=== PATIENT | male | born 1940 | race Caucasian/White ===

== ENCOUNTER 2017-10-01 06:43 | Emergency (ER) | payer MEDICARE, SELFPAY ==
[2017-10-01 06:49] VITALS: BP 142/92; PULSE 59; RESP 24; TEMP 36.4; O2SAT 94; BMI 20.5
--- NOTE | 2017-10-01 07:06 | HMH.EDGENADL ---
ED Disposition Clinical Impression: Acute exacerbation of chronic obstructive airways disease Disposition: Home, Self-Care Condition on Discharge: Good Instructions: DI for Chronic Obstructive Pulmonary Disease Additional Instructions: Continue using albuterol inhaler 2 puffs 4 times a day. Additional instructions for SHORTNESS OF BREATH: See your physician as soon as possible for further evaluation. Return immediately if worsening shortness of breath or if vomiting, chest pain, fever, coughing of blood, or passing out. Prescriptions: Albuterol Sulfate [Proair Hfa 90mcg/puff Inh] 2 puffs IH Q4HP PRN #1 inh PRN Reason: Shortness Of Breath Or Wheezing predniSONE [Prednisone 10mg Tab Dose-Pack] 10 mg PO DAILY #42 tab Referrals: Cayden Munoz MD [Primary Care Provider] - - Critical Care Critical Care Time: No Attestation: On , the high probability of a clinically significant, sudden or life threatening deterioration of the following system(s) required my full and direct attention, intervention and personal management. The time I documented below is in addition to time spent performing reported procedures but includes the following listed in this critical care notation. Medical Decision Making Vital Signs: 10/01/17 06:49 Temperature 97.5 F L Temperature Source Oral Pulse Rate [Left Radial] 59 L Respiratory Rate 24 Blood Pressure [Right Arm] 142/92 Blood Pressure Mean [Right Arm] 108 Blood Pressure Source [Right Arm] Automatic Cuff Blood Pressure Position [Right Arm] Sitting 02 Sat by Pulse Oximetry 94 L Oxygen Delivery Method Room Air Orders (Tests/Meds): ED MEDICATIONS Discontinued Medications Generic Name Dose Route Start Last Admin Trade Name Freq PRN Reason Stop Dose Admin Albuterol Sulfate 2.5 mg 10/01/17 07:04 Albuterol 0.083% 2.5mg/3ml [facility] 10/01/17 07:05 ONCE ONE Albuterol/Ipratropium 3 ml 10/01/17 07:20 Duoneb 3ml [facility] 10/01/17 07:21 ONCE ONE Methylprednisolone Sodium Succinate 125 mg 10/01/17 07:27 10/01/17 07:39 Solu-Medrol 125mg/2ml Vial IM 10/01/17 07:28 125 mg ONCE ONE Administration ORDERS Category Date Time Status XR chest 2V Stat Exams 10/01/17 07:12 Ordered - Radiology Data #1 Image(s): Chest X-ray interpreted by Padilla Mane M.D.: Collapse of left lower lobe with shift of mediastinum to the left. Compared to CT scan from April 05, no significant change to my interpretation. - Hoang Inquiry Pt receiving controlled substance: No Medical Decision Making Narrative: I discussed the patient's x-ray findings with him. He is aware of the left lower lobe collapse. He says that he was referred to a specialist in [place] and had bronchoscopy done after the CT showed this finding in March. He says they found no significant abnormalities. Proved after nebulizer treatment subjectively and objectively. General Adult HPI - General Chief complaint: Shortness of Breath/Dyspnea Stated complaint: DIFFICULTY BREATHING Mode of Arrival: Ambulatory Limitations: No Limitations Description of Symptoms (Recalled from ER Triage Doc. by RN): pt reports trouble breathing for last 4 days - History of Present Illness HPI narrative: The patient states that he has a history of COPD and is still a current smoker, states he has increased shortness of breath since about 2 or 3 AM. He denies any change in his chronic cough or sputum. His sputum is clear, as usual. He denies fever. No chest pain. No rhinorrhea or sore throat. No nausea or vomiting. No diaphoresis. He has been wheezing. He has an albuterol inhaler, but does not have a nebulizer. He has not been using his inhaler much, just a couple of times recently, and thinks it is just about out. He says he was seen at the [facility] about a week to 10 days ago. He says that at that time they thought he might be going into pneumonia and he was given a steroid
--- NOTE | 2017-10-01 07:12 | XR_ITS ---
XR chest 2V HISTORY: Shortness of air, current smoker ITS.REASON: soa ORDERING PHYSICIAN: Padilla Mane MD PATIENT AGE: 76 years COMPARISON: CT scan 04/05/2017 FINDINGS: Normal heart size. COPD. Left lower lobe collapse with effusion once again noted which was present on the previous CT scan. There is increased density in the left hilum however, this may be related to the overlying left pulmonary artery seen on face. The right lung is clear. No acute bony anomalies. Minimal atelectatic or fibrotic changes left upper lobe. IMPRESSION: COPD with left lower lobe collapse and left-sided effusion
[2017-10-01 07:20] VITALS: PULSE 54; PULSE 56
--- NOTE | 2017-10-01 07:27 | PC.NURSE ---
RT at bs for neb treatment
--- NOTE | 2017-10-01 07:30 | PC.NURSE ---
Pt to radiology
[2017-10-01 08:04] VITALS: BP 142/74; PULSE 55; RESP 20; TEMP 36.3; O2SAT 95
== END 2017-10-01 08:05 | disposition home or self-care (01) ==
PROVIDERS: Emergency Provider Emergency Medicine; Family Provider Internal Medicine Adolescent Medicine; PCP Internal Medicine Adolescent Medicine
DX: J44.1 Chronic obstructive pulmonary disease with (acute) exacerbation (principal); F17.210 Nicotine dependence, cigarettes, uncomplicated; Z79.899 Other long term (current) drug therapy
CPT/HCPCS: 71046; 96372; 99282

== ENCOUNTER 2017-10-04 13:20 | Emergency (ER) | payer MEDICARE, SELFPAY ==
[2017-10-04 13:25] VITALS: BP 159/115; PULSE 74; RESP 18; TEMP 36.8; O2SAT 93; BMI 20.4
--- NOTE | 2017-10-04 13:47 | XR_ITS ---
XR chest 2V HISTORY: Cough ITS.REASON: cough; second ER visit for same ORDERING PHYSICIAN: Stacey Aburto MD PATIENT AGE: 76 years COMPARISON: 10/01/2017 FINDINGS: There remains left lower lobe collapse with small effusion and mediastinal shift toward the left. Parenchymal opacity is present in the left midlung laterally similar to the previous exam. The right lung is clear. IMPRESSION: No change left lower lobe collapse with effusion and peripheral parenchymal opacity in the left midlung with mediastinal shift to the left.
--- NOTE | 2017-10-04 13:54 | HMH.EDSOB ---
ED Disposition Clinical Impression: Acute exacerbation of chronic obstructive airways disease, COPD exacerbation Disposition: Home, Self-Care Condition on Discharge: Good Instructions: DI for Chronic Obstructive Pulmonary Disease Additional Instructions: Stay on the same dose of prednisone until otherwise instructed by Dr. Munoz; continue inhalers; see Dr. Munoz in one to two days for recheck; continue to stay off the cigarettes, you're doing great! Prescriptions: predniSONE [Deltasone 5mg tablet] 5 mg PO BID 30 Days #60 tab Referrals: Cayden Munoz MD [Primary Care Provider] - - Critical Care Critical Care Time: No Attestation: On , the high probability of a clinically significant, sudden or life threatening deterioration of the following system(s) required my full and direct attention, intervention and personal management. The time I documented below is in addition to time spent performing reported procedures but includes the following listed in this critical care notation. Medical Decision Making Vital Signs: 10/04/17 13:25 10/04/17 14:06 10/04/17 14:32 Temperature 98.2 F Temperature Source Oral Pulse Rate 75 Pulse Rate [Radial] 74 77 Respiratory Rate 18 20 Blood Pressure [Left Arm] 159/115 144/72 Blood Pressure Mean [Left Arm] 129 96 Blood Pressure Source [Left Arm] Automatic Cuff Automatic Cuff Blood Pressure Position [Left Arm] Sitting Sitting 02 Sat by Pulse Oximetry 93 L 94 L Oxygen Delivery Method Room Air Room Air - Lab Data Lab results reviewed: Yes: I reviewed the patient's lab results. Lab Results 10/04/17 14:07: WBC 8.6, RBC 5.46, Hgb 16.6, Hct 50.6, MCV 92.7, MCH 30.4, MCHC 32.8, RDW 13.1, Plt Count 256, MPV 8.8, Neut % (Auto) 83.2 H, Lymph % (Auto) 11.8, [place] % (Auto) 3.8, Eos % (Auto) 1.0, Baso % (Auto) 0.1, Neut # (Auto) 7.1, Lymph # (Auto) 1.0, [place] # (Auto) 0.3, Eos # (Auto) 0.1, Baso # (Auto) 0.0 10/04/17 14:07: Sodium 143, Potassium 3.7, Chloride 103, Carbon Dioxide 30, Anion Gap 13.7, BUN 13, Creatinine 0.94, Estimated Creat Clear 59, Estimated GFR 78, Est GFR ( Amer) 95, Glucose 119 H, Calcium 8.9, Total Bilirubin 1.1 H, AST 30, ALT 34, Alkaline Phosphatase 120 H, Total Protein 7.3, Albumin 3.3 L, Globulin 4.0 H, Albumin/Globulin Ratio 0.8 L 10/04/17 14:07: Lactic Acid 2.4 H 10/04/17 14:50: Influenza Type A Ag Negative, Influenza Type B Ag Negative Result diagrams: 10/04/17 14:07 10/04/17 14:07 Orders (Tests/Meds): ED MEDICATIONS Discontinued Medications Generic Name Dose Route Start Last Admin Trade Name Freq PRN Reason Stop Dose Admin Albuterol/Ipratropium 3 ml 10/04/17 13:48 10/04/17 14:03 Duoneb 3ml Neb IH 10/04/17 13:49 3 ml ONCE ONE Administration - Radiology Data #1 Image(s): Chest Image Reviewed: Yes I reviewed the patient's radiology results, Yes I have reviewed radiologist's interpretation Preliminary Findings: Abnormal Change from prior. History of left lower lobe collapse. stable compared to chest x-ray from several days ago per radiologist. - Hoang Inquiry Pt receiving controlled substance: No Resp/SOB HPI - General Chief Complaint: Shortness of Breath/Dyspnea Stated Complaint: soa Mode of Arrival: Ambulatory Limitations: No Limitations Description of Symptoms (Recalled from ER Triage Doc. by RN): Short of breath - History of Present Illness Patient was seen in the ER 3 days ago secondary to shortness of breath. Was discharged home on albuterol inhaler and steroid taper. Has had increased wheezing over the past day or so. He has had a little bit of clear sputum. No leg or calf pain. No fever. No vomiting. He states that he is trying to quit smoking and uses a nicotine patch. 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 This was noted to be stable on chest x-ray on October 01, 2017 states that 6 months ago he underwent bronchoscopy and biopsy in [place]
--- NOTE | 2017-10-04 13:58 | ED_ITS ---
ED Disposition Clinical Impression: Acute exacerbation of chronic obstructive airways disease, COPD exacerbation Disposition: Home, Self-Care Condition on Discharge: Good Instructions: DI for Chronic Obstructive Pulmonary Disease Additional Instructions: Stay on the same dose of prednisone until otherwise instructed by Dr. Munoz; continue inhalers; see Dr. Munoz in one to two days for recheck; continue to stay off the cigarettes, you're doing great! Prescriptions: predniSONE [Deltasone 5mg tablet] 5 mg PO BID 30 Days #60 tab Referrals: Cayden Munoz MD [Primary Care Provider] - - Critical Care Critical Care Time: No Attestation: On , the high probability of a clinically significant, sudden or life threatening deterioration of the following system(s) required my full and direct attention, intervention and personal management. The time I documented below is in addition to time spent performing reported procedures but includes the following listed in this critical care notation. Medical Decision Making Vital Signs: 10/04/17 13:25 10/04/17 14:06 10/04/17 14:32 Temperature 98.2 F Temperature Source Oral Pulse Rate 75 Pulse Rate [Radial] 74 77 Respiratory Rate 18 20 Blood Pressure [Left Arm] 159/115 144/72 Blood Pressure Mean [Left Arm] 129 96 Blood Pressure Source [Left Arm] Automatic Cuff Automatic Cuff Blood Pressure Position [Left Arm] Sitting Sitting 02 Sat by Pulse Oximetry 93 L 94 L Oxygen Delivery Method Room Air Room Air - Lab Data Lab results reviewed: Yes: I reviewed the patient's lab results. Lab Results 10/04/17 14:07: WBC 8.6, RBC 5.46, Hgb 16.6, Hct 50.6, MCV 92.7, MCH 30.4, MCHC 32.8, RDW 13.1, Plt Count 256, MPV 8.8, Neut % (Auto) 83.2 H, Lymph % (Auto) 11.8, [place] % (Auto) 3.8, Eos % (Auto) 1.0, Baso % (Auto) 0.1, Neut # (Auto) 7.1 , Lymph # (Auto) 1.0, [place] # (Auto) 0.3, Eos # (Auto) 0.1, Baso # (Auto) 0.0 10/04/17 14:07: Sodium 143, Potassium 3.7, Chloride 103, Carbon Dioxide 30, Anion Gap 13.7, BUN 13, Creatinine 0.94, Estimated Creat Clear 59, Estimated GFR 78, Est GFR ( Amer) 95, Glucose 119 H, Calcium 8.9, Total Bilirubin 1.1 H, AST 30, ALT 34, Alkaline Phosphatase 120 H, Total Protein 7.3, Albumin 3.3 L, Globulin 4.0 H, Albumin/Globulin Ratio 0.8 L 10/04/17 14:07: Lactic Acid 2.4 H 10/04/17 14:50: Influenza Type A Ag Negative, Influenza Type B Ag Negative Result diagrams: 10/04/17 14:07 10/04/17 14:07 Orders (Tests/Meds): ED MEDICATIONS Discontinued Medications Generic Name Dose Route Start Last Admin Trade Name Freq PRN Reason Stop Dose Admin Albuterol/Ipratropium 3 ml 10/04/17 13:48 10/04/17 14:03 Duoneb 3ml Neb IH 10/04/17 13:49 3 ml ONCE ONE Administration - Radiology Data #1 Image(s): Chest Image Reviewed: Yes I reviewed the patient's radiology results, Yes I have reviewed radiologist's interpretation Preliminary Findings: Abnormal Change from prior. History of left lower lobe collapse. stable compared to chest x-ray from several days ago per radiologist. - Hoang Inquiry Pt receiving controlled substance: No Resp/SOB HPI - General Chief Complaint: Shortness of Breath/Dyspnea Stated Complaint: soa Mode of Arrival: Ambulatory Limitations: No Limitations Description of Symptoms (Recalled from ER Triage Doc. by RN): Short of breath - Histo
[2017-10-04 14:06] VITALS: PULSE 75; PULSE 79
[2017-10-04 14:32] VITALS: BP 144/72; PULSE 77; RESP 20; O2SAT 94
[2017-10-04 14:35] LABS: Alanine Aminotransferase 34 U/L (12-78); Albumin Level 3.3 gm/dL (3.4-5.0); Albumin/Globulin Ratio 0.8 (1.1-1.8); Alkaline Phosphatase 120 U/L (46-116); Anion Gap 13.7 mEq/L (5-15); Aspartate Amino Transferase 30 U/L (15-37); Basophils % 0.1 % (0.1-2.0); Bilirubin,Total 1.1 mg/dL (0.2-1.0); Blood Urea Nitrogen 13 mg/dL (7-18); Calcium 8.9 mg/dL (8.5-10.1); Carbon Dioxide 30 mmol/L (21.0-32.0); Chloride 103 mmol/L (98-107); Creatinine Clearance Estimated 59 mL/min (0-300); Creatinine,Serum 0.94 mg/dL (0.70-1.30); Eosinophils # 0.1 K/mm3 (0.0-0.4); Estimated Glomerular Filt Rate 78 ml/min (>60); GFR (African American) 95 ML/MIN (>60); Glucose 119 mg/dL (74-106); Hematocrit 50.6 % (42.0-52.0); Hemoglobin 16.6 g/dL (14.1-18.0); Lymphocytes % 11.8 K/mm3 (10-50); Mean Corpuscular HGB Conc 32.8 g/dL (31.8-35.4); Mean Corpuscular Hemoglobin 30.4 pg (27.0-31.2); Mean Corpuscular Volume 92.7 fl (80-94); Mean Platelet Volume 8.8 fl (7.4-10.4); Monocytes # 0.3 K/mm3 (0.1-1.0); Monocytes % 3.8 % (1.7-9.3); Neutrophils # 7.1 K/mm3 (1.8-7.8); Neutrophils % 83.2 % (37.0-80.0); Platelet Count 256 K/mm3 (142-424); Potassium 3.7 mmoL/L (3.5-5.1); Red Blood Count 5.46 M/mm3 (4.60-6.20); Red Cell Distribution Width 13.1 % (11.5-17.5); Sodium 143 mmol/L (136-145); Total Protein,Serum 7.3 gm/dL (6.4-8.2); White Blood Count 8.6 K/mm3 (4.8-10.8)
[2017-10-04 14:39] LABS: Lactic Acid 2.4 mmol/L (0.4-2.0)
--- NOTE | 2017-10-04 14:49 | PC.NURSE ---
FLU SWAB OBTAINED AND SENT TO LAB
[2017-10-04 15:45] VITALS: BP 145/70; PULSE 87; RESP 14; TEMP 36.7; O2SAT 97
[2017-10-04 18:21] LABS: Reflex Lactic Add Lactic Reflex
== END 2017-10-04 15:48 | disposition home or self-care (01) ==
PROVIDERS: Emergency Provider Emergency Medicine; Family Provider Internal Medicine Adolescent Medicine; PCP Internal Medicine Adolescent Medicine
DX: J44.1 Chronic obstructive pulmonary disease with (acute) exacerbation (principal); F17.210 Nicotine dependence, cigarettes, uncomplicated; Z79.52 Long term (current) use of systemic steroids; Z79.899 Other long term (current) drug therapy; Z88.0 Allergy status to penicillin
CPT/HCPCS: 71046; 80053; 83605; 85025; 87275; 87276; 99283

== ENCOUNTER → 2017-10-17 09:19 | Outpatient (CLI) | payer MEDICARE, SELFPAY ==
[2017-10-17 09:48] LABS: Basophils # 0.1 K/mm3 (0-0.2); Basophils % 0.7 % (0.1-2.0); Eosinophils # 0.2 K/mm3 (0.0-0.4); Eosinophils % 2.7 % (0.1-12.0); Hematocrit 46.3 % (42.0-52.0); Hemoglobin 15.1 g/dL (14.1-18.0); Lymphocytes # 1.5 K/mm3 (0.7-4.5); Lymphocytes % 16.7 K/mm3 (10-50); Mean Corpuscular HGB Conc 32.5 g/dL (31.8-35.4); Mean Corpuscular Hemoglobin 30.4 pg (27.0-31.2); Mean Corpuscular Volume 93.4 fl (80-94); Mean Platelet Volume 7.7 fl (7.4-10.4); Monocytes # 0.5 K/mm3 (0.1-1.0); Monocytes % 5.4 % (1.7-9.3); Neutrophils # 6.6 K/mm3 (1.8-7.8); Neutrophils % 74.6 % (37.0-80.0); Platelet Count 239 K/mm3 (142-424); Red Blood Count 4.96 M/mm3 (4.60-6.20); Red Cell Distribution Width 13.2 % (11.5-17.5); White Blood Count 8.9 K/mm3 (4.8-10.8)
[2017-10-17 10:04] LABS: Hemoglobin A1C 6.1 % (0.0-7.0)
[2017-10-17 11:04] LABS: Thyroid Stimulating Hormone 1.33 uIU/ml (0.358-3.740)
[2017-10-18 13:38] LABS: Rapid Plasma Reagin Ab Titer Non Reactive (NonRea<1:1); Vitamin B12 541 pg/mL (232-1245)
== END ==
PROVIDERS: PCP Internal Medicine Adolescent Medicine; Visit Provider Internal Medicine Adolescent Medicine
DX: G60.9 Hereditary and idiopathic neuropathy, unspecified (principal); R76.11 Nonspecific reaction to tuberculin skin test without active tuberculosis
CPT/HCPCS: 36415; 82607; 83036; 84443; 85025; 86592

== ENCOUNTER 2017-10-24 12:30 | Inpatient (IN) | payer MEDICARE, SELFPAY ==
--- NOTE | 2017-10-24 | CT_ITS ---
CT chest w con Ordering Physician: Cayden Munoz MD Patient Age: 76 years: Male HISTORY: ITS.REASON: MASS?,INFILTRATE TECHNIQUE: Helical CT scanning performed through the chest following 75 cc [id number] COMPARISON :Previous CT chest from 04/05/2017. FINDINGS Left chest with similar appearance versus Leila exam. Anatomy again observe marked collapse & consolidation the LLL. This Yields marked volume loss.- Shift of mediastinum the left with elevation left hemidiaphragm. We again see significant thickening of the bronchus leading towards LLL but it does Not appear to be as markedly thickened as previous CT from-... Bronchoscopy would be recommended if it has not been performed to evaluate this area . Stable appearing small Pleural effusion overlies this last LLL Second smaller area of dense wedge-shaped consolidation/pronounced atelectasis is seen at lateral/posterior Left Upper Lobe-best seen sagittal image 72.. Overall very slight regression findings here since March2017. It has rather wedge/moundlike appearance with thickened airway leading to this area of subsegmental collapse here peripherally. Slight improved aeration between this area and the collapsed LLL . Would also note we do see good perfusion of small branching pulmonary vessels throughout this area of dense consolidation on this as well as on prior study this doubt old pulmonary infarct changes & also doubt underlying pleural-based mass otherwise... There is thickening airways elsewhere throughout the left lung more so than right.. Likely reflecting chronic bronchitis type features. right lung is hyperexpanded with emphysematous changes & with stable 2.4 cm bleb formation at right midlung just superior margin of the minor fissure. . No discrete new findings. Chest wall and T-spine stable. No destructive lesions. Mediastinum. No significant hilar no mediastinal adenopathy or mass. Uppermost abdomen.: No prominent findings Imaged portion Liver with no focal lesions. Plump left adrenal is similar to 2015, & can be followed IMPRESSION: --------- 1. Findings left chest are similar to March 2017. No discrete acute nor prominent new findings 2. Again marked volume loss left chest with shift the mediastinum to the left. This Due to complete collapse/consolidation of the LLL ;. Also persistent wedgelike area segmental consolidation & atelectasis posterior SRI just major fissure.. . 3. Stable small left pleural effusion.. Areas of pleural thickening/& pleural parenchymal scarring again noted . 3. Most notable airway thickening is seen leading towards collapsed LLL-but this is less pronounced in this particular area & with improvement since March 2017. However Recommend bronchoscopy if it has not been performed here Diffuse airway thickening elsewhere again seen, overall most evident at left lung . Emphysematous features most evident at stable hyperexpanded right lung.
[2017-10-24 13:00] VITALS: RESP 20; O2SAT 93
[2017-10-24 13:10] VITALS: BMI 19.5
[2017-10-24 13:19] VITALS: BMI 19.7
[2017-10-24 13:20] VITALS: BP 136/86; PULSE 74; RESP 16; TEMP 36.7; O2SAT 82
[2017-10-24 13:46] LABS: Basophils % 0.6 % (0.1-2.0); Eosinophils # 0.1 K/mm3 (0.0-0.4); Eosinophils % 1.7 % (0.1-12.0); Hematocrit 50.7 % (42.0-52.0); Hemoglobin 16.7 g/dL (14.1-18.0); Lymphocytes % 15.7 K/mm3 (10-50); Mean Corpuscular Hemoglobin 30.9 pg (27.0-31.2); Mean Corpuscular Volume 93.5 fl (80-94); Mean Platelet Volume 7.6 fl (7.4-10.4); Monocytes # 0.4 K/mm3 (0.1-1.0); Monocytes % 5.8 % (1.7-9.3); Neutrophils # 4.9 K/mm3 (1.8-7.8); Neutrophils % 76.3 % (37.0-80.0); Platelet Count 230 K/mm3 (142-424); Red Blood Count 5.43 M/mm3 (4.60-6.20); Red Cell Distribution Width 13.4 % (11.5-17.5); White Blood Count 6.4 K/mm3 (4.8-10.8)
--- NOTE | 2017-10-24 13:52 | HMH.HP ---
*Admission Date: 10/24/17 *Chief complaint: Cough and weakness *History of present illness: 76-year-old white male, recently in the emergency department for COPD exacerbation and who was placed on nebulizer treatments with improvement, who came to my office last week with chief complaints of fatigue, neuropathy issues, weight loss and some night sweats. Chest x-ray was done which revealed atelectasis but no concerning findings otherwise, remote history of a possibly positive TB skin test was elicited and a quantiferon Gold test was done which was negative last week. Other labs were done for some neuropathy symptoms including B12 levels, blood count, hemoglobin A1c and a rapid plasma reagin. These were also negative, and patient returns today to discuss these labs but noted that he's been increasingly weak, had a fall last night, very unsteady on his feet and has been wheezing and coughing and producing clear sputum. In the office he was found to have oximetry reading of 84% on room air, mild tachycardia, wheezing and rhonchi bilaterally and was admitted to hospital for COPD exacerbation. [facility] History I have reviewed the patient's past medical history: Yes Medical History: Reports:: Chronic Obstructive Pulmonary Disease (COPD), Hypertension, Myocardial Infarction Denies:: Cancer, Diabetes Mellitus Type 1, Diabetes Mellitus Type 2, MRSA Comment: In the remote past. Treated medically Other Surgeries: Yes: Hernia Repair, Other Amputation: No Fractures: No Comment: Vocal cord polyps removed - *Social History Smoking Status: Current every day smoker Tobacco Type: cigarettes # Packs/Day (cigarettes): 1 Alcohol Intake: current Alcohol Intake Frequency:: 0-2 drinks per day - Psychiatric History Expresses thoughts of harming self/others: None Suicide Plan Description: No Plan Review of Systems - Review of Systems Review of systems:: unable to obtain, other, pertinent systems reviewed and negative unless documented below - Constitutional Reports weakness, Reports weight loss - *Cardiovascular Reports shortness of breath with activity - *Respiratory Reports chest congestion, Reports cough, Reports shortness of breath, Reports shortness of breath with activity, Reports excessive phlegm production, Denies coughing up blood, Denies pain on inspiration - *Gastrointestinal Denies abdominal pain, Denies belching - *Genitourinary Denies difficulty urinating - *Musculoskeletal Denies abnormal walking Meds Home Medications Medication Instructions Recorded Confirmed Type Albuterol Sulfate [Proventil-HFA 2 puffs INHALATION Q6HP PRN 01/06/18 01/06/18 History 90mcg/puff Inh] Amlodipine Besylate [Norvasc 5mg 1 tab PO DAILY 10/01/17 10/01/17 History tablet] Atenolol [Atenolol 100mg Tab] 100 mg PO DAILY 10/01/17 10/01/17 History predniSONE [Prednisone 10mg Tab 10 mg PO DAILY 10/04/17 10/04/17 History Dose-Pack] Allergies Allergy/AdvReac Type Severity Reaction Status Date / Time Penicillins Allergy Intermediate I-HIVES Verified 10/01/17 07:00 Exam Vital signs and Labs for Last 24 Hours: Temp Pulse Resp BP Pulse Ox 98.0 F 74 16 136/86 82 L 10/24/17 13:20 10/24/17 13:20 10/24/17 13:20 10/24/17 13:20 10/24/17 13:20 Laboratory Results - last 24 hr 10/24/17 13:30: WBC 6.4, RBC 5.43, Hgb 16.7, Hct 50.7, MCV 93.5, MCH 30.9, MCHC 33.0, RDW 13.4, Plt Count 230, MPV 7.6, Neut % (Auto) 76.3, Lymph % (Auto) 15.7, [place] % (Auto) 5.8, Eos % (Auto) 1.7, Baso % (Auto) 0.6, Neut # (Auto) 4.9, Lymph # (Auto) 1.0, [place] # (Auto) 0.4, Eos # (Auto) 0.1, Baso # (Auto) 0.0 I & O for Last 24 hours: Intake & Output 10/22/17 10/23/17 10/24/17 10/25/17 11:59 11:59 11:59 11:59 Weight 137 lb 9.095 oz Narrative: The patient is alert, appears ill. Coughing. Has rosacea appearance of his nasal bridge and under his eyes. Has clear postnasal drainage. Clear drainage in the posterior throat. Lungs aiken
--- NOTE | 2017-10-24 13:56 | P.HP_ITS ---
*Admission Date: 10/24/17 *Chief complaint: Cough and weakness *History of present illness: 76-year-old white male, recently in the emergency department for COPD exacerbation and who was placed on nebulizer treatments with improvement, who came to my office last week with chief complaints of fatigue, neuropathy issues , weight loss and some night sweats. Chest x-ray was done which revealed atelectasis but no concerning findings otherwise, remote history of a possibly positive TB skin test was elicited and a quantiferon Gold test was done which was negative last week. Other labs were done for some neuropathy symptoms including B12 levels, blood count, hemoglobin A1c and a rapid plasma reagin. These were also negative, and patient returns today to discuss these labs but noted that he's been increasingly weak, had a fall last night, very unsteady on his feet and has been wheezing and coughing and producing clear sputum. In the office he was found to have oximetry reading of 84% on room air, mild tachycardia, wheezing and rhonchi bilaterally and was admitted to hospital for COPD exacerbation. [facility] History I have reviewed the patient's past medical history: Yes Medical History: Reports:: Chronic Obstructive Pulmonary Disease (COPD), Hypertension, Myocardial Infarction Denies:: Cancer, Diabetes Mellitus Type 1, Diabetes Mellitus Type 2, MRSA Comment: In the remote past. Treated medically Other Surgeries: Yes: Hernia Repair, Other Amputation: No Fractures: No Comment: Vocal cord polyps removed - *Social History Smoking Status: Current every day smoker Tobacco Type: cigarettes # Packs/Day (cigarettes): 1 Alcohol Intake: current Alcohol Intake Frequency:: 0-2 drinks per day - Psychiatric History Expresses thoughts of harming self/others: None Suicide Plan Description: No Plan Review of Systems - Review of Systems Review of systems:: unable to obtain, other, pertinent systems reviewed and negative unless documented below - Constitutional Reports weakness, Reports weight loss - *Cardiovascular Reports shortness of breath with activity - *Respiratory Reports chest congestion, Reports cough, Reports shortness of breath, Reports shortness of breath with activity, Reports excessive phlegm production, Denies coughing up blood, Denies pain on inspiration - *Gastrointestinal Denies abdominal pain, Denies belching - *Genitourinary Denies difficulty urinating - *Musculoskeletal Denies abnormal walking Meds Home Medications Medication Instructions Recorded Confirmed Type Albuterol Sulfate [Proventil-HFA 2 puffs INHALATION Q6HP PRN 01/06/18 01/06/18 History 90mcg/puff Inh] Amlodipine Besylate [Norvasc 5mg 1 tab PO DAILY 10/01/17 10/01/17 History tablet] Atenolol [Atenolol 100mg Tab] 100 mg PO DAILY 10/01/17 10/01/17 History predniSONE [Prednisone 10mg Tab 10 mg PO DAILY 10/04/17 10/04/17 History Dose-Pack] Allergies Allergy/AdvReac Type Severity Reaction Status Date / Time Penicillins Allergy Intermediate I-HIVES Verified 10/01/17 07:00 Exam Vital signs and Labs for Last 24 Hours: Temp Pulse Resp BP Pulse Ox 98.0 F 74 16 136/86 82 L 10/24/17 13:20 10/24/17 13:20 10/24/17 13:20 10/24/17 13:20 10/24/17 13:20 Laboratory Results - last 24 hr 10/24/17 13:30: WBC 6.4, RBC 5.43, Hgb 16.7, Hct 50.7, MCV 93.5, MCH 30.9, MCHC 33.0, RDW 13.4, Plt Count 230, MPV 7.6, Neut % (A
[2017-10-24 14:01] LABS: Alanine Aminotransferase 27 U/L (12-78); Anion Gap 12.6 mEq/L (5-15); Aspartate Amino Transferase 24 U/L (15-37); Bilirubin,Total 0.8 mg/dL (0.2-1.0); Blood Urea Nitrogen 16 mg/dL (7-18); Calcium 8.9 mg/dL (8.5-10.1); Carbon Dioxide 28 mmol/L (21.0-32.0); Chloride 105 mmol/L (98-107); Creatinine Clearance Estimated 57 mL/min (0-300); Creatinine,Serum 0.97 mg/dL (0.70-1.30); Estimated Glomerular Filt Rate 76 ml/min (>60); GFR (African American) 92 ML/MIN (>60); Globulin 4.1 gm/dl (1.3-3.2); Glucose 114 mg/dL (74-106); Potassium 4.6 mmoL/L (3.5-5.1); Sodium 141 mmol/L (136-145); Total Protein,Serum 7.1 gm/dL (6.4-8.2)
[2017-10-24 14:02] LABS: Albumin/Globulin Ratio 0.7 (1.1-1.8); Alkaline Phosphatase 128 U/L (46-116)
--- NOTE | 2017-10-24 14:20 | PC.NURSE ---
DR. SPRAGUE AT THE BEDSIDE TO CONSULT WITH THE PATIENT PER DR. TEJEDA'S REQUEST.
--- NOTE | 2017-10-24 15:18 | HMH.CONS ---
*Admission Date: 10/24/17 *Chief complaint: I am so short of breath. *History of present illness: Mr. Mack is a 76 year old man with a long smoking history (63 years) and evidence of emphysema on CT scans of the chest who has had unexplained weight loss of 20 lbs over the last year. A CT of the chest last summer showed LLL collapse not seen on prior CT's from 2014. He had evidence of emphysema. Although he has emphysema, he has not been told he has COPD until recently. Earlier this month, he developed dyspnea on exertion over a couple of days and was evaluated twice and treated for this. A nebulizer really helped initially but he became more symptomatic and was evaluated by Dr. Munoz and found to be hypoxemic. He normally has a daily cough which is productive of small amounts of clear sputum. The cough has increased and is productive of thick white sputum;he's had no hemoptysis or chest pain. He is breathless walking a few feet and has felt quite weak for months. He had no fever, chills, headache of abdominal complaints with this illness. He's had no diarrhea. Before this past month, he was not treated for COPD regularly. He began smoking when he was 13 and smoked 1.5 ppd until recently when he cut down to 5 cigarettes a day. [facility] History Medical History: Reports:: Chronic Obstructive Pulmonary Disease (COPD), Hypertension, Myocardial Infarction Denies:: Cancer, Diabetes Mellitus Type 1, Diabetes Mellitus Type 2, MRSA Comment: He has had a coronary stent. 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 He is a and lives alone although his daughter has stayed with him lately. He has 3 children and 4 grandchildren, all well. - Psychiatric History Expresses thoughts of harming self/others: None Suicide Plan Description: No Plan Comment: No history of chronic lung disease or cancer. Review of Systems - Constitutional Reports weight loss Comments: see hpi - Eyes Comments: Negative - ENT Comments: poor dentition; hard of hearing - *Respiratory Comments: see hpi - *Genitourinary Comments: nocturia X1 - *Musculoskeletal Reports back pain - Integumentary/Breasts Comments: seborrhea - *Neurologic Reports weakness, Denies abnormal walking - Psychiatric Comments: negative Meds Home Medications Medication Instructions Recorded Confirmed Type Albuterol Sulfate [Proventil-HFA 2 puffs INHALATION Q6HP PRN 10/01/17 10/01/17 History 90mcg/puff Inh] Amlodipine Besylate [Norvasc 5mg 1 tab PO DAILY 10/01/17 10/01/17 History tablet] Atenolol [Atenolol 100mg Tab] 100 mg PO DAILY 10/01/17 10/01/17 History predniSONE [Prednisone 10mg Tab 10 mg PO DAILY 10/04/17 10/04/17 History Dose-Pack] Aspirin [Aspir 81] 81 mg PO DAILY 10/24/17 10/24/17 History predniSONE [Deltasone 5mg 5 mg PO BID 10/24/17 10/24/17 History tablet] Allergies Allergy/AdvReac Type Severity Reaction Status Date / Time Penicillins Allergy Intermediate I-HIVES Verified 10/01/17 07:00 Exam Vital signs and Labs for Last 24 Hours: Temp Pulse Resp BP Pulse Ox 98.0 F 74 16 136/86 82 L 10/24/17 13:20 10/24/17 13:20 10/24/17 13:20 10/24/17 13:20 10/24/17 13:20 Laboratory Results - last 24 hr 10/24/17 13:30: WBC 6.4, RBC 5.43, Hgb 16.7, Hct 50.7, MCV 93.5, MCH 30.9, MCHC 33.0, RDW 13.4, Plt Count 230, MPV 7.6, Neut % (Auto) 76.3, Lymph % (Auto) 15.7, [place] % (Auto) 5.8, Eos % (Auto) 1.7, Baso % (Auto) 0.6, Neut # (Auto) 4.9, Lymph # (Auto) 1.0, [place] # (Auto) 0.4, Eos # (Auto) 0.1, Baso # (Auto) 0.0 10/24/17 13:30: Sodium 141, Potassium 4.6, Chloride 105, Carbon
[2017-10-24 15:19] LABS: Mycoplasma Pneumo IGM (Rapid) Non-Reactive (Non-Reactiv)
--- NOTE | 2017-10-24 15:31 | P.CONS_ITS ---
*Admission Date: 10/24/17 *Chief complaint: I am so short of breath. *History of present illness: Mr. Mack is a 76 year old man with a long smoking history (63 years) and evidence of emphysema on CT scans of the chest who has had unexplained weight loss of 20 lbs over the last year. A CT of the chest last summer showed LLL collapse not seen on prior CT's from 2014. He had evidence of emphysema. Although he has emphysema, he has not been told he has COPD until recently. Earlier this month, he developed dyspnea on exertion over a couple of days and was evaluated twice and treated for this. A nebulizer really helped initially but he became more symptomatic and was evaluated by Dr. Munoz and found to be hypoxemic. He normally has a daily cough which is productive of small amounts of clear sputum. The cough has increased and is productive of thick white sputum ;he's had no hemoptysis or chest pain. He is breathless walking a few feet and has felt quite weak for months. He had no fever, chills, headache of abdominal complaints with this illness. He's had no diarrhea. Before this past month, he was not treated for COPD regularly. He began smoking when he was 13 and smoked 1.5 ppd until recently when he cut down to 5 cigarettes a day. [facility] History Medical History: Reports:: Chronic Obstructive Pulmonary Disease (COPD), Hypertension, Myocardial Infarction Denies:: Cancer, Diabetes Mellitus Type 1, Diabetes Mellitus Type 2, MRSA Comment: He has had a coronary stent. 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 He is a and lives alone although his daughter has stayed with him lately. He has 3 children and 4 grandchildren, all well. - Psychiatric History Expresses thoughts of harming self/others: None Suicide Plan Description: No Plan Comment: No history of chronic lung disease or cancer. Review of Systems - Constitutional Reports weight loss Comments: see hpi - Eyes Comments: Negative - ENT Comments: poor dentition; hard of hearing - *Respiratory Comments: see hpi - *Genitourinary Comments: nocturia X1 - *Musculoskeletal Reports back pain - Integumentary/Breasts Comments: seborrhea - *Neurologic Reports weakness, Denies abnormal walking - Psychiatric Comments: negative Meds Home Medications Medication Instructions Recorded Confirmed Type Albuterol Sulfate [Proventil-HFA 2 puffs INHALATION Q6HP PRN 10/01/17 10/01/17 History 90mcg/puff Inh] Amlodipine Besylate [Norvasc 5mg 1 tab PO DAILY 10/01/17 10/01/17 History tablet] Atenolol [Atenolol 100mg Tab] 100 mg PO DAILY 10/01/17 10/01/17 History predniSONE [Prednisone 10mg Tab 10 mg PO DAILY 10/04/17 10/04/17 History Dose-Pack] Aspirin [Aspir 81] 81 mg PO DAILY 10/24/17 10/24/17 History predniSONE [Deltasone 5mg 5 mg PO BID 10/24/17 10/24/17 History tablet] Allergies Allergy/AdvReac Type Severity Reaction Status Date / Time Penicillins Allergy Intermediate I-HIVES Verified 10/01/17 07:00 Exam Vital signs and Labs for Last 24 Hours:
[2017-10-24 16:00] VITALS: BP 139/87; PULSE 74; RESP 18; TEMP 36.4; O2SAT 95
--- NOTE | 2017-10-24 18:00 | PC.NURSE ---
DR. TEJEDA HAD ROUNDED ON THE PATIENT THAT WAS A DIRECT ADMIT FROM HIS OFFICE, O2 MUCH BETTER ON 2 LMP NASAL CANNULA. LUNGS HAVE WHEEZES THROUGHOUT, BLOOD CULTURES HAVE BEEN OBTAINED, WAITING FOR A SPUTUM CULTURE TO BE OBTAINED, VSS, PATIENT WILL BE NEEDING TO USE THE SERAX PROTOCOL, HE ADMITS TO DRINKING 1/2 A PINT OF [place] A NIGHT, STILL SMOKES DAILY 1 PPD. CHEST XRAY WAS ALSO COMPLETED TODAY WELL.
[2017-10-24 20:00] VITALS: BP 124/82; PULSE 82; RESP 18; TEMP 36.4; O2SAT 93
--- NOTE | 2017-10-24 21:02 | PC.NURSE ---
PT HAS TEDS OFF AT THIS TIME
[2017-10-24 21:24] VITALS: O2SAT 88
[2017-10-25 04:00] VITALS: BP 145/83; PULSE 76; RESP 22; TEMP 36.4; O2SAT 94
[2017-10-25 07:03] LABS: Basophils % 0.1 % (0.1-2.0); Eosinophils % 0.1 % (0.1-12.0); Hemoglobin 15.4 g/dL (14.1-18.0); Lymphocytes # 0.8 K/mm3 (0.7-4.5); Lymphocytes % 10.1 K/mm3 (10-50); Mean Corpuscular HGB Conc 32.1 g/dL (31.8-35.4); Mean Corpuscular Hemoglobin 30.5 pg (27.0-31.2); Mean Corpuscular Volume 94.9 fl (80-94); Monocytes # 0.1 K/mm3 (0.1-1.0); Monocytes % 1.1 % (1.7-9.3); Neutrophils # 6.9 K/mm3 (1.8-7.8); Neutrophils % 88.6 % (37.0-80.0); Platelet Count 226 K/mm3 (142-424); Red Blood Count 5.06 M/mm3 (4.60-6.20); Red Cell Distribution Width 13.1 % (11.5-17.5); White Blood Count 7.8 K/mm3 (4.8-10.8)
[2017-10-25 07:11] LABS: Alanine Aminotransferase 24 U/L (12-78); Albumin Level 2.7 gm/dL (3.4-5.0); Albumin/Globulin Ratio 0.7 (1.1-1.8); Alkaline Phosphatase 115 U/L (46-116); Anion Gap 10.8 mEq/L (5-15); Aspartate Amino Transferase 17 U/L (15-37); Bilirubin,Total 0.6 mg/dL (0.2-1.0); Blood Urea Nitrogen 14 mg/dL (7-18); Calcium 8.3 mg/dL (8.5-10.1); Carbon Dioxide 28 mmol/L (21.0-32.0); Chloride 107 mmol/L (98-107); Creatinine Clearance Estimated 57 mL/min (0-300); Creatinine,Serum 0.95 mg/dL (0.70-1.30); Estimated Glomerular Filt Rate 77 ml/min (>60); GFR (African American) 94 ML/MIN (>60); Globulin 3.9 gm/dl (1.3-3.2); Glucose 137 mg/dL (74-106); Potassium 4.8 mmoL/L (3.5-5.1); Sodium 141 mmol/L (136-145); Total Protein,Serum 6.6 gm/dL (6.4-8.2)
[2017-10-25 07:25] LABS: MANUAL DIFFERENTIAL MANUAL DIFFERENTIAL (MANUAL DIFF)
[2017-10-25 08:00] VITALS: BP 132/61; PULSE 85; RESP 20; TEMP 36.7
--- NOTE | 2017-10-25 08:25 | P.PN_ITS ---
Internal Medicine - PN: Subj *Date: 10/25/17 *Time: 07:30 Exam Vital signs and Labs for Last 24 Hours: Temp Pulse Resp BP Pulse Ox 97.6 F 76 22 145/83 94 L 10/25/17 04:00 10/25/17 04:00 10/25/17 04:00 10/25/17 04:00 10/25/17 04:00 Laboratory Results - last 24 hr 10/24/17 13:30: WBC 6.4, RBC 5.43, Hgb 16.7, Hct 50.7, MCV 93.5, MCH 30.9, MCHC 33.0, RDW 13.4, Plt Count 230, MPV 7.6, Neut % (Auto) 76.3, Lymph % (Auto) 15.7 , [place] % (Auto) 5.8, Eos % (Auto) 1.7, Baso % (Auto) 0.6, Neut # (Auto) 4.9, Lymph # (Auto) 1.0, [place] # (Auto) 0.4, Eos # (Auto) 0.1, Baso # (Auto) 0.0 10/24/17 13:30: Sodium 141, Potassium 4.6, Chloride 105, Carbon Dioxide 28, Anion Gap 12.6, BUN 16, Creatinine 0.97, Estimated Creat Clear 57, Estimated GFR 76, Est GFR ( Amer) 92, Glucose 114 H, Calcium 8.9, Total Bilirubin 0.8, AST 24, ALT 27, Alkaline Phosphatase 128 H, Total Protein 7.1, Albumin 3.0 L, Globulin 4.1 H, Albumin/Globulin Ratio 0.7 L 10/24/17 13:30: Mycoplasma pneumon IgM Non-reactive 10/25/17 06:05: WBC 7.8, RBC 5.06, Hgb 15.4, Hct 48.0, MCV 94.9 H, MCH 30.5, MCHC 32.1, RDW 13.1, Plt Count 226, MPV 8.0, Neut % (Auto) 88.6 H, Lymph % (Auto ) 10.1, [place] % (Auto) 1.1 L, Eos % (Auto) 0.1, Baso % (Auto) 0.1, Neut # (Auto) 6.9, Lymph # (Auto) 0.8, [place] # (Auto) 0.1, Eos # (Auto) 0.0, Baso # (Auto) 0.0 10/25/17 06:05: Sodium 141, Potassium 4.8, Chloride 107, Carbon Dioxide 28, Anion Gap 10.8, BUN 14, Creatinine 0.95, Estimated Creat Clear 57, Estimated GFR 77, Est GFR ( Amer) 94, Glucose 137 H D, Calcium 8.3 L, Total Bilirubin 0.6, AST 17 D, ALT 24, Alkaline Phosphatase 115, Total Protein 6.6, Albumin 2.7 L, Globulin 3.9 H, Albumin/Globulin Ratio 0.7 L I & O for Last 24 hours: Intake & Output 10/22/17 10/23/17 10/24/17 10/25/17 11:59 11:59 11:59 11:59 Intake Total 8 / 2198 Balance 2198 / 2198 Weight 137 lb 9.095 oz Microbiology Reports for the Last 24 Hours: Microbiology 10/24/17 23:00 Sputum - Expectorated Sputum Gram Stain - Final Narrative: Patient reports he feels much better this morning. Shortness of breath has improved. He has been able to ambulate to the bathroom without assistance. He did not have any tremors through the night that required serax. Alert and oriented x3. Rate and rhythm regular. No LE edema. Pulses 2+ bilaterally. Lung sounds with rhonchi and wheezes throughout, diminished LLL. Abdomen soft and nontender Assessment and Plan (1) Weight loss Current visit: Yes Status: Acute Category: Medical Code(s): R63.4 - Abnormal weight loss (2) Acute exacerbation of chronic obstructive airways disease Current visit: No Status: Acute Category: Medical Code(s): J44.1 - Chronic obstructive pulmonary disease with (acute) exacerbation (3) Atelectasis of left lung Start date: 10/24/17 Current visit: Yes Status: Acute Category: Medical Code(s): J98.11 - Atelectasis - Assessment and plan all Dx Assessment and Plan for all problems:: Continue IV antbiotics, steroids and duonebs. Will consider d/c home with oxygen tomorrow.
--- NOTE | 2017-10-25 09:32 | P.CONPHA_ITS ---
[facility] Pharmacy VTE Monitoring - Patient Demographics Admission date: 10/24/17 Report Date: 10/25/17 Time: 09:32 Allergies/Adverse Reactions: Patient Allergies Penicillins Allergy (Intermediate, Verified 10/01/17 07:00) I-HIVES Height: 1.78 m Weight: 62.4 kg Patient Problems: Current Active Problems Weight loss (Acute) Atelectasis of left lung (Acute) - VTE Risk Labs: VTE Related Lab Results Hgb 15.4 g/dL (14.1-18.0) 10/25/17 06:05 Hct 48.0 % (42.0-52.0) 10/25/17 06:05 Plt Count 226 K/mm3 (142-424) 10/25/17 06:05 BUN 14 mg/dL (7-18) 10/25/17 06:05 Creatinine 0.95 mg/dL (0.70-1.30) 10/25/17 06:05 Estimated Creat Clear 57 mL/min (0-300) 10/25/17 06:05 Was VTE Risk Assessment Performed: Yes VTE Score: 3 VTE Risk Level: Low Risk - Prophylaxis VTE Prophylaxis Ordered?: Yes Types of VTE Prophylaxis: TEDS Knee High Location of Applied Device: Bilateral Lower Extremeties - VTE Diagnosis Confirmed Treatment or plan recommended: Continue Current Treatment
[2017-10-25 10:40] LABS: Lymphocytes % 10 % (10-50); Monocytes % 3 % (2-9); Neutrophils % 87 % (42-76); Platelet Estimate Normal; Total Cells Counted 100
[2017-10-25 15:36] VITALS: PULSE 77; O2SAT 95
[2017-10-25 15:56] VITALS: BP 158/78; PULSE 70; RESP 20; TEMP 36.9; O2SAT 93
[2017-10-25 20:00] VITALS: BP 140/85; PULSE 80; RESP 20; TEMP 36.6; O2SAT 94
[2017-10-26] VITALS (10 sets, daily range): BP systolic 123–139; BP diastolic 64–72; PULSE 56–92; RESP 18–22; TEMP 36.2–36.8; O2SAT 87–95; BMI 19.6
--- NOTE | 2017-10-26 04:16 | PC.NURSE ---
PT RESTED WELL DURING SHIFT. PT TOLERATED 2L NC WELL. TEDS ON BILLATERAL LOWER EXTREMITIES. EXPIRATORY WHEEZES NOTED UPON AUSCULTATION. PT IS HARD OF HEARING. BOWEL SOUNDS ACTIVE IN ALL 4 QUADS. VSS. A&O X3. NO SIGNS OF ACUTE DISTRESS NOTED, WILL CONTINUE TO MONITOR.
--- NOTE | 2017-10-26 07:43 | PC.NURSE ---
HANDOFF REPORT GIVEN TO LEE CORTES.
--- NOTE | 2017-10-26 08:17 | P.PN_ITS ---
Internal Medicine - PN: Subj *Date: 10/26/17 *Time: 08:14 Interval history: Patient had a good night, rested well, on oxygen. This morning he is alert, pleasant, ate breakfast vigorously. Exam Vital signs and Labs for Last 24 Hours: Temp Pulse Resp BP Pulse Ox 98.3 F 56 L 20 131/72 93 L 10/26/17 07:47 10/26/17 07:47 10/26/17 07:47 10/26/17 07:47 10/26/17 07:47 Laboratory Results - last 24 hr 10/25/17 06:05: Total Counted 100, Neutrophils % (Manual) 87 H, Lymphocytes % ( Manual) 10, Monocytes % (Manual) 3, Platelet Estimate Normal I & O for Last 24 hours: Intake & Output 10/23/17 10/24/17 10/25/17 10/26/17 11:59 11:59 11:59 11:59 Intake Total 2198 / 2198 3706 / 3706 Output Total 0 / 0 Balance 2198 / 2198 3706 / 3706 Weight 137 lb 9.095 oz 161 lb 8 oz Microbiology Reports for the Last 24 Hours: Microbiology 10/24/17 13:35 Blood Blood Culture - Preliminary NO GROWTH AFTER 24 HOURS 10/24/17 13:30 Blood Blood Culture - Preliminary NO GROWTH AFTER 24 HOURS 10/24/17 23:00 Sputum - Expectorated Sputum Gram Stain - Final Narrative: Patient's alert and pleasant. Lungs have rhonchi and crackles in the right lung base, left side is clear. Heart rate regular, patient is well hydrated. Abdomen is soft and nontender. Assessment and Plan (1) Weight loss Current visit: Yes Status: Acute Category: Medical Code(s): R63.4 - Abnormal weight loss (2) Acute exacerbation of chronic obstructive airways disease Current visit: No Status: Acute Category: Medical Code(s): J44.1 - Chronic obstructive pulmonary disease with (acute) exacerbation (3) Atelectasis of left lung Start date: 10/24/17 Current visit: Yes Status: Acute Category: Medical Code(s): J98.11 - Atelectasis - Assessment and plan all Dx Assessment and Plan for all problems:: Patient is improving. Wean oxygen. Discharge tomorrow. One more day of IV antibiotics and steroids given failure of outpatient therapy.
--- NOTE | 2017-10-26 18:30 | PC.NURSE ---
PATIENT DONE WELL TODAY, DR. TEJEDA TRIED PATIENT OFF OF THE OXYGEN THIS AM AND SATS DROPPED TO MID 80'S AND THEN O2 WAS REAPPLIED AND SATS WERE MUCH BETTER 93% 2LPM. PATIENT WILL MORE THAN LIKELY GET TO GO HOME TOMORROW WITH OXYGEN SET UP BY OUR CARE MANAGEMENT.
[2017-10-27 04:00] VITALS: BP 139/70; PULSE 59; RESP 20; TEMP 36.4; O2SAT 95
--- NOTE | 2017-10-27 04:23 | PC.NURSE ---
PT RESTED WELL THROUGHOUT SHIFT. HAS NOT C/O OF ANY SOA OR DISCOMFORT. PT REMAINS ON 2L NC. LUNGS NOTED TO HAVE WHEEZES & RHONCHI. O2 SAT 95% THIS AM. OTHER VS REMAIN STABLE. PT C/O OF BLACK STOOL ON PRIOR SHIFT, NOT OBSERVED BY STAFF. PT ADDITIONAL STOOL THAT WAS NOTED TO BE BROWN. MEDICATIONS ADMINISTERED PER NOV. NO OTHER CONCERNS AT THIS TIME.
[2017-10-27 06:40] VITALS: PULSE 53; O2SAT 90
[2017-10-27 06:58] LABS: Eosinophils % 0.2 % (0.1-12.0); Hematocrit 40.1 % (42.0-52.0); Hemoglobin 12.8 g/dL (14.1-18.0); Lymphocytes # 0.6 K/mm3 (0.7-4.5); Lymphocytes % 5.8 K/mm3 (10-50); Mean Corpuscular Hemoglobin 30.5 pg (27.0-31.2); Mean Corpuscular Volume 95.1 fl (80-94); Mean Platelet Volume 8.2 fl (7.4-10.4); Monocytes # 0.3 K/mm3 (0.1-1.0); Monocytes % 2.7 % (1.7-9.3); Neutrophils # 9.5 K/mm3 (1.8-7.8); Neutrophils % 91.3 % (37.0-80.0); Platelet Count 201 K/mm3 (142-424); Red Blood Count 4.21 M/mm3 (4.60-6.20); Red Cell Distribution Width 13.2 % (11.5-17.5); White Blood Count 10.4 K/mm3 (4.8-10.8)
[2017-10-27 07:04] LABS: MANUAL DIFFERENTIAL MANUAL DIFFERENTIAL (MANUAL DIFF)
[2017-10-27 07:14] LABS: Alanine Aminotransferase 23 U/L (12-78); Albumin Level 2.4 gm/dL (3.4-5.0); Albumin/Globulin Ratio 0.8 (1.1-1.8); Alkaline Phosphatase 75 U/L (46-116); Anion Gap 8.8 mEq/L (5-15); Aspartate Amino Transferase 18 U/L (15-37); Bilirubin,Total 0.4 mg/dL (0.2-1.0); Blood Urea Nitrogen 14 mg/dL (7-18); Calcium 7.7 mg/dL (8.5-10.1); Carbon Dioxide 29 mmol/L (21.0-32.0); Chloride 108 mmol/L (98-107); Creatinine Clearance Estimated 57 mL/min (0-300); Creatinine,Serum 0.84 mg/dL (0.70-1.30); Estimated Glomerular Filt Rate 89 ml/min (>60); GFR (African American) 108 ML/MIN (>60); Globulin 3.1 gm/dl (1.3-3.2); Glucose 123 mg/dL (74-106); Potassium 3.8 mmoL/L (3.5-5.1); Sodium 142 mmol/L (136-145); Total Protein,Serum 5.5 gm/dL (6.4-8.2)
[2017-10-27 07:21] VITALS: O2SAT 88
[2017-10-27 07:52] VITALS: BP 112/70; PULSE 79; RESP 20; TEMP 36.6; O2SAT 93
--- NOTE | 2017-10-27 08:26 | HMH.DCSUM ---
General - General Admission date: 10/24/17 Discharge date: 10/27/17 HPI HPI: Mr. Mack is a 76 year old man with a long smoking history (63 years) and evidence of emphysema on CT scans of the chest who has had unexplained weight loss of 20 lbs over the last year. A CT of the chest last summer showed LLL collapse not seen on prior CT's from 2014. He had evidence of emphysema. Although he has emphysema, he has not been told he has COPD until recently. Earlier this month, he developed dyspnea on exertion over a couple of days and was evaluated twice and treated for this. A nebulizer really helped initially but he became more symptomatic and was evaluated by Dr. Munoz and found to be hypoxemic. He normally has a daily cough which is productive of small amounts of clear sputum. The cough has increased and is productive of thick white sputum;he's had no hemoptysis or chest pain. He is breathless walking a few feet and has felt quite weak for months. He had no fever, chills, headache of abdominal complaints with this illness. He's had no diarrhea. Before this past month, he was not treated for COPD regularly. He began smoking when he was 13 and smoked 1.5 ppd until recently when he cut down to 5 cigarettes a day. Objective Vital signs: Temp Pulse Resp BP Pulse Ox 97.9 F 79 20 112/70 93 L 10/27/17 07:52 10/27/17 07:52 10/27/17 07:52 10/27/17 07:52 10/27/17 07:52 Narrative: ALert and oriented x3. Rate and rhythm regular. No LE edema. Pulses 2+ bilaterally. Lung sounds with scattered loose rhonchi and wheezes, air movement improved. Abdomen soft and nontender. Hospital Course Hospital Course: Patient was admitted for IV antibiotics and further evaluation. A CT of the chest was obtained which showed emphysema and generalized airway thickening. Dr. Contreras was consulted who believes his acute symptoms are related to an exacerbation of his COPD. He was started on ETOH withdraw protocol due to his reported ETOH use; however he did not develop any tremors or require any Serax. He was given zithromax and rocephin infusions, as well as IV steroids. His shortness of breath has significantly improved. He is tolerating oral intake well. Oxygen saturation have improved; however he will require home oxygen as his saturations this morning were 88% on RA. He reports a dark stool yesterday which is new for him. It was discarded prior to collection for occult blood testing. If this persists, we will work-up as an outpatient. Discharge home on cefdinir and prednisone. See medication reconciliation for comsplete list. Strongly recommend smoking cessation. Instructed not to smoke in the home around oxygen. Short term FU with myself in 2 days. Results Labs on day of discharge: Labs from last 24 hours 10/27/17 10/27/17 06:20 06:20 WBC 10.4 D RBC 4.21 L Hgb 12.8 L Hct 40.1 L MCV 95.1 H MCH 30.5 MCHC 32.0 RDW 13.2 Plt Count 201 MPV 8.2 Neut % (Auto) 91.3 H Lymph % (Auto) 5.8 L [place] % (Auto) 2.7 Eos % (Auto) 0.2 Baso % (Auto) 0.0 L Neut # (Auto) 9.5 H Lymph # (Auto) 0.6 L [place] # (Auto) 0.3 Eos # (Auto) 0.0 Baso # (Auto) 0.0 Sodium 142 Potassium 3.8 D Chloride 108 H Carbon Dioxide 29 Anion Gap 8.8 BUN 14 Creatinine 0.84 Estimated Creat Clear 57 Estimated GFR 89 Est GFR ( Amer) 108 Glucose 123 H Calcium 7.7 L Total Bilirubin 0.4 AST 18 ALT 23 Alkaline Phosphatase 75 Total Protein 5.5 L Albumin 2.4 L Globulin 3.1 Albumin/Globulin Ratio 0.8 L Preliminary micro results at discharge 10/24/17 13:35 Blood Culture - Preliminary Blood NO GROWTH AFTER 48 HOURS 10/24/17 13:30 Blood Culture - Preliminary Blood NO GROWTH AFTER 48 HOURS DS: Diagnosis - Discharge Diagnosis (1) Weight loss Status: Acute (2) Acute exacerbation of chronic obstructive airways disease Status: Acute (3
--- NOTE | 2017-10-27 09:41 | SW/DCPLANNER ---
RECEIVED REFERRAL FOR THIS PATIENT TO SET UP HOME 02... I SENT REFERRAL AND ORDERS TO [facility], A PORTABLE TANK WILL BE DELIVERED AND HE IS TO DISCHARGE TO HOME TODAY...
[2017-10-27 09:58] LABS: Lymphocytes % 2 % (10-50); Monocytes % 1 % (2-9); Neutrophils % 96 % (42-76); RBC Morphology Normal; Total Cells Counted 100
[2017-10-27 09:59] LABS: Platelet Estimate Normal
--- NOTE | 2017-10-27 10:10 | P.PN_ITS ---
Internal Medicine - PN: Subj *Date: 10/27/17 *Time: 10:10 Exam Vital signs and Labs for Last 24 Hours: Temp Pulse Resp BP Pulse Ox 97.9 F 79 20 112/70 93 L 10/27/17 07:52 10/27/17 07:52 10/27/17 07:52 10/27/17 07:52 10/27/17 07:52 Laboratory Results - last 24 hr 10/27/17 06:20: WBC 10.4 D, RBC 4.21 L, Hgb 12.8 L, Hct 40.1 L, MCV 95.1 H, MCH 30.5, MCHC 32.0, RDW 13.2, Plt Count 201, MPV 8.2, Neut % (Auto) 91.3 H, Lymph % (Auto) 5.8 L, [place] % (Auto) 2.7, Eos % (Auto) 0.2, Baso % (Auto) 0.0 L, Neut # (Auto) 9.5 H, Lymph # (Auto) 0.6 L, [place] # (Auto) 0.3, Eos # (Auto) 0.0, Baso # (Auto) 0.0, Total Counted 100, Neutrophils % (Manual) 96 H, Lymphocytes % (Manual) 2 L, Atypical Lymphs % 1.0, Monocytes % (Manual) 1 L, Platelet Estimate Normal, RBC Morphology Normal 10/27/17 06:20: Sodium 142, Potassium 3.8 D, Chloride 108 H, Carbon Dioxide 29 , Anion Gap 8.8, BUN 14, Creatinine 0.84, Estimated Creat Clear 57, Estimated GFR 89, Est GFR ( Amer) 108, Glucose 123 H, Calcium 7.7 L, Total Bilirubin 0.4, AST 18, ALT 23, Alkaline Phosphatase 75, Total Protein 5.5 L, Albumin 2.4 L, Globulin 3.1, Albumin/Globulin Ratio 0.8 L I & O for Last 24 hours: Intake & Output 10/24/17 10/25/17 10/26/17 10/27/17 23:59 23:59 23:59 23:59 Intake Total 240 / 240 2678 / 2678 3736 / 3736 3702 / 3702 Output Total 0 / 0 Balance 240 / 240 2678 / 2678 3736 / 3736 3702 / 3702 Weight 62.4 kg 62.4 kg 62.2 kg Microbiology Reports for the Last 24 Hours: Microbiology 10/24/17 13:35 Blood Blood Culture - Preliminary NO GROWTH AFTER 48 HOURS 10/24/17 13:30 Blood Blood Culture - Preliminary NO GROWTH AFTER 48 HOURS 10/24/17 23:00 Sputum - Expectorated Sputum Gram Stain - Final Assessment and Plan (1) Weight loss Current visit: Yes Status: Acute Category: Medical Code(s): R63.4 - Abnormal weight loss (2) Acute exacerbation of chronic obstructive airways disease Current visit: No Status: Acute Category: Medical Code(s): J44.1 - Chronic obstructive pulmonary disease with (acute) exacerbation (3) Atelectasis of left lung Start date: 10/24/17 Current visit: Yes Status: Acute Category: Medical Code(s): J98.11 - Atelectasis The patient's infection will respond to the chosen ABx?: Yes Is the patient receiving the right drug, dose, and route?: Yes Could a more targeted ABx be ordered?: No (HOME ON OMNICEF)
== END 2017-10-27 13:30 | disposition home or self-care (01) | DRG 191 ==
PROVIDERS: Admitting Provider Internal Medicine Adolescent Medicine; PCP Internal Medicine Adolescent Medicine; Visit Provider Internal Medicine Adolescent Medicine
DX: J44.1 Chronic obstructive pulmonary disease with (acute) exacerbation (principal); J98.11 Atelectasis; F10.10 Alcohol abuse, uncomplicated; Z68.1 Body mass index [BMI] 19.9 or less, adult; F17.210 Nicotine dependence, cigarettes, uncomplicated; I10 Essential (primary) hypertension; R63.4 Abnormal weight loss; H91.90 Unspecified hearing loss, unspecified ear; R19.5 Other fecal abnormalities; I25.2 Old myocardial infarction; Z95.5 Presence of coronary angioplasty implant and graft; Z79.52 Long term (current) use of systemic steroids; Z79.899 Other long term (current) drug therapy; Z88.0 Allergy status to penicillin
CPT/HCPCS: 36415; 71260; 80053; 85007; 85025; 86738; 87040; 87070; 87205; 90732; 93005; 94640; 94760; 94761

== ENCOUNTER → 2017-11-04 12:59 | Outpatient (CLI) | payer MEDICARE, SELFPAY ==
[2017-11-04 13:37] LABS: Basophils # 0.1 K/mm3 (0-0.2); Basophils % 0.4 % (0.1-2.0); Eosinophils # 0.3 K/mm3 (0.0-0.4); Eosinophils % 2.2 % (0.1-12.0); Hematocrit 48.3 % (42.0-52.0); Hemoglobin 15.6 g/dL (14.1-18.0); Lymphocytes # 1.6 K/mm3 (0.7-4.5); Lymphocytes % 12.4 K/mm3 (10-50); Mean Corpuscular HGB Conc 32.4 g/dL (31.8-35.4); Mean Corpuscular Hemoglobin 30.3 pg (27.0-31.2); Mean Corpuscular Volume 93.4 fl (80-94); Mean Platelet Volume 7.5 fl (7.4-10.4); Monocytes # 0.5 K/mm3 (0.1-1.0); Monocytes % 4.2 % (1.7-9.3); Neutrophils # 10.2 K/mm3 (1.8-7.8); Neutrophils % 80.8 % (37.0-80.0); Platelet Count 314 K/mm3 (142-424); Red Blood Count 5.16 M/mm3 (4.60-6.20); Red Cell Distribution Width 13.6 % (11.5-17.5); White Blood Count 12.6 K/mm3 (4.8-10.8)
[2017-11-04 15:53] LABS: Alanine Aminotransferase 40 U/L (12-78); Alkaline Phosphatase 90 U/L (46-116); Anion Gap 12.2 mEq/L (5-15); Aspartate Amino Transferase 17 U/L (15-37); Bilirubin,Total 1.3 mg/dL (0.2-1.0); Blood Urea Nitrogen 20 mg/dL (7-18); Calcium 8.5 mg/dL (8.5-10.1); Carbon Dioxide 30 mmol/L (21.0-32.0); Chloride 102 mmol/L (98-107); Creatinine,Serum 0.83 mg/dL (0.70-1.30); Estimated Glomerular Filt Rate 91 ml/min (>60); GFR (African American) 110 ML/MIN (>60); Globulin 3.1 gm/dl (1.3-3.2); Glucose 99 mg/dL (74-106); Potassium 4.2 mmoL/L (3.5-5.1); Sodium 140 mmol/L (136-145); Total Protein,Serum 6.1 gm/dL (6.4-8.2)
== END ==
PROVIDERS: PCP Internal Medicine Adolescent Medicine; Visit Provider Nurse Practitioner Family
DX: J43.9 Emphysema, unspecified (principal)
CPT/HCPCS: 36415; 80053; 85025

== ENCOUNTER → 2017-11-07 10:52 | Outpatient (CLI) | payer MEDICARE, SELFPAY ==
--- NOTE | 2017-11-07 11:02 | XR_ITS ---
XR chest 2V HISTORY: Follow-up abnormal chest x-ray with cough ORDERING PHYSICIAN: Cayden Munoz MD PATIENT AGE: 76 years COMPARISON: 10/04/2017 FINDINGS: No interval change left lower lobe collapse with mediastinal shift toward the left persistent parenchymal opacity left midlung laterally. Right lung remains clear and hyperexpanded. No acute bony anomalies. IMPRESSION: No change left lower lobe collapse with midline shift and parenchymal opacity left midlung laterally..
== END ==
PROVIDERS: PCP Internal Medicine Adolescent Medicine; Visit Provider Internal Medicine Adolescent Medicine
DX: R93.8 Abnormal findings on diagnostic imaging of other specified body structures (principal)
CPT/HCPCS: 71046

== ENCOUNTER 2018-05-05 09:25 | Observation (INO) ==
[2018-05-05 10:03] LABS: Basophils % 0.3 % (0.1-2.0); Eosinophils # 0.1 K/mm3 (0.0-0.4); Eosinophils % 1.2 % (0.1-12.0); Hematocrit 45.7 % (42.0-52.0); Hemoglobin 14.5 g/dL (14.1-18.0); Lymphocytes # 2.8 K/mm3 (0.7-4.5); Lymphocytes % 30.8 K/mm3 (10-50); Mean Corpuscular HGB Conc 31.7 g/dL (31.8-35.4); Mean Corpuscular Hemoglobin 30.3 pg (27.0-31.2); Mean Corpuscular Volume 95.7 fl (80-94); Mean Platelet Volume 8.6 fl (7.4-10.4); Monocytes # 0.5 K/mm3 (0.1-1.0); Monocytes % 5.6 % (1.7-9.3); Neutrophils # 5.7 K/mm3 (1.8-7.8); Platelet Count 255 K/mm3 (142-424); Red Blood Count 4.77 M/mm3 (4.60-6.20); Red Cell Distribution Width 14.4 % (11.5-17.5); White Blood Count 9.2 K/mm3 (4.8-10.8)
--- NOTE | 2018-05-05 10:12 | Emergency Department Note ---
ED Disposition Clinical Impression: Gastroenteritis Disposition: Admitted as Observation Condition on Discharge: Good Instructions: DI for Diarrhea and Traveler's Diarrhea -- Adult, DI for Diarrhea and Traveler's Diarrhea -- Child, DI for Nausea -- Adult, DI for Nausea -- Child Referrals: Cayden Munoz MD [Primary Care Provider] - Time of Disposition: 12:09 - Critical Care Critical Care Time: No Attestation: On 05/05/18, the high probability of a clinically significant, sudden or life threatening deterioration of the following system(s) required my full and direct attention, intervention and personal management. The time I documented below is in addition to time spent performing reported procedures but includes the following listed in this critical care notation. Medical Decision Making - Hoang Inquiry Pt receiving controlled substance: No Vital Signs: 05/05/18 09:43 05/05/18 10:08 05/05/18 10:47 Temperature 97.5 F L Temperature Source Oral Pulse Rate [Right Brachial] 101 H 98 H 87 Respiratory Rate 18 18 20 Blood Pressure [Right Arm] 135/95 137/89 128/64 Blood Pressure Mean [Right Arm] 108 105 85 Blood Pressure Source [Right Arm] Automatic Cuff Automatic Cuff Automatic Cuff Blood Pressure Position [Right Arm] Sitting Sitting Sitting 02 Sat by Pulse Oximetry 96 97 98 Oxygen Delivery Method Nasal Cannula Nasal Cannula Nasal Cannula Oxygen Flow Rate (LPM) 2 2 2 - Lab Data Lab results reviewed: Yes: I reviewed the patient's lab results. Lab Results 05/05/18 09:50: WBC 9.2, RBC 4.77, Hgb 14.5, Hct 45.7, MCV 95.7 H, MCH 30.3, MCHC 31.7 L, RDW 14.4, Plt Count 255, MPV 8.6, Neut % (Auto) 62.0, Lymph % (Auto ) 30.8, [place] % (Auto) 5.6, Eos % (Auto) 1.2, Baso % (Auto) 0.3, Neut # (Auto) 5.7, Lymph # (Auto) 2.8, [place] # (Auto) 0.5, Eos # (Auto) 0.1, Baso # (Auto) 0.0 05/05/18 10:28: Sodium 142, Potassium 4.7, Chloride 107, Carbon Dioxide 28, Anion Gap 11.7, BUN 40 H, Creatinine 1.13, Estimated Creat Clear 60, Estimated GFR 63, Est GFR ( Amer) 77, Glucose 156 H, Calcium 8.1 L, Total Bilirubin 1.1 H, AST 38 H, ALT 42, Alkaline Phosphatase 93, Troponin I < 0.02, Total Protein 6.2 L, Albumin 2.8 L, Globulin 3.4 H, Albumin/Globulin Ratio 0.8 L , Amylase 64 05/05/18 10:28: Lipase 57 L 05/05/18 10:49: Urine Color Yellow, Urine Appearance Clear, Urine pH 6.0, Ur Specific [place] 1.020, Urine Protein 1+, Urine Glucose (UA) Negative, Urine Ketones Negative, Urine Blood Negative, Urine Nitrate Negative, Urine Bilirubin Negative, Urine Urobilinogen 0.2, Ur Leukocyte Esterase Negative, Urine RBC None , Urine WBC Occasional, Ur Squamous Epith Cells 3-5, Urine Bacteria Trace, Hyaline Casts 3-5 05/05/18 11:17: Stool Occult Blood Positive A Result diagrams: 05/05/18 09:50 05/05/18 10:28 Orders (Tests/Meds): ED MEDICATIONS Discontinued Medications Generic Name Dose Route Start Last Admin Trade Name Freq PRN Reason Stop Dose Admin Aspirin 325 mg 05/05/18 09:53 05/05/18 10:01 Aspirin Ec 325mg Tablet PO 05/05/18 09:54 325 mg ONCE ONE Administration Sodium Chloride 1,000 mls @ 999 mls/hr 05/05/18 10:00 05/05/18 10:01 Sod Chlor 0.9% 1000ml Bag IV 05/05/18 11:00 999 mls/hr .Q1H1M SEBASTIÁN Administration Ondansetron HCl 4 mg 05/05/18 09:53 05/05/18 10:01 Zofran 4mg/2ml Vial IV 05/05/18 09:54 4 mg ONCE ONE Administration ORDERS Category Date Time Status Diarrhea Panel, PCR Stat Lab 05/05/18 11:17 Received - Radiology Data #1 Image(s): Chest Image Reviewed: Yes I have reviewed radiologist's interpretation Preliminary Findings: No Infiltrates Seen, Normal Lung Inflation Sean, Normal Heart Size - ECG Data Tracing #1 I reviewed this ECG and interpreted as documented below: ECG initial impression date: 05/05/18 ECG initial impression time: 09:40 Normal Sinus Rhythm: No Arrhythmias present: sinus tach Ischemic changes: non-specific ST-T wave changes ECG compared to prior tracings: this ECG reveals significant changes (see above : subtle changes, not concerning per 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 Munoz Time: 11:59 (admit on LR) Reason -: Admission - Reevaluation(s) Time: 11:20 (stool sample obtained from patient and sent to lab) Chest Pain HPI - General Chief Complaint: Nausea/Vomiting/Diarrhea Stated Complaint: vomiting SOA Time Seen by Provider: 05/05/18 09:45 Mode of Arrival: Ambulatory Limitations: No Limitations Description of Symptoms (Recalled from ER Triage Doc. by RN): n/v/d for 2-3 days ; cold sweats, possibly dehydrated. denies cp - History of Present Illness HPI narrative: Vomiting and diarrhea since last night with diaphoresis and urinary frequency, denies fever or chills. No chest pain or palpitations; no syncope; no neurological sx. No blood from above or below; no hematuria. Feels dehydrated. Smoking in the last few days; has COPD and is on oxygen PRN; no new cough or SOB. Family says his stools have "looked dark". MD complaint: other Onset (ago): day(s) Duration: constant Relieving factors: nothing Exacerbating factors: eating Context: recent illness Associated symptoms: nausea, vomiting, diaphoresis, other (diarrhea; urinary freq) Risk Factors for CAD: Hypertension, Smoking Treatments prior to or on arrival for Cardiac Chest Pain: aspirin - Related Data Home Medications Medication Instructions Recorded Confirmed Albuterol Sulfate [Proventil-HFA 2 puffs INHALATION Q6HP PRN 10/01/17 10/24/17 90mcg/puff Inh] Amlodipine Besylate [Norvasc 5mg 5 mg PO DAILY 10/01/17 10/25/17 tablet] Atenolol [Atenolol 100mg Tab] 100 mg PO DAILY 10/01/17 10/24/17 Aspirin [Aspir 81] 81 mg PO DAILY 10/24/17 10/24/17 PARoxetine HCl [Paxil] 20 mg PO DAILY 10/25/17 10/25/17 hydrOXYzine pamoate [Vistaril] 25 mg PO TIDP PRN 10/25/17 10/25/17 Previous Rx's Medication Instructions Recorded Albuterol Sulfate [Proair Hfa 2 puffs IH Q4HP PRN #1 inh 10/01/17 90mcg/puff Inh] Cefdinir [Omnicef 300mg Capsule] 300 mg PO BID #20 cap 10/27/17 predniSONE [Prednisone 20mg 20 mg PO BID #10 tab 10/27/17 Tab] Allergies Allergy/AdvReac Type Severity Reaction Status Date / Time Penicillins Allergy Intermediate I-HIVES Verified 10/01/17 07:00 [facility] History I have reviewed the patient's past medical history: Yes Medical History: Reports:: Chronic Obstructive Pulmonary Disease (COPD), Hypertension, Myocardial Infarction Denies:: Cancer, Diabetes Mellitus Type 1, Diabetes Mellitus Type 2, Internal Pacemaker, MRSA Comment: He has had a coronary stent. Other Surgeries: Yes: Hernia Repair, Other. 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 He is a and lives alone although his daughter has stayed with him lately. He has 3 children and 4 grandchildren, all well. - Psychiatric History Expresses thoughts of harming self/others: None Suicide Plan Description: No Plan Comment: No history of chronic lung disease or cancer. ROS Obtained: Yes All systems reviewed & no additional complaints Physical Exam - General General appearance: alert, in no apparent distress - Head Head exam: atraumatic, normocephalic, normal inspection - Eye Eye exam: Present: normal appearance, PERRL, EOMI - ENT ENT exam: Present: normal exam, normal oropharynx, mucous membranes dry, normal external ear exam - Neck Neck exam: Present: normal inspection, full ROM, trachea midline. Absent: meningismus, lymphadenopathy - Chest Chest inspection: Present: normal inspection, symmetric chest wall rise. Absent : tenderness - Respiratory Respiratory exam: Present: normal lung sounds bilaterally. Absent: respiratory distress - Cardiovascular Cardiovascular exam: Present: regular rate, normal rhythm, normal heart sounds. Absent: JVD - Abdominal Exam Abdominal exam: Present: soft, normal bowel sounds. Absent: distention, tenderness, guarding, rebound, diminished bowel sounds, hypoactive bowel sounds , organomegaly, tenderness at [place]'s Point, ascites, mass, bruit, pulsatile mass - Extremities Exam Extremities exam: Present: normal inspection, full ROM, normal capillary refill. Absent: calf tenderness - Back Exam Back exam: Present: normal inspection. Absent: tenderness - Neurological Exam Neurological exam: Present: alert, oriented X3, normal gait, other (somewhat [place] ). Absent: motor sensory deficit - Psychiatric Psychiatric exam: Present: normal affect, normal mood - Skin Skin exam: Present: warm, dry, intact, normal color - Lymphatic Lymphatic Findings: no adenopathy
[2018-05-05 10:54] LABS: Appearance,Urine CLEAR (Clear); Bilirubin,Urine Negative (Negative); Blood, Urine Negative (Negative); Color,Urine YELLOW (Yellow); Glucose,Urine (UA) Negative (Negative); Ketones,Urine Negative (Negative); Leukocyte Esterase,Urine Negative (Negative); Microscopic, Urine URINE MICROSCOPIC (MICROSCOPIC); Protein,Urine 1+ (Negative); Urobilinogen,Urine 0.2 EU/dl (0.2)
[2018-05-05 10:57] LABS: Alanine Aminotransferase 42 U/L (12-78); Albumin Level 2.8 gm/dL (3.4-5.0); Albumin/Globulin Ratio 0.8 (1.1-1.8); Alkaline Phosphatase 93 U/L (46-116); Amylase 64 U/L (25-125); Anion Gap 11.7 mEq/L (5-15); Aspartate Amino Transferase 38 U/L (15-37); Bilirubin,Total 1.1 mg/dL (0.2-1.0); Blood Urea Nitrogen 40 mg/dL (7-18); Calcium 8.1 mg/dL (8.5-10.1); Carbon Dioxide 28 mmol/L (21.0-32.0); Chloride 107 mmol/L (98-107); Globulin 3.4 gm/dl (1.3-3.2); Glucose 156 mg/dL (74-106); Potassium 4.7 mmoL/L (3.5-5.1); Sodium 142 mmol/L (136-145); Total Protein,Serum 6.2 gm/dL (6.4-8.2)
[2018-05-05 11:07] LABS: Bacteria,Urine Trace /lpf; WBC,Urine Occasional #/hpf (0-3)
--- NOTE | 2018-05-05 13:21 | History & Physical Report ---
*Admission Date: 05/05/18 *Chief complaint: Vomiting/diarrhea/weakness *History of present illness: 77-year-old white male with history of alcoholism, in remission for the past 2 years, as well as COPD with heavy cigarette smoking who has relapsed with cigarette smoking over the past couple of months, who came into the emergency department today after 12 hours of vomiting with diarrhea, with scant amounts of hematemesis and some dark stool mixed in with his profound diarrhea. His history is interesting in that he has been eating a lot of toast with jelly but he has a habit of not refrigerating his jelly and has had an open jar of jelly at the house for several weeks. He had 3 pieces of toast with this jelly around 6:00 last night and 4 hours later began to have the significant symptoms. In the ER labs were fairly unremarkable initially, was found to have guaiac positive stool, very weak and was admitted to hospital for observation and fluids given his significant comorbidities. [facility] History I have reviewed the patient's past medical history: Yes Medical History: Reports:: Chronic Obstructive Pulmonary Disease (COPD), Hypertension, Myocardial Infarction Denies:: Cancer, Diabetes Mellitus Type 1, Diabetes Mellitus Type 2, Internal Pacemaker, MRSA Comment: History of anxiety, history of alcoholism in remission Other Surgeries: Yes: Hernia Repair, Other. No: Pacemaker Amputation: No Fractures: No - *Social History Educational Level: Completed High School Smoking Status: Current every day smoker Tobacco Type: cigarettes # Packs/Day (cigarettes): 1 Alcohol Intake: never Alcohol Intake Frequency:: 0-2 drinks per day Occupational Status: employed - Psychiatric History Expresses thoughts of harming self/others: None Suicide Plan Description: No Plan *Family Hx:: Non-contributory Review of Systems - Review of Systems Review of systems:: pertinent systems reviewed and negative unless documented below - Constitutional Reports anorexia, Reports chills, Reports fever(s), Reports lack of energy - Eyes Denies blind spots, Denies blurry vision - ENT Denies abnormal hearing, Denies bleeding gums, Denies dizziness - *Cardiovascular Reports shortness of breath with activity, Denies chest pain, Denies leg pain with activity, Denies generalized swelling, Denies irregular heart rhythm, Denies leg swelling - *Respiratory Reports cough, Reports shortness of breath with activity Comments: COPD symptoms have baseline - *Gastrointestinal Reports abdominal pain, Reports change in bowel habits, Reports change in stools , Reports coffee ground vomit, Reports loose stools, Denies constipation, Denies excessive passing of gas, Denies incontinent of stools - *Genitourinary Denies difficulty urinating - *Musculoskeletal Denies abnormal walking Meds Home Medications Medication Instructions Recorded Confirmed Type Albuterol Sulfate [Proventil-HFA 2 puffs INHALATION Q6HP PRN 10/01/17 10/24/17 History 90mcg/puff Inh] Amlodipine Besylate [Norvasc 5mg 5 mg PO DAILY 10/01/17 10/25/17 History tablet] Atenolol [Atenolol 100mg Tab] 100 mg PO DAILY 10/01/17 10/24/17 History Aspirin [Aspir 81] 81 mg PO DAILY 10/24/17 10/24/17 History PARoxetine HCl [Paxil] 20 mg PO DAILY 10/25/17 10/25/17 History hydrOXYzine pamoate [Vistaril] 25 mg PO TIDP PRN 10/25/17 10/25/17 History Allergies Allergy/AdvReac Type Severity Reaction Status Date / Time Penicillins Allergy Intermediate I-HIVES Verified 10/01/17 07:00 Exam Vital signs and Labs for Last 24 Hours: Temp Pulse Resp BP Pulse Ox 98.3 F 82 18 141/88 98 05/05/18 13:00 05/05/18 13:00 05/05/18 13:00 05/05/18 13:00 05/05/18 13:00 Laboratory Results - last 24 hr 05/05/18 09:50: WBC 9.2, RBC 4.77, Hgb 14.5, Hct 45.7, MCV 95.7 H, MCH 30.3, MCHC 31.7 L, RDW 14.4, Plt Count 255, MPV 8.6, Neut % (Auto) 62.0, Lymph % (Auto ) 30.8, [place] % (Auto) 5.6, Eos % (Auto) 1.2, Baso % (Auto) 0.3, Neut # (Auto) 5.7, Lymph # (Auto) 2.8, [place] # (Auto) 0.5, Eos # (Auto) 0.1, Baso # (Auto) 0.0 05/05/18 10:28: Sodium 142, Potassium 4.7, Chloride 107, Carbon Dioxide 28, Anion Gap 11.7, BUN 40 H, Creatinine 1.13, Estimated Creat Clear 60, Estimated GFR 63, Est GFR ( Amer) 77, Glucose 156 H, Calcium 8.1 L, Total Bilirubin 1.1 H, AST 38 H, ALT 42, Alkaline Phosphatase 93, Troponin I < 0.02, Total Protein 6.2 L, Albumin 2.8 L, Globulin 3.4 H, Albumin/Globulin Ratio 0.8 L , Amylase 64 05/05/18 10:28: Lipase 57 L 05/05/18 10:49: Urine Color Yellow, Urine Appearance Clear, Urine pH 6.0, Ur Specific [place] 1.020, Urine Protein 1+, Urine Glucose (UA) Negative, Urine Ketones Negative, Urine Blood Negative, Urine Nitrate Negative, Urine Bilirubin Negative, Urine Urobilinogen 0.2, Ur Leukocyte Esterase Negative, Urine RBC None , Urine WBC Occasional, Ur Squamous Epith Cells 3-5, Urine Bacteria Trace, Hyaline Casts 3-5 05/05/18 11:17: Stl Aeromonas (PCR) Not detected, Stl C. cayetanensis PCR Not detected, Stool Rotavirus (PCR) Not detected, Stl Adenov F 40/41 PCR Not detected, Stool Astrovirus (PCR) Not detected, Stool Campylobacter PCR Not detected, Stl C.difficile Tox PCR Detected A, Stool Cryptosporidium PCR Not detected, Stl E.coli Shiga Tox PCR Not detected, Stool E coli O157 PCR Not detected, Stl Enterotoxigenic E PCR Not detected, Stool EPEC (PCR) Not detected , Stool EAEC (PCR) Not detected, Stl E. histolytica PCR Not detected, Stool Giardia Lamblia PCR Not detected, Stool Salmonella PCR Not detected, Stool Sapovirus (PCR) Not detected, Stl P. shigelloides PCR Not detected, Stl Shigella /EIEC PCR Not detected, St Y.enterocolitica PCR Not detected, Stool Vibrio (PCR ) Not detected, Stl Vibrio cholerae PCR Not detected, Stl Norovirus GI/GII PCR Not detected 05/05/18 11:17: Stool Occult Blood Positive A I & O for Last 24 hours: Intake & Output 08/08/18 08/09/18 08/10/18 08/11/18 11:59 11:59 11:59 11:59 Intake Total 1000 / 1000 Output Total 925 / 925 Balance 75 / 75 Weight 165 lb - Constitutional no acute distress, thin, cooperative - *Routine HEENT Exam Head: Present: normocephalic Eye: Present: EOMI, PERRL ENT: Present: mucous membranes dry, oropharynx clear, TM's clear bilaterally. Absent: sinus tenderness - *Routine Neck Exam Present: supple - Routine Chest/Breast/Axilla Exam Chest wall: Absent: tenderness, mass - *Routine Respiratory Exam Present: decreased breath sounds, rhonchi. Absent: respiratory distress - *Routine Cardiovascular Exam Present: RRR, Normal S1, Normal S2. Absent: murmur - *Routine Abdominal Exam Present: soft, tenderness (Diffuse tenderness, no rebound). Absent: guarding, surgical scars - *Routine Extremities Exam Present: full ROM. Absent: cyanosis, clubbing, edema H&P: Result - Labs Labs: Short CBC 05/05/18 Range/Units 09:50 WBC 9.2 (4.8-10.8) K/mm3 Hgb 14.5 (14.1-18.0) g/dL Hct 45.7 (42.0-52.0) % Plt Count 255 (142-424) K/mm3 BMP 05/05/18 10:28 Sodium 142 Potassium 4.7 Chloride 107 Carbon Dioxide 28 BUN 40 H Creatinine 1.13 Glucose 156 H Calcium 8.1 L Cardiac Enzymes 05/05/18 Range/Units 10:28 Troponin I < 0.02 (0.00-0.06) ng/ml Liver Function 05/05/18 Range/Units 10:28 Total Bilirubin 1.1 H (0.2-1.0) mg/dL AST 38 H (15-37) U/L ALT 42 (12-78) U/L Alkaline Phosphatase 93 (46-116) U/L Albumin 2.8 L (3.4-5.0) gm/dL Urine 05/05/18 Range/Units 10:49 Urine Color Yellow (Yellow) Urine Appearance Clear (Clear) Urine pH 6.0 (5.0-8.5) Ur Specific [place] 1.020 (1.005-1.030) Urine Protein 1+ (Negative) Urine Glucose (UA) Negative (Negative) Assessment and Plan (1) C. difficile colitis Current visit: Yes Status: Acute Category: Medical Code(s): A04.72 - Enterocolitis due to Clostridium difficile, not specified as recurrent C. difficile titers positive, start Flagyl p.o., probiotic. Rehydration. (2) Guaiac positive stools Current visit: Yes Status: Acute Category: Medical Code(s): R19.5 - Other fecal abnormalities No significant blood loss. Irritant. Closely follow up (3) Gastroenteritis Current visit: Yes Status: Acute Category: Medical Code(s): K52.9 - Noninfective gastroenteritis and colitis, unspecified See plan above (4) Acute exacerbation of chronic obstructive airways disease Current visit: No Status: Acute Category: Medical Code(s): J44.1 - Chronic obstructive pulmonary disease with (acute) exacerbation (5) Atelectasis of left lung Current visit: No Status: Acute Category: Medical Code(s): J98.11 - Atelectasis (6) Weight loss Current visit: No Status: Acute Category: Medical Code(s): R63.4 - Abnormal weight loss Close observation.... related to smoking restart? (7) Tobacco use disorder Current visit: Yes Status: Acute Category: Medical Code(s): F17.200 - Nicotine dependence, unspecified, uncomplicated Complications all aspects of care.
--- NOTE | 2018-05-05 14:39 | Pharmacy Consult Notes ---
[facility] Pharmacy VTE Monitoring - Patient Demographics Admission date: 05/05/18 Report Date: 05/05/18 Time: 14:39 Allergies/Adverse Reactions: Patient Allergies Penicillins Allergy (Intermediate, Verified 10/01/17 07:00) I-HIVMEETA Height: 1.78 m Weight: 64.495 kg Patient Problems: Current Active Problems Gastroenteritis (Acute) C. difficile colitis (Acute) Guaiac positive stools (Acute) Tobacco use disorder (Acute) - VTE Risk Labs: VTE Related Lab Results Hgb 14.5 g/dL (14.1-18.0) 05/05/18 09:50 Hct 45.7 % (42.0-52.0) 05/05/18 09:50 Plt Count 255 K/mm3 (142-424) 05/05/18 09:50 BUN 40 mg/dL (7-18) H 05/05/18 10:28 Creatinine 1.13 mg/dL (0.70-1.30) 05/05/18 10:28 Estimated Creat Clear 60 mL/min (0-300) 05/05/18 10:28 Was VTE Risk Assessment Performed: Yes VTE Risk Level: Very Low Risk Clinical Trial Participant: No - Prophylaxis VTE Prophylaxis Ordered?: Yes Types of VTE Prophylaxis: TEDS Knee High Location of Applied Device: Bilateral Lower Extremeties
[2018-05-06 06:46] LABS: Basophils % 0.1 % (0.1-2.0); Eosinophils % 0.3 % (0.1-12.0); Hematocrit 33.8 % (42.0-52.0); Lymphocytes # 0.7 K/mm3 (0.7-4.5); Lymphocytes % 11.8 K/mm3 (10-50); Mean Corpuscular HGB Conc 32.4 g/dL (31.8-35.4); Mean Corpuscular Hemoglobin 30.6 pg (27.0-31.2); Mean Corpuscular Volume 94.6 fl (80-94); Mean Platelet Volume 8.1 fl (7.4-10.4); Monocytes # 0.2 K/mm3 (0.1-1.0); Monocytes % 2.8 % (1.7-9.3); Neutrophils # 5.1 K/mm3 (1.8-7.8); Platelet Count 181 K/mm3 (142-424); Red Blood Count 3.58 M/mm3 (4.60-6.20); Red Cell Distribution Width 14.6 % (11.5-17.5)
[2018-05-06 06:52] LABS: Albumin Level 2.4 gm/dL (3.4-5.0); Albumin/Globulin Ratio 0.9 (1.1-1.8); Anion Gap 8.3 mEq/L (5-15); Bilirubin,Total 0.9 mg/dL (0.2-1.0); Calcium 8.1 mg/dL (8.5-10.1); Globulin 2.7 gm/dl (1.3-3.2); Potassium 4.3 mmoL/L (3.5-5.1); Total Protein,Serum 5.1 gm/dL (6.4-8.2)
[2018-05-06 06:58] LABS: Hemoglobin 10.9 g/dL (14.1-18.0)
--- NOTE | 2018-05-06 08:13 | Progress Note ---
Internal Medicine - PN: Subj *Date: 05/06/18 *Time: 08:12 Interval history: Patient overall feels better, continues to have liquid stool but did not have stools through the night, continues to have some blood in the stool. Exam Vital signs and Labs for Last 24 Hours: Temp Pulse Resp BP Pulse Ox 97.8 F 95 H 18 126/75 97 05/06/18 07:58 05/06/18 07:58 05/06/18 07:58 05/06/18 07:58 05/06/18 07:58 Laboratory Results - last 24 hr 05/05/18 09:50: WBC 9.2, RBC 4.77, Hgb 14.5, Hct 45.7, MCV 95.7 H, MCH 30.3, MCHC 31.7 L, RDW 14.4, Plt Count 255, MPV 8.6, Neut % (Auto) 62.0, Lymph % (Auto ) 30.8, [place] % (Auto) 5.6, Eos % (Auto) 1.2, Baso % (Auto) 0.3, Neut # (Auto) 5.7, Lymph # (Auto) 2.8, [place] # (Auto) 0.5, Eos # (Auto) 0.1, Baso # (Auto) 0.0 05/05/18 10:28: Sodium 142, Potassium 4.7, Chloride 107, Carbon Dioxide 28, Anion Gap 11.7, BUN 40 H, Creatinine 1.13, Estimated Creat Clear 60, Estimated GFR 63, Est GFR ( Amer) 77, Glucose 156 H, Calcium 8.1 L, Total Bilirubin 1.1 H, AST 38 H, ALT 42, Alkaline Phosphatase 93, Troponin I < 0.02, Total Protein 6.2 L, Albumin 2.8 L, Globulin 3.4 H, Albumin/Globulin Ratio 0.8 L , Amylase 64 05/05/18 10:28: Lipase 57 L 05/05/18 10:49: Urine Color Yellow, Urine Appearance Clear, Urine pH 6.0, Ur Specific [place] 1.020, Urine Protein 1+, Urine Glucose (UA) Negative, Urine Ketones Negative, Urine Blood Negative, Urine Nitrate Negative, Urine Bilirubin Negative, Urine Urobilinogen 0.2, Ur Leukocyte Esterase Negative, Urine RBC None , Urine WBC Occasional, Ur Squamous Epith Cells 3-5, Urine Bacteria Trace, Hyaline Casts 3-5 05/05/18 11:17: Stl Aeromonas (PCR) Not detected, Stl C. cayetanensis PCR Not detected, Stool Rotavirus (PCR) Not detected, Stl Adenov F 40/41 PCR Not detected, Stool Astrovirus (PCR) Not detected, Stool Campylobacter PCR Not detected, Stl C.difficile Tox PCR Detected A, Stool Cryptosporidium PCR Not detected, Stl E.coli Shiga Tox PCR Not detected, Stool E coli O157 PCR Not detected, Stl Enterotoxigenic E PCR Not detected, Stool EPEC (PCR) Not detected , Stool EAEC (PCR) Not detected, Stl E. histolytica PCR Not detected, Stool Giardia Lamblia PCR Not detected, Stool Salmonella PCR Not detected, Stool Sapovirus (PCR) Not detected, Stl P. shigelloides PCR Not detected, Stl Shigella /EIEC PCR Not detected, St Y.enterocolitica PCR Not detected, Stool Vibrio (PCR ) Not detected, Stl Vibrio cholerae PCR Not detected, Stl Norovirus GI/GII PCR Not detected 05/05/18 11:17: Stool Occult Blood Positive A 05/06/18 06:15: WBC 6.0 D, RBC 3.58 L, Hgb 10.9 L D, Hct 33.8 L, MCV 94.6 H, MCH 30.6, MCHC 32.4, RDW 14.6, Plt Count 181 D, MPV 8.1, Neut % (Auto) 85.0 H, Lymph % (Auto) 11.8, [place] % (Auto) 2.8, Eos % (Auto) 0.3, Baso % (Auto) 0.1, Neut # (Auto) 5.1, Lymph # (Auto) 0.7, [place] # (Auto) 0.2, Eos # (Auto) 0.0, Baso # (Auto) 0.0 05/06/18 06:15: Magnesium 1.3 L 05/06/18 06:15: Sodium 142, Potassium 4.3, Chloride 108 H, Carbon Dioxide 30, Anion Gap 8.3, BUN 26 H D, Creatinine 0.99, Estimated Creat Clear 60, Estimated GFR 74, Est GFR ( Amer) 89, Glucose 142 H, Calcium 8.1 L, Total Bilirubin 0.9, AST 26 D, ALT 31 D, Alkaline Phosphatase 68, Total Protein 5.1 L, Albumin 2.4 L D, Globulin 2.7, Albumin/Globulin Ratio 0.9 L I & O for Last 24 hours: Intake & Output 05/03/18 05/04/18 05/05/18 05/06/18 11:59 11:59 11:59 11:59 Intake Total 3157 / 3157 Output Total 925 / 925 Balance 2232 / 2232 Weight 165 lb 145 lb 8.081 oz Narrative: Oropharynx clear. Mucous membranes moist. Anterior lung hawkins are clear, heart rate regular. Abdomen is soft, nontender , much improved. No extremity edema or clubbing. Assessment and Plan (1) C. difficile colitis Current visit: Yes Status: Acute Category: Medical Code(s): A04.72 - Enterocolitis due to Clostridium difficile, not specified as recurrent (2) Guaiac positive stools Current visit: Yes Status: Acute Category: Medical Code(s): R19.5 - Other fecal abnormalities (3) Gastroenteritis Current visit: Yes Status: Acute Category: Medical Code(s): K52.9 - Noninfective gastroenteritis and colitis, unspecified (4) Acute exacerbation of chronic obstructive airways disease Current visit: No Status: Acute Category: Medical Code(s): J44.1 - Chronic obstructive pulmonary disease with (acute) exacerbation (5) Atelectasis of left lung Current visit: No Status: Acute Category: Medical Code(s): J98.11 - Atelectasis (6) Weight loss Current visit: No Status: Acute Category: Medical Code(s): R63.4 - Abnormal weight loss (7) Tobacco use disorder Current visit: Yes Status: Acute Category: Medical Code(s): F17.200 - Nicotine dependence, unspecified, uncomplicated - Assessment and plan all Dx Assessment and Plan for all problems:: C. difficile colitis seems to be improving. Blood counts have dropped. Possible delusional versus effect of bleeding from C. difficile. Start Protonix. Watch blood counts tomorrow. If stabilized would consider discharging home and doing GI bleed workup as an outpatient. If continues to drop would pursue upper endoscopy in the hospital.
[2018-05-06 08:18] LABS: Lymphocytes % 15 % (10-50); Neutrophils % 85 % (42-76); RBC Morphology Normal; Total Cells Counted 100
[2018-05-07 06:54] LABS: Basophils % 0.1 % (0.1-2.0); Eosinophils % 0.3 % (0.1-12.0); Hemoglobin 9.6 g/dL (14.1-18.0); Lymphocytes % 14.1 K/mm3 (10-50); Mean Corpuscular Hemoglobin 31.2 pg (27.0-31.2); Mean Corpuscular Volume 94.6 fl (80-94); Mean Platelet Volume 8.5 fl (7.4-10.4); Monocytes # 0.3 K/mm3 (0.1-1.0); Monocytes % 4.4 % (1.7-9.3); Neutrophils # 5.7 K/mm3 (1.8-7.8); Neutrophils % 81.1 % (37.0-80.0); Platelet Count 162 K/mm3 (142-424); Red Blood Count 3.07 M/mm3 (4.60-6.20); Red Cell Distribution Width 14.5 % (11.5-17.5); White Blood Count 7.1 K/mm3 (4.8-10.8)
[2018-05-07 07:21] LABS: Albumin Level 2.3 gm/dL (3.4-5.0); Albumin/Globulin Ratio 0.9 (1.1-1.8); Anion Gap 4.1 mEq/L (5-15); Bilirubin,Total 0.5 mg/dL (0.2-1.0); Globulin 2.5 gm/dl (1.3-3.2); Potassium 4.1 mmoL/L (3.5-5.1); Total Protein,Serum 4.8 gm/dL (6.4-8.2)
--- NOTE | 2018-05-07 08:41 | Progress Note ---
Internal Medicine - PN: Subj *Date: 05/07/18 *Time: 08:40 Interval history: Overnight patient feels much better, eating well. His diarrhea has resolved. Notes no further melena or bright red blood per rectum. Exam Vital signs and Labs for Last 24 Hours: Temp Pulse Resp BP Pulse Ox 97.9 F 57 L 16 149/77 98 05/07/18 08:00 05/07/18 08:00 05/07/18 08:00 05/07/18 08:00 05/07/18 08:00 Laboratory Results - last 24 hr 05/07/18 06:32: WBC 7.1, RBC 3.07 L, Hgb 9.6 L, Hct 29.0 L, MCV 94.6 H, MCH 31.2 , MCHC 33.0, RDW 14.5, Plt Count 162, MPV 8.5, Neut % (Auto) 81.1 H, Lymph % ( Auto) 14.1, [place] % (Auto) 4.4, Eos % (Auto) 0.3, Baso % (Auto) 0.1, Neut # (Auto ) 5.7, Lymph # (Auto) 1.0, [place] # (Auto) 0.3, Eos # (Auto) 0.0, Baso # (Auto) 0.0 05/07/18 06:32: Sodium 139, Potassium 4.1, Chloride 107, Carbon Dioxide 32, Anion Gap 4.1 L, BUN 17 D, Creatinine 0.99, Estimated Creat Clear 60, Estimated GFR 74, Est GFR ( Amer) 89, Glucose 121 H, Calcium 8.0 L, Total Bilirubin 0.5, AST 27, ALT 30, Alkaline Phosphatase 59, Total Protein 4.8 L, Albumin 2.3 L, Globulin 2.5, Albumin/Globulin Ratio 0.9 L I & O for Last 24 hours: Intake & Output 05/04/18 05/05/18 05/06/18 05/07/18 11:59 11:59 11:59 11:59 Intake Total 3157 / 3157 2209 / 2209 Output Total 925 / 925 2 / 2 Balance 2232 / 2232 2207 / 2207 Weight 165 lb 145 lb 8.081 oz Narrative: Abdomen soft, nontender. Anterior lung haw[place] clear. Heart rate regular. No edema noted. Oropharynx clear. ENT exam otherwise normal. Assessment and Plan (1) C. difficile colitis Current visit: Yes Status: Acute Category: Medical Code(s): A04.72 - Enterocolitis due to Clostridium difficile, not specified as recurrent (2) Guaiac positive stools Current visit: Yes Status: Acute Category: Medical Code(s): R19.5 - Other fecal abnormalities (3) Gastroenteritis Current visit: Yes Status: Acute Category: Medical Code(s): K52.9 - Noninfective gastroenteritis and colitis, unspecified (4) Acute exacerbation of chronic obstructive airways disease Current visit: No Status: Acute Category: Medical Code(s): J44.1 - Chronic obstructive pulmonary disease with (acute) exacerbation (5) Atelectasis of left lung Current visit: No Status: Acute Category: Medical Code(s): J98.11 - Atelectasis (6) Weight loss Current visit: No Status: Acute Category: Medical Code(s): R63.4 - Abnormal weight loss (7) Tobacco use disorder Current visit: Yes Status: Acute Category: Medical Code(s): F17.200 - Nicotine dependence, unspecified, uncomplicated - Assessment and plan all Dx Assessment and Plan for all problems:: Overall patient looks much better. C. difficile treatment continues. Given high risk of upper GI bleed and low blood counts today I have contacted surgery. Probable EGD in the morning. If this outcome is positive we would consider discharge after procedure.
--- NOTE | 2018-05-07 08:42 | Consult Report ---
*Admission Date: 05/05/18 *Chief complaint: anemia *History of present illness: This is a 77yo male seen in consultation from Dr. Munoz for possible EGD. He has guaiac + stool and now has been found to be somewhat anemic. Below is a forwarded copy of his HPI from his addmission H&P: 77-year-old white male with history of alcoholism, in remission for the past 2 years, as well as COPD with heavy cigarette smoking who has relapsed with cigarette smoking over the past couple of months, who came into the emergency department today after 12 hours of vomiting with diarrhea, with scant amounts of hematemesis and some dark stool mixed in with his profound diarrhea. His history is interesting in that he has been eating a lot of toast with jelly but he has a habit of not refrigerating his jelly and has had an open jar of jelly at the house for several weeks. He had 3 pieces of toast with this jelly around 6:00 last night and 4 hours later began to have the significant symptoms. In the ER labs were fairly unremarkable initially, was found to have guaiac positive stool, very weak and was admitted to hospital for observation and fluids given his significant comorbidities. Review of Systems - Constitutional Denies chills - Eyes Denies change in vision - ENT Denies change in voice - *Cardiovascular Denies chest pain - *Respiratory Denies cough - *Gastrointestinal Reports other Comments: some "dark diarrhea" and an episode of "dark vomit" - *Neurologic Denies abnormal walking, Denies abnormal hearing, Denies dizziness - Hematologic/Lymphatic Denies easy bleeding [facility] History Medical History: Reports:: Chronic Obstructive Pulmonary Disease (COPD), Hypertension, Myocardial Infarction Denies:: Cancer, Diabetes Mellitus Type 1, Diabetes Mellitus Type 2, Internal Pacemaker, MRSA Other Medical History: Reports: Arthritis (back) Other Surgeries: Yes: Hernia Repair, Other. No: Pacemaker Amputation: No Fractures: No - *Social History Educational Level: Completed Grade School Smoking Status: Former smoker Tobacco Type: cigarettes # Packs/Day (cigarettes): 1 Smoking End Date: 05/03/18 Alcohol Intake: current Alcohol Intake Frequency:: 3 or more drinks per day Occupational Status: employed Housing: apartment - Psychiatric History Expresses thoughts of harming self/others: None Suicide Plan Description: No Plan *Family Hx:: Non-contributory Meds Home Medications Medication Instructions Recorded Confirmed Type Albuterol Sulfate [Proventil-HFA 2 puffs IH Q4HP PRN 10/01/17 05/06/18 History 90mcg/puff Inh] Aspirin [Aspir 81] 81 mg PO DAILY 10/24/17 05/05/18 History hydrOXYzine pamoate [Vistaril] 25 mg PO TIDP PRN 10/25/17 05/05/18 History Allergies Allergy/AdvReac Type Severity Reaction Status Date / Time Penicillins Allergy Intermediate I-HIVES Verified 10/01/17 07:00 Exam Vital signs and Labs for Last 24 Hours: Temp Pulse Resp BP Pulse Ox 97.9 F 57 L 16 149/77 98 05/07/18 08:00 05/07/18 08:00 05/07/18 08:00 05/07/18 08:00 05/07/18 08:00 Laboratory Results - last 24 hr 05/07/18 06:32: WBC 7.1, RBC 3.07 L, Hgb 9.6 L, Hct 29.0 L, MCV 94.6 H, MCH 31.2 , MCHC 33.0, RDW 14.5, Plt Count 162, MPV 8.5, Neut % (Auto) 81.1 H, Lymph % ( Auto) 14.1, [place] % (Auto) 4.4, Eos % (Auto) 0.3, Baso % (Auto) 0.1, Neut # (Auto ) 5.7, Lymph # (Auto) 1.0, [place] # (Auto) 0.3, Eos # (Auto) 0.0, Baso # (Auto) 0.0 05/07/18 06:32: Sodium 139, Potassium 4.1, Chloride 107, Carbon Dioxide 32, Anion Gap 4.1 L, BUN 17 D, Creatinine 0.99, Estimated Creat Clear 60, Estimated GFR 74, Est GFR ( Amer) 89, Glucose 121 H, Calcium 8.0 L, Total Bilirubin 0.5, AST 27, ALT 30, Alkaline Phosphatase 59, Total Protein 4.8 L, Albumin 2.3 L, Globulin 2.5, Albumin/Globulin Ratio 0.9 L I & O for Last 24 hours: Intake & Output 05/04/18 05/05/18 05/06/18 05/07/18 11:59 11:59 11:59 11:59 Intake Total 3157 / 3157 2208 / 2208 Output Total 925 / 925 Balance 223 / 2232206 / 2206 Weight 165 lb 145 lb 8.081 oz - Constitutional no acute distress - *Routine Respiratory Exam Absent: respiratory distress - *Routine Cardiovascular Exam Present: RRR - *Routine Abdominal Exam Present: soft Results - Labs 05/07/18 06:32 05/07/18 06:32 Laboratory Results - last 24 hr 05/07/18 06:32: WBC 7.1, RBC 3.07 L, Hgb 9.6 L, Hct 29.0 L, MCV 94.6 H, MCH 31.2 , MCHC 33.0, RDW 14.5, Plt Count 162, MPV 8.5, Neut % (Auto) 81.1 H, Lymph % ( Auto) 14.1, [place] % (Auto) 4.4, Eos % (Auto) 0.3, Baso % (Auto) 0.1, Neut # (Auto ) 5.7, Lymph # (Auto) 1.0, [place] # (Auto) 0.3, Eos # (Auto) 0.0, Baso # (Auto) 0.0 05/07/18 06:32: Sodium 139, Potassium 4.1, Chloride 107, Carbon Dioxide 32, Anion Gap 4.1 L, BUN 17 D, Creatinine 0.99, Estimated Creat Clear 60, Estimated GFR 74, Est GFR ( Amer) 89, Glucose 121 H, Calcium 8.0 L, Total Bilirubin 0.5, AST 27, ALT 30, Alkaline Phosphatase 59, Total Protein 4.8 L, Albumin 2.3 L, Globulin 2.5, Albumin/Globulin Ratio 0.9 L Assessment and Plan (1) C. difficile colitis Current visit: Yes Status: Acute Category: Medical Code(s): A04.72 - Enterocolitis due to Clostridium difficile, not specified as recurrent (2) Guaiac positive stools Current visit: Yes Status: Acute Category: Medical Code(s): R19.5 - Other fecal abnormalities continue PPI EGD in AM (3) Gastroenteritis Current visit: Yes Status: Acute Category: Medical Code(s): K52.9 - Noninfective gastroenteritis and colitis, unspecified (4) Acute exacerbation of chronic obstructive airways disease Current visit: No Status: Acute Category: Medical Code(s): J44.1 - Chronic obstructive pulmonary disease with (acute) exacerbation (5) Atelectasis of left lung Current visit: No Status: Acute Category: Medical Code(s): J98.11 - Atelectasis (6) Weight loss Current visit: No Status: Acute Category: Medical Code(s): R63.4 - Abnormal weight loss (7) Tobacco use disorder Current visit: Yes Status: Acute Category: Medical Code(s): F17.200 - Nicotine dependence, unspecified, uncomplicated (8) Anemia Current visit: Yes Status: Acute Category: Medical Code(s): D64.9 - Anemia , unspecified EGD in AM Further evaluation pending EGD
[2018-05-08 06:02] LABS: Basophils % 0.1 % (0.1-2.0); Eosinophils % 0.1 % (0.1-12.0); Hemoglobin 8.7 g/dL (14.1-18.0); Lymphocytes # 0.8 K/mm3 (0.7-4.5); Lymphocytes % 14.7 K/mm3 (10-50); Mean Corpuscular HGB Conc 32.6 g/dL (31.8-35.4); Mean Platelet Volume 8.5 fl (7.4-10.4); Monocytes # 0.2 K/mm3 (0.1-1.0); Neutrophils # 4.6 K/mm3 (1.8-7.8); Platelet Count 167 K/mm3 (142-424); Red Blood Count 2.82 M/mm3 (4.60-6.20); Red Cell Distribution Width 14.9 % (11.5-17.5); White Blood Count 5.7 K/mm3 (4.8-10.8)
[2018-05-08 06:03] LABS: Hematocrit 26.8 % (42.0-52.0)
[2018-05-08 06:13] LABS: Anion Gap 2.8 mEq/L (5-15); Calcium 7.9 mg/dL (8.5-10.1); Potassium 3.8 mmoL/L (3.5-5.1)
--- NOTE | 2018-05-08 06:55 | Progress Note ---
Subjective Patient reports: no new complaints Exam Vital signs and Labs for Last 24 Hours: Temp Pulse Resp BP Pulse Ox 97.8 F 45 L 18 143/59 99 05/08/18 04:00 05/08/18 04:00 05/08/18 04:00 05/08/18 04:00 05/08/18 04:00 Laboratory Results - last 24 hr 05/05/18 11:17: C. difficile Toxin A&B Negative 05/07/18 06:32: WBC 7.1, RBC 3.07 L, Hgb 9.6 L, Hct 29.0 L, MCV 94.6 H, MCH 31.2 , MCHC 33.0, RDW 14.5, Plt Count 162, MPV 8.5, Neut % (Auto) 81.1 H, Lymph % ( Auto) 14.1, [place] % (Auto) 4.4, Eos % (Auto) 0.3, Baso % (Auto) 0.1, Neut # (Auto ) 5.7, Lymph # (Auto) 1.0, [place] # (Auto) 0.3, Eos # (Auto) 0.0, Baso # (Auto) 0.0 05/07/18 06:32: Sodium 139, Potassium 4.1, Chloride 107, Carbon Dioxide 32, Anion Gap 4.1 L, BUN 17 D, Creatinine 0.99, Estimated Creat Clear 60, Estimated GFR 74, Est GFR ( Amer) 89, Glucose 121 H, Calcium 8.0 L, Total Bilirubin 0.5, AST 27, ALT 30, Alkaline Phosphatase 59, Total Protein 4.8 L, Albumin 2.3 L, Globulin 2.5, Albumin/Globulin Ratio 0.9 L 05/08/18 05:34: WBC 5.7, RBC 2.82 L, Hgb 8.7 L, Hct 26.8 L, MCV 95.0 H, MCH 31.0 , MCHC 32.6, RDW 14.9, Plt Count 167, MPV 8.5, Neut % (Auto) 81.0 H, Lymph % ( Auto) 14.7, [place] % (Auto) 4.0, Eos % (Auto) 0.1, Baso % (Auto) 0.1, Neut # (Auto ) 4.6, Lymph # (Auto) 0.8, [place] # (Auto) 0.2, Eos # (Auto) 0.0, Baso # (Auto) 0.0 05/08/18 05:34: Sodium 140, Potassium 3.8, Chloride 108 H, Carbon Dioxide 33 H, Anion Gap 2.8 L, BUN 17, Creatinine 0.93, Estimated Creat Clear 60, Estimated GFR 79, Est GFR ( Amer) 96, Glucose 132 H, Calcium 7.9 L I & O for Last 24 hours: Intake & Output 05/05/18 05/06/18 05/07/18 05/08/18 11:59 11:59 11:59 11:59 Intake Total 3157 / 3157 2209 / 2209 1186 / 1186 Output Total 925 / 925 2 / 2 Balance 2232 / 2232 220 / 2207 1186 / 1186 Weight 165 lb 145 lb 8.081 oz - Constitutional no acute distress - *Routine Respiratory Exam Absent: respiratory distress Comments: on O2 - *Routine Abdominal Exam Present: soft Progress Note: A&P (1) C. difficile colitis Status: Acute Current Visit: Yes (2) Guaiac positive stools Status: Acute Assessment and plan: EGD this AM colonoscopy in near future as outpatient ? UGI/SBFT ? capsule endoscopy Current Visit: Yes (3) Gastroenteritis Status: Acute Current Visit: Yes (4) Acute exacerbation of chronic obstructive airways disease Status: Acute Current Visit: No (5) Atelectasis of left lung Status: Acute Current Visit: No (6) Weight loss Status: Acute Current Visit: No (7) Tobacco use disorder Status: Acute Current Visit: Yes (8) Anemia Status: Acute Current Visit: Yes
--- NOTE | 2018-05-08 07:21 | Progress Note ---
[facility] Anesthesia Checklist - Patient Identification Patient Identification: Arm Band, Verbal (Name & ) - Structural Data Admitted From: Inpatient Planned Operative Procedure/s: egd Consent for Planned Operative Procedure(s) Verified: Yes Verified Documents: Surgical Consent, History and Physical - NPO Status Verified Time NPO: 00:00 - Additional verifications Patient : No Anesthesia Reactions: No Hx Blood Transfusions: No Blood Transfusion Reaction: No Cephalosporin Allergy: No Previous Colonoscopy: Yes - Cardiovascular Assessment Heart Sounds: S1 & S2 Pulse Strength: Baseline Pulse Rhythm: Regular Peripheral Edema: No - Airway Assessment C-Spine Mobility Assessed: Yes TMJ Mobility Assessed: Yes Dentition: Good Dentition - Neurological Assessment Level of Consciousness: Awake, Alert, Appropriate Hx Seizures: No Numbness or tingling in extremities: No - Anesthesia Plan Anesthesia Risk discussed: Yes Anesthesia Plan: Verified ASA Class: III Anesthesia Type: MAC [facility] Anesthesia HX I have reviewed the patient's past medical history: Yes Medical History: Reports:: Chronic Obstructive Pulmonary Disease (COPD), Hypertension, Myocardial Infarction Denies:: Cancer, Diabetes Mellitus Type 1, Diabetes Mellitus Type 2, Internal Pacemaker, MRSA Other Medical History: Reports: Arthritis (back) Other Surgeries: Yes: Hernia Repair, Other. No: Pacemaker Amputation: No Fractures: No *Family Hx:: Non-contributory
--- NOTE | 2018-05-08 07:44 | Procedure Note ---
- Procedure: Date: 05/08/18 Procedure Performed:: Esophagogastroduodenoscopy with biopsy Indications:: Anemia Melena Performing Provider:: Khris Thomas MD Referring Provider:: Dr. Munoz Sedation:: Monitored anesthesia care Procedure:: After informed consent was obtained, the patient was taken to the endoscopy suite. Monitored anesthesia care ensued after he was transferred to the left lateral decubitus position. The gastroscope was advanced. The gastroesophageal junction was at 40 cm. The stomach was entered. Retroflexion revealed a sliding hiatal hernia. Fairly significant "streaking" gastritis was noted distally and a biopsy of the antrum was obtained. No sign of active bleeding or ulceration was seen. The pylorus is intubated. Lobulated and somewhat polypoid patchy duodenitis was noted and multiple biopsies were obtained of the duodenal bulb. No ulceration or active bleeding noted. The gastroscope was carefully removed and the patient was transferred to recovery. Findings:: Gastroesophageal junction at 40 cm Sliding hiatal hernia Fairly significant "streaking" gastritis distally Lobulated and somewhat polypoid patchy duodenitis Specimens:: Antral biopsy Duodenal bulb biopsies Recommendations:: Follow-up pending pathology Continue proton pump inhibitor for now Discussion with regard to anemia will be ongoing (colonoscopy, possible UGI/SBFT , and possible capsule endoscopy) Complications:: No immediate Estimated blood obtained (mL): 1
[2018-05-08 13:11] VITALS: BP 115/52
--- NOTE | 2018-05-08 13:51 | Discharge Summary ---
General - General Admission date:: 05/05/18 Discharge date: 05/08/18 HPI HPI: 77-year-old white male with history of alcoholism, in remission for the past 2 years, as well as COPD with heavy cigarette smoking who has relapsed with cigarette smoking over the past couple of months, who came into the emergency department today after 12 hours of vomiting with diarrhea, with scant amounts of hematemesis and some dark stool mixed in with his profound diarrhea. His history is interesting in that he has been eating a lot of toast with jelly but he has a habit of not refrigerating his jelly and has had an open jar of jelly at the house for several weeks. He had 3 pieces of toast with this jelly around 6:00 last night and 4 hours later began to have the significant symptoms. In the ER labs were fairly unremarkable initially, was found to have guaiac positive stool, very weak and was admitted to hospital for observation and fluids given his significant comorbidities. Hospital Course Hospital Course: Patient was admitted, found to have C. difficile on stool examination, found to have significant GI bleeding with blood loss anemia. General surgery was consulted, EGD was performed which revealed significant gastritis, some duodenitis which was biopsied but no active bleeding. The patient felt much better, diarrhea resolved. Did continue to have lower hemoglobins consistent with dilutional effect, but this morning is doing much better, normalized exam and no dizziness or orthostasis or symptoms of anemia. Patient wishes to be discharged and this was accomplished with proton pump inhibitor prescription and Flagyl for the C. difficile. Close follow-up tomorrow for repeat blood count and follow-up with surgery and me as scheduled [email or web address] Patient was instructed to stop drinking alcohol, he has a habit of drinking 1 or 2 servings of burden at night Objective Vital signs: Temp Pulse Resp BP Pulse Ox 98.1 F 69 16 115/52 95 05/08/18 12:15 05/08/18 12:15 05/08/18 12:15 05/08/18 12:15 05/08/18 12:15 Narrative: Oropharynx clear, mucous membranes moist, exam otherwise clear. Lungs are clear, heart rate regular, abdomen soft and nontender. No edema or clubbing. Patient does not appear anemic. No dizziness when he stands up. Results Labs on day of discharge: Labs from last 24 hours 05/08/18 05/08/18 05/05/18 05:34 05:34 11:17 WBC 5.7 RBC 2.82 L Hgb 8.7 L Hct 26.8 L MCV 95.0 H MCH 31.0 MCHC 32.6 RDW 14.9 Plt Count 167 MPV 8.5 Neut % (Auto) 81.0 H Lymph % (Auto) 14.7 [place] % (Auto) 4.0 Eos % (Auto) 0.1 Baso % (Auto) 0.1 Neut # (Auto) 4.6 Lymph # (Auto) 0.8 [place] # (Auto) 0.2 Eos # (Auto) 0.0 Baso # (Auto) 0.0 Sodium 140 Potassium 3.8 Chloride 108 H Carbon Dioxide 33 H Anion Gap 2.8 L BUN 17 Creatinine 0.93 Estimated Creat Clear 60 Estimated GFR 79 Est GFR ( Amer) 96 Glucose 132 H Calcium 7.9 L C. difficile Toxin A&B Negative DS: Diagnosis - Discharge Diagnosis (1) C. difficile colitis Status: Acute (2) Guaiac positive stools Status: Acute (3) Gastroenteritis Status: Acute (4) Acute exacerbation of chronic obstructive airways disease Status: Acute (5) Atelectasis of left lung Status: Acute (6) Weight loss Status: Acute (7) Tobacco use disorder Status: Acute (8) Anemia Status: Acute Discharge Plan - Patient Discharge Instructions ACTIVITY: Continue current activity DIET: continue same diet - Follow up Plan Follow up with: Khris Thomas MD [Staff Physician] - 1 week Cayden Munoz MD [Primary Care Provider] - 2 weeks Disposition: Home, Self-Half-Way Medications: Home Medications Medication Instructions Recorded Confirmed Type Albuterol Sulfate [Proventil-HFA 2 puffs IH Q4HP PRN 10/01/17 05/06/18 History 90mcg/puff Inh] Aspirin [Aspir 81] 81 mg PO DAILY 10/24/17 05/05/18 History hydrOXYzine pamoate [Vistaril] 25 mg PO TIDP PRN 10/25/17 05/05/18 History Prescriptions/Medication Reconciliation: New metroNIDAZOLE [metroNIDAZOLE 500mg Tablet] 500 mg PO TID #14 tab Pantoprazole Sodium [Protonix 40mg Vial] 40 mg IV BID #60 vial Continue Aspirin [Aspir 81] 81 mg PO DAILY hydrOXYzine pamoate [Vistaril] 25 mg PO TIDP PRN PRN Reason: Anxiety No Action Albuterol Sulfate [Proventil-HFA 90mcg/puff Inh] 2 puffs IH Q4HP PRN PRN Reason: shortness of air Other Amb Orders: Basic Metabolic Panel Time Frame: 1 Day, Location: None Selected Complete Blood Count Auto Diff Time Frame: 1 Day, Location: None Selected
== END 2018-05-08 14:46 | disposition home or self-care (01) ==
LOC: 2ND 09:25 → ER 09:25 → 2ND 12:49
PROVIDERS: ADMIT Internal Medicine Adolescent Medicine; ATTEND Internal Medicine Adolescent Medicine
DX: D64.9 Anemia, unspecified; J44.1 Chronic obstructive pulmonary disease with (acute) exacerbation; Z88.0 Allergy status to penicillin; J44.9 Chronic obstructive pulmonary disease, unspecified; Z72.0 Tobacco use; K29.00 Acute gastritis without bleeding; I10 Essential (primary) hypertension; F10.21 Alcohol dependence, in remission; K29.80 Duodenitis without bleeding; J98.11 Atelectasis; K44.9 Diaphragmatic hernia without obstruction or gangrene; I25.2 Old myocardial infarction; A04.72 Enterocolitis due to Clostridium difficile, not specified as recurrent

== ENCOUNTER → 2018-05-09 07:48 | Outpatient (CLI) | payer MEDICARE, SELFPAY ==
[2018-05-09 08:15] LABS: Basophils % 0.4 % (0.1-2.0); Eosinophils # 0.1 K/mm3 (0.0-0.4); Eosinophils % 1.9 % (0.1-12.0); Hematocrit 32.7 % (42.0-52.0); Hemoglobin 10.7 g/dL (14.1-18.0); Lymphocytes # 1.9 K/mm3 (0.7-4.5); Lymphocytes % 27.9 K/mm3 (10-50); Mean Corpuscular HGB Conc 32.7 g/dL (31.8-35.4); Mean Corpuscular Hemoglobin 31.2 pg (27.0-31.2); Mean Corpuscular Volume 95.2 fl (80-94); Mean Platelet Volume 8.3 fl (7.4-10.4); Monocytes # 0.6 K/mm3 (0.1-1.0); Monocytes % 9.3 % (1.7-9.3); Neutrophils # 4.2 K/mm3 (1.8-7.8); Neutrophils % 60.6 % (37.0-80.0); Platelet Count 212 K/mm3 (142-424); Red Blood Count 3.44 M/mm3 (4.60-6.20); Red Cell Distribution Width 14.9 % (11.5-17.5); White Blood Count 6.9 K/mm3 (4.8-10.8)
== END ==
PROVIDERS: Visit Provider Internal Medicine Adolescent Medicine
DX: D64.9 Anemia, unspecified (principal)
CPT/HCPCS: 36415; 85025

== ENCOUNTER → 2018-05-16 13:50 | Outpatient (CLI) | payer MEDICARE, SELFPAY ==
[2018-05-16 14:08] LABS: Hematocrit 37.5 % (42.0-52.0)
== END ==
PROVIDERS: Family Provider Internal Medicine Adolescent Medicine; PCP Internal Medicine Adolescent Medicine; Visit Provider Surgery
DX: A04.72 Enterocolitis due to Clostridium difficile, not specified as recurrent (principal)
CPT/HCPCS: 36415; 85014; 85018

== ENCOUNTER 2018-06-13 14:56 | Inpatient (IN) ==
--- NOTE | 2018-06-13 15:39 | History & Physical Report ---
*Admission Date: 06/13/18 *Chief complaint: Alcohol dependence, shaking, worsenign cough and short of breath *History of present illness: Mr. Mack is a 77-year-old male who presented to clinic today with feeling worn out, depressed, fatigued, with significantly worsening cough over the past month. He reports that for the past 6 or more weeks he has been self-medicating with alcohol for his depression. He is having a hard time sleeping and waking up at night and so he drinks to go back to sleep. He has been consuming between a pint and 1/5 of bourbon daily and his daughter presented to clinic with him and reports he has not been eating very much nor drinking anything other than alcohol or coffee. He reports that during the day when he does not drink he gets the shakes. Denies any history of DTs, seizures, however the shakes have gotten worse when he does not drink throughout the course of the day. Denies episodes of syncope, loss of consciousness. Denies any chest pain, or headaches. The patient has a significant history of COPD and reports worsening respiratory symptoms including productive cough, wheeze, and runny nose. Symptoms have progressed over the past 2 weeks. Additionally he has been out of his inhalers and only uses albuterol as needed. Has not used Brio in greater than 1 month. Fevers, chills, nausea vomiting, diarrhea. The visit in clinic, significant concern was met for the patient's ability to stop drinking at home, states he wishes to stop drinking however it is helping him sleep. Concern for withdrawal symptoms if attempts to decrease drinking on his own at home. Due to concern for withdrawal/refeeding syndrome, patient admitted for further management and medical support during cessation of alcohol. [facility] History I have reviewed the patient's past medical history: Yes Medical History: Reports:: Chronic Obstructive Pulmonary Disease (COPD), Hypertension, Myocardial Infarction Denies:: Cancer, Diabetes Mellitus Type 1, Diabetes Mellitus Type 2, Internal Pacemaker, MRSA, Seizures Other Medical History: Reports: Arthritis. Denies: Blood Transfusion Reaction Other Surgeries: Yes: EGD, Hernia Repair, Other. No: Pacemaker Amputation: No Fractures: No - *Social History Smoking Status: Current every day smoker Tobacco Type: cigarettes # Packs/Day (cigarettes): 1 Alcohol Intake: current Alcohol Intake Frequency:: 3 or more drinks per day Occupational Status: employed Housing: apartment *Family Hx:: Non-contributory Review of Systems - Review of Systems Review of systems:: pertinent systems reviewed and negative unless documented below Meds Home Medications Medication Instructions Recorded Confirmed Type Aspirin [Aspir 81] 81 mg PO DAILY 10/24/17 06/13/18 History Atenolol [Atenolol 100mg Tab] 100 mg PO DAILY 06/13/18 06/13/18 History Allergies Allergy/AdvReac Type Severity Reaction Status Date / Time Penicillins Allergy Intermediate I-HIVES Verified 06/13/18 09:31 Exam Vital signs and Labs for Last 24 Hours: Temp Pulse Resp BP Pulse Ox 98.2 F 64 18 145/98 97 06/13/18 15:34 06/13/18 15:34 06/13/18 15:34 06/13/18 15:34 06/13/18 15:34 - Constitutional thin, disheveled, cooperative - *Routine HEENT Exam Head: Present: normocephalic, atraumatic Eye: Present: EOMI, PERRL, scleral injection ENT: Present: mucous membranes moist - *Routine Neck Exam Present: supple, full ROM. Absent: JVD, lymphadenopathy, thyromegaly - *Routine Respiratory Exam Present: prolonged expiratory phase, wheezes. Absent: rales Comments: On left, consistent with previous findings of left lower lobe collapse/atelectasis - *Routine Cardiovascular Exam Present: RRR, Normal S1, Normal S2. Absent: murmur - *Routine Abdominal Exam Present: soft, normoactive bowel sounds. Absent: organomegaly - *Routine Rectal Exam Patient deferred: visual exam - *Routine Exam Patient deferred: penile exam - *Routine Extremities Exam Absent: cyanosis, clubbing, edema - *Routine Skin Exam Present: intact. Absent: cyanosis, erythema - *Routine Neurological Exam Present: alert, oriented X3, CN II-XII intact Anxious, fine tremor in bilateral hands, no asterixis Assessment and Plan (1) Alcohol dependence Current visit: Yes Status: Acute Qualifiers: Substance use status: with intoxication Category: Medical Code(s): F10.20 - Alcohol dependence, uncomplicated Presented to clinic with significant use, desire to withdraw, not safe to withdraw at home. -Admitted for observed controlled alcohol withdrawal and cessation -CIWA Protocol ordered -Benzodiazepines per protocol for withdrawal symptoms -Thiamine and rally pack ordered. -A level checked, LAUREN of 190s (2) Acute exacerbation of chronic obstructive airways disease Current visit: No Status: Acute Category: Medical Code(s): J44.1 - Chronic obstructive pulmonary disease with (acute) exacerbation History of COPD, symptoms worse over the past few weeks - initiate duo nebs -Initiate Symbicort -Initiate Levaquin and p.o. steroids (3) Tobacco use disorder Current visit: No Status: Acute Category: Medical Code(s): F17.200 - Nicotine dependence, unspecified, uncomplicated Nicotine replacement as needed, informed he could not smoke while admitted.
--- NOTE | 2018-06-13 16:16 | Pharmacy Consult Notes ---
[facility] Pharmacy VTE Monitoring - Patient Demographics Admission date: 06/13/18 Report Date: 06/13/18 Time: 16:16 Allergies/Adverse Reactions: Patient Allergies Penicillins Allergy (Intermediate, Verified 06/13/18 09:31) I-HIVES - VTE Risk Was VTE Risk Assessment Performed: Yes VTE Score: 4 VTE Risk Level: Low Risk - Prophylaxis VTE Prophylaxis Ordered?: Yes Types of VTE Prophylaxis: TEDS Knee High Location of Applied Device: Bilateral Lower Extremeties - VTE Diagnosis Confirmed Treatment or plan recommended: Continue Current Treatment
[2018-06-13 17:24] LABS: Basophils % 0.7 % (0.1-2.0); Eosinophils # 0.1 K/mm3 (0.0-0.4); Eosinophils % 2.5 % (0.1-12.0); Hemoglobin 14.1 g/dL (14.1-18.0); Lymphocytes # 1.4 K/mm3 (0.7-4.5); Lymphocytes % 31.7 K/mm3 (10-50); Mean Corpuscular HGB Conc 32.1 g/dL (31.8-35.4); Mean Corpuscular Volume 99.6 fl (80-94); Mean Platelet Volume 7.5 fl (7.4-10.4); Monocytes # 0.3 K/mm3 (0.1-1.0); Monocytes % 7.5 % (1.7-9.3); Neutrophils # 2.6 K/mm3 (1.8-7.8); Neutrophils % 57.7 % (37.0-80.0); Platelet Count 227 K/mm3 (142-424); Red Blood Count 4.42 M/mm3 (4.60-6.20); White Blood Count 4.5 K/mm3 (4.8-10.8)
[2018-06-13 17:36] LABS: Alanine Aminotransferase 56 U/L (12-78); Albumin Level 3.1 gm/dL (3.4-5.0); Albumin/Globulin Ratio 0.9 (1.1-1.8); Alkaline Phosphatase 93 U/L (46-116); Anion Gap 14.7 mEq/L (5-15); Aspartate Amino Transferase 99 U/L (15-37); Bilirubin,Total 0.9 mg/dL (0.2-1.0); Blood Urea Nitrogen 10 mg/dL (7-18); Calcium 8.7 mg/dL (8.5-10.1); Carbon Dioxide 30 mmol/L (21.0-32.0); Chloride 105 mmol/L (98-107); Ethyl Alcohol 193 mg/dL (0-99); Globulin 3.4 gm/dl (1.3-3.2); Glucose 75 mg/dL (74-106); Phosphorous 3.2 mg/dL (2.4-4.9); Potassium 3.7 mmoL/L (3.5-5.1); Sodium 146 mmol/L (136-145); Total Protein,Serum 6.5 gm/dL (6.4-8.2)
[2018-06-13 17:59] LABS: Activated Partial Thrombo Time 27.3 seconds (23.6-34.0); INR 0.99 (0.9-1.1); Prothrombin Time 10.2 seconds (9.4-11.8)
[2018-06-14 06:02] LABS: Basophils % 0.3 % (0.1-2.0); Eosinophils % 0.2 % (0.1-12.0); Hematocrit 42.2 % (42.0-52.0); Hemoglobin 13.5 g/dL (14.1-18.0); Lymphocytes # 0.6 K/mm3 (0.7-4.5); Lymphocytes % 17.7 K/mm3 (10-50); Mean Corpuscular Hemoglobin 31.8 pg (27.0-31.2); Mean Corpuscular Volume 99.4 fl (80-94); Mean Platelet Volume 7.4 fl (7.4-10.4); Monocytes # 0.1 K/mm3 (0.1-1.0); Monocytes % 4.1 % (1.7-9.3); Neutrophils # 2.7 K/mm3 (1.8-7.8); Neutrophils % 77.7 % (37.0-80.0); Platelet Count 205 K/mm3 (142-424); Red Blood Count 4.25 M/mm3 (4.60-6.20); Red Cell Distribution Width 15.8 % (11.5-17.5); White Blood Count 3.5 K/mm3 (4.8-10.8)
[2018-06-14 06:10] LABS: Anion Gap 13.3 mEq/L (5-15); Calcium 8.3 mg/dL (8.5-10.1); Phosphorous 3.7 mg/dL (2.4-4.9); Potassium 4.3 mmoL/L (3.5-5.1)
--- NOTE | 2018-06-14 08:17 | Progress Note ---
Internal Medicine - PN: Subj *Date: 06/14/18 *Time: 08:14 Interval history: Patient rested comfortably overnight. Has had some shaking but has had no episodes of delirium tremens. Exam Vital signs and Labs for Last 24 Hours: Temp Pulse Resp BP Pulse Ox 97.6 F 82 18 136/89 91 L 06/14/18 03:52 06/14/18 07:26 06/14/18 07:26 06/14/18 07:26 06/14/18 07:26 Laboratory Results - last 24 hr 06/13/18 17:00: Sodium 146 H, Potassium 3.7, Chloride 105, Carbon Dioxide 30, Anion Gap 14.7, BUN 10, Creatinine 0.85, Estimated GFR 88, Est GFR ( Amer) 106, Glucose 75, Calcium 8.7, Phosphorus 3.2, Magnesium 1.5, Total Bilirubin 0.9, AST 99 H, ALT 56, Alkaline Phosphatase 93, Total Protein 6.5 D, Albumin 3.1 L, Globulin 3.4 H, Albumin/Globulin Ratio 0.9 L, Plasma/Serum Alcohol 193 H 06/13/18 17:00: WBC 4.5 L, RBC 4.42 L, Hgb 14.1, Hct 44.0, MCV 99.6 H, MCH 32.0 H, MCHC 32.1, RDW 16.0, Plt Count 227, MPV 7.5, Neut % (Auto) 57.7, Lymph % (Auto) 31.7, [place] % (Auto) 7.5, Eos % (Auto) 2.5, Baso % (Auto) 0.7, Neut # (Auto) 2.6, Lymph # (Auto) 1.4, [place] # (Auto) 0.3, Eos # (Auto) 0.1, Baso # (Auto) 0.0 06/13/18 17:00: PT 10.2, INR 0.99, APTT 27.3 06/14/18 05:41: WBC 3.5 L, RBC 4.25 L, Hgb 13.5 L, Hct 42.2, MCV 99.4 H, MCH 31.8 H, MCHC 32.0, RDW 15.8, Plt Count 205, MPV 7.4, Neut % (Auto) 77.7, Lymph % (Auto) 17.7, [place] % (Auto) 4.1, Eos % (Auto) 0.2, Baso % (Auto) 0.3, Neut # (Auto) 2.7, Lymph # (Auto) 0.6 L, [place] # (Auto) 0.1, Eos # (Auto) 0.0, Baso # (Auto) 0.0 06/14/18 05:41: Sodium 141, Potassium 4.3, Chloride 102, Carbon Dioxide 30, Anion Gap 13.3, BUN 12, Creatinine 0.80, Estimated Creat Clear 66, Estimated GFR 94, Est GFR ( Amer) 114, Glucose 106 D, Calcium 8.3 L, Phosphorus 3.7 I & O for Last 24 hours: Intake & Output 06/11/18 06/12/18 06/13/18 06/14/18 11:59 11:59 11:59 11:59 Intake Total 600 / 600 Balance 600 / 600 Weight 316 lb 5.813 oz Narrative: Patient is awake and alert. Slightly tremulous. He denies hallucinations overnight. His daughter reports he slept well. Lungs have rhonchi and crackles in both lung hawkins, especially in the left anterior lower aspect of his lungs. Producing yellow sputum. Heart rate regular. Abdomen soft. Oropharynx is clear, tongue has some tremor. No JVD. Otherwise ENT exam intact. Cranial nerves are symmetric. No deficits of peripheral nerve strength or movement or sensation. He is somewhat wobbly when he sits up on the side of the bed. Assessment and Plan (1) Alcohol dependence Current visit: Yes Status: Acute Qualifiers: Substance use status: with intoxication Category: Medical Code(s): F10.20 - Alcohol dependence, uncomplicated (2) Acute exacerbation of chronic obstructive airways disease Current visit: No Status: Acute Category: Medical Code(s): J44.1 - Chronic obstructive pulmonary disease with (acute) exacerbation (3) Tobacco use disorder Current visit: No Status: Acute Category: Medical Code(s): F17.200 - Nicotine dependence, unspecified, uncomplicated - Assessment and plan all Dx Assessment and Plan for all problems:: Continue current plan for withdrawal. COPD seems somewhat worse this morning. I will begin antibiotic therapy, chest x-ray, steroids. PT evaluation for his ataxia.
[2018-06-14 15:13] LABS: Amphetamine/Metha Screen,Urine Negative ng/mL (<1000); Barbiturates Screen,Urine Negative ng/mL (<200); Benzodiazepines Screen,Urine Positive ng/mL (<200); Cannabinoid Screen,Urine Negative ng/mL (<50); Cocaine Screen,Urine Negative ng/mL (<300); Methadone Screen,Urine Negative ng/mL (<300); Opiate Screen,Urine Positive ng/mL (<300); Phencyclidine Screen,Urine Negative ng/mL (<25)
[2018-06-15 07:00] LABS: Basophils % 0.1 % (0.1-2.0); Eosinophils % 0.1 % (0.1-12.0); Hematocrit 37.3 % (42.0-52.0); Hemoglobin 11.9 g/dL (14.1-18.0); Lymphocytes # 0.5 K/mm3 (0.7-4.5); Lymphocytes % 8.5 K/mm3 (10-50); Mean Corpuscular Hemoglobin 31.7 pg (27.0-31.2); Mean Corpuscular Volume 99.2 fl (80-94); Mean Platelet Volume 7.9 fl (7.4-10.4); Monocytes # 0.2 K/mm3 (0.1-1.0); Monocytes % 4.2 % (1.7-9.3); Neutrophils # 4.7 K/mm3 (1.8-7.8); Neutrophils % 87.2 % (37.0-80.0); Platelet Count 180 K/mm3 (142-424); Red Blood Count 3.75 M/mm3 (4.60-6.20); Red Cell Distribution Width 15.6 % (11.5-17.5); White Blood Count 5.3 K/mm3 (4.8-10.8)
[2018-06-15 07:14] LABS: Albumin Level 2.7 gm/dL (3.4-5.0); Albumin/Globulin Ratio 0.9 (1.1-1.8); Anion Gap 7.3 mEq/L (5-15); Bilirubin,Total 0.7 mg/dL (0.2-1.0); Calcium 7.9 mg/dL (8.5-10.1); Potassium 3.3 mmoL/L (3.5-5.1); Total Protein,Serum 5.7 gm/dL (6.4-8.2)
--- NOTE | 2018-06-15 08:40 | Progress Note ---
Internal Medicine - PN: Subj *Date: 06/15/18 *Time: 07:40 Interval history: Patient is sitting in bed struggling to eat due to tremors. Appetite is good, no nausea. No further diarrhea. Alert and oriented x3. Rate and rhythm regular. No LE edema. Scattered wheezes, decent air movement. Abdomen soft, nontender, hyperactive bowel sounds. Exam Vital signs and Labs for Last 24 Hours: Temp Pulse Resp BP Pulse Ox 97.8 F 113 H 20 140/83 100 06/15/18 08:00 06/15/18 08:00 06/15/18 08:00 06/15/18 08:00 06/15/18 08:00 Laboratory Results - last 24 hr 06/14/18 10:20: Stl Aeromonas (PCR) Not detected, Stl C. cayetanensis PCR Not detected, Stool Rotavirus (PCR) Not detected, Stl Adenov F 40/41 PCR Not detected, Stool Astrovirus (PCR) Not detected, Stool Campylobacter PCR Not detected, Stl C.difficile Tox PCR Detected A, Stool Cryptosporidium PCR Not detected, Stl E.coli Shiga Tox PCR Not detected, Stool E coli O157 PCR Not detected, Stl Enterotoxigenic E PCR Not detected, Stool EPEC (PCR) Not detected, Stool EAEC (PCR) Not detected, Stl E. histolytica PCR Not detected, Stool Giardia Lamblia PCR Not detected, Stool Salmonella PCR Not detected, Stool Sapovirus (PCR) Not detected, Stl P. shigelloides PCR Not detected, Stl Shigella/EIEC PCR Not detected, St Y.enterocolitica PCR Not detected, Stool Vibrio (PCR) Not detected, Stl Vibrio cholerae PCR Not detected, Stl Norovirus GI/GII PCR Not detected 06/14/18 14:35: Urine Opiates Screen Positive H, Urine Methadone Screen Negative, Ur Barbituates Screen Negative, Ur Phencyclidine Scrn Negative, Ur Amphetamines Screen Negative, U Benzodiazepines Scrn Positive H, Urine Cocaine Screen Negative, U Marijuana (THC) Screen Negative 06/15/18 06:49: WBC 5.3 D, RBC 3.75 L, Hgb 11.9 L, Hct 37.3 L, MCV 99.2 H, MCH 31.7 H, MCHC 32.0, RDW 15.6, Plt Count 180, MPV 7.9, Neut % (Auto) 87.2 H, Lymph % (Auto) 8.5 L, [place] % (Auto) 4.2, Eos % (Auto) 0.1, Baso % (Auto) 0.1, Neut # (Auto) 4.7, Lymph # (Auto) 0.5 L, [place] # (Auto) 0.2, Eos # (Auto) 0.0, Baso # (Auto) 0.0 06/15/18 06:49: Sodium 141, Potassium 3.3 L D, Chloride 106, Carbon Dioxide 31, Anion Gap 7.3, BUN 15, Creatinine 0.91, Estimated Creat Clear 59, Estimated GFR 81, Est GFR ( Amer) 98, Glucose 192 H, Calcium 7.9 L, Total Bilirubin 0.7, AST 40 H D, ALT 39 D, Alkaline Phosphatase 76, Total Protein 5.7 L, Albumin 2.7 L, Globulin 3.0, Albumin/Globulin Ratio 0.9 L I & O for Last 24 hours: Intake & Output 06/12/18 06/13/18 06/14/18 06/15/18 11:59 11:59 11:59 11:59 Intake Total 600 / 600 1922 / 1922 Output Total 50 / 50 475 / 475 Balance 550 / 550 1447 / 1447 Weight 144 lb 8 oz 144 lb 7.996 oz Microbiology Reports for the Last 24 Hours: Microbiology 06/14/18 11:20 Sputum - Expectorated Sputum Gram Stain - Final 06/14/18 11:20 Sputum - Expectorated Sputum Sputum Culture - Preliminary Assessment and Plan (1) Alcohol dependence Current visit: Yes Status: Acute Qualifiers: Substance use status: with intoxication Category: Medical Code(s): F10.20 - Alcohol dependence, uncomplicated (2) Acute exacerbation of chronic obstructive airways disease Current visit: No Status: Acute Category: Medical Code(s): J44.1 - Chronic obstructive pulmonary disease with (acute) exacerbation (3) Tobacco use disorder Current visit: No Status: Acute Category: Medical Code(s): F17.200 - Nicotine dependence, unspecified, uncomplicated - Assessment and plan all Dx Assessment and Plan for all problems:: Continues to have significant tremors despite serax, will add PRN ativan for breakthrough. Change solu-medrol to oral dexamethasone as steroids may be contributing to his tremors. Continue ETOH withdraw protocol. Continue oral vancomycin for C. Diff. OT consult today. Plan to d/c home with home health to daughter's house in [place] tomorrow.
[2018-06-15 09:51] LABS: Lymphocytes % 8 % (10-50); Neutrophils % 92 % (42-76); Total Cells Counted 100
[2018-06-15 09:53] LABS: RBC Morphology Normal
--- NOTE | 2018-06-16 13:32 | Progress Note ---
Internal Medicine - PN: Subj *Date: 06/16/18 *Time: 08:30 Interval history: Continue to have significant tremor overnight. CIWA scores overnight improved with consistent 4's overnight. Discontinued scheduled oxazepam this morning. Continue scoring today with as needed Ativan. Tolerating diet. Complains of feeling more weak. In bedside chair this morning on exam. Is alert and oriented. Hemodynamically stable. Exam Vital signs and Labs for Last 24 Hours: Temp Pulse Resp BP Pulse Ox 97.1 F L 69 16 138/76 93 L 06/16/18 08:48 06/16/18 08:48 06/16/18 08:48 06/16/18 08:48 06/16/18 08:48 I & O for Last 24 hours: Intake & Output 06/13/18 06/14/18 06/15/18 06/16/18 23:59 23:59 23:59 23:59 Intake Total 240 / 240 2021 / 2021 3016 / 3016 480 / 480 Output Total 125 / 125 400 / 400 Balance 240 / 240 1897 / 1897 2616 / 2616 480 / 480 Weight 143.5 kg 65.544 kg Narrative: Thin male who is tremulous on exam. Alert and oriented 3. Heart regular and tachycardic. Lungs clear to auscultation. Abdomen soft nontender, bowel sounds present. No asterixis on exam. Assessment and Plan (1) Alcohol dependence Current visit: Yes Status: Acute Qualifiers: Substance use status: with intoxication Category: Medical Code(s): F10.20 - Alcohol dependence, uncomplicated Continue withdrawal scoring. Discontinue oxazepam scheduled. Continue Ativan as needed. Due to discontinuing scheduled benzodiazepines, will observe overnight for further withdrawal. -Restarted home atenolol for blood pressure as well as tremors (2) Acute exacerbation of chronic obstructive airways disease Current visit: No Status: Acute Category: Medical Code(s): J44.1 - Chronic obstructive pulmonary disease with (acute) exacerbation Continue steroids and antibiotics. Continue breathing treatments as needed (3) Tobacco use disorder Current visit: No Status: Acute Category: Medical Code(s): F17.200 - Nicotine dependence, unspecified, uncomplicated Continue nicotine replacement as needed
--- NOTE | 2018-06-17 08:26 | Discharge Summary ---
General - General Admission date:: 06/13/18 Discharge date: 06/17/18 HPI HPI: Mr. Mack is a 77-year-old male who presented to clinic today with feeling worn out, depressed, fatigued, with significantly worsening cough over the past month. He reports that for the past 6 or more weeks he has been self-medicating with alcohol for his depression. He is having a hard time sleeping and waking up at night and so he drinks to go back to sleep. He has been consuming between a pint and 1/5 of bourbon daily and his daughter presented to clinic with him and reports he has not been eating very much nor drinking anything other than alcohol or coffee. He reports that during the day when he does not drink he gets the shakes. Denies any history of DTs, seizures, however the shakes have gotten worse when he does not drink throughout the course of the day. Denies episodes of syncope, loss of consciousness. Denies any chest pain, or headaches. The patient has a significant history of COPD and reports worsening respiratory symptoms including productive cough, wheeze, and runny nose. Symptoms have progressed over the past 2 weeks. Additionally he has been out of his inhalers and only uses albuterol as needed. Has not used Brio in [place] 1 month. Fevers, chills, nausea vomiting, diarrhea. The visit in clinic, significant concern was met for the patient's ability to stop drinking at home, states he wishes to stop drinking however it is helping him sleep. Concern for withdrawal symptoms if attempts to decrease drinking on his own at home. Due to concern for withdrawal/refeeding syndrome, patient admitted for further management and medical support during cessation of alcohol. Hospital Course Hospital Course: Patient was admitted, started with IV fluids and Benza pain scale and as needed. Did fairly well and did not much better with the addition of beta-blockers yesterday which he takes at home for blood pressure. This morning he is met his goals of no as needed benzodiazepines. He has done well with eating Another issue during hospitalization was a positive test for C. difficile, which she had in March and was treated with Flagyl. He has a minimal diarrhea and has no fever, no concerns of vomiting or blood in the stool. Given 3 days of oral vancomycin. Plan with this morning to discharge him home with diazepam for tremors, beta- marie for blood pressure and tremor control and short-term follow-up in the office. He will be living with his daughter who will help control his access to alcohol. We will hold on vancomycin given the cost of this agent and use pr obiotics and reassess in the office on Tuesday. Objective Vital signs: Temp Pulse Resp BP Pulse Ox 98.3 F 79 18 130/59 95 06/17/18 07:47 06/17/18 07:47 06/17/18 07:47 06/17/18 07:47 06/17/18 07:47 Narrative: Pharynx clear, lungs are clear, heart rate regular. Abdomen soft, no mass. Tremulous is noted but improving. Results Labs on day of discharge: Preliminary micro results at discharge 06/14/18 11:20 Sputum Culture - Preliminary Sputum - Expectorated Sputum DS: Diagnosis - Discharge Diagnosis (1) Alcohol dependence Status: Chronic (2) Acute exacerbation of chronic obstructive airways disease Status: Acute (3) Tobacco use disorder Status: Chronic Discharge Plan - Patient Discharge Instructions ACTIVITY: Continue current activity DIET: continue same diet Patient Instructions: Antibiotic-associated Colitis -- C difficile - Follow up Plan Follow up with: Cayden Munoz MD [Family Provider] - 06/21/18 Disposition: Home, Self-Jail Medications: Home Medications Medication Instructions Recorded Confirmed Type Aspirin [Aspir 81] 81 mg PO DAILY 10/24/17 06/13/18 History Atenolol [Atenolol 100mg Tab] 50 mg PO DAILY 06/13/18 06/14/18 History Fluticasone/Vilanterol [Breo 1 puff IH DAILY 06/14/18 06/14/18 History Ellipta 200-25 Mcg INH] Ipratropium/Albuterol Sulfate 3 ml IH QIDP PRN 06/14/18 06/14/18 History [Duoneb 3mL neb] Prescriptions/Medication Reconciliation: New diazePAM [diazePAM 5mg Tablet] 5 mg PO BID PRN #24 tab PRN Reason: tremors/anxiety Bifidobacterium Infantis [Align] 4 mg PO DAILY #30 capsule levoFLOXacin [Levaquin 500mg tab] 500 mg PO DAILY #7 tab predniSONE [Deltasone 20mg tablet] 20 mg PO BID 7 Days #14 tab Atenolol [Atenolol 25mg Tab] 25 mg PO BID #60 tablet Continue Ipratropium/Albuterol Sulfate [Duoneb 3mL neb] 3 ml IH QIDP PRN PRN Reason: Shortness Of Breath Aspirin [Aspir 81] 81 mg PO DAILY Fluticasone/Vilanterol [Breo Ellipta 200-25 Mcg INH] 1 puff IH DAILY Nicotine [Nicotine Patch 21mg/24hrs] 21 mg TD DAILY #30 patch.[email or web address] Discontinued Atenolol [Atenolol 100mg Tab] 50 mg PO DAILY
== END 2018-06-17 09:31 | disposition home or self-care (01) ==
LOC: 2ND → OBSVTOIN 15:03
PROVIDERS: ADMIT Internal Medicine Adolescent Medicine; ATTEND Internal Medicine Adolescent Medicine
CPT/HCPCS: 36415; 71020; 71046; 80048; 80053; 80305; 80306; 83735; 84100; 85007; 85025; 85610; 85730; 87070; 87205; 87507; 94640; 94760; 94761; 97161; 97162; 97165; J1956; J3370

== ENCOUNTER 2018-08-09 20:08 | Inpatient (IN) ==
--- NOTE | 2018-08-09 20:34 | Emergency Department Note ---
ED Disposition Clinical Impression: Acute exacerbation of chronic obstructive airways disease Community acquired pneumonia Qualifiers: Laterality: left Lung location: lower lobe of lung Qualified Code(s): J18.1 - Lobar pneumonia, unspecified organism Disposition: Admitted As Inpatient Condition on Discharge: Good - Critical Care Critical Care Time: No Attestation: On 08/09/18, the high probability of a clinically significant, sudden or life threatening deterioration of the following system(s) required my full and direct attention, intervention and personal management. The time I documented below is in addition to time spent performing reported procedures but includes the following listed in this critical care notation. Medical Decision Making - Medical Records Medical records reviewed: Yes: I reviewed the patient's medical records. - Hoang Inquiry Pt receiving controlled substance: No Vital Signs: 08/09/18 20:10 08/09/18 20:40 08/09/18 21:16 Temperature 98.7 F Temperature Source Oral Pulse Rate [Right Brachial] 138 H 113 H 124 H Respiratory Rate 22 21 18 Blood Pressure [Right Arm] 137/92 H 134/94 H 159/93 H Blood Pressure Mean [Right Arm] 107 107 115 Blood Pressure Source [Right Arm] Automatic Cuff Blood Pressure Position [Right Arm] Supine 02 Sat by Pulse Oximetry 87 L 93 L 96 Oxygen Delivery Method Nasal Cannula Nasal Cannula Nasal Cannula Oxygen Flow Rate (LPM) 2 3 3 08/09/18 21:30 08/09/18 22:00 Temperature Temperature Source Pulse Rate [Right Brachial] 121 H 120 H Respiratory Rate 21 18 Blood Pressure [Right Arm] 138/73 183/102 H Blood Pressure Mean [Right Arm] 94 129 Blood Pressure Source [Right Arm] Automatic Cuff Blood Pressure Position [Right Arm] Supine 02 Sat by Pulse Oximetry 95 96 Oxygen Delivery Method Nasal Cannula Nasal Cannula Oxygen Flow Rate (LPM) 3 3 - Lab Data Lab results reviewed: Yes: I reviewed the patient's lab results. Lab Results 08/09/18 20:25: WBC 7.1, RBC 5.54, Hgb 17.2, Hct 60.1 H*, MCV 108.4 H, MCH 31.1, MCHC 28.7 L, RDW 18.8 H, Plt Count 227, MPV 19.5 H, Neut % (Auto) 60.1, Lymph % (Auto) 31.1, [place] % (Auto) 5.5, Eos % (Auto) 3.4, Baso % (Auto) 4.1 H, Neut # (Auto) 4.3, Lymph # (Auto) 2.2, [place] # (Auto) 0.4, Eos # (Auto) 0.2, Baso # (Auto) 0.3 H 08/09/18 20:25: Lactate 6.8 H 08/09/18 20:44: Specimen Source L radial, O2 % 2.5, Jairo Test Yes Result diagrams: 08/09/18 20:25 Orders (Tests/Meds): ED MEDICATIONS Generic Name Dose Route Start Last Admin Trade Name Freq PRN Reason Stop Dose Admin Sodium Chloride 2,010 mls @ 1,005 mls/hr 08/09/18 21:29 08/09/18 21:32 Sod Chlor 0.9% 1000ml Bag 30 ml/kg infuse over 2 hr (2010 ml) 08/09/18 23:28 1,005 mls/hr IV Administration .Q2H ONE Levofloxacin/Dextrose 500 mg in 100 mls @ 100 mls/hr 08/09/18 22:30 Levaquin 500mg/100ml Premix IV 08/23/18 22:29 Q24H SEBASTIÁN Protocol Discontinued Medications Generic Name Dose Route Start Last Admin Trade Name Freq PRN Reason Stop Dose Admin Albuterol/Ipratropium 3 ml 08/09/18 20:33 08/09/18 20:38 Duoneb 3ml Neb IH 08/09/18 20:34 3 ml ONCE ONE Administration Sodium Chloride 1,000 mls @ 999 mls/hr 08/09/18 20:45 08/09/18 20:38 Sod Chlor 0.9% 1000ml Bag IV 08/09/18 21:45 999 mls/hr .Q1H1M SEBASTIÁN Administration Methylprednisolone Sodium Succinate 125 mg 08/09/18 20:33 08/09/18 20:38 Solu-Medrol 125mg/2ml Vial IV 08/09/18 20:34 125 mg ONCE ONE Administration ORDERS Category Date Time Status XR chest 2V Stat Exams 08/09/18 20:33 Taken Basic Metabolic Panel Stat Lab 08/09/18 20:25 Received Ethyl Alcohol Stat Lab 08/09/18 20:25 Received Liver Panel Stat Lab 08/09/18 20:25 Received Troponin I Stat Lab 08/09/18 20:25 Received Blood Culture Stat Micro 08/09/18 20:25 Received Arterial Blood Gas Routine RT 08/09/18 20:44 Results Arterial Blood Gas Stat RT 08/09/18 20:39 Ordered ECG Request by /Haley Stat Y 08/09/18 20:33 Ordered - Radiology Data #1 Image(s): Chest Image Reviewed: Yes I reviewed the patient's radiology image Preliminary Findings: Abnormal (lt lung changes - have been on prev ) - ECG Data Tracing #1 Arrhythmias present: sinus tach Ischemic changes: non-specific ST-T wave changes - Tissue Perfus/Sepsis Re-Eval Reperfusion Exam Performed: Yes Date Performed: 08/09/18 Time Performed: 22:29 Sepsis Follow-Up: Yes: Respiratory exam, Cardiovascular exam, Capillary refill, Peripheral pulse strength, Skin exam, Vital Signs Resp/SOB HPI - General Chief Complaint: Shortness of Breath/Dyspnea Stated Complaint: SOB, COPD Time Seen by Provider: 08/09/18 20:15 Mode of Arrival: Wheelchair Source of Information: Patient, Relative, Medical Record Limitations: No Limitations Description of Symptoms (Recalled from ER Triage Doc. by RN): Reports shortness of air x3 days, cough started today. Hx of COPD and home o2 use. Was seen in [facility] office today, prescribed abx and steriods, earlier tonight at home oxygen level was 75% on 2L NC. Sat on arrival was 87% on 2L NC. - History of Present Illness progressive sob with cnp cough over the last few days with dec o2 sat - was seen at pcp and started on abx and steroids Complaint: shortness of breath, cough Onset (ago): day(s) Severity: moderate Consistency/Duration: constant Known history of: COPD Associated symptoms: cough Treatment prior to arrival: oxygen - Related Data Home oxygen amount: 2 liters Home Medications Medication Instructions Recorded Confirmed Aspirin [Aspir 81] 81 mg PO DAILY 10/24/17 08/09/18 Fluticasone/Vilanterol [Breo 1 puff IH DAILY 06/14/18 08/09/18 Ellipta 200-25 Mcg INH] Ipratropium/Albuterol Sulfate 3 ml IH QIDP PRN 06/14/18 08/09/18 [Duoneb 3mL neb] Atenolol [Atenolol 25mg Tab] 25 mg PO BID 08/09/18 08/09/18 Bifidobacterium Infantis [Align] 4 mg PO DAILY 08/09/18 08/09/18 levoFLOXacin [Levaquin 500mg 500 mg PO DAILY 08/09/18 08/09/18 tab] predniSONE [Deltasone 20mg 20 mg PO BID 08/09/18 08/09/18 tablet] Previous Rx's Medication Instructions Recorded Nicotine [Nicotine Patch 21 mg TD DAILY #30 patch.td24 06/17/18 21mg/24hrs] diazePAM [diazePAM 5mg Tablet] 5 mg PO BID PRN #24 tab 06/17/18 Allergies Allergy/AdvReac Type Severity Reaction Status Date / Time Penicillins Allergy Intermediate I-HIVES Verified 06/13/18 09:31 [facility] History I have reviewed the patient's past medical history: Yes Medical History: Reports:: Chronic Obstructive Pulmonary Disease (COPD), Hypertension, Myocardial Infarction Denies:: Cancer, Diabetes Mellitus Type 1, Diabetes Mellitus Type 2, Internal Pacemaker, MRSA, Seizures Other Medical History: Reports: Arthritis. Denies: Blood Transfusion Reaction Comment: History of anxiety, history of alcoholism in remission Other Surgeries: Yes: EGD, Hernia Repair, Other. 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 He is a and lives alone although his daughter has stayed with him lately. He has 3 children and 4 grandchildren, all well. Family Hx:: Non-contributory Comment: No history of chronic lung disease or cancer. ROS Obtained: Yes All systems reviewed & no additional complaints - Constitutional Constitutional: Denies fever(s) - Eyes Eyes: Denies eye discharge - ENT Ears, Nose, Mouth, and Throat: Denies sore throat - Cardiovascular Cardiovascular: Denies chest pain - Respiratory Respiratory: Yes cough, No coughing up blood - Gastrointestinal Gastrointestingal: Reports: nausea. Denies: abdominal pain - Genitourinary Male Genitourinary: Denies hematuria - Musculoskeletal Musculoskeletal: Denies joint pain - Integumentary/Breasts Skin/Breast: Denies rash - Neurologic Neurologic: Denies seizure-like activity Physical Exam - General General appearance: alert - Head Head exam: normocephalic - Eye Eye exam: Present: PERRL, EOMI - ENT ENT exam: Present: mucous membranes dry - Neck Neck exam: Present: trachea midline - Respiratory Respiratory exam: Present: other (dec bs bilat ). Absent: respiratory distress - Cardiovascular Cardiovascular exam: Present: regular rate, systolic murmur, +S4 - Abdominal Exam Abdominal exam: Present: soft - Extremities Exam Extremities exam: Absent: calf tenderness - Neurological Exam Neurological exam: Present: alert, oriented X3, CN II-XII intact - Psychiatric Psychiatric exam: Present: normal affect - Skin Skin exam: Absent: rash
[2018-08-09 20:52] LABS: Oxygen 2.5 %
[2018-08-09 20:53] LABS: ABG Base Excess -0.8 mmol/L (-2.4-2.3); ABG Oxygen Saturation 95 % (90-100)
[2018-08-09 20:55] LABS: ABG HCO3 24.4 mmhg (22.0-26.0); ABG PCO2 42.6 mmhg (35.0-45.0); ABG PH 7.38 mmol/L (7.35-7.45); ABG PO2 84.8 mmhg (80-100)
[2018-08-09 20:56] LABS: ABG TCO2 25.7 mmhg (23-27)
[2018-08-09 21:26] LABS: Basophils # 0.3 K/mm3 (0-0.2); Basophils % 4.1 % (0.1-2.0); Eosinophils # 0.2 K/mm3 (0.0-0.4); Eosinophils % 3.4 % (0.1-12.0); Hemoglobin 17.2 g/dL (14.1-18.0); Lymphocytes # 2.2 K/mm3 (0.7-4.5); Lymphocytes % 31.1 % (10-50); Mean Corpuscular HGB Conc 28.7 g/dL (31.8-35.4); Mean Corpuscular Hemoglobin 31.1 pg (27.0-31.2); Mean Corpuscular Volume 108.4 fl (80-94); Mean Platelet Volume 19.5 fl (7.4-10.4); Monocytes # 0.4 K/mm3 (0.1-1.0); Monocytes % 5.5 % (1.7-9.3); Neutrophils # 4.3 K/mm3 (1.8-7.8); Neutrophils % 60.1 % (37.0-80.0); Platelet Count 227 K/mm3 (142-424); Red Blood Count 5.54 M/mm3 (4.60-6.20); Red Cell Distribution Width 18.8 % (11.5-17.5); White Blood Count 7.1 K/mm3 (4.8-10.8)
[2018-08-09 21:28] LABS: Hematocrit 60.1 % (42.0-52.0)
[2018-08-09 23:39] LABS: Albumin Level 3.3 gm/dL (3.4-5.0); Anion Gap 20.1 mEq/L (5-15); Bilirubin,Direct 0.2 mg/dL (0.0-0.2); Bilirubin,Indirect 0.6 mg/dL (0.0-0.9); Bilirubin,Total 0.8 mg/dL (0.2-1.0); Potassium 3.1 mmoL/L (3.5-5.1); Total Protein,Serum 7.3 gm/dL (6.4-8.2)
[2018-08-10 05:15] LABS: Basophils % 0.1 % (0.1-2.0); Eosinophils % 0.1 % (0.1-12.0); Hematocrit 46.3 % (42.0-52.0); Lymphocytes # 0.3 K/mm3 (0.7-4.5); Lymphocytes % 5.7 % (10-50); Mean Corpuscular HGB Conc 31.2 g/dL (31.8-35.4); Mean Corpuscular Hemoglobin 30.6 pg (27.0-31.2); Mean Platelet Volume 7.2 fl (7.4-10.4); Monocytes # 0.1 K/mm3 (0.1-1.0); Monocytes % 1.3 % (1.7-9.3); Neutrophils # 4.4 K/mm3 (1.8-7.8); Neutrophils % 92.8 % (37.0-80.0); Platelet Count 191 K/mm3 (142-424); Red Blood Count 4.72 M/mm3 (4.60-6.20); Red Cell Distribution Width 15.5 % (11.5-17.5); White Blood Count 4.7 K/mm3 (4.8-10.8)
[2018-08-10 05:18] LABS: Anion Gap 21.4 mEq/L (5-15); Potassium 3.4 mmoL/L (3.5-5.1)
[2018-08-10 05:36] LABS: Hemoglobin 14.7 g/dL (14.1-18.0)
[2018-08-10 05:43] LABS: Calcium 7.9 mg/dL (8.5-10.1)
[2018-08-10 05:59] LABS: Anisocytosis 1+; Lymphocytes % 4 % (10-50); Neutrophils % 96 % (42-76); Ovalocytes 1+; Total Cells Counted 100
[2018-08-10 06:35] LABS: Allen's Test Acceptable
--- NOTE | 2018-08-10 07:26 | Pharmacy Consult Notes ---
[facility] Pharmacy VTE Monitoring - Patient Demographics Admission date: 08/09/18 Report Date: 08/10/18 Time: 07:25 Allergies/Adverse Reactions: Patient Allergies Penicillins Allergy (Intermediate, Verified 06/13/18 09:31) I-HIVES Height: 1.78 m Weight: 65.856 kg Patient Problems: Current Active Problems Acute exacerbation of chronic obstructive airways disease (Acute) Community acquired pneumonia (Acute) - VTE Risk Labs: VTE Related Lab Results Hgb 14.7 g/dL (14.1-18.0) D 08/10/18 05:00 Hct 46.3 % (42.0-52.0) 08/10/18 05:00 Plt Count 191 K/mm3 (142-424) 08/10/18 05:00 BUN 11 mg/dL (7-18) 08/10/18 05:00 Creatinine 0.87 mg/dL (0.70-1.30) 08/10/18 05:00 Estimated Creat Clear 59 mL/min (50-200) 08/10/18 05:00 Was VTE Risk Assessment Performed: Yes VTE Risk Level: Very Low Risk - Prophylaxis VTE Prophylaxis Ordered?: Yes Types of VTE Prophylaxis: TEDS Knee High Location of Applied Device: Bilateral Lower Extremeties - VTE Diagnosis Confirmed Treatment or plan recommended: Continue Current Treatment
--- NOTE | 2018-08-10 08:43 | History & Physical Report ---
*Admission Date: 08/09/18 *Chief complaint: shortness of breath *History of present illness: 77 year old male with a long history of ETOH abuse and COPD presented to the ED with increased shortness of breath. Patient was seen in PCP office yesterday for ETOH withdraw and COPD exacerbation. He was prescribed azithromycin and Ativan. Patient had worsening shortness of breath with room air saturations in the 70's on home pulse ox and came to the ED for evaluation. In the ED, he was found to right middle lobe pneumonia. WBC normal. Lactate was elevated. Patient was admitted for IV antibiotics and further evaluation. Today, patient reports shortness of breath is unchanged from yesterday. Continues to have non-productive cough. Tremors have increased. [facility] History I have reviewed the patient's past medical history: Yes Medical History: Reports:: Chronic Obstructive Pulmonary Disease (COPD), Hypertension, Myocardial Infarction Denies:: Cancer, Diabetes Mellitus Type 1, Diabetes Mellitus Type 2, Internal Pacemaker, MRSA, Seizures Other Medical History: Reports: Arthritis. Denies: Blood Transfusion Reaction Other Surgeries: Yes: EGD, Hernia Repair, Other. No: Pacemaker Amputation: No Fractures: No - *Social History Educational Level: Completed Grade School Smoking Status: Current every day smoker Tobacco Type: cigarettes # Packs/Day (cigarettes): 1 Alcohol Intake: current Alcohol Intake Frequency:: 3 or more drinks per day Occupational Status: employed, retired Housing: house - Psychiatric History Expresses thoughts of harming self/others: None Suicide Plan Description: No Plan *Family Hx:: Non-contributory Review of Systems - Constitutional Reports weakness - *Respiratory Reports cough, Reports shortness of breath - *Neurologic Reports tremor(s), Denies seizure-like activity Meds Home Medications Medication Instructions Recorded Confirmed Type Aspirin [Aspir 81] 81 mg PO DAILY 10/24/17 08/09/18 History Fluticasone/Vilanterol [Breo 1 puff IH DAILY 06/14/18 08/09/18 History Ellipta 200-25 Mcg INH] Ipratropium/Albuterol Sulfate 3 ml IH QIDP PRN 06/14/18 08/09/18 History [Duoneb 3mL neb] Atenolol [Atenolol 25mg Tab] 25 mg PO BID 08/09/18 08/09/18 History Bifidobacterium Infantis [Align] 4 mg PO DAILY 08/09/18 08/09/18 History hydrOXYzine pamoate [Vistaril 25mg 25 mg PO BID 08/09/18 08/09/18 History capsule] predniSONE [Deltasone 20mg 20 mg PO BID 08/09/18 08/09/18 History tablet] Azithromycin [Zithromax 250mg 250 mg PO DIRECTED 08/10/18 08/10/18 History tab] Allergies Allergy/AdvReac Type Severity Reaction Status Date / Time Penicillins Allergy Intermediate I-HIVES Verified 06/13/18 09:31 Exam Vital signs and Labs for Last 24 Hours: Temp Pulse Resp BP Pulse Ox 97.9 F 130 H 22 165/95 H 95 08/10/18 03:00 08/10/18 08:00 08/10/18 03:00 08/10/18 03:00 08/10/18 08:00 Laboratory Results - last 24 hr 08/09/18 20:25: WBC 7.1, RBC 5.54, Hgb 17.2, Hct 60.1 H*, MCV 108.4 H, MCH 31.1, MCHC 28.7 L, RDW 18.8 H, Plt Count 227, MPV 19.5 H, Neut % (Auto) 60.1, Lymph % (Auto) 31.1, [place] % (Auto) 5.5, Eos % (Auto) 3.4, Baso % (Auto) 4.1 H, Neut # (Auto) 4.3, Lymph # (Auto) 2.2, [place] # (Auto) 0.4, Eos # (Auto) 0.2, Baso # (Auto) 0.3 H 08/09/18 20:25: Sodium 142, Potassium 3.1 L, Chloride 98, Carbon Dioxide 27, Anion Gap 20.1 H, BUN 10, Creatinine 1.05, Estimated Creat Clear 57, Estimated GFR 69, Est GFR ( Amer) 83, Glucose 96, Calcium 9.0, Total Bilirubin 0.8, Direct Bilirubin 0.2, Indirect Bilirubin 0.6, AST 46 H, ALT 27, Alkaline Phosphatase 148 H, Troponin I 0.06, Total Protein 7.3 D, Albumin 3.3 L, Plasma/ Serum Alcohol 212 H 08/09/18 20:25: Lactate 6.8 H 08/09/18 20:44: Specimen Source L radial, O2 % 2.5, ABG pH 7.38, ABG pCO2 42.6, ABG pO2 84.8, ABG HCO3 24.4, ABG Total CO2 25.7, ABG O2 Saturation 95, ABG Base Excess -0.8, Jairo Test Acceptable 08/10/18 00:40: Lactate 8.0 H 08/10/18 01:50: Troponin I 0.06 08/10/18 02:55: Lactate 7.2 H 08/10/18 05:00: Troponin I 0.09 H 08/10/18 05:00: WBC 4.7 L D, RBC 4.72, Hgb 14.7 D, Hct 46.3, MCV 98.0 H, MCH 30.6, MCHC 31.2 L, RDW 15.5, Plt Count 191, MPV 7.2 L, Neut % (Auto) 92.8 H, Lymph % (Auto) 5.7 L, [place] % (Auto) 1.3 L, Eos % (Auto) 0.1, Baso % (Auto) 0.1, Neut # (Auto) 4.4, Lymph # (Auto) 0.3 L, [place] # (Auto) 0.1, Eos # (Auto) 0.0, Baso # (Auto) 0.0, Total Counted 100, Neutrophils % (Manual) 96 H, Lymphocytes % (Manual) 4 L, Platelet Estimate Normal, RBC Morphology Not Reportable, Anisocytosis 1+, Ovalocytes 1+ 08/10/18 05:00: Sodium 142, Potassium 3.4 L, Chloride 103, Carbon Dioxide 21 D, Anion Gap 21.4 H, BUN 11, Creatinine 0.87, Estimated Creat Clear 59, Estimated GFR 86, Est GFR ( Amer) 104 D, Glucose 123 H D, Calcium 7.9 L D I & O for Last 24 hours: Intake & Output 08/07/18 08/08/18 08/09/18 08/10/18 11:59 11:59 11:59 11:59 Intake Total 1400 / 1400 Balance 1400 / 1400 Weight 145 lb 3 oz Narrative: Alert and oriented x3. Rate and rhythm regular. No LE edema. No JVD. No cervical LAD. ENT exam unremarkable. Lung sounds with scattered wheezes, diminished air movement, no movement LLL, crackles RML/RLL. Abdomen soft and nontender. Skin pink, warm and dry. Tremors of BUE, head/neck noted. No acute neuro deficits. Assessment and Plan (1) Acute exacerbation of chronic obstructive airways disease Current visit: Yes Status: Acute Category: Medical Code(s): J44.1 - Chronic obstructive pulmonary disease with (acute) exacerbation (2) Community acquired pneumonia Current visit: Yes Status: Acute Qualifiers: Laterality: left Lung location: lower lobe of lung Qualified Code(s): J18.1 - Lobar pneumonia, unspecified organism Category: Medical Code(s): J18.9 - Pneumonia, unspecified organism (3) Alcohol dependence Current visit: No Status: Chronic Qualifiers: Substance use status: with intoxication Category: Medical Code(s): F10.20 - Alcohol dependence, uncomplicated - Assessment and plan all Dx Assessment and Plan for all problems:: Initiate alcohol withdraw protocol. CXR showed RML pneumonia and LLL collapse. CAP pneumonia protocol in place. CT chest from 09/2017 reviewed. LLL collapse was evident on this scan, as well of airway thickening and chronic changes. Patient was seen by Dr. Contreras at that time who reported bronch from 03/2017 was unremarkable. He was unsure of the etiology of abnormal CT, but recommended repeat bronch. Patient was scheduled for bronch which had to be cancelled d/t acute exacerbation of his COPD. Will repeat CT chest to evaluate stability. PT consult tomorrow.
--- NOTE | 2018-08-11 08:38 | Progress Note ---
Internal Medicine - PN: Subj *Date: 08/11/18 *Time: 08:45 Interval history: Stable overnight. CIWQA scores 1-3. REfused AM dose of oxazepam. No N/V/D, worsening SOA, CP, seizures or worsening tremors. Tolerating PO intake. Hemodynamically stable. Exam Vital signs and Labs for Last 24 Hours: Temp Pulse Resp BP Pulse Ox 97.8 F 75 22 147/60 H 98 08/11/18 08:00 08/11/18 08:00 08/11/18 08:00 08/11/18 08:00 08/11/18 08:00 I & O for Last 24 hours: Intake & Output 08/08/18 08/09/18 08/10/18 08/11/18 23:59 23:59 23:59 23:59 Intake Total 1400 / 1400 1357 / 1357 1286 / 1286 Balance 1400 / 1400 1357 / 1357 1286 / 1286 Weight 65.856 kg 65.856 kg Narrative: Alert and oriented x3. Rate and rhythm regular. No LE edema. No JVD. No cervical LAD. ENT exam unremarkable. Lung sounds with scattered wheezes, diminished air movement, throughout, crackles RML/RLL. Abdomen soft and nontender. Skin pink, warm and dry. Tremors of BUE, head/neck noted. No acute neuro deficits Assessment and Plan (1) Acute exacerbation of chronic obstructive airways disease Current visit: Yes Status: Acute Category: Medical Code(s): J44.1 - Chronic obstructive pulmonary disease with (acute) exacerbation (2) Community acquired pneumonia Current visit: Yes Status: Acute Qualifiers: Laterality: left Lung location: lower lobe of lung Qualified Code(s): J18.1 - Lobar pneumonia, unspecified organism Category: Medical Code(s): J18.9 - Pneumonia, unspecified organism (3) Alcohol dependence Current visit: No Status: Chronic Qualifiers: Substance use status: with intoxication Category: Medical Code(s): F10.20 - Alcohol dependence, uncomplicated - Assessment and plan all Dx Assessment and Plan for all problems:: Continue CIWA protocol, decreased dose of Oxazepam to 15mg q6. - Supplemenmtal O2 as needed - Continue Abx. - schedule Nebs - Not medically stable for DC at this time
[2018-08-12 06:42] LABS: Eosinophils % 0.3 % (0.1-12.0); Hematocrit 43.2 % (42.0-52.0); Hemoglobin 13.6 g/dL (14.1-18.0); Lymphocytes # 0.4 K/mm3 (0.7-4.5); Lymphocytes % 6.1 % (10-50); Mean Corpuscular HGB Conc 31.4 g/dL (31.8-35.4); Mean Corpuscular Hemoglobin 30.7 pg (27.0-31.2); Mean Corpuscular Volume 97.9 fl (80-94); Mean Platelet Volume 8.2 fl (7.4-10.4); Monocytes # 0.3 K/mm3 (0.1-1.0); Monocytes % 3.8 % (1.7-9.3); Neutrophils # 6.4 K/mm3 (1.8-7.8); Neutrophils % 89.7 % (37.0-80.0); Platelet Count 136 K/mm3 (142-424); Red Blood Count 4.41 M/mm3 (4.60-6.20); Red Cell Distribution Width 15.1 % (11.5-17.5); White Blood Count 7.2 K/mm3 (4.8-10.8)
[2018-08-12 06:57] LABS: Albumin Level 2.5 gm/dL (3.4-5.0); Albumin/Globulin Ratio 0.8 (1.1-1.8); Anion Gap 6.9 mEq/L (5-15); Bilirubin,Total 0.5 mg/dL (0.2-1.0); Calcium 7.7 mg/dL (8.5-10.1); Globulin 3.2 gm/dl (1.3-3.2); Phosphorous 2.5 mg/dL (2.4-4.9); Potassium 3.9 mmoL/L (3.5-5.1); Total Protein,Serum 5.7 gm/dL (6.4-8.2)
[2018-08-12 07:52] LABS: Lymphocytes % 2 % (10-50); Monocytes % 4 % (2-9); Neutrophils % 94 % (42-76); Total Cells Counted 100
[2018-08-12 07:54] LABS: RBC Morphology Normal
--- NOTE | 2018-08-12 08:04 | Progress Note ---
Internal Medicine - PN: Subj *Date: 08/12/18 *Time: 08:02 Interval history: Patient reports that he slept well, sitting up eating breakfast, feels like he is a little better. His daughter has concerns about mobility, and about slight increased wheezing noises. Exam Vital signs and Labs for Last 24 Hours: Temp Pulse Resp BP Pulse Ox 97.6 F 77 20 163/85 H 90 L 08/12/18 04:00 08/12/18 06:27 08/12/18 04:00 08/12/18 04:00 08/12/18 06:27 Laboratory Results - last 24 hr 08/12/18 06:29: WBC 7.2 D, RBC 4.41 L, Hgb 13.6 L, Hct 43.2, MCV 97.9 H, MCH 30.7, MCHC 31.4 L, RDW 15.1, Plt Count 136 L D, MPV 8.2, Neut % (Auto) 89.7 H, Lymph % (Auto) 6.1 L, [place] % (Auto) 3.8, Eos % (Auto) 0.3, Baso % (Auto) 0.0 L, Neut # (Auto) 6.4, Lymph # (Auto) 0.4 L, [place] # (Auto) 0.3, Eos # (Auto) 0.0, Baso # (Auto) 0.0, Total Counted 100, Neutrophils % (Manual) 94 H, Lymphocytes % (Manual) 2 L, Monocytes % (Manual) 4, Platelet Estimate Normal, RBC Morphology Normal 08/12/18 06:29: Sodium 141, Potassium 3.9, Chloride 106, Carbon Dioxide 32 D, Anion Gap 6.9, BUN 14 D, Creatinine 0.79, Estimated Creat Clear 61, Estimated GFR 96, Est GFR ( Amer) 116, Glucose 120 H, Calcium 7.7 L, Phosphorus 2.5, Magnesium 1.7, Total Bilirubin 0.5, AST 76 H D, ALT 44 D, Alkaline Phosphatase 98, Total Protein 5.7 L, Albumin 2.5 L, Globulin 3.2, Albumin/Globulin Ratio 0.8 L I & O for Last 24 hours: Intake & Output 08/09/18 08/10/18 08/11/18 08/12/18 11:59 11:59 11:59 11:59 Intake Total 1760 / 1760 2383 / 2383 2049 Balance 1760 / 1760 2383 / 2383 2049 Weight 145 lb 3 oz 148 lb Microbiology Reports for the Last 24 Hours: Microbiology 08/09/18 20:25 Blood Blood Culture - Preliminary NO GROWTH AFTER 48 HOURS 08/09/18 20:25 Blood Blood Culture - Preliminary NO GROWTH AFTER 48 HOURS 08/11/18 14:30 Sputum - Expectorated Sputum Gram Stain - Final Narrative: Patient's up in the chair eating breakfast vigorously. Lungs have better air entry, some increased wheezing but I think this is from better air entry. Some crackles in the right middle lobe area. Abdomen soft, heart rate regular. No edema. Patient remains somewhat tremulous but no increase over his baseline when I see him in the office. He is alert and oriented x3. Wearing oxygen. Assessment and Plan (1) Acute exacerbation of chronic obstructive airways disease Current visit: Yes Status: Acute Category: Medical Code(s): J44.1 - Chronic obstructive pulmonary disease with (acute) exacerbation (2) Community acquired pneumonia Current visit: Yes Status: Acute Qualifiers: Laterality: left Lung location: lower lobe of lung Qualified Code(s): J18.1 - Lobar pneumonia, unspecified organism Category: Medical Code(s): J18.9 - Pneumonia, unspecified organism (3) Alcohol dependence Current visit: No Status: Chronic Qualifiers: Substance use status: with intoxication Category: Medical Code(s): F10.20 - Alcohol dependence, uncomplicated - Assessment and plan all Dx Assessment and Plan for all problems:: Overall patient is improving from a respiratory standpoint. Continue pulmonary toilet, nebulizer treatments and oxygen. Continue antibiotics for community acquired pneumonia. Reviewed chest x-ray and report and CT scan and report. Patient will need repeat bronchoscopy as an outpatient when his emphysema status has improved. Alcohol withdrawal issues are improved. I will switch him from as needed Serax to lower dose as needed Ativan.
--- NOTE | 2018-08-13 07:24 | Progress Note ---
Internal Medicine - PN: Subj *Date: 08/13/18 *Time: 07:22 Interval history: Patient tells me he is feeling well. He continues to have cough with some sputum production. He is not using his incentive spirometer as much as directed. His daughter is at bedside. He remains on supplemental oxygen. He has been ambulating in his room with his walker. He requested IV fluids be held overnight due to frequent urination Exam Vital signs and Labs for Last 24 Hours: Temp Pulse Resp BP Pulse Ox 97.6 F 57 L 18 159/76 H 97 08/13/18 04:00 08/13/18 06:51 08/13/18 04:00 08/13/18 04:00 08/13/18 06:51 Laboratory Results - last 24 hr 08/12/18 06:29: Total Counted 100, Neutrophils % (Manual) 94 H, Lymphocytes % (Manual) 2 L, Monocytes % (Manual) 4, Platelet Estimate Normal, RBC Morphology Normal I & O for Last 24 hours: Intake & Output 08/10/18 08/11/18 08/12/18 08/13/18 11:59 11:59 11:59 11:59 Intake Total 1760 / 1760 2383 / 2383 2630 / 2630 1354 / 1354 Balance 1760 / 1760 2383 / 2383 2630 / 2630 1354 / 1354 Weight 145 lb 3 oz 148 lb 148 lb Narrative: He is in no distress sitting up in chair eating breakfast this morning. Lung exam reveals good air movement but bilateral rhonchi as well as a faint expiratory wheeze. Heart has a regular rate and rhythm Assessment and Plan (1) Acute exacerbation of chronic obstructive airways disease Current visit: Yes Status: Acute Category: Medical Code(s): J44.1 - Chronic obstructive pulmonary disease with (acute) exacerbation (2) Community acquired pneumonia Current visit: Yes Status: Acute Qualifiers: Laterality: left Lung location: lower lobe of lung Qualified Code(s): J18.1 - Lobar pneumonia, unspecified organism Category: Medical Code(s): J18.9 - Pneumonia, unspecified organism (3) Alcohol dependence Current visit: No Status: Chronic Qualifiers: Substance use status: with intoxication Category: Medical Code(s): F10.20 - Alcohol dependence, uncomplicated - Assessment and plan all Dx Assessment and Plan for all problems:: No change in plan of care today. Encourage the patient to ambulate and use his incentive spirometer hourly while awake. Discontinue IV fluids
--- NOTE | 2018-08-13 12:09 | Progress Note ---
Internal Medicine - PN: Subj *Date: 08/13/18 *Time: 12:09 Exam Vital signs and Labs for Last 24 Hours: Temp Pulse Resp BP Pulse Ox 98.0 F 78 18 150/75 H 93 L 08/13/18 11:27 08/13/18 11:27 08/13/18 11:27 08/13/18 11:27 08/13/18 11:27 I & O for Last 24 hours: Intake & Output 08/10/18 08/11/18 08/12/18 08/13/18 23:59 23:59 23:59 23:59 Intake Total 1457 / 1457 1626 / 1626 2770 / 2770 1354 / 1354 Balance 1457 / 1457 1626 / 1626 2770 / 2770 1354 / 1354 Weight 65.856 kg 67.132 kg 67.132 kg Microbiology Reports for the Last 24 Hours: Microbiology 08/11/18 14:30 Sputum - Expectorated Sputum Gram Stain - Final 08/11/18 14:30 Sputum - Expectorated Sputum Sputum Culture - Preliminary Assessment and Plan (1) Acute exacerbation of chronic obstructive airways disease Current visit: Yes Status: Acute Category: Medical Code(s): J44.1 - Chronic obstructive pulmonary disease with (acute) exacerbation (2) Community acquired pneumonia Current visit: Yes Status: Acute Qualifiers: Laterality: left Lung location: lower lobe of lung Qualified Code(s): J18.1 - Lobar pneumonia, unspecified organism Category: Medical Code(s): J18.9 - Pneumonia, unspecified organism (3) Alcohol dependence Current visit: No Status: Chronic Qualifiers: Substance use status: with intoxication Category: Medical Code(s): F10.20 - Alcohol dependence, uncomplicated The patient's infection will respond to the chosen ABx?: Yes Is the patient receiving the right drug, dose, and route?: Yes Could a more targeted ABx be ordered?: No
--- NOTE | 2018-08-14 08:14 | Discharge Summary ---
General - General Admission date:: 08/09/18 Discharge date: 08/14/18 HPI HPI: 77 year old male with a long history of ETOH abuse and COPD presented to the ED with increased shortness of breath. Patient was seen in PCP office yesterday for ETOH withdraw and COPD exacerbation. He was prescribed azithromycin and Ativan. Patient had worsening shortness of breath with room air saturations in the 70's on home pulse ox and came to the ED for evaluation. In the ED, he was found to right middle lobe pneumonia. WBC normal. Lactate was elevated. Patient was admitted for IV antibiotics and further evaluation. Today, patient reports shortness of breath is unchanged from yesterday. Continues to have non-productive cough. Tremors have increased. Hospital Course Hospital Course: Patient was admitted, placed on Serax withdrawal alcohol protocol and did well with no seizures. Vital signs normalized. COPD and pneumonia were treated with standard therapies and he improved. Physical therapy worked with patient and nursing staff also ambulated in hallways and he improved very nicely. He was transitioned to low-dose lorazepam 3 times daily for his alcohol withdrawal issues and this worked very nicely on a scheduled basis. This morning he was improved. Please see physical exam notes. He will be transferred to home with the care of his daughter, he will continue oxygen, nebulizer treatments, antibiotics and low-dose lorazepam, I will follow him up in 1 week. Objective Vital signs: Temp Pulse Resp BP Pulse Ox 98.1 F 75 20 152/86 H 93 L 08/14/18 07:39 08/14/18 07:39 08/14/18 07:39 08/14/18 07:39 08/14/18 07:51 Narrative: Overall patient is alert, oriented x3. Sitting in a chair, oropharynx clear, no JVD. Lungs have good air movement, minimal rhonchi. Abdomen soft and nontender. No edema or clubbing. Tremulousness is minimal. Heart rate regular without murmurs. Results Labs on day of discharge: Preliminary micro results at discharge 08/11/18 14:30 Sputum Culture - Preliminary Sputum - Expectorated Sputum 08/09/18 20:25 Blood Culture - Preliminary Blood NO GROWTH AFTER 48 HOURS 08/09/18 20:25 Blood Culture - Preliminary Blood NO GROWTH AFTER 48 HOURS DS: Diagnosis - Discharge Diagnosis (1) Acute exacerbation of chronic obstructive airways disease Status: Resolved (2) Community acquired pneumonia Status: Acute (3) Alcohol dependence Status: Chronic Discharge Plan - Patient Discharge Instructions ACTIVITY: Continue current activity DIET: continue same diet Patient Instructions: DI for Chronic Obstructive Pulmonary Disease, DI for Pneumonia -- Adult, DI for Sepsis -- Adult - Follow up Plan Follow up with: Cayden Munoz MD [Primary Care Provider] - 1 week Disposition: Home, Self-Custodial Medications: Home Medications Medication Instructions Recorded Confirmed Type Aspirin [Aspir 81] 81 mg PO DAILY 10/24/17 08/09/18 History Fluticasone/Vilanterol [Breo 1 puff IH DAILY 06/14/18 08/09/18 History Ellipta 200-25 Mcg INH] Ipratropium/Albuterol Sulfate 3 ml IH QIDP PRN 06/14/18 08/09/18 History [Duoneb 3mL neb] Atenolol [Atenolol 25mg Tab] 25 mg PO BID 08/09/18 08/09/18 History Bifidobacterium Infantis [Align] 4 mg PO DAILY 08/09/18 08/09/18 History hydrOXYzine pamoate [Vistaril 25mg 25 mg PO TIDP PRN 08/09/18 08/10/18 History capsule] predniSONE [Deltasone 20mg 40 mg PO DAILY 08/09/18 08/10/18 History tablet] Azithromycin [Zithromax 250mg 250 mg PO DIRECTED 08/10/18 08/10/18 History tab] Prescriptions/Medication Reconciliation: New LORazepam [Ativan 0.5mg tablet] 0.5 mg PO TID #30 tab levoFLOXacin [Levaquin 500mg tab] 500 mg PO DAILY #7 tab predniSONE [Deltasone 20mg tablet] 20 mg PO BID 7 Days #14 tab Continue Ipratropium/Albuterol Sulfate [Duoneb 3mL neb] 3 ml IH QIDP PRN PRN Reason: Shortness Of Breath Atenolol [Atenolol 25mg Tab] 25 mg PO BID predniSONE [Deltasone 20mg tablet] 40 mg PO DAILY Aspirin [Aspir 81] 81 mg PO DAILY Fluticasone/Vilanterol [Breo Ellipta 200-25 Mcg INH] 1 puff IH DAILY Nicotine [Nicotine Patch 21mg/24hrs] 21 mg TD DAILY #30 patch.td24 Bifidobacterium Infantis [Align] 4 mg PO DAILY hydrOXYzine pamoate [Vistaril 25mg capsule] 25 mg PO TIDP PRN PRN Reason: ANXIETY/DT Discontinued Azithromycin [Zithromax 250mg tab] 250 mg PO DIRECTED
== END 2018-08-14 09:10 | disposition home or self-care (01) ==
LOC: 2ND 20:08 → ER 20:08 → OBSVTOIN 22:24 → 2ND 22:53
PROVIDERS: ADMIT Emergency Medicine; ATTEND Internal Medicine Adolescent Medicine

== ENCOUNTER → 2018-08-22 14:59 | Outpatient (POV) | payer SELFPAY | PROVIDERS: Visit Provider Internal Medicine | DX: Z00.00 Encounter for general adult medical examination without abnormal findings (principal) ==

== ENCOUNTER → 2018-08-25 12:50 | Outpatient (CLI) | payer MEDICARE, SELFPAY ==
[2018-08-25 14:30] VITALS: PULSE 66
== END ==
PROVIDERS: PCP Internal Medicine Adolescent Medicine; Visit Provider Internal Medicine
DX: J43.9 Emphysema, unspecified (principal)
CPT/HCPCS: 94060; 94618; 94640; 94726; 94729

== ENCOUNTER → 2018-09-29 09:52 | Outpatient (CLI) | payer MEDICARE, SELFPAY ==
[2018-09-29 12:30] LABS: Blood Urea Nitrogen 21 mg/dL (7-18); Calcium 9.2 mg/dL (8.5-10.1); Carbon Dioxide 29 mmol/L (21.0-32.0); Chloride 103 mmol/L (98-107); Creatinine,Serum 1.37 mg/dL (0.70-1.30); Estimated Glomerular Filt Rate 51 ml/min (>60); GFR (African American) 61 ML/MIN (>60); Glucose 121 mg/dL (74-106); Sodium 140 mmol/L (136-145)
== END ==
PROVIDERS: Visit Provider Internal Medicine Adolescent Medicine
DX: I10 Essential (primary) hypertension (principal)
CPT/HCPCS: 36415; 80048

== ENCOUNTER 2018-12-25 15:40 | Inpatient (IN) ==
--- NOTE | 2018-12-25 16:29 | Pharmacy Consult Notes ---
[facility] Pharmacy VTE Monitoring - Patient Demographics Admission date: 12/25/18 Report Date: 12/25/18 Time: 16:29 Allergies/Adverse Reactions: Patient Allergies Penicillins Allergy (Intermediate, Verified 06/13/18 09:31) I-HIVES Height: 1.78 m Weight: 66.366 kg - VTE Risk Clinical Trial Participant: No - Prophylaxis VTE Prophylaxis Ordered?: Yes Types of VTE Prophylaxis: TEDS Knee High
[2018-12-25 17:14] LABS: Basophils % 0.3 % (0.1-2.0); Eosinophils % 0.3 % (0.1-12.0); Hematocrit 48.3 % (42.0-52.0); Hemoglobin 15.8 g/dL (14.1-18.0); Lymphocytes % 8.5 % (10-50); Mean Corpuscular HGB Conc 32.8 g/dL (31.8-35.4); Mean Corpuscular Hemoglobin 29.6 pg (27.0-31.2); Mean Corpuscular Volume 90.4 fl (80-94); Mean Platelet Volume 8.9 fl (7.4-10.4); Monocytes # 0.6 K/mm3 (0.1-1.0); Monocytes % 5.3 % (1.7-9.3); Neutrophils # 10.2 K/mm3 (1.8-7.8); Neutrophils % 85.6 % (37.0-80.0); Platelet Count 311 K/mm3 (142-424); Red Blood Count 5.35 M/mm3 (4.60-6.20); Red Cell Distribution Width 13.5 % (11.5-17.5); White Blood Count 11.9 K/mm3 (4.8-10.8)
[2018-12-25 17:19] LABS: Albumin Level 3.7 gm/dL (3.4-5.0); Albumin/Globulin Ratio 0.9 (1.1-1.8); Anion Gap 23.1 mEq/L (5-15); Bilirubin,Total 1.3 mg/dL (0.2-1.0); Calcium 9.7 mg/dL (8.5-10.1); Globulin 4.1 gm/dl (1.3-3.2); Potassium 4.1 mmoL/L (3.5-5.1); Total Protein,Serum 7.8 gm/dL (6.4-8.2)
[2018-12-25 18:42] LABS: Lymphocytes % 9 % (10-50); Monocytes % 6 % (2-9); Neutrophils % 83 % (42-76); RBC Morphology Normal; Total Cells Counted 100
--- NOTE | 2018-12-25 18:56 | History & Physical Report ---
*Admission Date: 12/25/18 *Chief complaint: Nausea/vomiting/dehydration *History of present illness: 78-year-old white male with COPD, hypertension and history of alcohol abuse in remission, who came to the office with 36 hours of vomiting and a couple episodes of diarrhea. He has been dry heaving over the past 6 hours and has not had anything substantial to eat or drink today. In the office he was found to be tachycardic, very dry, somewhat unsteady on his feet and was admitted to hospital for IV fluids and further diagnostic testing. [facility] History I have reviewed the patient's past medical history: Yes Medical History: Reports:: Chronic Obstructive Pulmonary Disease (COPD), Hypertension, Myocardial Infarction Denies:: Cancer, Diabetes Mellitus Type 1, Diabetes Mellitus Type 2, Internal Pacemaker, MRSA, Seizures *Have you ever received a pneumonia vaccine?: Yes *Have you received a flu vaccine this season?: Yes Other Medical History: Reports: Arthritis. Denies: Blood Transfusion Reaction Other Surgeries: Yes: EGD, Hernia Repair, Other. No: Pacemaker Amputation: No Fractures: No - *Social History Smoking Status: Current every day smoker Tobacco Type: cigarettes # Packs/Day (cigarettes): 1 Alcohol Intake: former Alcohol Intake Frequency:: 3 or more drinks per day *Occupational Status:: retired Housing: house Household Members: none *Travel in the last 8 weeks: None - Psychiatric History Expresses thoughts of harming self/others: None Suicide Plan Description: No Plan Family Hx:: Non-contributory Review of Systems - Review of Systems Review of systems:: pertinent systems reviewed and negative unless documented below - Constitutional Reports anorexia, Reports body ache(s), Denies chills, Denies daytime sleepiness, Denies fever(s), Denies headache(s) - Eyes Denies blind spots, Denies blurry vision - ENT Denies abnormal hearing, Denies bleeding gums - *Cardiovascular Denies chest pain, Denies chest pain at rest, Denies shortness of breath, Denies irregular heart rhythm, Denies shortness of breath when lying down - *Respiratory Denies change in phlegm color, Denies chest congestion, Denies cough, Denies shortness of breath - *Gastrointestinal Denies abdominal pain, Denies belching, Denies bloating, Denies coffee ground vomit, Denies constipation, Denies heartburn, Denies vomiting blood, Denies bright, red blood in stools, Denies pain with swallowing - *Genitourinary Denies difficulty urinating, Denies difficulty with ejaculations - *Musculoskeletal Denies abnormal walking - *Neurologic Denies abnormal hearing, Denies abnormal movements, Denies burning sensations - Psychiatric Denies abnormal sleep pattern Meds Home Medications Medication Instructions Recorded Confirmed Type Aspirin [Aspir 81] 81 mg PO DAILY 10/24/17 08/09/18 History Fluticasone/Vilanterol [Breo 1 puff IH DAILY 06/14/18 08/09/18 History Ellipta 200-25 Mcg INH] Ipratropium/Albuterol Sulfate 3 ml IH QIDP PRN 06/14/18 08/09/18 History [Duoneb 3mL neb] Nicotine [Nicotine Patch 21 mg TD DAILY #30 patch.td24 06/17/18 08/09/18 Rx 21mg/24hrs] Atenolol [Atenolol 25mg Tab] 25 mg PO BID 08/09/18 08/09/18 History Bifidobacterium Infantis [Align] 4 mg PO DAILY 08/09/18 08/09/18 History hydrOXYzine pamoate [Vistaril 25mg 25 mg PO TIDP PRN 08/09/18 08/10/18 History capsule] predniSONE [Deltasone 20mg 40 mg PO DAILY 08/09/18 08/10/18 History tablet] LORazepam [Ativan 0.5mg 0.5 mg PO TID #30 tab 08/14/18 Rx tablet] levoFLOXacin [Levaquin 500mg 500 mg PO DAILY #7 tab 08/14/18 Rx tab] Ondansetron [Zofran 4mg ODT] 4 mg PO TIDP PRN #10 tab.rapdis 12/02/18 Rx Oxycodone HCl/Acetaminophen 1 tab PO Q6HP PRN #10 tab 12/02/18 Rx [Percocet 5/325mg tablet] Tamsulosin HCl [Flomax 0.4mg 0.4 mg PO HS #10 cap.er.24h 12/02/18 Rx capsule] Allergies Allergy/AdvReac Type Severity Reaction Status Date / Time Penicillins Allergy Intermediate I-HIVES Verified 06/13/18 09:31 Exam Vital signs and Labs for Last 24 Hours: Temp Pulse Resp BP Pulse Ox 97.6 F 87 18 139/80 96 12/25/18 16:04 12/25/18 16:04 12/25/18 16:04 12/25/18 16:04 12/25/18 16:04 Laboratory Results - last 24 hr 12/25/18 16:50: WBC 11.9 H, RBC 5.35, Hgb 15.8, Hct 48.3, MCV 90.4, MCH 29.6, MCHC 32.8, RDW 13.5, Plt Count 311, MPV 8.9, Neut % (Auto) 85.6 H, Lymph % (Auto) 8.5 L, [place] % (Auto) 5.3, Eos % (Auto) 0.3, Baso % (Auto) 0.3, Neut # (Auto) 10.2 H, Lymph # (Auto) 1.0, [place] # (Auto) 0.6, Eos # (Auto) 0.0, Baso # (Auto) 0.0, Total Counted 100, Neutrophils % (Manual) 83 H, Band Neutrophils % 2.0, Lymphocytes % (Manual) 9 L, Monocytes % (Manual) 6, Platelet Estimate Normal, RBC Morphology Normal 12/25/18 16:50: Sodium 134 L, Potassium 4.1, Chloride 91 L, Carbon Dioxide 24, Anion Gap 23.1 H, BUN 45 H, Creatinine 2.27 H, Estimated Creat Clear 26, Estimated GFR 28 L, Est GFR ( Amer) 34 L, Glucose 120 H, Calcium 9.7, Magnesium 1.8, Total Bilirubin 1.3 H, AST 25, ALT 22, Alkaline Phosphatase 123 H , Total Protein 7.8, Albumin 3.7, Globulin 4.1 H, Albumin/Globulin Ratio 0.9 L I & O for Last 24 hours: Intake & Output 12/23/18 12/24/18 12/25/18 12/26/18 11:59 11:59 11:59 11:59 Intake Total 1240 / 1240 Balance 1240 / 1240 Weight 146 lb 5 oz Narrative: Patient appears moderately ill. Alert, oriented x3. No visible rash. Oropharynx dry, flat neck veins. Otherwise ENT exam clear. Heart rate tachycardic but regular. Lungs with rhonchi bilaterally but at baseline. Abdomen soft, nontender, minimal diffuse tenderness. No CVA tenderness. No clubbing, no cyanosis, no edema. Assessment and Plan (1) Acute kidney injury Current visit: Yes Status: Acute Category: Medical Code(s): N17.9 - Acute kidney failure, unspecified Given patient's significant uremia and creatinine elevation we will admit him to acute care for this acute kidney injury (2) Gastroenteritis Current visit: Yes Status: Acute Category: Medical Code(s): K52.9 - Noninfective gastroenteritis and colitis, unspecified Supportive care for gastroenteritis with fluids and antiemetics. Check stool for C. difficile although very low risk. (3) Dehydration Current visit: Yes Status: Acute Category: Medical Code(s): E86.0 - Dehydration IV fluids as noted.
[2018-12-26 06:51] LABS: Basophils % 0.1 % (0.1-2.0); Eosinophils % 0.2 % (0.1-12.0); Hematocrit 39.8 % (42.0-52.0); Lymphocytes # 1.2 K/mm3 (0.7-4.5); Lymphocytes % 10.7 % (10-50); Mean Corpuscular HGB Conc 32.4 g/dL (31.8-35.4); Mean Corpuscular Hemoglobin 29.1 pg (27.0-31.2); Mean Corpuscular Volume 89.8 fl (80-94); Monocytes # 0.7 K/mm3 (0.1-1.0); Neutrophils # 9.2 K/mm3 (1.8-7.8); Platelet Count 242 K/mm3 (142-424); Red Blood Count 4.44 M/mm3 (4.60-6.20); Red Cell Distribution Width 13.5 % (11.5-17.5)
[2018-12-26 06:57] LABS: Calcium 8.4 mg/dL (8.5-10.1)
--- NOTE | 2018-12-26 08:07 | Progress Note ---
Internal Medicine - PN: Subj *Date: 12/26/18 *Time: 08:03 Interval history: Patient felt a little better overnight, did have some vomiting through the night but this has ceased for the most part this morning. Has had no diarrhea. Exam Vital signs and Labs for Last 24 Hours: Temp Pulse Resp BP Pulse Ox 98.2 F 62 16 117/57 L 98 12/26/18 07:47 12/26/18 07:47 12/26/18 07:47 12/26/18 07:47 12/26/18 07:47 Laboratory Results - last 24 hr 12/25/18 16:50: WBC 11.9 H, RBC 5.35, Hgb 15.8, Hct 48.3, MCV 90.4, MCH 29.6, MCHC 32.8, RDW 13.5, Plt Count 311, MPV 8.9, Neut % (Auto) 85.6 H, Lymph % (Auto) 8.5 L, [place] % (Auto) 5.3, Eos % (Auto) 0.3, Baso % (Auto) 0.3, Neut # (Auto) 10.2 H, Lymph # (Auto) 1.0, [place] # (Auto) 0.6, Eos # (Auto) 0.0, Baso # (Auto) 0.0, Total Counted 100, Neutrophils % (Manual) 83 H, Band Neutrophils % 2.0, Lymphocytes % (Manual) 9 L, Monocytes % (Manual) 6, Platelet Estimate Normal, RBC Morphology Normal 12/25/18 16:50: Sodium 134 L, Potassium 4.1, Chloride 91 L, Carbon Dioxide 24, Anion Gap 23.1 H, BUN 45 H, Creatinine 2.27 H, Estimated Creat Clear 26, Estimated GFR 28 L, Est GFR ( Amer) 34 L, Glucose 120 H, Calcium 9.7, Magnesium 1.8, Total Bilirubin 1.3 H, AST 25, ALT 22, Alkaline Phosphatase 123 H , Total Protein 7.8, Albumin 3.7, Globulin 4.1 H, Albumin/Globulin Ratio 0.9 L 12/26/18 06:26: WBC 11.0 H, RBC 4.44 L, Hgb 13.0 L D, Hct 39.8 L, MCV 89.8, MCH 29.1, MCHC 32.4, RDW 13.5, Plt Count 242, MPV 8.0, Neut % (Auto) 83.0 H, Lymph % (Auto) 10.7, [place] % (Auto) 6.0, Eos % (Auto) 0.2, Baso % (Auto) 0.1, Neut # (Auto) 9.2 H, Lymph # (Auto) 1.2, [place] # (Auto) 0.7, Eos # (Auto) 0.0, Baso # (Auto) 0.0 12/26/18 06:26: Sodium 137, Potassium 4.0, Chloride 100, Carbon Dioxide 27, Anion Gap 14.0, BUN 42 H, Creatinine 1.70 H D, Estimated Creat Clear 36, Estimated GFR 39 L, Est GFR ( Amer) 48 L D, Glucose 126 H, Calcium 8.4 L D I & O for Last 24 hours: Intake & Output 12/23/18 12/24/18 12/25/18 12/26/18 11:59 11:59 11:59 11:59 Intake Total 3928 / 3928 Balance 3928 / 3928 Weight 151 lb 2.009 oz Narrative: Patient is awake, alert. Appears better hydrated. Oropharynx clear. Lungs are clear, heart rate regular, abdomen soft and nontender. No peripheral edema. Assessment and Plan (1) Acute kidney injury Current visit: Yes Status: Acute Category: Medical Code(s): N17.9 - Acute kidney failure, unspecified Kidney function improving. Check renal ultrasound today. Continue IV fluids (2) Gastroenteritis Current visit: Yes Status: Acute Category: Medical Code(s): K52.9 - Noninfective gastroenteritis and colitis, unspecified Seems to be improving slowly, add Protonix intravenously. (3) Dehydration Current visit: Yes Status: Acute Category: Medical Code(s): E86.0 - Dehydration (4) Hypocalcemia Current visit: Yes Status: Acute Category: Medical Code(s): E83.51 - Hypocalcemia Replace calcium today. Follow tomorrow. Restart home medications except for diuretics today
[2018-12-27 06:06] LABS: Basophils % 0.2 % (0.1-2.0); Eosinophils # 0.1 K/mm3 (0.0-0.4); Eosinophils % 0.8 % (0.1-12.0); Hematocrit 36.3 % (42.0-52.0); Hemoglobin 11.8 g/dL (14.1-18.0); Lymphocytes # 0.9 K/mm3 (0.7-4.5); Lymphocytes % 9.9 % (10-50); Mean Corpuscular HGB Conc 32.4 g/dL (31.8-35.4); Mean Corpuscular Hemoglobin 29.6 pg (27.0-31.2); Mean Corpuscular Volume 91.3 fl (80-94); Mean Platelet Volume 7.8 fl (7.4-10.4); Monocytes # 0.5 K/mm3 (0.1-1.0); Monocytes % 5.4 % (1.7-9.3); Neutrophils # 7.9 K/mm3 (1.8-7.8); Neutrophils % 83.7 % (37.0-80.0); Platelet Count 202 K/mm3 (142-424); Red Blood Count 3.98 M/mm3 (4.60-6.20); Red Cell Distribution Width 13.4 % (11.5-17.5); White Blood Count 9.4 K/mm3 (4.8-10.8)
[2018-12-27 06:25] LABS: Anion Gap 11.7 mEq/L (5-15); Calcium 8.2 mg/dL (8.5-10.1); Potassium 3.7 mmoL/L (3.5-5.1)
--- NOTE | 2018-12-27 08:22 | Discharge Summary ---
General - General Admission date:: 12/25/18 Discharge date: 12/27/18 HPI HPI: 78-year-old white male with COPD, hypertension and history of alcohol abuse in remission, who came to the office with 36 hours of vomiting and a couple episodes of diarrhea. He has been dry heaving over the past 6 hours and has not had anything substantial to eat or drink today. In the office he was found to be tachycardic, very dry, somewhat unsteady on his feet and was admitted to hospital for IV fluids and further diagnostic testing. Hospital Course Hospital Course: Patient was admitted to hospital, found to have significant acute kidney injury. Treated with IV fluids and electrolyte replacement. Patient tolerated this well. He had complained of diarrhea before admission to the hospital but had no diarrhea stools during the hospitalization. Emesis was controlled with intravenous Zofran and Phenergan. Patient was able to resume his diet yesterday evening and this morning feels great. Creatinine has normalized. Patient will be discharged home with his regular medications and as needed Phenergan prescription. I will follow him up in the office as scheduled. Objective Vital signs: Temp Pulse Resp BP Pulse Ox 98.8 F 67 20 101/71 L 97 12/27/18 08:00 12/27/18 08:00 12/27/18 08:00 12/27/18 08:00 12/27/18 08:00 no acute distress, average body habitus, thin - *Routine HEENT Exam Head: Present: normocephalic, atraumatic Eye: Present: EOMI, PERRL, conjunctivae pink - *Routine Neck Exam Present: supple, full ROM. Absent: JVD - *Routine Respiratory Exam Present: accessory muscle use, CTA bilaterally - *Routine Cardiovascular Exam Present: RRR, Normal S1, Normal S2, murmur - *Routine Abdominal Exam Present: soft, normoactive bowel sounds. Absent: tenderness - *Routine Extremities Exam Absent: cyanosis, clubbing, edema - *Routine Neurological Exam Present: alert, oriented X3, CN II-XII intact Results Labs on day of discharge: Labs from last 24 hours 12/27/18 12/27/18 05:39 05:39 WBC 9.4 RBC 3.98 L Hgb 11.8 L Hct 36.3 L MCV 91.3 MCH 29.6 MCHC 32.4 RDW 13.4 Plt Count 202 MPV 7.8 Neut % (Auto) 83.7 H Lymph % (Auto) 9.9 L [place] % (Auto) 5.4 Eos % (Auto) 0.8 Baso % (Auto) 0.2 Neut # (Auto) 7.9 H Lymph # (Auto) 0.9 [place] # (Auto) 0.5 Eos # (Auto) 0.1 Baso # (Auto) 0.0 Sodium 141 Potassium 3.7 Chloride 105 Carbon Dioxide 28 Anion Gap 11.7 BUN 18 D Creatinine 1.08 D Estimated Creat Clear 56 Estimated GFR 66 Est GFR ( Amer) 80 D Glucose 96 D Calcium 8.2 L Preliminary micro results at discharge 12/26/18 15:20 Sputum Culture - Preliminary Sputum - Expectorated Sputum DS: Diagnosis - Discharge Diagnosis (1) Acute kidney injury Status: Resolved (2) Gastroenteritis Status: Resolved (3) Dehydration Status: Resolved (4) Hypocalcemia Status: Resolved Discharge Plan - Patient Discharge Instructions ACTIVITY: Continue current activity DIET: continue same diet Patient Instructions: DI for Dehydration -- Adult, DI for Hypocalcemia - Follow up Plan Follow up with: Cayden Munoz MD [Primary Care Provider] - 01/01/19 Disposition: Home, Self-Senior Living Medications: Home Medications Medication Instructions Recorded Confirmed Type Aspirin [Aspir 81] 81 mg PO DAILY 10/24/17 12/25/18 History Atenolol [Atenolol 25mg Tab] 25 mg PO BID 08/09/18 12/25/18 History Ondansetron [Zofran 4mg ODT] 4 mg PO TIDP PRN #10 tab.rapdis 12/02/18 12/25/18 Rx Fluticasone/Umeclidin/Vilanter 1 each IH DAILY 12/26/18 12/26/18 History [Trelelucretia Ellipta 100-62.5-25] hydroCHLOROthiazide [HCTZ 25mg 25 mg PO DAILY 12/26/18 12/26/18 History tab] Promethazine HCl [Phenergan 25mg 25 mg PO Q6H PRN #14 tablet 12/27/18 Rx tab] Prescriptions/Medication Reconciliation: New Promethazine HCl [Phenergan 25mg tab] 25 mg PO Q6H PRN #14 tablet PRN Reason: Nausea And Vomiting Continue Atenolol [Atenolol 25mg Tab] 25 mg PO BID Ondansetron [Zofran 4mg ODT] 4 mg PO TIDP PRN #10 tab.rapdis PRN Reason: Nausea And Vomiting Fluticasone/Umeclidin/Vilanter [Trelegy Ellipta 100-62.5-25] 1 each IH DAILY Aspirin [Aspir 81] 81 mg PO DAILY Discontinued hydroCHLOROthiazide [HCTZ 25mg tab] 25 mg PO DAILY
== END 2018-12-27 09:05 | disposition home or self-care (01) | DRG 641 ==
LOC: 2ND
PROVIDERS: ADMIT Internal Medicine Adolescent Medicine; ATTEND Internal Medicine Adolescent Medicine
CPT/HCPCS: 36415; 74019; 74020; 76770; 80048; 80053; 83735; 85007; 85025; 87070; 87077; 87205; 93005; 94640; 94761; J2405

== ENCOUNTER → 2019-01-01 12:07 | Outpatient (CLI) | payer MEDICARE, SELFPAY ==
[2019-01-01 12:29] LABS: Basophils % 0.4 % (0.1-2.0); Eosinophils # 0.3 K/mm3 (0.0-0.4); Eosinophils % 5.9 % (0.1-12.0); Hematocrit 41.3 % (42.0-52.0); Hemoglobin 13.5 g/dL (14.1-18.0); Lymphocytes # 1.4 K/mm3 (0.7-4.5); Mean Corpuscular HGB Conc 32.6 g/dL (31.8-35.4); Mean Corpuscular Hemoglobin 29.4 pg (27.0-31.2); Mean Corpuscular Volume 90.1 fl (80-94); Mean Platelet Volume 7.8 fl (7.4-10.4); Monocytes # 0.4 K/mm3 (0.1-1.0); Monocytes % 8.2 % (1.7-9.3); Neutrophils # 3.1 K/mm3 (1.8-7.8); Neutrophils % 58.4 % (37.0-80.0); Platelet Count 255 K/mm3 (142-424); Red Blood Count 4.58 M/mm3 (4.60-6.20); Red Cell Distribution Width 13.3 % (11.5-17.5); White Blood Count 5.3 K/mm3 (4.8-10.8)
[2019-01-01 12:49] LABS: Alanine Aminotransferase 19 U/L (12-78); Albumin Level 2.8 gm/dL (3.4-5.0); Albumin/Globulin Ratio 0.8 (1.1-1.8); Alkaline Phosphatase 82 U/L (46-116); Anion Gap 10.5 mEq/L (5-15); Aspartate Amino Transferase 16 U/L (15-37); Bilirubin,Total 0.4 mg/dL (0.2-1.0); Blood Urea Nitrogen 10 mg/dL (7-18); Calcium 8.6 mg/dL (8.5-10.1); Carbon Dioxide 32 mmol/L (21.0-32.0); Chloride 104 mmol/L (98-107); Creatinine,Serum 0.99 mg/dL (0.70-1.30); Estimated Glomerular Filt Rate 73 ml/min (>60); GFR (African American) 89 ML/MIN (>60); Globulin 3.3 gm/dl (1.3-3.2); Glucose 98 mg/dL (74-106); Potassium 4.5 mmoL/L (3.5-5.1); Sodium 142 mmol/L (136-145); Total Protein,Serum 6.1 gm/dL (6.4-8.2)
== END ==
PROVIDERS: Visit Provider Internal Medicine Adolescent Medicine
DX: N17.9 Acute kidney failure, unspecified (principal)
CPT/HCPCS: 36415; 80053; 85025

== ENCOUNTER → 2019-02-08 12:33 | Outpatient (CLI) | payer MEDICARE, SELFPAY ==
--- NOTE | 2019-02-08 13:00 | FL_ITS ---
FL barium swallow modified: 02/08/2019 1:00 PM CLINICAL HISTORY: Dysphagia ORDERING PHYSICIAN: Cayden Munoz MD PATIENT AGE: 78 years Comparison: None TECHNIQUE: Patient administered varying consistencies of barium contrast, while viewed in lateral position under real-time fluoroscopy with cine recording. FLUOROSCOPY TIME: 1 minute and 40 seconds The study was performed in conjunction with speech pathologist. Please see that report & recommendations. FINDINGS: Patient was given varying consistencies of barium. No swallowing impairment evident. IMPRESSION: Unremarkable modified barium swallow Please see speech pathologist report and recommendations.
--- NOTE | 2019-02-08 13:49 | HMH.SLMBS2 ---
Speech & Language Evaluation Speech/Language Mod Barium Swallow Start: 02/08/19 13:46 Freq: once Status: Complete Protocol: Document 02/08/19 13:46 ANDREW (Rec: 02/08/19 13:49 ANDREW [id number]) [facility] [facility] [place] Diet Dietary Recommendations Regular,Thin Liquids Treatment/Strategies Strategy/Precaution Recommend Sitting Upright (90 deg),Small Bites and Sips,Alternate Liquids/Solids Mod Barium Swallow Impressions Summary and Impressions Oral Phase Impression No Impairment (WFL) Oral Phase Summary Mr. Mack was given the following consistencies: thins via straw and open cup, pudding, pureed, mechanical soft, and regular. No signs of dysphagia noted. Pharyngeal Phase Impression No Impairment (WFL) Pharyngeal Phase Summary At this time, Mr. Mack is on the most appropriate diet. Speech therapy is not recommended. Speech/Language MBS Assessment/Goals/Plan Assessment Date of Evaluation: 02/08/19 Evaluation Type Initial Certification Assessment/Problems Dysphagia Does Patient Qualify for Service No Qualify/Failure Comment Patient is currently on most appropriate diet. Plan Pt/Guardian verbally ack understanding Yes of dx/prognosis/goals G -code Required Yes G-CODES ST Current Status [id number] ST Current Status Modifier CI-At least 1% but less than 20% impaired, limited or restricted ST Goal Status [id number] ST Goal Status Modifier CI-At least 1% but less than 20% impaired, limited or restricted Mod Barium Swallow Setup Exam Setup Radiologist Jairo Rajput Level of Consciousness Awake,Alert,Appropriate, Follows Commands Position (degrees) 90 Mod Barium Swallow-Lat View Textures Lateral View Food Presentation Thin Liquid via Cup,Thin Liquid via Straw,Pureed Food- Thick,Ground Food- Regular, Regular Food,Pudding Oral Phase Labial Closure No Impairment (WFL) Bolus Formation Pooling L/R No Impairment (WFL) Bolus Formation under Tongue No Impairment (WFL) Bolus Formation Scattered Loss No Impairment (WFL) Mastication Rotary Chew No Impairment (WFL) Mastication Munching No Impairment (WFL) Mastication Lateralization
== END ==
PROVIDERS: PCP Internal Medicine Adolescent Medicine; Visit Provider Internal Medicine Adolescent Medicine
DX: R13.10 Dysphagia, unspecified (principal)
CPT/HCPCS: 70371; 92611

== ENCOUNTER → 2019-11-05 14:53 | Outpatient (CLI) | payer MEDICARE, SELFPAY ==
[2019-11-05 15:26] LABS: Basophils # 0.1 K/mm3 (0-0.2); Basophils % 0.8 % (0.1-2.0); Eosinophils # 0.3 K/mm3 (0.0-0.4); Eosinophils % 5.1 % (0.1-12.0); Hematocrit 47.2 % (42.0-52.0); Lymphocytes # 2.2 K/mm3 (0.7-4.5); Lymphocytes % 32.7 % (10-50); Mean Corpuscular HGB Conc 31.7 g/dL (31.8-35.4); Mean Corpuscular Volume 94.5 fl (80-94); Mean Platelet Volume 8.2 fl (7.4-10.4); Monocytes # 0.4 K/mm3 (0.1-1.0); Monocytes % 6.6 % (1.7-9.3); Neutrophils # 3.6 K/mm3 (1.8-7.8); Neutrophils % 54.8 % (37.0-80.0); Platelet Count 283 K/mm3 (142-424); Red Cell Distribution Width 13.7 % (11.5-17.5); White Blood Count 6.6 K/mm3 (4.8-10.8)
[2019-11-05 18:02] LABS: Alanine Aminotransferase 17 U/L (12-78); Albumin Level 2.9 g/dL (3.4-5.0); Albumin/Globulin Ratio 0.9 (1.1-1.8); Alkaline Phosphatase 96 U/L (46-116); Anion Gap 12.9 mEq/L (5-15); Aspartate Amino Transferase 17 U/L (15-37); Bilirubin,Total 0.3 mg/dL (0.2-1.0); Blood Urea Nitrogen 16 mg/dL (7-18); Calcium 8.7 mg/dL (8.5-10.1); Carbon Dioxide 29 mmol/L (21.0-32.0); Chloride 105 mmol/L (98-107); Chol/HDL Ratio 4.6 (1-3.5); Cholesterol 192 mg/dL (140-200); Creatinine,Serum 1.18 mg/dL (0.70-1.30); Estimated Glomerular Filt Rate 60 ml/min (>60); GFR (African American) 73 ML/MIN (>60); Globulin 3.1 gm/dl (1.3-3.2); Glucose 96 mg/dL (74-106); HDL Cholesterol 42 mg/dL (27-67); LDL Cholesterol 122 mg/dL (0-130); Potassium 4.9 mmoL/L (3.5-5.1); Sodium 142 mmol/L (137-145); Thyroid Stimulating Hormone 2.48 uIU/ml (0.358-3.740); Triglycerides 138 mg/dL (30-200); VLDL Cholesterol 28 mg/dL (0-40)
== END ==
PROVIDERS: Visit Provider Internal Medicine Adolescent Medicine
DX: I10 Essential (primary) hypertension (principal)
CPT/HCPCS: 36415; 80053; 80061; 84443; 85025

== ENCOUNTER → 2019-12-24 10:50 | Outpatient (CLI) | payer MEDICARE, SELFPAY ==
[2019-12-24 11:25] LABS: Basophils # 0.1 K/mm3 (0-0.2); Basophils % 0.8 % (0.1-2.0); Eosinophils # 0.3 K/mm3 (0.0-0.4); Eosinophils % 4.2 % (0.1-12.0); Hematocrit 46.1 % (42.0-52.0); Hemoglobin 14.6 g/dL (14.1-18.0); Lymphocytes # 1.4 K/mm3 (0.7-4.5); Lymphocytes % 18.9 % (10-50); Mean Corpuscular HGB Conc 31.6 g/dL (31.8-35.4); Mean Corpuscular Hemoglobin 29.9 pg (27.0-31.2); Mean Corpuscular Volume 94.5 fl (80-94); Monocytes # 0.5 K/mm3 (0.1-1.0); Monocytes % 6.8 % (1.7-9.3); Neutrophils # 5.1 K/mm3 (1.8-7.8); Neutrophils % 69.3 % (37.0-80.0); Platelet Count 246 K/mm3 (142-424); Red Blood Count 4.88 M/mm3 (4.60-6.20); White Blood Count 7.4 K/mm3 (4.8-10.8)
[2019-12-24 12:34] LABS: Chloride 95 mmol/L (98-107); Potassium 5.4 mmoL/L (3.5-5.1); Sodium 131 mmol/L (136-145)
[2019-12-24 12:37] LABS: Anion Gap 20.4 mEq/L (5-15); Blood Urea Nitrogen 31 mg/dl (9-20); Calcium 9.8 mg/dl (8.4-10.2); Carbon Dioxide 21 mmol/L (22.0-30.0); Estimated Glomerular Filt Rate 31 ml/min (>60); GFR (African American) 37 ML/MIN (>60); Glucose 74 mg/dl (74-100)
== END ==
PROVIDERS: Nurse Practitioner Family; Visit Provider Internal Medicine Adolescent Medicine
DX: N20.0 Calculus of kidney (principal); N17.9 Acute kidney failure, unspecified
CPT/HCPCS: 36415; 80048; 85025

== ENCOUNTER → 2019-12-26 08:40 | Outpatient (CLI) | payer MEDICARE, SELFPAY ==
[2019-12-26 10:31] LABS: Chloride 97 mmol/L (98-107); Potassium 4.8 mmoL/L (3.5-5.1); Sodium 136 mmol/L (136-145)
[2019-12-26 10:34] LABS: Anion Gap 15.8 mEq/L (5-15); Blood Urea Nitrogen 26 mg/dl (9-20); Calcium 9.9 mg/dl (8.4-10.2); Carbon Dioxide 28 mmol/L (22.0-30.0); Estimated Glomerular Filt Rate 54 ml/min (>60); GFR (African American) 65 ML/MIN (>60); Glucose 103 mg/dl (74-100)
== END ==
PROVIDERS: Visit Provider Internal Medicine Adolescent Medicine
DX: E87.5 Hyperkalemia (principal)
CPT/HCPCS: 36415; 80048

== ENCOUNTER → 2019-12-31 10:35 | Outpatient (CLI) | payer MEDICARE, SELFPAY ==
--- NOTE | 2019-12-31 10:50 | XR_ITS ---
PROCEDURE: XR KUB CLINICAL INDICATION: kidney stone COMPARISON: CT ABDOMEN PELVIS WO CON from 12/21/2019 FINDINGS: Gas pattern-The bowel gas pattern is unremarkable. No obvious obstruction. Calcifications-No abnormal calcifications are evident. No obvious renal or ureteral calculi. Bones-No acute bony anomalies evident. IMPRESSION: No acute findings. Dictated by: Jairo Rajput MD 12/31/2019 11:17 Electronically signed by Jairo Rajput MD in [place] 12/31/2019 11:17
== END ==
PROVIDERS: PCP Internal Medicine Adolescent Medicine; Visit Provider Pathology Anatomic Pathology & Clinical Pathology
DX: N20.0 Calculus of kidney (principal)
CPT/HCPCS: 74018

== ENCOUNTER → 2020-03-15 08:26 | Outpatient (CLI) | payer MEDICARE, SELFPAY ==
[2020-03-15 08:29] LABS: Microscopic, Urine URINE MICROSCOPIC (MICROSCOPIC)
[2020-03-15 08:48] LABS: Basophils % 0.6 % (0.1-2.0); Eosinophils # 0.3 K/mm3 (0.0-0.4); Hematocrit 47.1 % (42.0-52.0); Lymphocytes # 2.2 K/mm3 (0.7-4.5); Lymphocytes % 33.1 % (10-50); Mean Corpuscular HGB Conc 33.9 g/dL (31.8-35.4); Mean Corpuscular Hemoglobin 31.7 pg (27.0-31.2); Mean Corpuscular Volume 93.5 fl (80-94); Mean Platelet Volume 7.9 fl (7.4-10.4); Monocytes # 0.2 K/mm3 (0.1-1.0); Monocytes % 3.1 % (1.7-9.3); Neutrophils # 3.8 K/mm3 (1.8-7.8); Neutrophils % 58.2 % (37.0-80.0); Platelet Count 341 K/mm3 (142-424); Red Blood Count 5.04 M/mm3 (4.60-6.20); Red Cell Distribution Width 14.8 % (11.5-17.5); White Blood Count 6.5 K/mm3 (4.8-10.8)
[2020-03-15 09:33] LABS: Appearance,Urine CLEAR (Clear); Bilirubin,Urine Negative (Negative); Blood, Urine TRACE-L (Negative); Color,Urine YELLOW (Yellow); Glucose,Urine (UA) Negative (Negative); Ketones,Urine Negative (Negative); Leukocyte Esterase,Urine Negative (Negative); Nitrate,Urine Negative (Negative); PH,Urine 5.5 (5.0-8.5); Protein,Urine Negative (Negative); Urobilinogen,Urine 0.2 EU/dl (0.2)
[2020-03-15 09:40] LABS: RBC,Urine Occasional #/hpf (0-3); Squamous Epithelial Cell,Urine Occasional #/hpf (0-5); WBC,Urine Occasional #/hpf (0-3)
[2020-03-15 10:15] LABS: Chloride 104 mmol/L (98-107); Sodium 142 mmol/L (136-145)
[2020-03-15 10:16] LABS: Potassium 4.2 mmoL/L (3.5-5.1)
[2020-03-15 10:18] LABS: Alanine Aminotransferase 10 U/L (12-78); Alkaline Phosphatase 65 U/L (38-126); Anion Gap 9.2 mEq/L (5-15); Aspartate Amino Transferase 24 U/L (17-59); Bilirubin,Total 0.5 mg/dl (0.2-1.3); Blood Urea Nitrogen 16 mg/dl (9-20); Calcium 9.2 mg/dl (8.4-10.2); Carbon Dioxide 33 mmol/L (22.0-30.0); Cholesterol 207 mg/dl (140-200); Estimated Glomerular Filt Rate 72 ml/min (>60); GFR (African American) 88 ML/MIN (>60); Glucose 104 mg/dl (74-100); Triglycerides 85 mg/dl (30-150); VLDL Cholesterol 17 mg/dL (0-40)
[2020-03-15 10:19] LABS: Albumin Level 3.7 g/dl (3.5-5.0); Albumin/Globulin Ratio 1.3 (1.1-1.8); Chol/HDL Ratio 3.5 (1-3.5); Globulin 2.8 g/dL (1.3-3.2); HDL Cholesterol 59 mg/dl (40-60); Total Protein,Serum 6.5 g/dl (6.3-8.2)
[2020-03-15 10:49] LABS: Thyroid Stimulating Hormone 1.45 uIU/mL (0.465-4.68)
[2020-03-15 13:08] LABS: 25-OH Vitamin D, Total 45.9 ng/mL (30-100)
[2020-03-16 09:52] LABS: Vitamin B12 291 pg/mL (232-1245)
== END ==
PROVIDERS: Visit Provider Internal Medicine Adolescent Medicine
DX: I10 Essential (primary) hypertension (principal); N17.9 Acute kidney failure, unspecified; G60.9 Hereditary and idiopathic neuropathy, unspecified
CPT/HCPCS: 36415; 80053; 80061; 81001; 82306; 82607; 84443; 85025

== ENCOUNTER 2020-03-16 15:09 | Emergency (ER) | payer MEDICARE, SELFPAY ==
[2020-03-16 15:10] VITALS: BP 176/108; PULSE 118; RESP 28; TEMP 36.8; O2SAT 97; BMI 20.6
--- NOTE | 2020-03-16 15:50 | XR_ITS ---
PROCEDURE: XR CHEST PORTABLE CLINICAL HISTORY: SOB Current smoker COMPARISON: CXR1VP XR chest portable from 05/05/2018 CXR2V XR chest 2V from 06/14/2018 CXR2V XR chest 2V from 08/09/[address] chest w con from 08/10/2018 FINDINGS: There is persistent volume loss left hemithorax. The mediastinal structures are shifted from right to left. There is chronic pleural scarring and left base and left costophrenic angle the left upper lung field is clear. There is hyperexpansion of the right lung and this is clear of infiltrate as well. Cardiac size is difficult to evaluate but I suspect overall cardiac size is normal. . No acute bony abnormalities. IMPRESSION: Persistent volume loss left hemithorax probably due to chronic left lower lobe collapse and suggest consideration of follow-up bronchoscopy if this has not already been performed and or repeat CT scan of the chest with IV contrast to evaluate for interval change from the previous CT scan of the chest 08/10/2018 Dictated by: Dr. Rafael Carlin MD 03/16/2020 19:[address] Rafael Carlin MD in [facility] 03/16/2020 19:01
--- NOTE | 2020-03-16 15:50 | ECG_ITS ---
APPROVED REPORT Exam: Resting ECG HR:94 bpm ECG Measurements Heart Rate 94 AXES IA 168 P 88 QRSd 90 QRS -55 QT 344 T 50 QTc 430 <Conclusion> Normal sinus rhythm Left anterior fascicular block Late r wave progression Abnormal ECG Electronically signed by : Cayden Munoz, 03/17/2020 17:28:03
[2020-03-16 15:58] LABS: Chloride 104 mmol/L (98-107)
[2020-03-16 15:59] LABS: Potassium 3.9 mmoL/L (3.5-5.1); Sodium 142 mmol/L (136-145)
[2020-03-16 16:01] LABS: Basophils % 0.4 % (0.1-2.0); Eosinophils # 0.2 K/mm3 (0.0-0.4); Eosinophils % 2.9 % (0.1-12.0); Hematocrit 46.5 % (42.0-52.0); Hemoglobin 15.8 g/dL (14.1-18.0); Lymphocytes # 2.3 K/mm3 (0.7-4.5); Lymphocytes % 30.5 % (10-50); Mean Corpuscular HGB Conc 33.9 g/dL (31.8-35.4); Mean Corpuscular Hemoglobin 31.4 pg (27.0-31.2); Mean Corpuscular Volume 92.5 fl (80-94); Monocytes # 0.4 K/mm3 (0.1-1.0); Monocytes % 4.8 % (1.7-9.3); Neutrophils # 4.7 K/mm3 (1.8-7.8); Neutrophils % 61.4 % (37.0-80.0); Platelet Count 369 K/mm3 (142-424); Red Blood Count 5.02 M/mm3 (4.60-6.20); White Blood Count 7.7 K/mm3 (4.8-10.8)
[2020-03-16 16:02] LABS: Anion Gap 13.9 mEq/L (5-15); Blood Urea Nitrogen 12 mg/dl (9-20); Calcium 8.8 mg/dl (8.4-10.2); Carbon Dioxide 28 mmol/L (22.0-30.0); Estimated Glomerular Filt Rate 82 ml/min (>60); GFR (African American) 99 ML/MIN (>60); Glucose 86 mg/dl (74-100)
--- NOTE | 2020-03-16 16:02 | PC.NURSE ---
Rad at bedside
--- NOTE | 2020-03-16 16:12 | PC.NURSE ---
RT at bedside
[2020-03-16 16:14] LABS: Troponin I 0.02 ng/ml (0.00-0.034)
--- NOTE | 2020-03-16 16:15 | CT_ITS ---
PROCEDURE: CT CHEST WO CON CLINICAL INDICATION: SOB COMPARISON: CHESTW CT chest w con from 08/10/2018 TECHNIQUE: Axial images obtained with sagittal and coronal reformats. All CT scans at the facility use one or more dose reduction, viz: automated exposure control, ma/kV adjustment per patient size (including targeted exams where dose is matched to indication, i.e. head), or iterative reconstruction technique. FINDINGS: HEART AND MEDIASTINAL STRUCTURES: There is shift of the heart and mediastinal structures into the left hemithorax secondary to the severe volume loss. Cardiac size is normal. There is mild arthrosclerotic calcification of the aortic arch. LUNGS AND PLEURAL SPACES: There is marked volume loss left hemithorax with compensatory hyperexpansion of the right lung extending across the midline. There appears to be chronic obstruction of the left lower lobe bronchus and this was seen on the previous CT scan resulting in left lower lobe collapse. There is a stable small loculated pleural effusion the left base and posterior gutter similar in appearance to the previous study. There are stable noncalcified pulmonary nodules in both lung apices. The right lung field is clear of infiltrate and there is no right-sided pleural fluid. BONY STRUCTURES: There is mild kyphotic curvature of the thoracic spine with mild multilevel degenerate changes. UPPER ABDOMEN: Unremarkable. ADDITIONAL FINDINGS: There is calcification of the aortic valve.. IMPRESSION: Findings basically stable unchanged from the previous CT scan of the chest 08/10/2018 with persistent and essentially complete collapse of the left lower lobe likely due to chronic obstruction of the left lower lobe bronchus. Stable persistent loculated pleural fluid collection at the left posterior gutter. Dictated by: Dr. Rafael Carlin MD 03/16/2020 19:[address] Rafael Carlin MD in [facility] 03/16/2020 19:22
--- NOTE | 2020-03-16 16:18 | PC.NURSE ---
Pt to rad at this time.
[2020-03-16 16:37] VITALS: BP 157/99; PULSE 107; O2SAT 94
--- NOTE | 2020-03-16 16:42 | PC.NURSE ---
Dr Milian paged.
[2020-03-16 16:52] LABS: Lactic Acid 3.1 mmol/L (0.7-2.1)
--- NOTE | 2020-03-16 17:14 | HMH.EDSOB ---
ED Disposition Clinical Impression: Acute exacerbation of chronic obstructive airways disease Disposition: Home, Self-Care Condition on Discharge: Good Instructions: DI for Chronic Bronchitis Prescriptions: Azithromycin 250 mg PO DAILY 5 Days #6 tab Transmission Status: Pending to [facility] # methylPREDNISolone [Medrol 4mg tab] 4 mg PO DIRECTED #21 tab Transmission Status: Pending to [facility] # Referrals: Cayden Munoz MD [Primary Care Provider] - - Critical Care Critical Care Time: No Attestation: On 03/16/20, the high probability of a clinically significant, sudden or life threatening deterioration of the following system(s) required my full and direct attention, intervention and personal management. The time I documented below is in addition to time spent performing reported procedures but includes the following listed in this critical care notation. Medical Decision Making - Medical Records Medical records reviewed: Yes: I reviewed the patient's medical records. - Hoang Inquiry Pt receiving controlled substance: No Vital Signs: 03/16/20 15:10 03/16/20 16:32 03/16/20 16:37 Temperature 98.2 F Temperature Source Oral Pulse Rate [Left Radial] 118 H 107 H Respiratory Rate 28 H Blood Pressure [Right Arm] 176/108 H 157/99 H Blood Pressure Mean [Right Arm] 130 118 Blood Pressure Source [Right Arm] Automatic Cuff Blood Pressure Position [Right Arm] Sitting Sitting 02 Sat by Pulse Oximetry 97 94 L Oxygen Delivery Method Nasal Cannula Nasal Cannula Nasal Cannula Oxygen Flow Rate (LPM) 2 2 2 - Lab Data Lab results reviewed: Yes: I reviewed the patient's lab results. Lab Results 03/16/20 15:45: WBC 7.7, RBC 5.02, Hgb 15.8, Hct 46.5, MCV 92.5, MCH 31.4 H, MCHC 33.9, RDW 15.0, Plt Count 369, MPV 8.0, Neut % (Auto) 61.4, Lymph % (Auto) 30.5, [place] % (Auto) 4.8, Eos % (Auto) 2.9, Baso % (Auto) 0.4, Neut # (Auto) 4.7, Lymph # (Auto) 2.3, [place] # (Auto) 0.4, Eos # (Auto) 0.2, Baso # (Auto) 0.0 03/16/20 15:45: Sodium 142, Potassium 3.9, Chloride 104, Carbon Dioxide 28, Anion Gap 13.9, BUN 12, Creatinine 0.90, Estimated GFR 82, Est GFR ( Amer) 99, Glucose 86, Calcium 8.8, Troponin I 0.02 03/16/20 15:45: Lactate 3.1 H Result diagrams: 03/16/20 15:45 03/16/20 15:45 Orders (Tests/Meds): ED MEDICATIONS Generic Name Dose Route Start Last Admin Trade Name Freq PRN Reason Stop Dose Admin Nicotine 21 mg 03/16/20 17:00 03/16/20 17:00 Nicoderm 21mg/24hr Patch TD 04/15/20 16:59 21 mg DAILY SEBASTIÁN Administration Discontinued Medications Generic Name Dose Route Start Last Admin Trade Name Freq PRN Reason Stop Dose Admin Methylprednisolone Sodium Succinate 125 mg 03/16/20 16:16 03/16/20 16:17 Solu-Medrol 125mg/2ml Vial IV 03/16/20 16:17 125 mg ONCE ONE Administration ORDERS Category Date Time Status CT chest wo con Stat Cat Scan 03/16/20 16:15 Taken XR chest portable Stat Exams 03/16/20 15:50 Taken Troponin I Q3H Lab 03/16/20 19:00 Ordered Troponin I Q3H Lab 03/16/20 22:00 Ordered Blood Culture Stat Micro 03/16/20 15:45 Received - CT Data CT Scan: Chest Time Received: 17:[address] Reviewed: Yes: I have viewed the radiologist's interpretation Preliminary Findings: Abnormal (Chronic left lung loss on the left side secondary to intra-loculated effusion no change from previous CT done 2 years ago.) - ECG Data Tracing #1 I reviewed this ECG and interpreted as documented below: Normal Sinus Rhythm: Yes Medical Decision Narrative: I encouraged the patient to stay for admission for COPD exacerbation however patient refused and wants to go home. Resp/SOB HPI - General Chief Complaint: Shortness of Breath/Dyspnea Stated Complaint: SOA Time Seen by Provider: 03/16/20 17:00 Mode of Arrival: Ambulatory Source of Information: Patient Limitations: No Limitations Description of Symptoms (Recalled from
[2020-03-16 17:27] VITALS: BP 135/89; PULSE 88; RESP 24; TEMP 36.6; O2SAT 98
== END 2020-03-16 17:29 | disposition home or self-care (01) ==
PROVIDERS: Emergency Provider Family Medicine; PCP Internal Medicine Adolescent Medicine
DX: J44.1 Chronic obstructive pulmonary disease with (acute) exacerbation (principal); Z99.81 Dependence on supplemental oxygen; I10 Essential (primary) hypertension; I25.2 Old myocardial infarction; F41.9 Anxiety disorder, unspecified; F17.210 Nicotine dependence, cigarettes, uncomplicated; F10.21 Alcohol dependence, in remission; Z79.899 Other long term (current) drug therapy
CPT/HCPCS: 71045; 71250; 80048; 83605; 84484; 85025; 87040; 93005; 96374; 99284

== ENCOUNTER → 2020-07-17 12:47 | Outpatient (CLI) | payer MEDICARE, SELFPAY ==
[2020-07-17 13:33] LABS: Basophils # 0.1 K/mm3 (0-0.2); Basophils % 0.9 % (0.1-2.0); Eosinophils # 0.5 K/mm3 (0.0-0.4); Eosinophils % 6.1 % (0.1-12.0); Hematocrit 52.2 % (42.0-52.0); Hemoglobin 16.1 g/dL (14.1-18.0); Lymphocytes % 24.4 % (10-50); Mean Corpuscular HGB Conc 30.8 g/dL (31.8-35.4); Mean Corpuscular Hemoglobin 28.9 pg (27.0-31.2); Mean Corpuscular Volume 93.6 fl (80-94); Mean Platelet Volume 7.8 fl (7.4-10.4); Monocytes # 0.5 K/mm3 (0.1-1.0); Neutrophils % 62.6 % (37.0-80.0); Platelet Count 322 K/mm3 (142-424); Red Blood Count 5.58 M/mm3 (4.60-6.20); Red Cell Distribution Width 13.9 % (11.5-17.5)
[2020-07-17 14:23] LABS: Chloride 101 mmol/L (98-107); Potassium 5.3 mmoL/L (3.5-5.1); Sodium 139 mmol/L (136-145)
[2020-07-17 14:25] LABS: Blood Urea Nitrogen 21 mg/dl (9-20); Estimated Glomerular Filt Rate 54 ml/min (>60); GFR (African American) 65 ML/MIN (>60)
[2020-07-17 14:26] LABS: Alanine Aminotransferase 21 U/L (12-78); Albumin Level 4.1 g/dl (3.5-5.0); Albumin/Globulin Ratio 1.4 (1.1-1.8); Alkaline Phosphatase 92 U/L (38-126); Anion Gap 14.3 mEq/L (5-15); Aspartate Amino Transferase 26 U/L (17-59); Bilirubin,Total 0.7 mg/dl (0.2-1.3); Calcium 9.6 mg/dl (8.4-10.2); Carbon Dioxide 29 mmol/L (22.0-30.0); Globulin 2.9 g/dL (1.3-3.2); Glucose 91 mg/dl (74-100)
== END ==
PROVIDERS: Visit Provider Internal Medicine Adolescent Medicine
DX: Z01.810 Encounter for preprocedural cardiovascular examination (principal); J44.9 Chronic obstructive pulmonary disease, unspecified
CPT/HCPCS: 36415; 80053; 85025

== ENCOUNTER 2021-09-26 15:20 | Emergency (ER) | payer MEDICARE, SELFPAY ==
[2021-09-26 15:21] VITALS: BP 160/95; PULSE 60; RESP 16; TEMP 36.8; O2SAT 98; BMI 22.2
[2021-09-26 15:38] LABS: Basophils # 0.1 K/mm3 (0-0.2); Basophils % 0.8 % (0.1-2.0); Eosinophils # 0.6 K/mm3 (0.0-0.4); Eosinophils % 5.4 % (0.1-12.0); Hematocrit 45.2 % (42.0-52.0); Hemoglobin 14.4 g/dL (14.1-18.0); Lymphocytes # 1.8 K/mm3 (0.7-4.5); Lymphocytes % 16.6 % (10-50); Mean Corpuscular HGB Conc 31.8 g/dL (31.8-35.4); Mean Corpuscular Hemoglobin 29.3 pg (27.0-31.2); Mean Corpuscular Volume 92.3 fl (80-94); Mean Platelet Volume 8.6 fl (7.4-10.4); Monocytes # 0.8 K/mm3 (0.1-1.0); Monocytes % 7.6 % (1.7-9.3); Neutrophils # 7.6 K/mm3 (1.8-7.8); Neutrophils % 69.6 % (37.0-80.0); Platelet Count 286 K/mm3 (142-424); Red Cell Distribution Width 14.3 % (11.5-17.5); White Blood Count 10.9 K/mm3 (4.8-10.8)
[2021-09-26 15:40] LABS: Chloride 105 mmol/L (98-107); Sodium 140 mmol/L (136-145)
[2021-09-26 15:43] LABS: Alanine Aminotransferase 15 U/L (12-78); Alkaline Phosphatase 104 U/L (38-126); Aspartate Amino Transferase 28 U/L (17-59); Bilirubin,Total 0.4 mg/dl (0.2-1.3); Blood Urea Nitrogen 20 mg/dl (9-20); Creatinine Clearance Estimated 36 mL/min (50-200); Estimated Glomerular Filt Rate 39 ml/min (>60); GFR (African American) 47 ML/MIN (>60)
[2021-09-26 15:44] LABS: Albumin Level 3.9 g/dl (3.5-5.0); Albumin/Globulin Ratio 1.3 (1.1-1.8); Carbon Dioxide 27 mmol/L (22.0-30.0); Globulin 2.9 g/dL (1.3-3.2); Glucose 117 mg/dl (74-100); Total Protein,Serum 6.8 g/dl (6.3-8.2)
--- NOTE | 2021-09-26 15:52 | HMH.EDGENADL ---
ED Disposition Clinical Impression: Kidney stone on left side Disposition: Home, Self-Care Condition on Discharge: Good Instructions: DI for Kidney Stones Prescriptions: Hydrocod/Acet 5/325 mg [[place] 5/325mg tablet] 1 tab PO Q6HP PRN #6 tab PRN Reason: Severe Pain Transmission Status: Sent to [facility] # Ibuprofen [Ibuprofen 600mg Tablet] 600 mg PO Q8 #18 tab Transmission Status: Pending to [facility] # ondansetron HCL [Ondansetron 4mg tab*] 4 mg PO Q6 PRN #12 tab PRN Reason: Nausea Transmission Status: Pending to [facility] # Referrals: Cayden Munoz MD [Primary Care Provider] - Time of Disposition: 17:22 - Critical Care Critical Care Time: No Attestation: On 09/26/21, the high probability of a clinically significant, sudden or life threatening deterioration of the following system(s) required my full and direct attention, intervention and personal management. The time I documented below is in addition to time spent performing reported procedures but includes the following listed in this critical care notation. Medical Decision Making - Medical Records Medical records reviewed: Yes: I reviewed the patient's medical records. - Hoang Inquiry Pt receiving controlled substance: No Vital Signs: 09/26/21 15:21 Temperature 98.2 F Temperature Source Oral Pulse Rate [Radial] 60 Respiratory Rate 16 Blood Pressure [Right Radial Artery] 160/95 H Blood Pressure Mean [Right Radial Artery] 116 Blood Pressure Position [Right Radial Artery] Sitting 02 Sat by Pulse Oximetry 98 Oxygen Delivery Method Room Air - Lab Data Lab Results 09/26/21 15:30: WBC 10.9 H, RBC 4.90, Hgb 14.4, Hct 45.2, MCV 92.3, MCH 29.3, MCHC 31.8, RDW 14.3, Plt Count 286, MPV 8.6, Neut % (Auto) 69.6, Lymph % (Auto) 16.6, [place] % (Auto) 7.6, Eos % (Auto) 5.4, Baso % (Auto) 0.8, Neut # (Auto) 7.6, Lymph # (Auto) 1.8, [place] # (Auto) 0.8, Eos # (Auto) 0.6 H, Baso # (Auto) 0.1 09/26/21 15:30: Sodium 140, Potassium 4.0, Chloride 105, Carbon Dioxide 27, Anion Gap 12.0, BUN 20, Creatinine 1.70 H, Estimated Creat Clear 36, Estimated GFR 39 L, Est GFR ( Amer) 47 L, Glucose 117 H, Calcium 9.0, Total Bilirubin 0.4, AST 28, ALT 15, Alkaline Phosphatase 104, Total Protein 6.8, Albumin 3.9, Globulin 2.9, Albumin/Globulin Ratio 1.3 09/26/21 15:42: Urine Color Yellow, Urine Appearance Clear, Urine pH 6.0, Ur Specific [place] >= 1.030, Urine Protein 1+, Urine Glucose (UA) Negative, Urine Ketones Negative, Urine Blood 2+, Urine Nitrate Negative, Urine Bilirubin Negative, Urine Urobilinogen 0.2, Ur Leukocyte Esterase Negative, Urine RBC 10-20, Urine WBC 3-5, Ur Squamous Epith Cells 3-5, Urine Bacteria Trace Result diagrams: 09/26/21 15:30 09/26/21 15:30 Orders (Tests/Meds): ED MEDICATIONS Discontinued Medications Generic Name Dose Route Start Last Admin Trade Name Freq PRN Reason Stop Dose Admin Ketorolac Tromethamine 15 mg 09/26/21 15:27 09/26/21 15:32 Ketorolac 30mg/Ml Vial IV 09/26/21 15:28 15 mg ONCE ONE Administration - CT Data CT Scan: Abdomen Time Received: 17:[address] Reviewed: Yes: I have reviewed the patient's CT results, I have viewed the radiologist's interpretation Preliminary Findings: Abnormal Findings Narrative: IMPRESSION: Mild left hydronephrosis and hydroureter with surrounding stranding. At least one tiny ureteral stone is seen, but suspect previously passed additional stones. Please also consider infection Medical Decision Narrative: In summary this is a 80-year-old male with history nephrolithiasis presenting to the emergency department for flank pain. Patient clinically stable on arrival. Vital signs within normal limits. Concern for nonobstructing nephrolithiasis, obstructing kidney stone, urinary tract infection, pyelonephritis. Will obtain CBC, CMP, urinalysis. Patient given 15 mg IV Toradol. Initial laboratory results sh
[2021-09-26 15:54] LABS: Microscopic, Urine URINE MICROSCOPIC (MICROSCOPIC)
--- NOTE | 2021-09-26 15:56 | CT_ITS ---
PROCEDURE INFORMATION: Exam: CT Abdomen And Pelvis Without Contrast Exam date and time: 09/26/2021 3:56 PM Age: 80 years old Clinical indication: Abdominal pain; Flank; Left lower quadrant (llq); Additional info: Left flank pain, kidney stone suspected TECHNIQUE: Imaging protocol: Computed tomography of the abdomen and pelvis without contrast. Radiation optimization: All CT scans at this facility use at least one of these dose optimization techniques: automated exposure control; mA and/or kV adjustment per patient size (includes targeted exams where dose is matched to clinical indication); or iterative reconstruction. COMPARISON: CT ABDOMEN PELVIS WO CON 12/21/2019 2:41 AM FINDINGS: Imaging protocol: Computed tomography of the abdomen and pelvis without contrast. Lungs: Persistent is hyperinflation of the right lung Pleural spaces: Chronic is is left pleural effusion demonstrates some probable rind. Clinical correlation recommended. There is also is left basilar consolidation. Mediastinal space: Persistent leftward deviation of the mediastinum. Diaphragm: A small hiatal hernia. Liver: Normal. No mass. Gallbladder and bile ducts: Normal. No calcified stones. No ductal dilation. Pancreas: Normal. No ductal dilation. Spleen: Normal. No splenomegaly. Adrenal glands: Normal. No mass. Kidneys and ureters: Mild left hydronephrosis and hydroureter. Surrounding stranding noted. There is a tiny stone in the proximal left ureter. See image 59 of series 3. No additional stones. This tiny stones unlikely to be the cause and it is suspected that another stone is recently passed. Infection should also be considered. No stones or hydronephrosis on the right. Stomach and bowel: A few scattered colonic diverticula are seen. No CT evidence of diverticulitis. No large or small bowel dilatation. Appendix: No evidence of appendicitis. Intraperitoneal space: Unremarkable. No free air. No significant fluid collection. Vasculature: Unremarkable. No abdominal aortic aneurysm. Lymph nodes: Unremarkable. No enlarged lymph nodes. Urinary bladder: Unremarkable as visualized. Reproductive: Unremarkable as visualized. Bones/joints: Unremarkable. No acute fracture. Soft tissues: Unremarkable. IMPRESSION: Mild left hydronephrosis and hydroureter with surrounding stranding. At least one tiny ureteral stone is seen, but suspect previously passed additional stones. Please also consider infection.
[2021-09-26 16:15] LABS: Appearance,Urine CLEAR (Clear); Bilirubin,Urine Negative (Negative); Blood, Urine 2+ (Negative); Color,Urine YELLOW (Yellow); Glucose,Urine (UA) Negative (Negative); Ketones,Urine Negative (Negative); Leukocyte Esterase,Urine Negative (Negative); Nitrate,Urine Negative (Negative); Protein,Urine 1+ (Negative); Specific Gravity, Urine >= 1.030 (1.005-1.030); Urobilinogen,Urine 0.2 EU/dl (0.2)
--- NOTE | 2021-09-26 16:40 | PC.NURSE ---
pt to rad.
[2021-09-26 16:44] LABS: Bacteria,Urine Trace /lpf
--- NOTE | 2021-09-26 16:46 | PC.NURSE ---
pt returned from rad
--- NOTE | 2021-09-26 17:11 | PC.NURSE ---
Pt is up pacing the room
[2021-09-26 17:32] VITALS: BP 142/70; PULSE 70; RESP 16; TEMP 36.8; O2SAT 98
== END 2021-09-26 17:34 | disposition home or self-care (01) ==
PROVIDERS: Emergency Provider Emergency Medicine; PCP Internal Medicine Adolescent Medicine
DX: N20.0 Calculus of kidney (principal); J44.9 Chronic obstructive pulmonary disease, unspecified; I25.2 Old myocardial infarction; F17.210 Nicotine dependence, cigarettes, uncomplicated
CPT/HCPCS: 74176; 80053; 81001; 85025; 96374; 99283

== ENCOUNTER 2022-05-16 07:19 | Inpatient (IN) | payer MEDICARE, SELFPAY ==
[2022-05-16] VITALS (16 sets, daily range): BP systolic 133–174; BP diastolic 74–105; PULSE 65–110; RESP 14–23; TEMP 35.8–36.8; O2SAT 92–98; BMI 21.5; BMI 20.9
--- NOTE | 2022-05-16 07:21 | PC.NURSE ---
Notified Vickie in respiratory of ABG order
--- NOTE | 2022-05-16 07:26 | PC.NURSE ---
Vickie with respiratory at BS
--- NOTE | 2022-05-16 07:31 | PC.NURSE ---
Daughter at BS
--- NOTE | 2022-05-16 07:37 | XR_ITS ---
PROCEDURE INFORMATION: Exam: XR Chest Exam date and time: 05/16/2022 7:53 AM Age: 81 years old Clinical indication: Shortness of breath TECHNIQUE: Imaging protocol: Radiologic exam of the chest. Views: 1 view. COMPARISON: CT CHEST WO CON 03/16/2020 4:22 PM FINDINGS: Lungs: Hyperexpanded lung hawkins consistent with COPD. Opacities in the left mid lung and left base may represent atelectasis or pneumonia . This may be chronic as this appearance was present in February [address] from 2017. Pleural spaces: Moderate left pleural effusion.. Heart/Mediastinum: Unremarkable. No cardiomegaly. Bones/joints: Unremarkable. IMPRESSION: 1. Opacities in the left mid lung and left base may represent atelectasis or pneumonia . This may be chronic as this appearance was present in February [address] from 2017. 2. Moderate left pleural effusion..
[2022-05-16 07:42] LABS: ABG Base Excess -0.3 mmol/L (-2.4-2.3); ABG HCO3 24.3 mmhg (22.0-26.0); ABG Oxygen Saturation 93 % (90-100); ABG PH 7.41 mmol/L (7.35-7.45); ABG PO2 63.4 mmhg (80-100); ABG TCO2 25.5 mmhg (23-27)
[2022-05-16 07:43] LABS: Allen's Test Acceptable; Oxygen 3 L NC %
--- NOTE | 2022-05-16 07:43 | PC.NURSE ---
Radiology at BS for portable chest xray
[2022-05-16 07:44] LABS: Source Right Radial
[2022-05-16 07:45] LABS: Coronavirus 19, PCR Not Detected (NotDetected); Influenza A, PCR Not Detected (NotDetected); Influenza B, PCR Not Detected (NotDetected); Microscopic, Urine URINE MICROSCOPIC (MICROSCOPIC)
--- NOTE | 2022-05-16 07:46 | PC.NURSE ---
blood, ua and covid swab sent to the lab
[2022-05-16 07:47] LABS: Basophils # 0.1 K/mm3 (0-0.2); Basophils % 0.6 % (0.1-2.0); Eosinophils # 0.1 K/mm3 (0.0-0.4); Eosinophils % 1.2 % (0.1-12.0); Hematocrit 44.6 % (42.0-52.0); Lymphocytes # 1.3 K/mm3 (0.7-4.5); Lymphocytes % 12.2 % (10-50); Mean Corpuscular HGB Conc 31.3 g/dL (31.8-35.4); Mean Corpuscular Volume 92.4 fl (80-94); Mean Platelet Volume 8.7 fl (7.4-10.4); Monocytes # 0.5 K/mm3 (0.1-1.0); Monocytes % 4.5 % (1.7-9.3); Neutrophils # 8.5 K/mm3 (1.8-7.8); Neutrophils % 81.4 % (37.0-80.0); Platelet Count 271 K/mm3 (142-424); Red Blood Count 4.82 M/mm3 (4.60-6.20); Red Cell Distribution Width 14.8 % (11.5-17.5); White Blood Count 10.5 K/mm3 (4.8-10.8)
--- NOTE | 2022-05-16 07:48 | ECG_ITS ---
APPROVED REPORT Exam: Resting ECG HR:105 bpm ECG Measurements Heart Rate 105 AXES GA 187 P 89 QRSd 85 QRS 85 QT 324 T 65 QTc 385 Conclusion SINUS TACHYCARDIA WITH OCCASIONAL ECTOPIC PREMATURE COMPLEXES ANTEROLATERAL MYOCARDIAL INFARCTION , PROBABLY RECENT [40+ ms Q WAVE IN I/aVL/V3-V6] ACUTE MS UNCONFIRMED REPORT Electronically signed by : Cayden Munoz MD 05/16/2022 19:03:07
--- NOTE | 2022-05-16 07:52 | PC.NURSE ---
Pt sitting up in chair to be more comfortable. Daughter at BS. They are aware we are just waiting on results to come in and they both voiced no other needs at this time. Call light within reach
[2022-05-16 07:56] LABS: Appearance,Urine CLEAR (Clear); Bilirubin,Urine Negative (Negative); Blood, Urine 1+ (Negative); Color,Urine YELLOW (Yellow); Glucose,Urine (UA) Negative (Negative); Ketones,Urine 1+ (Negative); Leukocyte Esterase,Urine Negative (Negative); Nitrate,Urine Negative (Negative); PH,Urine 6.5 (5.0-8.5); Protein,Urine 1+ (Negative); Urobilinogen,Urine 0.2 EU/dl (0.2)
[2022-05-16 08:00] LABS: Lactic Acid 1.1 mmol/L (0.7-2.1)
[2022-05-16 08:01] LABS: Alanine Aminotransferase 21 U/L (12-78); Albumin Level 4.1 g/dl (3.5-5.0); Albumin/Globulin Ratio 1.3 (1.1-1.8); Alkaline Phosphatase 133 U/L (38-126); Aspartate Amino Transferase 33 U/L (17-59); Bilirubin,Total 0.9 mg/dl (0.2-1.3); Blood Urea Nitrogen 14 mg/dl (9-20); Calcium 9.5 mg/dl (8.4-10.2); Carbon Dioxide 27 mmol/L (22.0-30.0); Chloride 104 mmol/L (98-107); Creatinine Clearance Estimated 58 mL/min (50-200); Estimated Glomerular Filt Rate 72 ml/min (>60); GFR (African American) 87 ML/MIN (>60); Globulin 3.2 g/dL (1.3-3.2); Glucose 121 mg/dl (74-100); Sodium 137 mmol/L (136-145); Total Protein,Serum 7.3 g/dl (6.3-8.2)
--- NOTE | 2022-05-16 08:01 | PC.NURSE ---
ER at for patient juliana; daughter at
--- NOTE | 2022-05-16 08:03 | PC.NURSE ---
Dr Jj returned call.
[2022-05-16 08:08] LABS: Bacteria,Urine Trace /lpf; Squamous Epithelial Cell,Urine Occasional #/hpf (0-5); WBC,Urine Occasional #/hpf (0-3)
--- NOTE | 2022-05-16 08:10 | CT_ITS ---
PROCEDURE INFORMATION: Exam: CTA Chest With Contrast Exam date and time: 05/16/2022 8:42 AM Age: 81 years old Clinical indication: Shortness of breath and tachypnea; Additional info: SOA, tachycardia TECHNIQUE: Imaging protocol: Computed tomographic angiography of the chest with contrast. 3D rendering (Not supervised by radiologist): MIP and/or 3D reconstructed images were created by the technologist. Radiation optimization: All CT scans at this facility use at least one of these dose optimization techniques: automated exposure control; mA and/or kV adjustment per patient size (includes targeted exams where dose is matched to clinical indication); or iterative reconstruction. Contrast material: ISOVUE; Contrast volume: 70 ml; Contrast route: INTRAVENOUS (IV); COMPARISON: CT CHEST WO CON 03/16/2020 4:22 PM FINDINGS: Pulmonary arteries: No evidence of pulmonary embolus to the segmental level. Aorta: No aneurysm of the aorta. No dissection of the aorta. Lungs: [place] in the right middle lobe. Mild panlobular emphysematous changes Pleural spaces: Stable chronic loculated pleural effusion in the left lower lobe. Heart: Stable shift of the heart and mediastinum to the left.. Stable chronic loculated pleural effusion in the left lower lobe. Stable consolidation in the left lower lobe. Stable pleural thickening in the lateral left hemithorax. Lymph nodes: Unremarkable. No enlarged lymph nodes. Bones/joints: Unremarkable. No acute fracture. Soft tissues: Unremarkable. IMPRESSION: 1. Stable shift of the heart and mediastinum to the left.. Stable chronic loculated pleural effusion in the left lower lobe. Stable consolidation in the left lower lobe. Stable pleural thickening in the lateral left hemithorax. 2. No evidence of pulmonary embolus to the segmental level. 3. No aneurysm of the aorta. 4. No dissection of the aorta.
[2022-05-16 08:13] LABS: NT Pro Brain Natriuretic Pep. 328 pg/mL (0-450)
--- NOTE | 2022-05-16 08:14 | PC.NURSE ---
Critical labs being called to [facility] at this time.
--- NOTE | 2022-05-16 08:15 | PC.NURSE ---
notified of critical troponin
--- NOTE | 2022-05-16 08:19 | HMH.EDGENADL ---
ED Disposition Clinical Impression: NSTEMI (non-ST elevated myocardial infarction), COPD exacerbation Disposition: Admitted As Inpatient Condition on Discharge: Good - Critical Care Critical Care Time: No Attestation: On 05/16/22, the high probability of a clinically significant, sudden or life threatening deterioration of the following system(s) required my full and direct attention, intervention and personal management. The time I documented below is in addition to time spent performing reported procedures but includes the following listed in this critical care notation. Medical Decision Making - Hoang Inquiry Pt receiving controlled substance: No Vital Signs: 05/16/22 07:17 05/16/22 07:30 05/16/22 08:10 Temperature 97.8 F Temperature Source Oral Pulse Rate 103 H 101 H Pulse Rate [Left Radial] 108 H Respiratory Rate 23 14 Blood Pressure 137/105 H Blood Pressure [Right Arm] 174/103 H Blood Pressure Mean 116 Blood Pressure Mean [Right Arm] 126 02 Sat by Pulse Oximetry 96 94 L 94 L Oxygen Delivery Method Nasal Cannula Nasal Cannula Nasal Cannula Oxygen Flow Rate (LPM) 3 3 2 - Lab Data Lab Results 05/16/22 07:32: Urine Color Yellow, Urine Appearance Clear, Urine pH 6.5, Ur Specific [place] 1.020, Urine Protein 1+, Urine Glucose (UA) Negative, Urine Ketones 1+, Urine Blood 1+, Urine Nitrate Negative, Urine Bilirubin Negative, Urine Urobilinogen 0.2, Ur Leukocyte Esterase Negative, Urine RBC None, Urine WBC Occasional, Ur Squamous Epith Cells Occasional, Urine Bacteria Trace 05/16/22 07:32: WBC 10.5, RBC 4.82, Hgb 14.0 L, Hct 44.6, MCV 92.4, MCH 29.0, MCHC 31.3 L, RDW 14.8, Plt Count 271, MPV 8.7, Neut % (Auto) 81.4 H, Lymph % (Auto) 12.2, [place] % (Auto) 4.5, Eos % (Auto) 1.2, Baso % (Auto) 0.6, Neut # (Auto) 8.5 H, Lymph # (Auto) 1.3, [place] # (Auto) 0.5, Eos # (Auto) 0.1, Baso # (Auto) 0.1 05/16/22 07:32: Sodium 137, Potassium 4.0, Chloride 104, Carbon Dioxide 27, Anion Gap 10.0, BUN 14, Creatinine 1.00, Estimated Creat Clear 58, Estimated GFR 72, Est GFR ( Amer) 87, Glucose 121 H, Calcium 9.5, Total Bilirubin 0.9, AST 33, ALT 21, Alkaline Phosphatase 133 H, Troponin I 0.50 H, NT-Pro-B Natriuret Pep 328, Total Protein 7.3, Albumin 4.1, Globulin 3.2, Albumin/Globulin Ratio 1.3 05/16/22 07:32: Lactate 1.1 05/16/22 07:32: SARS-CoV-2 (PCR) Not detected, Influenza A Untype (PCR) Not detected, Influenza Type B (PCR) Not detected 05/16/22 07:37: Specimen Source Right radial, O2 % 3 l nc, ABG pH 7.41, ABG pCO2 39.0, ABG pO2 63.4 L, ABG HCO3 24.3, ABG Total CO2 25.5, ABG O2 Saturation 93, ABG Base Excess -0.3, Jairo Test Acceptable Result diagrams: 05/16/22 07:32 05/16/22 07:32 Orders (Tests/Meds): ED MEDICATIONS Generic Name Dose Route Start Last Admin Trade Name Freq PRN Reason Stop Dose Admin Enoxaparin Sodium 100 mg 05/16/22 09:00 05/16/22 09:03 Enoxaparin 100mg/Ml Syringe 1.5 mg/kg (100 mg) 06/15/22 08:59 100 mg SQ Administration DAILY SEBASTIÁN Levofloxacin/Dextrose 500 mg in 100 mls @ 100 mls/hr 05/16/22 08:45 05/16/22 09:03 Levaquin 500mg/100ml Premix IV 05/30/22 08:44 100 mls/hr Q24H SEBASTINÁ Administration Levalbuterol HCl 1.25 mg 05/16/22 10:00 Levalbuterol 1.25mg/3ml [facility] 06/15/22 09:59 QIDRT SEBASTIÁN Discontinued Medications Generic Name Dose Route Start Last Admin Trade Name Freq PRN Reason Stop Dose Admin Albuterol/Ipratropium 6 ml 05/16/22 08:11 05/16/22 08:20 Ipratropium/Albuterol 3 Ml [facility] 05/16/22 08:12 3 ml ONCE ONE Administration Aspirin 325 mg 05/16/22 08:14 05/16/22 08:21 Aspirin 325mg Tablet PO 05/16/22 08:15 324 mg ONCE ONE Administration Iopamidol 70 ml 05/16/22 08:54 05/16/22 08:56 Iopamidol-370 (76%);100ml Bottle IV 05/16/22 08:55 70 ml ONCE ONE Administration Prednisone 40 mg 05/16/22 08:11 05/16/22 08:22 Prednisone 20mg Tab PO 05/16/22 08:12 40 mg ONCE ONE Administration Sodium Chlo
--- NOTE | 2022-05-16 08:22 | PC.NURSE ---
Addendum entered by So Goncalves RN 05/16/22 08:28: new IV established for CT. mri technician notified to transport pt Original Note: pt to CT with radiology special procedure tech via wheelchair
--- NOTE | 2022-05-16 08:33 | PC.NURSE ---
MD at bedside at this time.
--- NOTE | 2022-05-16 08:35 | PC.NURSE ---
Called 2nd floor to have Dr. Munoz call ER back
--- NOTE | 2022-05-16 08:35 | PC.NURSE ---
[facility] speaking with Dr. Munoz at this time regarding patient admission
--- NOTE | 2022-05-16 08:52 | PC.NURSE ---
pt returned from rad.
--- NOTE | 2022-05-16 09:53 | PC.NURSE ---
called report to chidi rodriguez
--- NOTE | 2022-05-16 10:00 | PC.NURSE ---
patient arrived from ED by wheelchair
[2022-05-16 13:56] LABS: Troponin I 0.95 ng/ml (0.00-0.034)
--- NOTE | 2022-05-16 17:24 | PC.NURSE ---
Patient arrived to floor on 3L O2; has been up to the chair since arrival; leans over bedside table to help with breathing per patient. At [id number] family requested to have patients BP done r/t being red in the face and patient stating he feels a little more short of breath. BP 151/85. HR 103 O2 96% 3L O2. Patient had not taken BP meds since yesterday. Provider notified and recvd v.o. from Dr. Munoz for Metoprolol Titrate 50mg BID with first dose at this time. Patient reassessed and states was feeling better. Patient shows no s/s of acute distress, call light within reach bed at lowest level for safety; will continue to monitor.
--- NOTE | 2022-05-16 18:33 | HMH.HP ---
*Admission Date: 05/16/22 *Chief complaint: Shortness of air/fatigue *History of present illness: 81-year-old white male with history of COPD, tobacco use disorder and history of alcohol use disorder who has a reported history of light heart attack many years ago per his daughter but is unable to provide more records or details, who was feeling good yesterday and went to bed around 8 PM last night and went to sleep comfortably. However, 3 to 4 hours later he awoke spontaneously and was very short of air. He was uncomfortable the rest of the night, continued to be short of air especially with movement, and was brought to the emergency department this morning. In the ER he was found to have COPD exacerbation changes on exam with wheezing and rhonchi, although imaging really did not show worsening over his baseline. Had normal vital signs but mildly elevated troponin levels. [place] EKG showed ST-T wave changes that were somewhat suspicious for ischemia and he was admitted to hospital for further evaluation. On examination on the floor 3 or 4 hours later he feels great, reports that his dyspnea is vastly improved. [facility] History I have reviewed the patient's past medical history: Yes Medical History: Reports:: Chronic Obstructive Pulmonary Disease (COPD), Hiatal Hernia, Hypertension, Myocardial Infarction Denies:: Cancer, Diabetes Mellitus Type 1, Diabetes Mellitus Type 2, Internal Pacemaker, MRSA, Seizures *Have you ever received a pneumonia vaccine?: Yes *Have you received a flu vaccine this season?: Yes Other Medical History: Reports: Arthritis. Denies: Blood Transfusion Reaction Other Surgeries: Yes: EGD, Hernia Repair, Other. No: Pacemaker Amputation: No Fractures: No - *Social History Last grade of school completed: 7th or 8th Smoking Status: Current every day smoker Tobacco Type: pipe # Packs/Day (cigarettes): 1 #Yrs smoked (if former smoker): 65 Alcohol Intake: current Alcohol Intake Frequency:: 0-2 drinks per day Substance Use Type: denies use *Occupational Status:: retired Housing: house Household Members: other *Travel in the last 8 weeks: None Family Hx:: No significant family history Review of Systems - Review of Systems Review of systems:: pertinent systems reviewed and negative unless documented below Meds Home Medications Medication Instructions Recorded Confirmed Type Aspirin [Aspir 81] 81 mg PO DAILY 10/24/17 05/16/22 History Amlodipine Besylate 5 mg PO DAILY 05/16/22 05/16/22 History Ipratropium/Albuterol Sulfate 3 ml IH TID 05/16/22 05/16/22 History [Duoneb 3mL neb] Omeprazole [Omeprazole 40mg 40 mg PO DAILY 05/16/22 05/16/22 History Capsule] Rosuvastatin Calcium 10 mg PO DAILY 05/16/22 05/16/22 History buPROPion HCL [Bupropion Xl] 150 mg PO DAILY 05/16/22 05/16/22 History carvediloL [Carvedilol 6.25mg Tab] 6.25 mg PO DAILY 05/16/22 05/16/22 History Allergies Allergy/AdvReac Type Severity Reaction Status Date / Time Penicillins Allergy Intermediate I-HIVES Verified 05/16/22 07:48 Exam Vital signs and Labs for Last 24 Hours: Temp Pulse Resp BP Pulse Ox 97.9 F 75 16 148/83 H 98 05/16/22 16:00 05/16/22 16:00 05/16/22 16:00 05/16/22 16:00 05/16/22 16:00 Laboratory Results - last 24 hr 05/16/22 07:32: Urine Color Yellow, Urine Appearance Clear, Urine pH 6.5, Ur Specific [place] 1.020, Urine Protein 1+, Urine Glucose (UA) Negative, Urine Ketones 1+, Urine Blood 1+, Urine Nitrate Negative, Urine Bilirubin Negative, Urine Urobilinogen 0.2, Ur Leukocyte Esterase Negative, Urine RBC None, Urine WBC Occasional, Ur Squamous Epith Cells Occasional, Urine Bacteria Trace 05/16/22 07:32: WBC 10.5, RBC 4.82, Hgb 14.0 L, Hct 44.6, MCV 92.4, MCH 29.0, MCHC 31.3 L, RDW 14.8, Plt Count 271, MPV 8.7, Neut % (Auto) 81.4 H, Lymph % (Auto) 12.2, [place] % (Auto) 4.5, Eos % (Auto) 1.2, Baso % (Auto) 0.6, Neut # (Auto) 8.5 H, Lymph # (Auto) 1.3, [place] # (Auto) 0.5, Eos # (Auto) 0.1, Baso # (Auto)
--- NOTE | 2022-05-16 21:22 | PC.NURSE ---
Pt temperature 96.4, applied warm blankets and increased room temperature.
[2022-05-17] VITALS (24 sets, daily range): BP systolic 100–143; BP diastolic 42–77; PULSE 50–70; RESP 16–20; TEMP 36.5–36.7; O2SAT 90–100; BMI 20.9
--- NOTE | 2022-05-17 | IR_ITS ---
APPROVED REPORT Patient Location: Inpatient [facility]: FREDY Jackman RT (R) PROCEDURES Left heart catheterization Left ventriculogram Selective coronary angiogram Intravascular ultrasound the proximal LAD Drug-eluting stent deployed proximal 80 INDICATION Coronary artery disease, Ambiguous angiography, MLA 3.75 in the proximal LAD Informed consent was obtained prior to the procedure. COMPLICATIONS NONE Estimated Blood Loss: LESS THAN 10 ML TECHNIQUE One percent lidocaine used to anesthetize the right anterior aspect of the wrist. The right radial artery was accessed via the Seldinger technique. A 6 Maori sheath was placed in the right radial artery. 2.5 mg of verapamil, 800 mcg of nitroglycerin, 1mg Lidocaine and 5000 U Heparin were given through the arterial sheath. The papa catheter was also used to perform left heart catheterization, left ventriculogram and selective coronary angiogram. At the end of the diagnostic angiogram therapeutic heparin was administered and the guide cath was placed on left main artery followed by a BMW wire. Intravascular ultrasound probe was advanced. Patient was not a candidate for FFR given the severely elevated LVEDP of 60 mmHg as well as patient being admitted with positive troponins/acute coronary syndrome. In the family nothing to trial both of these patients would have been excluded therefore the data does not support nor does the clinical situation warrant FFR interrogation. Because of this and the angiographic ambiguity in the proximal LAD I decided to proceed with intravascular ultrasound probe. The intravascular ultrasound probe was advanced which revealed an occult lesion in the proximal LAD creating an MLA of 3.7 mm???. Because of this a 3.5 x 15 mm resolute [place] stent was deployed in the proximal LAD at 20 javy reducing the stenosis to 0%. STANLEY-3 flow was present before and after the procedure. At the end of procedure the apparatus was removed the sheath was removed and hemostasis achieved using TR banding patient was transferred to the postop putting in stable addition ANGIOGRAPHIC RESULTS The left main artery Normal The left anterior descending artery Has a proximal angiographic ambiguous stenosis between 40 and 70% which produced an MLA of 3.7 mm??? denoting stenosis of nearly 90% plaque burden. The remaining LAD is widely patent with minimal luminal regularities The circumflex artery Is a large nondominant vessel with a proximal smooth 10 to 20% stenosis The right coronary artery There is a large dominant vessel with a proximal 20% stenosis distal 20% eccentric stenosis. STANLEY II flow was present out of vessel The POWERS ventriculogram reveals Preserved at 55% The left ventricular end-diastolic pressure Severely elevated at 60 mmHg IMPRESSION Severe proximal LAD disease as described above Successful stenting of proximal LAD severe disease reduced to 0% with 1 drug-eluting stent STANLEY II flow down the dominant right coronary artery likely stemming from the severely elevated LVEDP/severe diastolic dysfunction which is possibly ischemic from the proximal LAD Preserved ejection fraction Severe to critically elevated LVEDP PLAN 1. Dual antiplatelet therapy 2. Risk factor modification 3. Cardiac rehabilitation 4. Avoidance of tobacco products 5. Treatment of diastolic dysfunction with low-dose loop diuretics 6. Sleep study 7. LDL less than 55 to be achieved with high intensity statin Electronically signed by : Pedro Hamm MD 05/17/2022 13:29:30
--- NOTE | 2022-05-17 05:12 | PC.NURSE ---
Pt is alert and oriented x4, pt has had no complaints through out shift. Pt did request to have medication for sleep, treated prn per nov. Pt has been resting in the chair, pt states he does not sleep well in a bed. Daughter has been at the bedside throughout night. Pt did have temperature of 96.4 at beginning of shift, warm blankets and increase room temp resolved the issue. Vital signs are stable at this time. Pt O2 sat >95% on 3L NC. HR 60s. Bilateral lung sounds expiratory rhonchi and wheezing. Abdomen soft and nontender, bowel sounds active.
[2022-05-17 06:37] LABS: Basophils % 0.4 % (0.1-2.0); Eosinophils # 0.1 K/mm3 (0.0-0.4); Eosinophils % 1.2 % (0.1-12.0); Hematocrit 42.9 % (42.0-52.0); Hemoglobin 13.4 g/dL (14.1-18.0); Lymphocytes # 1.5 K/mm3 (0.7-4.5); Lymphocytes % 14.4 % (10-50); Mean Corpuscular HGB Conc 31.4 g/dL (31.8-35.4); Mean Corpuscular Hemoglobin 28.8 pg (27.0-31.2); Mean Corpuscular Volume 91.9 fl (80-94); Mean Platelet Volume 8.8 fl (7.4-10.4); Monocytes # 0.7 K/mm3 (0.1-1.0); Neutrophils # 7.8 K/mm3 (1.8-7.8); Neutrophils % 76.9 % (37.0-80.0); Platelet Count 264 K/mm3 (142-424); Red Blood Count 4.66 M/mm3 (4.60-6.20); White Blood Count 10.1 K/mm3 (4.8-10.8)
[2022-05-17 06:45] LABS: Alanine Aminotransferase 19 U/L (12-78); Albumin Level 3.6 g/dl (3.5-5.0); Albumin/Globulin Ratio 1.2 (1.1-1.8); Alkaline Phosphatase 99 U/L (38-126); Aspartate Amino Transferase 32 U/L (17-59); Bilirubin,Total 0.3 mg/dl (0.2-1.3); Blood Urea Nitrogen 15 mg/dl (9-20); Calcium 9.2 mg/dl (8.4-10.2); Carbon Dioxide 30 mmol/L (22.0-30.0); Chloride 101 mmol/L (98-107); Creatinine Clearance Estimated 51 mL/min (50-200); Estimated Glomerular Filt Rate 65 ml/min (>60); GFR (African American) 78 ML/MIN (>60); Glucose 102 mg/dl (74-100); Sodium 135 mmol/L (136-145); Total Protein,Serum 6.6 g/dl (6.3-8.2)
[2022-05-17 07:01] LABS: Troponin I 0.77 ng/ml (0.00-0.034)
--- NOTE | 2022-05-17 07:43 | HMH.PHAVTE ---
[facility] Pharmacy VTE Monitoring - Patient Demographics Admission date: 05/17/22 Report Date: 05/17/22 Time: 07:43 Allergies/Adverse Reactions: Patient Allergies Penicillins Allergy (Intermediate, Verified 05/16/22 07:48) I-HIVMEETA Height: 1.78 m Weight: 66.395 kg Patient Problems: Current Active Problems COPD exacerbation (Acute) NSTEMI (non-ST elevated myocardial infarction) (Acute) Elevated troponin (Acute) - VTE Risk Labs: VTE Related Lab Results Hgb 13.4 g/dL (14.1-18.0) L 05/17/22 06:20 Hct 42.9 % (42.0-52.0) 05/17/22 06:20 Plt Count 264 K/mm3 (142-424) 05/17/22 06:20 BUN 15 mg/dl (9-20) 05/17/22 06:20 Creatinine 1.10 mg/dl (0.66-1.25) 05/17/22 06:20 Estimated Creat Clear 51 mL/min (50-200) 05/17/22 06:20 VTE Risk Level: Low Risk Clinical Trial Participant: No - Prophylaxis VTE Prophylaxis Ordered?: Yes Types of VTE Prophylaxis: TEDS Knee High, Pharmacological Pharmacologic Type: Enoxaparin
--- NOTE | 2022-05-17 07:47 | HMH.PHAINT ---
home medication verified using list from [facility]
--- NOTE | 2022-05-17 08:04 | HMH.ACPN2 ---
Internal Medicine - PN: Subj *Date: 05/17/22 *Time: 08:04 Interval history: Patient is felt well through the night, no shortness of air or pain, has gotten up and moved around the room several times. Sleeping comfortably in the chair. Exam Vital signs and Labs for Last 24 Hours: Temp Pulse Resp BP Pulse Ox 98.1 F 67 17 134/72 97 05/17/22 03:50 05/17/22 06:34 05/17/22 03:50 05/17/22 03:50 05/17/22 06:34 Laboratory Results - last 24 hr 05/16/22 07:32: Urine RBC None, Urine WBC Occasional, Ur Squamous Epith Cells Occasional, Urine Bacteria Trace 05/16/22 07:32: Troponin I 0.50 H, NT-Pro-B Natriuret Pep 328 05/16/22 07:32: SARS-CoV-2 (PCR) Not detected, Influenza A Untype (PCR) Not detected, Influenza Type B (PCR) Not detected 05/16/22 10:50: Troponin I 0.90 H 05/16/22 13:30: Troponin I 0.95 H 05/17/22 06:20: WBC 10.1, RBC 4.66, Hgb 13.4 L, Hct 42.9, MCV 91.9, MCH 28.8, MCHC 31.4 L, RDW 15.0, Plt Count 264, MPV 8.8, Neut % (Auto) 76.9, Lymph % (Auto) 14.4, [place] % (Auto) 7.0, Eos % (Auto) 1.2, Baso % (Auto) 0.4, Neut # (Auto) 7.8, Lymph # (Auto) 1.5, [place] # (Auto) 0.7, Eos # (Auto) 0.1, Baso # (Auto) 0.0 05/17/22 06:20: Sodium 135 L, Potassium 4.0, Chloride 101, Carbon Dioxide 30, Anion Gap 8.0, BUN 15, Creatinine 1.10, Estimated Creat Clear 51, Estimated GFR 65, Est GFR ( Amer) 78, Glucose 102 H, Calcium 9.2, Total Bilirubin 0.3, AST 32, ALT 19, Alkaline Phosphatase 99, Troponin I 0.77 H, Total Protein 6.6, Albumin 3.6 D, Globulin 3.0, Albumin/Globulin Ratio 1.2 I & O for Last 24 hours: Intake & Output 05/14/22 05/15/22 05/16/22 05/17/22 11:59 11:59 11:59 11:59 Intake Total 480 / 480 Balance 480 / 480 Weight 146 lb 6 oz 146 lb 6.015 oz Narrative: Heart rate regular, scattered rhonchi in chest, no edema, alert, pleasant. Oriented. No JVD. Abdomen soft nontender. Assessment and Plan (1) Elevated troponin Status: Acute Category: Medical Code(s): R77.8 - Other specified abnormalities of plasma proteins (2) COPD exacerbation Status: Acute Category: Medical Code(s): J44.1 - Chronic obstructive pulmonary disease with (acute) exacerbation - Assessment and plan all Dx Assessment and Plan for all problems:: Overall improving. Cardiology consult today given his elevated troponins and possible non-STEMI. Discharge if amenable to outpatient work-up given his improvement in pulmonary status. Echocardiogram pending.
--- NOTE | 2022-05-17 10:07 | ECG_ITS ---
APPROVED REPORT Exam: Resting ECG HR:67 bpm ECG Measurements Heart Rate [address] 162 P 28 QRSd 99 QRS 93 QT 442 T 120 QTc 457 Conclusion SINUS RHYTHM BORDERLINE RIGHT AXIS DEVIATION [QRS AXIS > 90] POSSIBLE ANTEROLATERAL MYOCARDIAL INFARCTION , OF INDETERMINATE AGE [30 ms Q WAVE IN I/aVL/V3-V6] ABNORMAL ECG UNCONFIRMED REPORT Electronically signed by : Cayden Munoz MD 05/17/2022 12:45:58
--- NOTE | 2022-05-17 11:05 | HMH.CNCARD ---
History of Present Illness Consult date: 05/17/22 Requesting physician: Cayden Munoz Consult reason: shortness of breath Chief complaint: SOA History of present illness: This is a 81-year-old white gentleman who presented to the emergency department with complaints of shortness of breath. The patient states that he had been feeling fine until around 9 PM the night before admission when he got profoundly short of breath. The patient states that he was uncomfortable even at rest but his symptoms were worsened with exertion. The patient states that he was severely short of breath he does have an associated cough with wheezing. The patient states that his cough is always productive with clear to yellow secretions. The patient does have a known history of COPD and stopped smoking approximately 2 to 3 months ago. He states he has been smoking a pipe since that time. On arrival to the emergency department the patient was found to have an elevated troponin consistent with a non-ST elevation myocardial infarction. He denies chest pain or pressure. The patient reports that his shortness of breath has significantly improved today. He denies any lower extremity edema. He denies any fever, chills, nausea, vomiting, diarrhea, PND or orthopnea. The patient reports that he used to be an alcoholic and stopped drinking but has recently started drinking 1-2 beers every night. [facility] History I have reviewed the patient's past medical history: Yes Medical History: Reports:: Chronic Obstructive Pulmonary Disease (COPD), Hiatal Hernia, Hyperlipidemia, Hypertension, Myocardial Infarction Denies:: Cancer, Diabetes Mellitus Type 1, Diabetes Mellitus Type 2, Internal Pacemaker, MRSA, Seizures *Have you ever received a pneumonia vaccine?: Yes *Have you received a flu vaccine this season?: Yes Other Medical History: Reports: Arthritis. Denies: Blood Transfusion Reaction Other Surgeries: Yes: EGD, Hernia Repair, Other. No: Pacemaker Amputation: No Fractures: No - *Social History Last grade of school completed: 7th or 8th Smoking Status: Current every day smoker Tobacco Type: pipe # Packs/Day (cigarettes): 1 #Yrs smoked (if former smoker): 65 Alcohol Intake: current Alcohol Intake Frequency:: 0-2 drinks per day Substance Use Type: denies use *Occupational Status:: retired Housing: house Household Members: other *Travel in the last 8 weeks: None Family Hx:: No significant family history Meds Home Medications Medication Instructions Recorded Confirmed Type Aspirin [Aspir 81] 81 mg PO DAILY 10/24/17 05/16/22 History Amlodipine Besylate 5 mg PO DAILY 05/16/22 05/16/22 History Ipratropium/Albuterol Sulfate 3 ml IH TID 05/16/22 05/16/22 History [Duoneb 3mL neb] Omeprazole [Omeprazole 40mg 40 mg PO DAILY 05/16/22 05/16/22 History Capsule] Rosuvastatin Calcium 10 mg PO DAILY 05/16/22 05/16/22 History buPROPion HCL [Bupropion Xl] 150 mg PO DAILY 05/16/22 05/16/22 History carvediloL [Carvedilol 6.25mg Tab] 6.25 mg PO DAILY 05/16/22 05/16/22 History Allergies Allergy/AdvReac Type Severity Reaction Status Date / Time Penicillins Allergy Intermediate I-HIVES Verified 05/16/22 07:48 Exam Vital signs and Labs for Last 24 Hours: Temp Pulse Resp BP Pulse Ox 98.1 F 69 16 106/55 L 98 05/17/22 08:00 05/17/22 08:00 05/17/22 08:00 05/17/22 08:00 05/17/22 08:00 Laboratory Results - last 24 hr 05/16/22 10:50: Troponin I 0.90 H 05/16/22 13:30: Troponin I 0.95 H 05/17/22 06:20: WBC 10.1, RBC 4.66, Hgb 13.4 L, Hct 42.9, MCV 91.9, MCH 28.8, MCHC 31.4 L, RDW 15.0, Plt Count 264, MPV 8.8, Neut % (Auto) 76.9, Lymph % (Auto) 14.4, [place] % (Auto) 7.0, Eos % (Auto) 1.2, Baso % (Auto) 0.4, Neut # (Auto) 7.8, Lymph # (Auto) 1.5, [place] # (Auto) 0.7, Eos # (Auto) 0.1, Baso # (Auto) 0.0 05/17/22 06:20: Sodium 135 L, Potassium 4.0, Chloride 101, Carbon Dioxide 30, Anion Gap 8.0, BUN 15, Creatinine 1.10, Estimated Creat Clear 51, Estimated GFR 65, Est
[2022-05-17 13:48] LABS: CATHL Activated Clotting Time 327 SEC (74-125)
--- NOTE | 2022-05-17 13:52 | PC.NURSE ---
Pt back to room from crime lab analyst
--- NOTE | 2022-05-17 16:03 | PC.NURSE ---
1450- 3ml air removed 1505- 3ml air removed 1520- 3ml air removed 1535- 2ml air removed.
--- NOTE | 2022-05-17 17:09 | PC.NURSE ---
1550- Attempted to remove 3ml air from pressure device. Unable to at this time r/t wanting to bleed (sm amt.bright red). 3ml air reinjected and bleeding no longer noted.
--- NOTE | 2022-05-17 17:11 | PC.NURSE ---
1605- 2ml air removed from pressure device. no bleeding noted. 1707-3ml air removed from pressure device. no bleeding noted.
--- NOTE | 2022-05-17 17:40 | PC.NURSE ---
1735- 2ml removed from pressure device.
--- NOTE | 2022-05-17 18:18 | PC.NURSE ---
4ml air removed from pressure device at this time.
[2022-05-18] VITALS: BP 125/83; PULSE 50; PULSE 59; RESP 17; TEMP 36.4; O2SAT 100
[2022-05-18 03:54] VITALS: BP 138/73; PULSE 63; RESP 17; TEMP 36.6; O2SAT 97
[2022-05-18 04:00] VITALS: PULSE 50
[2022-05-18 05:00] VITALS: BMI 20.5
--- NOTE | 2022-05-18 05:08 | PC.NURSE ---
Patient has been a&o x4. Patient has rested well throughout shift. TR band removed early in shift. Rt radial absent of bleeding or hematoma dressing in place. Patient has tolerated 3l nc with sats above 90%. No complaints noted. Patient has been sinus kristine on tele hr in 50's.
[2022-05-18 06:11] VITALS: PULSE 57; PULSE 62; O2SAT 98
[2022-05-18 07:25] LABS: Chloride 103 mmol/L (98-107); Potassium 3.8 mmoL/L (3.5-5.1); Sodium 138 mmol/L (136-145)
--- NOTE | 2022-05-18 07:27 | HMH.DCSUM ---
General - General Admission date:: 05/16/22 Discharge date: 05/18/22 HPI HPI: 81-year-old white male with history of COPD, tobacco use disorder and history of alcohol use disorder who has a reported history of light heart attack many years ago per his daughter but is unable to provide more records or details, who was feeling good yesterday and went to bed around 8 PM last night and went to sleep comfortably. However, 3 to 4 hours later he awoke spontaneously and was very short of air. He was uncomfortable the rest of the night, continued to be short of air especially with movement, and was brought to the emergency department this morning. In the ER he was found to have COPD exacerbation changes on exam with wheezing and rhonchi, although imaging really did not show worsening over his baseline. Had normal vital signs but mildly elevated troponin levels. [place] EKG showed ST-T wave changes that were somewhat suspicious for ischemia and he was admitted to hospital for further evaluation. On examination on the floor 3 or 4 hours later he feels great, reports that his dyspnea is vastly improved. Objective Vital signs: Temp Pulse Resp BP Pulse Ox 97.9 F 57 L 17 138/73 98 05/18/22 03:54 05/18/22 06:11 05/18/22 03:54 05/18/22 03:54 05/18/22 06:11 Results Labs on day of discharge: Labs from last 24 hours 05/17/22 13:14 Activated Clotting Time 327 H* DS: Diagnosis - Discharge Diagnosis (1) Non-STEMI (non-ST elevated myocardial infarction) Status: Acute (2) Elevated troponin Status: Acute (3) HTN (hypertension) Status: Chronic (4) HLD (hyperlipidemia) Status: Chronic (5) Abnormal EKG Status: Acute (6) COPD exacerbation Status: Chronic (7) Tobacco abuse Status: Acute Discharge Plan - Patient Discharge Instructions Patient Instructions: Heart Attack, Chronic Obstructive Pulmonary Disease - Follow up Plan Home Medications: Home Medications Medication Instructions Recorded Confirmed Type Aspirin [Aspir 81] 81 mg PO DAILY 10/24/17 05/16/22 History Amlodipine Besylate 5 mg PO DAILY 05/16/22 05/16/22 History Ipratropium/Albuterol Sulfate 3 ml IH TID 05/16/22 05/16/22 History [Duoneb 3mL neb] Omeprazole [Omeprazole 40mg 40 mg PO DAILY 05/16/22 05/16/22 History Capsule] Rosuvastatin Calcium 10 mg PO DAILY 05/16/22 05/16/22 History buPROPion HCL [Bupropion Xl] 150 mg PO DAILY 05/16/22 05/16/22 History carvediloL [Carvedilol 6.25mg Tab] 6.25 mg PO DAILY 05/16/22 05/16/22 History Prescriptions/Medication Reconciliation: No Action Rosuvastatin Calcium 10 mg PO DAILY Amlodipine Besylate 5 mg PO DAILY Aspirin [Aspir 81] 81 mg PO DAILY Omeprazole [Omeprazole 40mg Capsule] 40 mg PO DAILY carvediloL [Carvedilol 6.25mg Tab] 6.25 mg PO DAILY buPROPion HCL [Bupropion Xl] 150 mg PO DAILY Ipratropium/Albuterol Sulfate [Duoneb 3mL neb] 3 ml IH TID - Problem Reconciliation Problems Reviewed?: Yes
[2022-05-18 07:28] LABS: Anion Gap 5.8 mEq/L (5-15); Blood Urea Nitrogen 23 mg/dl (9-20); Carbon Dioxide 33 mmol/L (22.0-30.0); Cholesterol 127 mg/dl (140-200); Creatinine Clearance Estimated 42 mL/min (50-200); Estimated Glomerular Filt Rate 53 ml/min (>60); GFR (African American) 64 ML/MIN (>60); Triglycerides 92 mg/dl (30-150); VLDL Cholesterol 18 mg/dL (0-40)
[2022-05-18 07:29] LABS: Basophils # 0.1 K/mm3 (0-0.2); Basophils % 0.6 % (0.1-2.0); Chol/HDL Ratio 3.2 (1-3.5); Eosinophils # 0.2 K/mm3 (0.0-0.4); Eosinophils % 3.4 % (0.1-12.0); Glucose 98 mg/dl (74-100); HDL Cholesterol 40 mg/dl (40-60); Hemoglobin 13.5 g/dL (14.1-18.0); Lymphocytes # 1.3 K/mm3 (0.7-4.5); Lymphocytes % 18.4 % (10-50); Mean Corpuscular Hemoglobin 28.8 pg (27.0-31.2); Mean Corpuscular Volume 96.1 fl (80-94); Monocytes # 0.6 K/mm3 (0.1-1.0); Monocytes % 7.7 % (1.7-9.3); Platelet Count 235 K/mm3 (142-424); Red Blood Count 4.69 M/mm3 (4.60-6.20); White Blood Count 7.2 K/mm3 (4.8-10.8)
[2022-05-18 08:00] VITALS: BP 153/72; PULSE 70; PULSE 72; RESP 18; TEMP 36.6; O2SAT 99
--- NOTE | 2022-05-18 09:29 | HMH.PNCARD ---
Subjective Date: 05/18/22 Time: 08:30 Principal diagnosis: angina, CAD Interval history: This is a 81-year-old white gentleman who presented to the emergency department with complaints of shortness of breath. The patient was found to have a non-ST elevation myocardial infarction and taken to the [facility]. He did have 1 stent placed to the LAD and a severely elevated LVEDP at 60 mmHg. Today the patient states that he is feeling much better. His shortness of breath has improved. He was diuresed with IV Lasix overnight. He denies any chest pain or pressure. He denies any lower extremity edema. He denies any fever, chills, nausea, vomiting, diarrhea, PND or orthopnea. Exam Vital signs and Labs for Last 24 Hours: Temp Pulse Resp BP Pulse Ox 97.9 F 72 18 153/72 H 99 05/18/22 08:00 05/18/22 08:00 05/18/22 08:00 05/18/22 08:00 05/18/22 08:00 Laboratory Results - last 24 hr 05/17/22 13:14: Activated Clotting Time 327 H* 05/18/22 07:07: WBC 7.2 D, RBC 4.69, Hgb 13.5 L, Hct 45.0, MCV 96.1 H, MCH 28.8, MCHC 30.0 L, RDW 15.0, Plt Count 235, MPV 9.0, Neut % (Auto) 70.0, Lymph % (Auto) 18.4, [place] % (Auto) 7.7, Eos % (Auto) 3.4, Baso % (Auto) 0.6, Neut # (Auto) 5.0, Lymph # (Auto) 1.3, [place] # (Auto) 0.6, Eos # (Auto) 0.2, Baso # (Auto) 0.1 05/18/22 07:07: Sodium 138, Potassium 3.8, Chloride 103, Carbon Dioxide 33 H, Anion Gap 5.8, BUN 23 H D, Creatinine 1.30 H, Estimated Creat Clear 42, Estimated GFR 53 L, Est GFR ( Amer) 64, Glucose 98, Calcium 8.0 L, Triglycerides 92, Cholesterol 127 L, VLDL Cholesterol 18, HDL Cholesterol 40, Cholesterol/HDL Ratio 3.2 I & O for Last 24 hours: Intake & Output 05/15/22 05/16/22 05/17/22 05/18/22 23:59 23:59 23:59 23:59 Intake Total 480 / 480 480 / 480 480 / 480 Output Total 900 / 900 Balance 480 / 480 -420 / -420 480 / 480 Weight 146 lb 6 oz 146 lb 6.015 oz 143 lb 2 oz Microbiology Reports for the Last 24 Hours: Microbiology 05/16/22 07:40 Blood Blood Culture - Preliminary NO GROWTH AFTER 48 HOURS 05/16/22 07:40 Blood Blood Culture - Preliminary NO GROWTH AFTER 48 HOURS - Constitutional no acute distress, average body habitus - *Routine HEENT Exam Head: Present: normocephalic, atraumatic Eye: Present: EOMI, PERRL ENT: Present: mucous membranes moist - *Routine Neck Exam Present: supple, full ROM, normal carotid upstroke. Absent: JVD, carotid bruit, lymphadenopathy - *Routine Respiratory Exam Present: rhonchi, wheezes Comments: has productive cough - *Routine Cardiovascular Exam Present: RRR, Normal S1, Normal S2. Absent: murmur - *Routine Abdominal Exam Present: soft, normoactive bowel sounds. Absent: tenderness, distended - *Routine Extremities Exam Present: full ROM, pulses intact, normal capillary refill. Absent: cyanosis, clubbing, edema - *Routine Skin Exam Present: intact, warm. Absent: erythema, rash - *Routine Neurological Exam Present: alert, oriented X3, CN II-XII intact. Absent: sensory deficit, motor deficit Progress Note: A&P (1) Non-STEMI (non-ST elevated myocardial infarction) Status: Acute (2) Elevated troponin Status: Acute (3) HTN (hypertension) Status: Chronic (4) HLD (hyperlipidemia) Status: Chronic (5) Abnormal EKG Status: Acute (6) COPD exacerbation Status: Chronic (7) Tobacco abuse Status: Chronic (8) CAD (coronary artery disease) Status: Chronic (9) Elevated left ventricular end-diastolic pressure (LVEDP) Status: Chronic Assessment and Plan for All Diagnoses:: Plan: 1. The patient was admitted to the hospital with a COPD exacerbation. Will defer management of this to his primary care team. 2. The patient did have an elevated troponin consistent with a non-ST elevation myocardial infarction. The patient underwent left cardiac catheterization yesterday with stenting to his LAD. Will remain on [place]
--- NOTE | 2022-05-18 09:35 | PC.NURSE ---
I verified w/pt and his daughter that clinic pharmacy delivered his brilinta prescription. Pt's daughter has it in her possession.
[2022-05-18 09:36] VITALS: PULSE 78; PULSE 82; O2SAT 98
--- NOTE | 2022-05-18 10:31 | HMH.PHACLD ---
Ross Mack has received discharge medication counseling on the following medications: VALSARTAN, BRILINTA, METOPROLOL, LASIX, CRESTOR, ASPIRIN. SPOKE WITH PT AND DAUGHTER (MRS ALEGRE) ABOUT STOPPING CARVEDILOL WHEN THEY GET HOME. DAUGHTER VERY AWARE AND VERBALIZED UNDERSTANDING. ENCOURAGED HER TO CALL US OR CLINIC PHARMACY BACK WITH QUESTIONS.
[2022-05-19 10:58] LABS: Direct LDL Cholesterol 64 mg/dL (100-129)
--- NOTE | 2022-05-19 21:29 | EXP.DC.SUM ---
General Admission date:: 05/16/22 Discharge date: 05/18/22 HPI HPI HPI: 81-year-old white male with history of COPD, tobacco use disorder and history of alcohol use disorder who has a reported history of light heart attack many years ago per his daughter but is unable to provide more records or details, who was feeling good yesterday and went to bed around 8 PM last night and went to sleep comfortably.? However, 3 to 4 hours later he awoke spontaneously and was very short of air.? He was uncomfortable the rest of the night, continued to be short of air especially with movement, and was brought to the emergency department this morning.? In the ER he was found to have COPD exacerbation changes on exam with wheezing and rhonchi, although imaging really did not show worsening over his baseline. Had normal vital signs but mildly elevated troponin levels.? [place] EKG showed ST-T wave changes that were somewhat suspicious for ischemia and he was admitted to hospital for further evaluation.? On examination on the floor 3 or 4 hours later he feels great, reports that his dyspnea is vastly improved. Exam Data for Last 24 hours Vital signs and Labs for Last 24 Hours: Temp Pulse Resp BP Pulse Ox FiO2 97.9 F 82 18 153/72 H 98 3 05/18/22 08:00 05/18/22 09:36 05/18/22 08:00 05/18/22 08:00 05/18/22 09:36 05/17/22 16:15 Laboratory Results - last 24 hr 05/18/22 07:07: LDL Cholesterol Direct 64 L I & O for Last 24 hours: Intake & Output 05/16/22 05/17/22 05/18/22 05/19/22 23:59 23:59 23:59 23:59 Intake Total 480 / 480 480 / 480 480 / 480 Output Total 900 / 900 Balance 480 / 480 -420 / -420 480 / 480 Weight 66.395 kg 66.395 kg 64.92 kg Constitutional Constitutional: no acute distress, chronically ill appearing and cooperative *Routine HEENT Exam Head: Present normocephalic Eye: Present EOMI ENT: Present mucous membranes moist *Routine Neck Exam Neck: Present trachea midline; Absent JVD *Routine Respiratory Exam Respiratory: Present prolonged expiratory phase, rhonchi and diminished air movement *Routine Cardiovascular Exam Cardiovascular: Present RRR *Routine Abdominal Exam Abdominal: Present soft and normoactive bowel sounds; Absent tenderness *Routine Rectal Exam Rectal:: deferred *Routine Genitalia Exam Genitalia:: deferred *Routine Extremities Exam Extremities: Absent cyanosis, clubbing or edema *Routine Skin Exam Skin: Present normal turgor *Routine Neurological Exam Neurological: Present alert and oriented X3 Hospital Course Hospital Course Hospital Course: 81 yo M admitted for COPD exacerbation with acute on chronic hypoxemic respiratory failure. Started on antibiotics. Noted to have elevated troponins. Cardiology consulted during hospitalization. Patient taken to [facility] with findings as below. Improved with antibiotics and steroids. Gradually decreased back down to home oxygen level/requirements of 2 L. Patient feeling significantly better, discharged home in stable condition with goal-directed therapy for his CAD. Plan to have close follow-up in the next 1 to 2 weeks for further monitoring. [facility] results and recs: Severe proximal LAD disease as described above. Successful stenting of proximal LAD severe disease reduced to 0% with 1 drug-eluting stent. STANLEY II flow down the dominant right coronary artery likely stemming from the severely elevated LVEDP/severe diastolic dysfunction which is possibly ischemic from the proximal LAD. Preserved ejection fraction. Severe to critically elevated LVEDP PLAN - Risk factor modification - Cardiac rehabilitation - Avoidance of tobacco products - Start Valsartan 40 mg daily. - Continue metoprolol and crestor. LDL goal <55 - DAPT with brilinta and asa - Lasix PO at discharge to maintain fluid balance - Outpatient sleep study Medically stable for discharge home with further management in the outpatient setting Results Data Completed and Pending Kristy
--- NOTE | 2022-05-20 14:50 | CARE MANAGER ---
Contacted patient and he asked I speak with daughter. She states he is doing much better and is aware of patient's appointments. They picked up all his prescriptions and deny any questions or concerns at this time. NAOMIE Valencia
== END 2022-05-18 12:00 | disposition home or self-care (01) | DRG 247 ==
LOC: ER 08:42 → 2ND 08:54
PROVIDERS: Internal Medicine; Nurse Practitioner Family; Admitting Provider Internal Medicine Adolescent Medicine; Emergency Provider Emergency Medicine; PCP Internal Medicine Adolescent Medicine; Visit Provider Internal Medicine Adolescent Medicine
PROC: 027034Z Dilation of Coronary Artery, One Artery with Drug-eluting Intraluminal Device, Percutaneous Approach (ICD-10-PCS; principal; 2022-05-17 11:30)
DX: I21.4 Non-ST elevation (NSTEMI) myocardial infarction (principal); I25.10 Atherosclerotic heart disease of native coronary artery without angina pectoris; J44.1 Chronic obstructive pulmonary disease with (acute) exacerbation; I25.2 Old myocardial infarction; I10 Essential (primary) hypertension; M19.90 Unspecified osteoarthritis, unspecified site; F17.290 Nicotine dependence, other tobacco product, uncomplicated
CPT/HCPCS: 36415; 71045; 71275; 80048; 80053; 80061; 81001; 82803; 83605; 83880; 84484; 85025; 85347; 87040; 92928; 93005; 93306; 93458; 94640; 94760; 99152; 99153; 99285; C1725; C1769; C1874; C9600; C9803; J1644; J1956; Q9967; U0003; U0005

== ENCOUNTER → 2022-05-26 12:07 | Outpatient (CLI) | payer MEDICARE, SELFPAY ==
[2022-05-26 13:20] LABS: Basophils # 0.1 K/mm3 (0-0.2); Basophils % 0.7 % (0.1-2.0); Eosinophils # 0.4 K/mm3 (0.0-0.4); Eosinophils % 4.5 % (0.1-12.0); Hematocrit 47.4 % (42.0-52.0); Hemoglobin 14.6 g/dL (14.1-18.0); Lymphocytes # 1.7 K/mm3 (0.7-4.5); Lymphocytes % 18.1 % (10-50); Mean Corpuscular HGB Conc 30.8 g/dL (31.8-35.4); Mean Corpuscular Hemoglobin 28.7 pg (27.0-31.2); Mean Corpuscular Volume 93.2 fl (80-94); Mean Platelet Volume 8.9 fl (7.4-10.4); Monocytes # 0.5 K/mm3 (0.1-1.0); Monocytes % 5.3 % (1.7-9.3); Neutrophils # 6.6 K/mm3 (1.8-7.8); Neutrophils % 71.3 % (37.0-80.0); Platelet Count 302 K/mm3 (142-424); Red Blood Count 5.09 M/mm3 (4.60-6.20); Red Cell Distribution Width 14.4 % (11.5-17.5); White Blood Count 9.2 K/mm3 (4.8-10.8)
[2022-05-26 14:09] LABS: Chloride 95 mmol/L (98-107); Potassium 4.5 mmoL/L (3.5-5.1); Sodium 137 mmol/L (136-145)
[2022-05-26 14:12] LABS: Anion Gap 14.5 mEq/L (5-15); Blood Urea Nitrogen 43 mg/dl (9-20); Calcium 9.7 mg/dl (8.4-10.2); Carbon Dioxide 32 mmol/L (22.0-30.0); Estimated Glomerular Filt Rate 32 ml/min (>60); GFR (African American) 39 ML/MIN (>60); Glucose 123 mg/dl (74-100)
== END ==
PROVIDERS: PCP Internal Medicine Adolescent Medicine; Visit Provider Internal Medicine
DX: I25.10 Atherosclerotic heart disease of native coronary artery without angina pectoris (principal)
CPT/HCPCS: 36415; 80048; 85025

== ENCOUNTER 2022-05-28 17:27 | Emergency (ER) | payer MEDICARE, SELFPAY ==
[2022-05-28] VITALS (7 sets, daily range): BP systolic 134–147; BP diastolic 62–77; PULSE 47–60; RESP 20; TEMP 36.5–36.7; O2SAT 95–98; BMI 20.5
--- NOTE | 2022-05-28 17:52 | XR_ITS ---
PROCEDURE INFORMATION: Exam: XR Chest Exam date and time: 05/28/2022 6:07 PM Age: 81 years old Clinical indication: Shortness of breath; Additional info: SOA, cough TECHNIQUE: Imaging protocol: Radiologic exam of the chest. Views: 1 view. COMPARISON: CR XR CHEST PORTABLE 05/16/2022 7:53 AM FINDINGS: Lungs: There is left basilar consolidation. Pleural spaces: There is a left pleural effusion. Heart/Mediastinum: There is stable mediastinal shift to the left. Bones/joints: Unchanged. IMPRESSION: No interval change.
--- NOTE | 2022-05-28 17:54 | PC.NURSE ---
report given to chidi winn
--- NOTE | 2022-05-28 18:16 | HMH.EDGENADL ---
Discharge Plan Disposition Patient Disposition: Home, Self-Care Condition: Good Prescriptions Prescriptions: New prednisone 20 mg tablet 20 mg PO BID Qty: 10 0RF azithromycin 250 mg tablet 250 mg PO DAILY Qty: 4 0RF No Action clopidogrel [Plavix] 75 mg tablet 75 mg PO DAILY Qty: 90 3RF aspirin 81 MG tablet,delayed release (DR/EC) 81 mg PO DAILY amlodipine 5 MG tablet 5 mg PO DAILY omeprazole 40 MG capsule,delayed release(DR/EC) 40 mg PO DAILY rosuvastatin 10 MG tablet 10 mg PO DAILY bupropion HCl 150 MG tablet extended release 24 hr 150 mg PO DAILY ipratropium-albuterol 3 ML solution for nebulization 3 ml IH TID metoprolol tartrate 50 MG tablet 50 mg PO BID 30 Days Qty: 60 2RF valsartan 40 MG tablet 40 mg PO DAILY 30 Days Qty: 30 2RF Referrals Follow up/Referrals: Cayden Munoz MD [Primary Care Provider] - See instructions Activity Restrictions/Add. Instructions Additional Instructions/Restrictions: Continue nebulizer treatments. Azithromycin and prednisone as prescribed. Follow-up with primary care provider next week. Additional instructions for SHORTNESS OF BREATH: See your physician as soon as possible for further evaluation. Return immediately if worsening shortness of breath or if vomiting, chest pain, fever, coughing of blood, or passing out. Clinical Impressions Clinical Impression: Acute exacerbation of chronic obstructive pulmonary disease Discharge ED Provider: Padilla Mane General Adult HPI General Chief complaint: Shortness of Breath/Dyspnea Stated complaint: Difficulty breathing Time Seen by Provider: 05/28/22 18:05 Mode of Arrival: Wheelchair Source of Information: Patient Limitations: No Limitations Description of Symptoms (Recalled from ER Triage Doc. by RN): PT c/o SOA, reports has been intermittently SOA all day today. Reports productive cough with thick sputum. Pt denies fever. Pt reports was seen by cardiology yesterday was told he was a little dehydrated , states blood work was done on 05/26/22. Pt home O2 dependent at 2L per [place]. History of Present Illness HPI narrative: Complains of shortness of breath for the past couple of days, worse today. He had been weak and short of breath with exertion, but today was short of breath even at rest while on oxygen all day long. He does not think he has been wheezing. He does have a mild cough today with some thick sputum. He has felt hot and cold today which is unusual for him. Denies any chest pain. No leg swelling or leg pain. States that now that he is in the emergency room and feels better than he has all day long. Sitting in a wheelchair here he says he is not short of breath. He has COPD and is on oxygen 2 L at home. He has been on nebulizer treatments for about 2-1/2 weeks. He has had 3 nebulizer treatments today, and most recently at about 4 PM. He was seen by cardiology yesterday. Brilinta was stopped because of shortness of breath. His diuretic was stopped because of worsened renal indices. Related Data Home Medications Medication Instructions Recorded Confirmed aspirin 81 mg tablet,delayed 81 mg PO DAILY Heart disease 10/24/17 05/27/22 release amlodipine 5 mg tablet 5 mg PO DAILY High blood pressure 05/16/22 05/27/22 bupropion HCl 150 mg 24 hr tablet, 150 mg PO DAILY mood stabilizer 05/16/22 05/27/22 extended release ipratropium 0.5 mg-albuterol 3 mg 3 ml inhalation TID COPD 05/16/22 05/27/22 (2.5 mg base)/3 mL nebulization soln omeprazole 40 mg capsule,delayed 40 mg PO DAILY Heartburn 05/16/22 05/27/22 release rosuvastatin 10 mg tablet 10 mg PO DAILY Cholesterol 05/16/22 05/27/22 Previous Rx's Medication Instructions Recorded metoprolol tartrate 50 mg tablet 50 mg PO BID 30 days #60 tabs 05/18/22 valsartan 40 mg tablet 40 mg PO DAILY 30 days #30 tabs 05/18/22 clopidogrel 75 mg tablet (Plavix) 75 mg PO DAILY #90 tabs
[2022-05-28 18:25] LABS: Basophils # 0.1 K/mm3 (0-0.2); Basophils % 0.9 % (0.1-2.0); Eosinophils # 0.4 K/mm3 (0.0-0.4); Eosinophils % 3.9 % (0.1-12.0); Hematocrit 46.5 % (42.0-52.0); Hemoglobin 14.3 g/dL (14.1-18.0); Lymphocytes # 1.6 K/mm3 (0.7-4.5); Lymphocytes % 16.7 % (10-50); Mean Corpuscular HGB Conc 30.7 g/dL (31.8-35.4); Mean Corpuscular Hemoglobin 28.4 pg (27.0-31.2); Mean Corpuscular Volume 92.4 fl (80-94); Mean Platelet Volume 8.7 fl (7.4-10.4); Monocytes # 0.5 K/mm3 (0.1-1.0); Neutrophils # 6.9 K/mm3 (1.8-7.8); Neutrophils % 73.5 % (37.0-80.0); Platelet Count 277 K/mm3 (142-424); Red Blood Count 5.03 M/mm3 (4.60-6.20); Red Cell Distribution Width 14.5 % (11.5-17.5); White Blood Count 9.4 K/mm3 (4.8-10.8)
[2022-05-28 18:35] LABS: Lactic Acid 0.8 mmol/L (0.7-2.1)
[2022-05-28 18:36] LABS: Alanine Aminotransferase 28 U/L (12-78); Albumin Level 4.1 g/dl (3.5-5.0); Albumin/Globulin Ratio 1.3 (1.1-1.8); Alkaline Phosphatase 109 U/L (38-126); Anion Gap 10.3 mEq/L (5-15); Aspartate Amino Transferase 32 U/L (17-59); Bilirubin,Total 0.4 mg/dl (0.2-1.3); Blood Urea Nitrogen 37 mg/dl (9-20); Calcium 9.6 mg/dl (8.4-10.2); Carbon Dioxide 30 mmol/L (22.0-30.0); Chloride 101 mmol/L (98-107); Creatinine Clearance Estimated 34 mL/min (50-200); Estimated Glomerular Filt Rate 42 ml/min (>60); GFR (African American) 51 ML/MIN (>60); Globulin 3.2 g/dL (1.3-3.2); Glucose 113 mg/dl (74-100); Potassium 4.3 mmoL/L (3.5-5.1); Sodium 137 mmol/L (136-145); Total Protein,Serum 7.3 g/dl (6.3-8.2)
--- NOTE | 2022-05-28 18:53 | PC.NURSE ---
Notified lab that a troponin and BNP have been added to orders.
[2022-05-28 19:13] LABS: NT Pro Brain Natriuretic Pep. 262 pg/mL (0-450); Troponin I 0.03 ng/ml (0.00-0.034)
--- NOTE | 2022-05-28 19:23 | ECG_ITS ---
APPROVED REPORT Exam: Resting ECG HR:53 bpm ECG Measurements Heart Rate 53 AXES WV 156 P 24 QRSd 99 QRS -17 QT 429 T 91 QTc 413 Conclusion SINUS BRADYCARDIA WITH OCCASIONAL VENTRICULAR PREMATURE COMPLEXES Old anteroseptal changes ABNORMAL ECG UNCONFIRMED REPORT Electronically signed by : Cayden Munoz MD 05/29/2022 16:24:19
== END 2022-05-28 20:47 | disposition home or self-care (01) ==
PROVIDERS: Emergency Provider Emergency Medicine; PCP Internal Medicine Adolescent Medicine
DX: J44.1 Chronic obstructive pulmonary disease with (acute) exacerbation (principal); R53.1 Weakness; J94.9 Pleural condition, unspecified; R00.1 Bradycardia, unspecified; Z79.01 Long term (current) use of anticoagulants; Z79.02 Long term (current) use of antithrombotics/antiplatelets; Z79.51 Long term (current) use of inhaled steroids; Z79.52 Long term (current) use of systemic steroids; Z99.81 Dependence on supplemental oxygen; Z79.899 Other long term (current) drug therapy; Z88.0 Allergy status to penicillin; Z95.5 Presence of coronary angioplasty implant and graft; Z87.891 Personal history of nicotine dependence
CPT/HCPCS: 71045; 80053; 83605; 83880; 84484; 85025; 87040; 93005; 96374; 99285

== ENCOUNTER → 2022-06-01 10:32 | Outpatient (CLI) | payer MEDICARE, SELFPAY ==
[2022-06-01 12:12] LABS: Alanine Aminotransferase 35 U/L (12-78); Albumin Level 3.5 g/dl (3.5-5.0); Albumin/Globulin Ratio 1.3 (1.1-1.8); Alkaline Phosphatase 86 U/L (38-126); Anion Gap 10.3 mEq/L (5-15); Aspartate Amino Transferase 34 U/L (17-59); Blood Urea Nitrogen 24 mg/dl (9-20); Calcium 9.2 mg/dl (8.4-10.2); Carbon Dioxide 31 mmol/L (22.0-30.0); Chloride 105 mmol/L (98-107); Estimated Glomerular Filt Rate 49 ml/min (>60); GFR (African American) 59 ML/MIN (>60); Globulin 2.6 g/dL (1.3-3.2); Glucose 99 mg/dl (74-100); Potassium 5.3 mmoL/L (3.5-5.1); Sodium 141 mmol/L (136-145); Total Protein,Serum 6.1 g/dl (6.3-8.2)
[2022-06-01 12:15] LABS: Bilirubin,Total < 0.1 mg/dl (0.2-1.3)
== END ==
PROVIDERS: PCP Internal Medicine Adolescent Medicine; Visit Provider Nurse Practitioner
DX: N17.9 Acute kidney failure, unspecified (principal)
CPT/HCPCS: 36415; 80053

== ENCOUNTER → 2022-06-07 08:19 | Outpatient (CLI) | payer MEDICARE, SELFPAY ==
[2022-06-07 10:51] LABS: Chloride 104 mmol/L (98-107); Potassium 4.6 mmoL/L (3.5-5.1); Sodium 139 mmol/L (136-145)
[2022-06-07 10:54] LABS: Anion Gap 11.6 mEq/L (5-15); Blood Urea Nitrogen 23 mg/dl (9-20); Calcium 8.1 mg/dl (8.4-10.2); Carbon Dioxide 28 mmol/L (22.0-30.0); Estimated Glomerular Filt Rate 49 ml/min (>60); GFR (African American) 59 ML/MIN (>60); Glucose 76 mg/dl (74-100)
== END ==
PROVIDERS: PCP Internal Medicine Adolescent Medicine; Visit Provider Physician Assistant
DX: E78.5 Hyperlipidemia, unspecified (principal); I10 Essential (primary) hypertension; I25.10 Atherosclerotic heart disease of native coronary artery without angina pectoris; R94.30 Abnormal result of cardiovascular function study, unspecified; Z72.0 Tobacco use
CPT/HCPCS: 36415; 80048

== ENCOUNTER → 2022-06-14 14:26 | Outpatient (CLI) | payer MEDICARE, SELFPAY ==
[2022-06-14 16:19] LABS: Chloride 101 mmol/L (98-107); Sodium 142 mmol/L (136-145)
[2022-06-14 16:22] LABS: Blood Urea Nitrogen 25 mg/dl (9-20); Carbon Dioxide 31 mmol/L (22.0-30.0); Estimated Glomerular Filt Rate 45 ml/min (>60); GFR (African American) 55 ML/MIN (>60)
[2022-06-14 16:23] LABS: Calcium 8.9 mg/dl (8.4-10.2); Glucose 77 mg/dl (74-100)
== END ==
PROVIDERS: PCP Internal Medicine Adolescent Medicine; Visit Provider Nurse Practitioner
DX: E78.2 Mixed hyperlipidemia (principal); I10 Essential (primary) hypertension; I25.10 Atherosclerotic heart disease of native coronary artery without angina pectoris; R53.1 Weakness; R94.30 Abnormal result of cardiovascular function study, unspecified; Z72.0 Tobacco use
CPT/HCPCS: 36415; 80048

== ENCOUNTER 2022-07-13 10:01 | Outpatient (RCR) | payer MEDICARE, SELFPAY | END 2022-09-10 11:00 | disposition home or self-care (01) | LOC: PT 10:01 | PROVIDERS: Visit Provider Nurse Practitioner Family | DX: I25.10 Atherosclerotic heart disease of native coronary artery without angina pectoris (principal); I10 Essential (primary) hypertension; E78.2 Mixed hyperlipidemia; Z72.0 Tobacco use | CPT/HCPCS: 93798 ==

== ENCOUNTER → 2022-09-16 10:07 | Outpatient (CLI) | payer MEDICARE, SELFPAY ==
[2022-09-16 11:07] LABS: Basophils # 0.1 K/mm3 (0-0.2); Basophils % 0.8 % (0.1-2.0); Eosinophils # 0.6 K/mm3 (0.0-0.4); Eosinophils % 7.5 % (0.1-12.0); Hematocrit 40.5 % (42.0-52.0); Hemoglobin 12.7 g/dL (14.1-18.0); Lymphocytes # 1.7 K/mm3 (0.7-4.5); Lymphocytes % 22.5 % (10-50); Mean Corpuscular HGB Conc 31.4 g/dL (31.8-35.4); Mean Corpuscular Volume 92.5 fl (80-94); Monocytes # 0.4 K/mm3 (0.1-1.0); Monocytes % 5.7 % (1.7-9.3); Neutrophils # 4.7 K/mm3 (1.8-7.8); Neutrophils % 63.6 % (37.0-80.0); Platelet Count 256 K/mm3 (142-424); Red Blood Count 4.38 M/mm3 (4.60-6.20); Red Cell Distribution Width 14.5 % (11.5-17.5); White Blood Count 7.5 K/mm3 (4.8-10.8)
[2022-09-16 11:29] LABS: Alanine Aminotransferase 23 U/L (12-78); Albumin Level 3.9 g/dl (3.5-5.0); Albumin/Globulin Ratio 1.6 (1.1-1.8); Alkaline Phosphatase 108 U/L (38-126); Anion Gap 9.7 mEq/L (5-15); Aspartate Amino Transferase 28 U/L (17-59); Bilirubin,Total 0.4 mg/dl (0.2-1.3); Blood Urea Nitrogen 24 mg/dl (9-20); Calcium 9.4 mg/dl (8.4-10.2); Carbon Dioxide 26 mmol/L (22.0-30.0); Chloride 106 mmol/L (98-107); Chol/HDL Ratio 3.2 (1-3.5); Cholesterol 130 mg/dl (140-200); Estimated Glomerular Filt Rate 49 ml/min (>60); GFR (African American) 59 ML/MIN (>60); Globulin 2.5 g/dL (1.3-3.2); Glucose 88 mg/dl (74-100); HDL Cholesterol 41 mg/dl (40-60); Potassium 4.7 mmoL/L (3.5-5.1); Sodium 137 mmol/L (136-145); Total Protein,Serum 6.4 g/dl (6.3-8.2); Triglycerides 57 mg/dl (30-150); VLDL Cholesterol 11 mg/dL (0-40)
[2022-09-16 11:39] LABS: Direct LDL Cholesterol 69.75 mg/dL (100-129)
== END ==
PROVIDERS: PCP Internal Medicine Adolescent Medicine; Visit Provider Internal Medicine Adolescent Medicine
DX: J44.9 Chronic obstructive pulmonary disease, unspecified (principal); E78.5 Hyperlipidemia, unspecified
CPT/HCPCS: 36415; 80053; 80061; 85025

== ENCOUNTER 2022-11-04 08:04 | Emergency (ER) | payer MEDICARE, SELFPAY ==
[2022-11-04 08:04] VITALS: BP 138/69; PULSE 70; RESP 18; TEMP 37.6; O2SAT 94; BMI 23.5
[2022-11-04 08:34] LABS: UTC Influenza A Antigen Negative (Negative); UTC Influenza B Antigen Negative (Negative)
--- NOTE | 2022-11-04 08:44 | EXP.UTC ---
Discharge Plan Disposition Patient Disposition: Home, Self-Care Condition: Good Prescriptions Prescriptions: New azithromycin [Zithromax Z-Hans] 250 mg tablet See Rx Instructions .ROUTE .COMPLEX 5 Days Qty: 6 0RF Rx Instructions: For 250 mg dose pack: take 500 mg today (day 1), then 250 mg for 4 days (days 2-5) prednisone [prednisone] 20 mg tablet 20 mg PO BID 5 Days Qty: 10 0RF No Action amlodipine 5 mg tablet 5 mg PO DAILY Qty: 90 1RF clopidogrel [Plavix] 75 mg tablet 75 mg PO DAILY Qty: 90 3RF furosemide [Lasix] 20 mg tablet 20 mg PO DAILY PRN (Reason: edema) Qty: 30 5RF rosuvastatin 10 mg tablet 10 mg PO DAILY Qty: 90 1RF spironolactone [Aldactone] 25 mg tablet 25 mg PO DAILY Qty: 90 1RF valsartan 40 mg tablet 40 mg PO DAILY Qty: 90 1RF metoprolol tartrate 25 mg tablet 25 mg PO BID Qty: 60 5RF aspirin 81 MG tablet,delayed release (DR/EC) 81 mg PO DAILY omeprazole 40 MG capsule,delayed release(DR/EC) 40 mg PO DAILY bupropion HCl 150 MG tablet extended release 24 hr 150 mg PO DAILY ipratropium-albuterol 3 ML solution for nebulization 3 ml IH TID Referrals Follow up/Referrals: Cayden Munoz MD [Primary Care Provider] - See instructions Activity Restrictions/Add. Instructions Additional Instructions/Restrictions: Start antibiotic today. Be sure to complete entire prescription even if feeling better Monitor temp. Tylenol every 4 hours as needed and / or ibuprofen every 6 hours as needed ( As long as your primary care physician has told you that it ok to take both. For fever/aches/pains ER if no less than 101 despite Tylenol or Motrin Humidifier/vaporizer or hot steamy shower *Tessalon Perles will not cause drowsiness but use at bedtime to help stop cough so that you may get some rest. *Start steroid today. Helps with inflammation therefore, cough and wheezing. Follow directions on the package. Reviewed side effects. Patient reports taking them before. Make sure to be drinking plenty of fluids if your diarrhea and vomiting starts again Follow up IMMEDIATELY for new or worsening of symptoms OR no noticeable improvement over the next 48-72 hours. 911 immediately for any life threatening symptoms such as chest pain or difficulty breathing Clinical Impressions Clinical Impression: Acute exacerbation of chronic obstructive pulmonary disease URI (upper respiratory infection) Qualifiers: URI type: unspecified URI Qualified Code(s): J06.9 - Acute upper respiratory infection, unspecified Instructions Patient Instructions: Chronic Obstructive Pulmonary Disease, DI for Sinusitis, COPD: When to Call for Help Discharge ED Provider: Rosmery [place] [facility] [place] General Stated complaint: weakness, chills, body aches Mode of Arrival: Ambulatory Source of Information: Patient Limitations: No Limitations Time Seen by Provider: 11/04/22 08:44 Description of Symptoms (Recalled from Triage Doc. by RN): c/o vomiting, diarrhea, productive, chills and body aches for 2 days. HEENT Symptoms (Recalled from RN notes): No Resp Symptoms (Recalled from RN notes): No Skin Symptoms (Recalled from RN notes): No MS Symptoms (Recalled from RN notes): No Functional Status (Recalled from RN notes): na History of Present Illness Provider Complaint: Patient states that he had vomiting and diarrhea a few days ago but that is better now, cough that is productive at times, bodyache, chills, headache and sinus pressure States that it has continued to get worse over the last couple of days States that today he was still not feeling well so he came in Related Data Home Medications Medication Instructions Recorded Confirmed aspirin 81 mg tablet,delayed 81 mg PO DAILY Heart disease 10/24/17 10/18/22 release bupropion HCl 150 mg 24 hr tablet, 150 mg PO DAILY mood stabilizer 05/16/22 10/18/22 extended release ipratropiu
[2022-11-04 09:22] VITALS: BP 138/69; PULSE 70; RESP 21; TEMP 37.6; O2SAT 94
== END 2022-11-04 09:23 | disposition home or self-care (01) ==
PROVIDERS: Emergency Provider Nurse Practitioner; PCP Internal Medicine Adolescent Medicine
DX: J44.1 Chronic obstructive pulmonary disease with (acute) exacerbation (principal)
CPT/HCPCS: 87804; 99212; 99213; 99214; C9803; G0463; U0003; U0005

== ENCOUNTER 2023-11-06 06:43 | Emergency (ER) | payer MEDICARE, SELFPAY ==
[2023-11-06 06:44] VITALS: BP 156/103; PULSE 59; RESP 18; TEMP 36.6; O2SAT 98; BMI 22.9
--- NOTE | 2023-11-06 07:09 | PC.NURSE ---
Pt sitting up in chair due to comfort
--- NOTE | 2023-11-06 07:12 | PC.NURSE ---
Dr. Soto at [facility] for pt eval
[2023-11-06] MEDS: KETOROLAC 30MG/ML VIAL 15 MG IV (07:28)
[2023-11-06] MEDS: HYDROCODONE/APAP 5/325 MG TABLET 1 TAB PO (07:28)
--- NOTE | 2023-11-06 07:28 | HMH.EDGENADL ---
Discharge Plan Disposition Patient Disposition: Home, Self-Care Prescriptions Prescriptions: New hydrocodone-acetaminophen 5-325 mg tablet 1 tab PO Q6H PRN (Reason: pain) 3 Days Qty: 12 0RF tamsulosin [Flomax] 0.4 mg capsule 0.4 mg PO DAILY 7 Days Qty: 7 0RF ibuprofen 600 mg tablet 600 mg PO Q8H PRN (Reason: pain) 7 Days Qty: 21 0RF No Action furosemide [Lasix] 20 mg tablet 20 mg PO DAILY PRN (Reason: edema) Qty: 30 5RF metoprolol tartrate 25 mg tablet See Rx Instructions .ROUTE .COMPLEX Qty: 60 5RF Dose Instruction: TAKE ONE TABLET BY MOUTH TWICE DAILY Rx Instructions: TAKE ONE TABLET BY MOUTH TWICE DAILY amlodipine 5 mg tablet See Rx Instructions .ROUTE .COMPLEX Qty: 90 1RF Dose Instruction: TAKE ONE TABLET BY MOUTH EVERY DAY FOR BLOOD PRESSURE Rx Instructions: TAKE ONE TABLET BY MOUTH EVERY DAY FOR BLOOD PRESSURE clopidogrel 75 mg tablet See Rx Instructions .ROUTE .COMPLEX Qty: 90 1RF Dose Instruction: TAKE ONE TABLET BY MOUTH EVERY DAY Rx Instructions: TAKE ONE TABLET BY MOUTH EVERY DAY rosuvastatin 10 mg tablet 10 mg PO DAILY Qty: 90 1RF valsartan 80 mg tablet See Rx Instructions .ROUTE .COMPLEX Qty: 45 1RF Dose Instruction: TAKE 1/2 TABLET BY MOUTH EVERY DAY Rx Instructions: TAKE 1/2 TABLET BY MOUTH EVERY DAY aspirin 81 MG tablet,delayed release (DR/EC) 81 mg PO DAILY omeprazole 40 MG capsule,delayed release(DR/EC) 40 mg PO DAILY bupropion HCl 150 MG tablet extended release 24 hr 150 mg PO DAILY ipratropium-albuterol 0.5 mg-3 mg(2.5 mg base)/3 mL solution for nebulization 3 ml IH TID Referrals Follow up/Referrals: George Guzman MD [Staff Physician] - See instructions Cayden Munoz MD [Primary Care Provider] - See instructions Activity Restrictions/Add. Instructions Additional Instructions/Restrictions: You have clinical evidence of hydronephrosis on bedside ultrasound consistent with a recurrent kidney stone. Given the fact that she wanted to avoid any type of testing today cannot definitively say that you do not have urinary tract infection or worsening kidney disease however this problems are unlikely given your symptoms. Please follow-up with our urologist Dr. Guzman if you are not improving or return to the emergency room with any worsening symptoms. Clinical Impressions Clinical Impression: Hydronephrosis concurrent with and due to calculi of kidney and ureter Instructions Patient Instructions: DI for Acute Abdominal Pain Discharge ED Provider: Newton Kaye Adult HPI General Chief complaint: Abdominal Pain Stated complaint: pain in abdomen and back Time Seen by Provider: 11/06/23 07:10 Mode of Arrival: Ambulatory Source of Information: Patient Limitations: No Limitations Description of Symptoms (Recalled from ER Triage Doc. by RN): Pt complains of abdominal pain with right flank pain that began 2 hours ago. Hx of kidney stones, he states the pain feels similar. Denies any SOA, CP or N/V History of Present Illness HPI narrative: Patient is an 82-year-old male with a history of multiple kidney stones in the past presenting today with recurrent symptoms of a kidney stone. States he has right flank pain that began about 2 hours ago. No nausea and vomiting. No fevers chills dysuria hematuria etc. Patient specifically states that he would like to avoid all the testing has had in the past and just be given pain medicine. States that if he could have found his pain medicine at home he would not of come to the emergency department. Specifically states last time he was given nausea medicine he just put it in his medicine cabinet has not ever taken it and still has it. Denies any symptoms outside the ordinary from his recurrent kidney stones in the past. Related Data Home Medications Medication Instructions Recorded Confirmed aspirin 81 mg tablet,delayed 81 mg PO DAILY Heart disease 10/24/17 04/21/23 release bupropion HCl 150 mg 24 hr tablet, 150 mg PO DAILY mood stabilizer 05/16/22 04/21/23 extended release omeprazole 40 mg capsule,delayed 40 mg PO DAILY Heartburn 05/16/22 04/21/23 release ipratropium 0.5 mg-albuterol 3 mg 3 ml inhalation TID COPD 04/21/23 04/21/23 (2.5 mg base)/3 mL nebulization soln Previous Rx's Medication Instructions Recorded furosemide 20 mg tablet (Lasix) 20 mg PO DAILY PRN edema #30 tabs 09/02/22 metoprolol tartrate 25 mg tablet See Rx Instructions .Route 06/06/23 .COMPLEX #60 tabs amlodipine 5 mg tablet See Rx Instructions .Route 09/09/23 .COMPLEX #90 tabs clopidogrel 75 mg tablet See Rx Instructions .Route 09/09/23 .COMPLEX #90 tabs rosuvastatin 10 mg tablet 10 mg PO DAILY Cholesterol #90 tabs 09/09/23 valsartan 80 mg tablet See Rx Instructions .Route 09/09/23 .COMPLEX #45 tabs hydrocodone 5 mg-acetaminophen 325 1 tab PO Q6H PRN pain 3 days #12 11/06/23 mg tablet tabs ibuprofen 600 mg tablet 600 mg PO Q8H PRN pain 7 days #21 11/06/23 tabs tamsulosin 0.4 mg capsule (Flomax) 0.4 mg PO DAILY 7 days #7 caps 11/06/23 Allergies Allergy/AdvReac Type Severity Reaction Status Date / Time Penicillins Allergy Intermediate I-HIVES Verified 04/21/23 11:10 [facility] Disclaimer: The information contained in this section may have been updated after the patient was seen, as this information can be updated by other users. Medical History Acute exacerbation of chronic obstructive airways disease Coronary artery disease Social History Smoking Status: Former smoker tobacco type: pipe second hand exposure: No alcohol intake: current substance use type: denies use current occupational status: retired Travel in the last 8 weeks: None household members: other housing: house current occupational exposures/hazards: No caffeine: No ROS Obtained: Yes All systems reviewed & no additional complaints except as documented Physical Exam General General appearance: alert Respiratory Respiratory exam: Present normal lung sounds bilaterally Cardiovascular Cardiovascular exam: Present regular rate Back Exam Back exam: Absent CVA tenderness (R) or CVA tenderness (L) Neurological Exam Neurological exam: Present alert and oriented X3 Medical Decision Making Hoang Inquiry Pt receiving controlled substance: No Vital Signs: 11/06/23 06:44 Temperature 97.8 F Temperature Source Oral Pulse Rate [Left] 59 L Respiratory Rate 18 Blood Pressure [Right Arm] 156/103 H Blood Pressure Mean [Right Arm] 120 Blood Pressure Source [Right Arm] Automatic Cuff Blood Pressure Position [Right Arm] Sitting 02 Sat by Pulse Oximetry 98 Oxygen Delivery Method Room Air Orders (Tests/Meds): ED MEDICATIONS Discontinued Medications Generic Name Dose Route Start Last Admin Trade Name Freq PRN Reason Stop Dose Admin Hydrocodone Bitart/Acetaminophen 1 tab 11/06/23 07:23 Hydrocodone/Apap 5/325 Mg Tablet PO 11/06/23 07:24 ONCE ONE Ketorolac Tromethamine 15 mg 11/06/23 07:23 Ketorolac 30mg/Ml Vial IV 11/06/23 07:24 ONCE ONE ORDERS Category Date Time Status POCUS Point of Care (ER Only) Stat Exams 11/06/23 07:10 Ordered Medical Decision Narrative: Very well-appearing 82-year-old male presenting today with right flank pain consistent with recurrent kidney stones. States has had numerous kidney stones in the past and I confirmed this with looking through his records on multiple CT scans in the past. He has no clinical evidence of pyelonephritis or symptoms of UTI. I do not suspect an alternative diagnosis. Bedside ultrasound was done which did in fact show moderate hydronephrosis consistent with the diagnosis. No indication at the moment for diagnosing the size and location of the stone. He does not have refractory symptoms specifically just wants some pain medicine. His GFR is around 60 he has some mild chronic kidney disease but should be okay with NSAIDs. He was given a dose of Toradol and a [place] in the emergency department. A prescription of [place] Zofran and ibuprofen were sent to his pharmacy. Typical prescribed nausea medicine in the situation but he specifically states that he would not take it if I prescribe it. He understands that there is some risk with not getting labs specifically the diagnosis of a urinary tract infection or worsening kidney disease but he is okay with that and specifically requests not doing lab work today. I think this is reasonable. I have given him a referral to Dr. Guzman if he is not improving and to return to the emergency department any worsening symptoms. Patient was discharged in a stable and improved condition after Toradol and [place] given in the ED. Procedures Miscellaneous Procedure Procedure Performed: Limited renal ultrasound Indication: A focused ultrasound of the kidneys was performed to evaluate for hydronephrosis and nephrolithiasis. The ultrasound was performed with the following indications, as noted in the H&P: Flank pain Identified structures: Right kidney Findings: Moderate hydronephrosis Impression: Moderate hydronephrosis of the right kidney consistent with recurrent obstructing ureterolithiasis Images were saved to permanent archive The study was technically adequate CPT: 85034-85 This study was performed by me, and I personally interpreted all images/videos. Based on my clinical judgement, these images were adequate and did not necessitate further imaging. Critical Care Critical Care Time Critical Care Time: No
[2023-11-06 07:38] VITALS: BP 178/80; PULSE 70; RESP 20; TEMP 36.7; O2SAT 98
== END 2023-11-06 07:39 | disposition home or self-care (01) ==
PROVIDERS: Emergency Provider Emergency Medicine; PCP Internal Medicine Adolescent Medicine
DX: N13.2 Hydronephrosis with renal and ureteral calculous obstruction (principal); R10.9 Unspecified abdominal pain; J44.9 Chronic obstructive pulmonary disease, unspecified; I25.10 Atherosclerotic heart disease of native coronary artery without angina pectoris; Z87.891 Personal history of nicotine dependence
CPT/HCPCS: 96374; 99284

== ENCOUNTER 2024-03-08 12:25 | Outpatient (CLI) | payer MEDICARE, SELFPAY ==
--- NOTE | 2024-03-08 12:38 | XR_ITS ---
FINAL REPORT CLINICAL HISTORY: LT FOOT PAIN FINDINGS: Left foot Four views were obtained. There is no acute fracture or dislocation. There are mild degenerative changes. Small calcaneal spurs are identified. No soft tissue abnormality is identified. IMPRESSION: No acute process. Reviewed, Interpreted and Dictated by Reynaldo Barakat III, MD Transcribed by Stephanie Cornell Authenticated and [facility]
== END 2024-03-08 23:59 | disposition home or self-care (01) ==
PROVIDERS: PCP Internal Medicine Adolescent Medicine; Visit Provider Nurse Practitioner Family
DX: M79.672 Pain in left foot (principal)
CPT/HCPCS: 73630

== ENCOUNTER 2024-04-05 14:22 | Emergency (ER) | payer MEDICARE, SELFPAY ==
[2024-04-05 14:45] VITALS: BP 171/91; PULSE 63; O2SAT 93
[2024-04-05 14:47] VITALS: BP 160/125; PULSE 61; RESP 16; TEMP 36.8; O2SAT 94; BMI 22.4
[2024-04-05 15:00] VITALS: BP 149/87; PULSE 58; O2SAT 95
[2024-04-05 15:00] LABS: Basophils # 0.1 K/mm3 (0-0.2); Basophils % 0.9 % (0.1-2.0); Chloride 103 mmol/L (98-107); Eosinophils # 0.3 K/mm3 (0.0-0.4); Eosinophils % 5.4 % (0.1-12.0); Hemoglobin 14.1 g/dL (14.1-18.0); Lymphocytes # 1.1 K/mm3 (0.7-4.5); Mean Corpuscular HGB Conc 32.8 g/dL (31.8-35.4); Mean Corpuscular Hemoglobin 30.7 pg (27.0-31.2); Mean Corpuscular Volume 93.7 fl (80-94); Mean Platelet Volume 7.8 fl (7.4-10.4); Monocytes # 0.4 K/mm3 (0.1-1.0); Monocytes % 6.8 % (1.7-9.3); Neutrophils # 4.3 K/mm3 (1.8-7.8); Neutrophils % 68.8 % (37.0-80.0); Platelet Count 262 K/mm3 (142-424); Potassium 3.9 mmoL/L (3.5-5.1); Red Blood Count 4.59 M/mm3 (4.60-6.20); Red Cell Distribution Width 14.8 % (11.5-17.5); Sodium 138 mmol/L (136-145); White Blood Count 6.3 K/mm3 (4.8-10.8)
[2024-04-05 15:03] LABS: Alanine Aminotransferase 23 U/L (12-78); Albumin Level 4.1 g/dl (3.5-5.0); Albumin/Globulin Ratio 1.2 (1.1-1.8); Alkaline Phosphatase 120 U/L (38-126); Anion Gap 11.9 mEq/L (5-15); Aspartate Amino Transferase 37 U/L (17-59); Bilirubin,Total 0.7 mg/dl (0.2-1.3); Blood Urea Nitrogen 53 mg/dl (9-20); Carbon Dioxide 27 mmol/L (22.0-30.0); Creatinine Clearance Estimated 11 mL/min (50-200); Estimated Glomerular Filt Rate 10 ml/min (>60); GFR (African American) 12 ML/MIN (>60); Globulin 3.3 g/dL (1.3-3.2); Total Protein,Serum 7.4 g/dl (6.3-8.2)
[2024-04-05 15:04] LABS: Calcium 8.9 mg/dl (8.4-10.2); Glucose 106 mg/dl (74-100)
--- NOTE | 2024-04-05 15:04 | XR_ITS ---
FINAL REPORT CLINICAL HISTORY: swelling COMPARISON: 05/28/2022 FINDINGS: SINGLE-VIEW CHEST The heart size is normal. The mediastinum is normal. There are persistent left base opacities, may represent scar. There are new right base opacities consistent with atelectasis or pneumonia. There is no pneumothorax. IMPRESSION: New right base atelectasis versus pneumonia. Reviewed, Interpreted and Dictated by Reynaldo Barakat III, MD Transcribed by Stephanie Cornell Authenticated and [facility]
--- NOTE | 2024-04-05 15:07 | PC.NURSE ---
aware of creat of 5.4
[2024-04-05 15:29] VITALS: BP 151/84; PULSE 61; O2SAT 93
--- NOTE | 2024-04-05 15:29 | ED_ITS ---
Discharge Plan Disposition Patient Disposition: Xfer Short-Term Hosp Chief Complaint: Recheck/Abnormal Lab/Rx Prescriptions Prescriptions: No Action furosemide [Lasix] 20 mg tablet 20 mg PO DAILY PRN (Reason: edema) Qty: 30 5RF metoprolol tartrate 25 mg tablet See Rx Instructions .ROUTE .COMPLEX Qty: 60 3RF Dose Instruction: TAKE ONE TABLET BY MOUTH TWICE DAILY Rx Instructions: TAKE ONE TABLET BY MOUTH TWICE DAILY rosuvastatin 10 mg tablet See Rx Instructions .ROUTE .COMPLEX Qty: 90 3RF Dose Instruction: TAKE ONE TABLET BY MOUTH DAILY FOR cholesterol Rx Instructions: TAKE ONE TABLET BY MOUTH DAILY FOR cholesterol valsartan 80 mg tablet See Rx Instructions .ROUTE .COMPLEX Qty: 45 1RF Dose Instruction: TAKE 1/2 TABLET BY MOUTH EVERY DAY Rx Instructions: TAKE 1/2 TABLET BY MOUTH EVERY DAY amlodipine 5 mg tablet See Rx Instructions .ROUTE .COMPLEX Qty: 90 1RF Dose Instruction: TAKE ONE TABLET BY MOUTH EVERY DAY FOR BLOOD PRESSURE Rx Instructions: TAKE ONE TABLET BY MOUTH EVERY DAY FOR BLOOD PRESSURE clopidogrel 75 mg tablet See Rx Instructions .ROUTE .COMPLEX Qty: 90 1RF Dose Instruction: TAKE ONE TABLET BY MOUTH EVERY DAY Rx Instructions: TAKE ONE TABLET BY MOUTH EVERY DAY aspirin 81 MG tablet,delayed release (DR/EC) 81 mg PO DAILY omeprazole 40 MG capsule,delayed release(DR/EC) 40 mg PO DAILY bupropion HCl 150 MG tablet extended release 24 hr 150 mg PO DAILY ipratropium-albuterol 0.5 mg-3 mg(2.5 mg base)/3 mL solution for nebulization 3 ml IH TID hydrocodone-acetaminophen 5-325 mg tablet 1 tab PO Q6H PRN (Reason: pain) 3 Days Qty: 12 0RF tamsulosin [Flomax] 0.4 mg capsule 0.4 mg PO DAILY 7 Days Qty: 7 0RF ibuprofen 600 mg tablet 600 mg PO Q8H PRN (Reason: pain) 7 Days Qty: 21 0RF Referrals Follow up/Referrals: Cayden Munoz MD [Primary Care Provider] - See instructions Clinical Impressions Clinical Impression: ELIZABETH (acute kidney injury) Discharge ED Provider: David Zaidi General Adult HPI General Chief complaint: Recheck/Abnormal Lab/Rx Stated complaint: abnormal blood work-sent by Dr Munoz Time Seen by Provider: 04/05/24 15:04 Mode of Arrival: Ambulatory Source of Information: Patient Limitations: No Limitations Description of Symptoms (Recalled from ER Triage Doc. by RN): pt reports Dr. Munoz called and told him to present to the ED for decreased kidney function. pt reports all he drinks is coffee, mt dew, and two shots of vodka a night. pt also reports he was recently started on furosimide about 2wks ago. History of Present Illness HPI narrative: Please note that above description of symptoms, in this electronic medical record under categorization of recalled from ER triage doctor by RN are reflective of an initial nursing assessment, however, is not reflective of my full history and physical exam that was personally taken and clarified. Consequentially, this preceding description of symptoms, which may include the patient's categorized chief complaint in the EMR, do not reflect my personal clinical impression, and the ultimate description of history of present illness and patient stated complaints should be deferred to this section of the note. Unless stated otherwise or congruent with this section of the note, additional signs, symptoms, or incongruence should be interpreted as inaccurate with my clinical impression. Related Data Home Medications Medication Instructions Recorded Confirmed aspirin 81 mg tablet,delayed 81 mg PO DAILY Heart disease 10/24/17 04/21/23 release bupropion HCl 150 mg 24 hr tablet, 150 mg PO DAILY mood stabilizer 05/16/22 04/21/23 extended release omeprazole 40 mg capsule,delayed 40 mg PO DAILY Heartburn 05/16/22 04/21/23 release ipratropium 0.5 mg-albuterol 3 mg 3 ml inhalation TID COPD 04/21/23 04/21/23 (2.5 mg base)/3 mL nebulization soln Previous Rx's Medication Instructions Recorded furosemide 20 mg tablet (Lasix) 20 mg PO DAILY PRN edema #30 tabs 09/02/22 hydrocodone 5 mg-acetaminophen 325 1 tab PO Q6H PRN pain 3 days #12 11/06/23 mg tablet tabs ibuprofen 600 mg tablet 600 mg PO Q8H PRN pain 7 days #21 11/06/23 tabs tamsulosin 0.4 mg capsule (Flomax) 0.4 mg PO DAILY 7 days #7 caps 11/06/23 metoprolol tartrate 25 mg tablet See Rx Instructions .Route 12/05/23 .COMPLEX #60 tabs amlodipine 5 mg tablet See Rx Instructions .Route 03/07/24 .COMPLEX #90 tabs clopidogrel 75 mg tablet See Rx Instructions .Route 03/07/24 .COMPLEX #90 tabs rosuvastatin 10 mg tablet See Rx Instructions .Route 03/07/24 .COMPLEX #90 tabs valsartan 80 mg tablet See Rx Instructions .Route 03/07/24 .COMPLEX #45 tabs Allergies Allergy/AdvReac Type Severity Reaction Status Date / Time Penicillins Allergy Intermediate I-HIVES Verified 04/05/24 14:55 [facility] Disclaimer: The information contained in this section may have been updated after the patient was seen, as this information can be updated by other users. Medical History Acute exacerbation of chronic obstructive airways disease Coronary artery disease Social History Smoking Status: Light tobacco smoker tobacco type: pipe second hand exposure: No alcohol intake: current alcohol intake frequency: 0-2 drinks per day substance use type: denies use current occupational status: retired Travel in the last 8 weeks: None household members: other housing: house current occupational exposures/hazards: No caffeine: No ROS Obtained: Yes All systems reviewed & no additional complaints except as documented Physical Exam General General appearance: alert Head Head exam: atraumatic and normocephalic Eye Eye exam: Present normal appearance, PERRL and EOMI Neck Neck exam: Present normal inspection, full ROM and trachea midline Respiratory Respiratory exam: Absent normal lung sounds bilaterally (Decreased on the left), respiratory distress, wheezes, stridor, accessory muscle use or prolonged expiratory phase Cardiovascular Cardiovascular exam: Present regular rate, normal rhythm and other (Pulses equal symmetric in upper and lower extremities) Abdominal Exam Abdominal exam: Present soft; Absent distention, tenderness or pulsatile mass Extremities Exam Extremities exam: Absent edema Back Exam Back exam: Absent CVA tenderness (R) or CVA tenderness (L) Neurological Exam Neurological exam: Present alert, oriented X3 and CN II-XII intact; Absent motor sensory deficit Skin Skin exam: Present warm and dry; Absent diaphoresis or erythema Medical Decision Making Medical Records Medical records reviewed: Yes I reviewed the patient's medical records. Hoang Inquiry Pt receiving controlled substance: No Hoang was queried for this patient: No Vital Signs: 04/05/24 14:45 04/05/24 14:47 04/05/24 15:00 Temperature 98.3 F Temperature Source Oral Pulse Rate 63 58 L Pulse Rate [Left] 61 Respiratory Rate 16 Blood Pressure 171/91 H 149/87 H Blood Pressure [Right Arm] 160/125 H Blood Pressure Mean [Right Arm] 136 Blood Pressure Source [Right Arm] Automatic Cuff Blood Pressure Position [Right Arm] Sitting 02 Sat by Pulse Oximetry 93 L 94 L 95 Oxygen Delivery Method Room Air Room Air Room Air Lab Data Lab Results 04/05/24 14:44: NT-Pro-B Natriuret Pep 1870 H 04/05/24 14:45: WBC 6.3, RBC 4.59 L, Hgb 14.1, Hct 43.0, MCV 93.7, MCH 30.7, MCHC 32.8, RDW 14.8, Plt Count 262, MPV 7.8, Neut % (Auto) 68.8, Lymph % (Auto) 18.0, [place] % (Auto) 6.8, Eos % (Auto) 5.4, Baso % (Auto) 0.9, Neut # (Auto) 4.3, Lymph # (Auto) 1.1, [place] # (Auto) 0.4, Eos # (Auto) 0.3, Baso # (Auto) 0.1, Sodium 138, Potassium 3.9, Chloride 103, Carbon Dioxide 27, Anion Gap 11.9, BUN 53 H, Creatinine 5.40 H, Estimated Creat Clear 11, Estimated GFR 10 L*, Est GFR ( Amer) 12 L*, Glucose 106 H, Calcium 8.9, Total Bilirubin 0.7, AST 37, ALT 23, Alkaline Phosphatase 120, Total Protein 7.4, Albumin 4.1, Globulin 3.3 H , Albumin/Globulin Ratio 1.2 04/05/24 15:30: Urine Color Yellow, Urine Appearance Clear, Urine pH 6.0, Ur Specific [place] 1.015, Urine Protein 1+, Urine Glucose (UA) Negative, Urine Ketones Negative, Urine Blood 1+, Urine Nitrate Negative, Urine Bilirubin Negative, Urine Urobilinogen 0.2, Ur Leukocyte Esterase Negative, Urine RBC Occasional, Urine WBC Occasional, Ur Squamous Epith Cells None, Urine Bacteria Trace 04/05/24 14:45 04/05/24 14:45 Orders (Tests/Meds): ED MEDICATIONS Discontinued Medications Generic Name Dose Route Start Last Admin Trade Name Shruthi PRN Reason Stop Dose Admin Lactated Ringer's 1,000 mls @ 999 mls/hr 04/05/24 15:14 04/05/24 15:54 Lactated Ringer's 1000 Ml Bag IV 04/05/24 16:14 Not Given .Q1H1M ONE Lactated Ringer's 1,000 mls @ 999 mls/hr 04/05/24 15:14 04/05/24 15:50 Lactated Ringer's 1000 Ml Bag IV 04/05/24 16:14 999 mls/hr .Q1H1M ONE Administration ORDERS Category Date Time Status CT abdomen pelvis wo con Stat Cat Scan 04/05/24 15:32 Taken CXR --portable [XR chest portable] Stat Exams 04/05/24 15:04 Taken CMP [Comprehensive Metabolic Panel] Stat Lab 04/05/24 14:45 Completed Complete Blood Count Auto Diff Stat Lab 04/05/24 14:45 Completed NT Pro Brain Natriuretic Pep. Stat Lab 04/05/24 14:44 Completed UA [Urinalysis and Microscopic] Stat Lab 04/05/24 15:30 Completed Medical Decision Narrative: 83-year-old male history of hypertension, hyperlipidemia, alcohol dependence, CAD status post stenting, nephrolithiasis presenting with ELIZABETH. Patient states that he is presenting for abnormal labs from his PCP that were drawn yesterday. Story as follows: Patient states that a couple weeks ago, he was started on amlodipine for hypertension. Started having lower extremity swelling shortly thereafter. Lower extremity swelling got to the point where is debilitating, so patient was started on Lasix and taken off of amlodipine. Followed up yesterday, 04/04 for repeat labs at PCP, found to have an ELIZABETH, called today to return to the emergency department given severity of ELIZABETH. Patient states that he has been taking medication as prescribed. States that he also only drinks 1 cup of coffee and sometimes a cup of water all day long, essentially drinks no liquids throughout the day. Finishes today with a couple of alcoholic drinks with Sprite. Other than that, largely no fluid intake. Denies chest pain, shortness of breath, fevers or chills, dysuria, hematuria, changes in bowel or bladder, flank pain, or any other concerns. Does not think he would have, and had it not been for a call from PCPs office. History was obtained via conversation with patient and daughter. On arrival, patient hemodynamically stable, alert, oriented x4, appropriate, GCS 15, moving all extremities spontaneously, pupils equal and reactive to light. Full physical exam performed and significant for very well-appearing male who is in no acute distress. Abdomen soft, nontender, nondistended. Normal breath sounds on the right, decreased on the left, but cardiac exam within normal limits. No lower extremity edema. Pulses are equal and symmetric. No flank tenderness. Differential includes adverse medication effect, dehydration, obstructive uropathy, CKD, ESRD, ARF, pyelonephritis, sepsis, among others. Patient was given 2 L LR for symptomatic management and correction of underlying abnormalities. Workup independently interpreted and significant for nonactionable CBC. Chemistry with concern for near acute renal failure with GFR of 10, creatinine of 5.4 and BUN 53. BNP elevated 1870. Chest x-ray with large left-sided pleural effusion, this seems to be consistent with x-rays from about [address] of the abdomen without contrast performed to evaluate for obstructive uropathy. No evidence of obstructive uropathy, but incidentally noted nearly completely collapsed left lung. Comparing this to scans done back in 2020, this appears to be chronic. Conversation was had with patient regarding this finding, this is a first they are hearing of it, no history of lung surgery. Patient not having any respiratory or thoracic complaints, so deemed appropriate for outpatient management For this problem in particular. Because of patient's severe intrarenal ELIZABETH, still warrants admission. Hospitalist was contacted here, recommended transfer to a place that has dialysis in case kidney function worsens. Because patient high risk for clinical decompensation if discharged, deemed appropriate for transfer and inpatient admission. Results were relayed to patient who voiced understanding and patient was agreeable to transfer, inpatient admission, and management. Patient was graciously accepted and transferred to [facility] for further definitive management, under Dr. Garcia. Director Recreation disclaimer Much of this encounter note is an electronic manager gift spoken language to printed text. Electronic manager gift of the spoken language may permit errors. Although I have reviewed the note, some errors may still exist. Critical Care Critical Care Time Critical Care Time: No
--- NOTE | 2024-04-05 15:32 | CT_ITS ---
FINAL REPORT CLINICAL HISTORY: ELIZABETH rule out stone COMPARISON: 09/26/2021 FINDINGS: Axial CT images of the abdomen and pelvis were obtained without intravenous contrast. Coronal and sagittal reformatted images were also obtained.This study was performed with techniques to keep radiation doses as low as reasonably achievable (ALARA). Individualized dose reduction techniques using automated exposure control or adjustment of mA and/or kV according to the patient's size were employed. Abdomen: There is chronic atelectasis or consolidation present in the left lower lobe, possibly rounded atelectasis. There is a small left pleural effusion or pleural thickening, stable since the prior CT of September 2021. There is no evidence of renal stone or hydronephrosis.The liver, spleen and pancreas have an unremarkable, unenhanced appearance. There is mild enlargement of the left adrenal gland, stable, favor adenoma. No follow-up is required at this time. No inflammatory process is identified. Pelvis: Images of the pelvis reveal no evidence of ureteral dilation or ureteral stone.No mass or abnormal fluid collection is identified. Multiple diverticula are present in the colon without evidence of acute inflammatory change. IMPRESSION: No renal or ureteral stone, or hydronephrosis. Chronic atelectasis or consolidation in the left lower lobe, possibly rounded atelectasis. This is stable since the prior CT. Mild adrenal enlargement, also stable, favor adenoma. No follow-up is required at this time. Reviewed, Interpreted and Dictated by Reynaldo Barakat III, MD Transcribed by Dolores Lopez Authenticated and [facility]
[2024-04-05 15:33] LABS: NT Pro Brain Natriuretic Pep. 1870 pg/mL (0-450)
[2024-04-05 15:36] LABS: Microscopic, Urine URINE MICROSCOPIC (MICROSCOPIC)
[2024-04-05 15:38] LABS: Appearance,Urine CLEAR (Clear); Bilirubin,Urine Negative (Negative); Blood, Urine 1+ (Negative); Color,Urine YELLOW (Yellow); Glucose,Urine (UA) Negative (Negative); Ketones,Urine Negative (Negative); Leukocyte Esterase,Urine Negative (Negative); Nitrate,Urine Negative (Negative); Protein,Urine 1+ (Negative); Specific Gravity, Urine 1.015 (1.005-1.030); Urobilinogen,Urine 0.2 EU/dl (0.2)
[2024-04-05 15:49] LABS: Bacteria,Urine Trace /lpf; RBC,Urine Occasional #/hpf (0-3); WBC,Urine Occasional #/hpf (0-3)
[2024-04-05] MEDS: LACTATED RINGERS 1000ML 1,000 ML 999 ML IV (15:50)
--- NOTE | 2024-04-05 16:25 | PC.NURSE ---
called alfonso for transfer to [facility]
[2024-04-05 17:31] VITALS: BP 185/85; PULSE 63; O2SAT 94
--- NOTE | 2024-04-05 17:51 | PC.NURSE ---
Report called to Eden AKBAR @ the ICU at [facility]
[2024-04-05 18:10] VITALS: BP 159/90; PULSE 63; RESP 16; TEMP 36.8; O2SAT 98
== END 2024-04-05 18:12 | disposition short-term general hospital (02) ==
PROVIDERS: Emergency Medicine; Emergency Provider Emergency Medicine; PCP Internal Medicine Adolescent Medicine
DX: N17.8 Other acute kidney failure (principal); F17.290 Nicotine dependence, other tobacco product, uncomplicated; I10 Essential (primary) hypertension; E78.5 Hyperlipidemia, unspecified; Z86.79 Personal history of other diseases of the circulatory system; Z95.5 Presence of coronary angioplasty implant and graft; J90 Pleural effusion, not elsewhere classified
CPT/HCPCS: 71045; 74176; 80053; 81001; 83880; 85025; 96360; 99285; J7120

== ENCOUNTER 2024-05-17 13:17 | Outpatient (CLI) | payer MEDICARE, SELFPAY ==
--- NOTE | 2024-05-17 13:23 | XR_ITS ---
FINAL REPORT CLINICAL HISTORY: ACUTE PAIN COMPARISON: None FINDINGS: LEFT KNEE 3 views of the left knee were obtained. There is no acute fracture or dislocation. Visualized joint spaces are normally aligned. Soft tissues are unremarkable. IMPRESSION: No acute bony abnormality. Reviewed, Interpreted and Dictated by Santos Espinosa MD Transcribed by Dolores Lopez Authenticated and [facility]
== END 2024-05-17 23:59 | disposition home or self-care (01) ==
PROVIDERS: PCP Internal Medicine Adolescent Medicine; Visit Provider Internal Medicine Adolescent Medicine
DX: M25.562 Pain in left knee (principal)
CPT/HCPCS: 73562

== ENCOUNTER 2024-06-01 11:00 | Outpatient (RCR) | payer MEDICARE, SELFPAY ==
--- NOTE | 2024-05-24 09:42 | HMH.PTOPEV ---
PT Outpatient Evaluation Rehab PT Outpatient Evaluation Start: 05/24/24 09:00 Freq: Status: Active Protocol: Document 05/24/24 09:32 STALIN (Rec: 05/24/24 09:42 STALIN [id number]) E-signed By Lee Pacheco, PT Outpatient Therapy Subjective History Subjective History Pt reports falling up steps and landing on left knee ~4 weeks. Pt reports 'some left knee pain' in the first 2 weeks following this incident, 'but about 2 weeks ago it really got bad for some reason .' Pt reports severe localized medial aspect left knee pain w/all WB'ing activities. Pt reports some episodes of left knee buckling as well, w/ recent Xray of left knee revealing no issues. New diagnosis of cancer in past 12 No months? Chief Complaint Pain,Gives out/Unstable Symptom Type Ache,Sharp,Dull,Stabbing Symptoms Relieved By Rest/Positioning,Ice Symptoms Aggravated By Standing,Physical Activity, Walking Prior Functional Limitations None Current Functional Limitations Housework,Standing,Squatting, Walking,Stairs Symptom Description Constant but Variable Level of pain today (0-10) 3 Pain scale - at its best (0-10) 3 Pain scale - at its worst (0-10) 8 Hip/Knee Eval Gait Observation General Gait Pattern Observation Antalgic Gait Assistive Device Assistive Devices Straight Cane Palpation Tenderness left Knee Palpation Finding Tenderness Knee Palpation Overall Comment 3/4 medial jt line, 3/4 MCL MMT Hip Flexion Strength Grade 4 Good Hip Abduction Strength Grade 4 Good Hip Adduction Strength Grade 4- Good- Hip Extension Strength Grade 4 Good Hip External Rotation Strength Grade 4 Good Hip Internal Rotation Strength Grade 4 Good Knee Extension Strength Grade 4- Good- Knee Flexion Strength Grade 5 Normal ROM Knee Flexion Active Range of Motion ( 0-125 degrees) Knee ROM Limitations Pain Effusion joint effusion knee exam standard left Mid - Patellar Circumerential Measure ( 37 cm) Special Tests Knee Valgus Stress Test Positive Left Knee Ernst Test Positive Left Lower Extremity Functional Index Activities Today, do you or would you have any difficulty at all with: a.Any of your usual work, housework or Moderate difficulty school activities b. Your usual hobbies, recreational or Moderate difficulty sporting activities c. Getting into or out of the bath Extreme difficulty or unable to perform activity d. Walking between rooms Extreme difficulty or unable to perform activity e. Putting on your shoes or socks Extreme difficulty or unable to perform activity f. Squatting Quite a bit of difficulty g. Lifting an object, like a bag of Extreme difficulty or unable groceries from the floor to perform activity h. Performing light activities around Quite a bit of difficulty your home i. Performing heavy activities around Quite a bit of difficulty your home j. Getting into or out of a car Extreme difficulty or unable to perform activity k. Walking 2 blocks Extreme difficulty or unable to perform activity l. Walking a mile Extreme difficulty or unable to perform activity m. Going up or down 10 stairs (about 1 Extreme difficulty or unable flight of stairs) to perform activity n. Standing for 1 hour Extreme difficulty or unable to perform activity o. Sitting for 1 hour A little bit of difficulty p. Running on even ground Moderate difficulty q. Running on uneven ground Moderate difficulty r. Making sharp turns while running fast Moderate difficulty s. Hopping Moderate difficulty t. Rolling over in bed Moderate difficulty LEFI Score Lower Extremity Functional Index Score 20 Outpatient Therapy Assessment Impairments Problems/Impairmments Palpation Tenderness,Impaired Range of Motion,Impaired Strength,Impaired Gait Pattern ,Impaired Walking,Impaired Standing,Impaired Household Care,Impaired Stair Climbing, Subjective C/O Pain,Impaired Self Care/Self Management Prognosis Rehab Potential Good Clinical Impression Consistent with Diagnosis Yes Short Term Goals Number of Weeks 4 Decreased Palpation Tenderness Yes: 1-2/4 left knee Increase Range of Motion Yes: 0-125 w/o pain left knee AROM Increase Strength Yes: 4/5 LLE Increase Ability to Walk Yes: 10MIN Increase Ability to Stand Yes: 10MIN Improve Ability For Household Care Yes: 10MIN Decrease Subjective C/O Pain Yes: 3/10 W/ABOVE ACTIVITIES Patient to be Ind w/ HEP Yes Family Partner Goals Number of Weeks 8-12 Decreased Palpation Tenderness Yes: 0-1/4 LEFT KNEE Increase Range of Motion Yes: 0-130 LEFT KNEE AROM W/O PAIN Increase Strength Yes: 4+-5/5 LLE Increase Ability to Walk Yes: 15MIN Increase Ability to Stand Yes: 15MIN Improve Ability For Household Care Yes: 15MIN Improve LEFI Score Yes: 60-70 Decrease Subjective C/O Pain Yes: 0-2/10 W/ABOVE ACTIVITIES Patient to be Ind w/ Advanced HEP Yes Outpatient Therapy Plan of Care Treatment Plan May Include Therapeutic Exercise Including Home Yes Exercise Program Manual Therapy Techniques Yes Neuromuscular Re-education Yes Therapeutic Activities to Return to Yes Previous Functional/Work Level Gait Training Yes ADL/Self Care Education Yes Dry Needling Yes Thermal Modalities Yes Electrical Stimulation Yes Ultrasound/Phonophoresis Yes Iontophoresis Yes Orthotics/Bracing/Splinting Yes Vasopneumatic Compression Pump Yes Eval/Re-Eval Yes Frequency Times per week 2-3 Duration Number of Weeks 8-12 Addendums This patient is a candidate for social No or vocational rehab? Patient/Guardian verbally acknowledges Yes understanding of treatment program and consents to further treatment? Patient/Guardian verbally acknowledges Yes understanding of diagnosis, prognosis and goals for treatment? Eval Complexity PT Charges 13900 - Low Complexity Shoulder/Elbow Eval Shoulder Objective Measurements Elbow Objective Measurements PHYSICIAN CERTIFICATION: I certify the specified therapy services for Ross Mack are required, authorized, and reviewed every 30 days.
== END 2024-06-01 11:05 | disposition home or self-care (01) ==
LOC: PT 11:00
PROVIDERS: Visit Provider Internal Medicine Adolescent Medicine
DX: M25.562 Pain in left knee (principal)
CPT/HCPCS: 97014; 97110; 97163; G0283

== ENCOUNTER 2024-06-06 07:31 | Outpatient (CLI) | payer MEDICARE, SELFPAY ==
--- NOTE | 2024-06-06 07:37 | CT_ITS ---
FINAL REPORT TECHNIQUE: Axial CT images of the chest were obtained with and without contrast. Coronal and sagittal reformatted images were also obtained. This study was performed with techniques to keep radiation doses as low as reasonably achievable, (ALARA). Individualized dose reduction techniques using automated exposure control or adjustment of mA and/or KV according to the patient's size were employed. CLINICAL HISTORY: COPD W/CHRONIC BRONCHITIS COMPARISON: CTA of the chest 05/16/2022 FINDINGS: CT CHEST WITH AND WITHOUT CONTRAST: There is no evidence of mediastinal or hilar mass or adenopathy. No axillary mass or adenopathy is identified. There is a persistent small left pleural effusion with associated pleural thickening, also seen on the prior CT of 2021. There is stable left lower lobe consolidation, that may represent rounded atelectasis or organizing pneumonia. Mild changes of emphysema are present. A 5 mm nodule is present in the right lung apex, best seen on image #11 of series 4, stable since the prior CT. Limited images of the upper abdomen reveal no mass or localized inflammatory process. IMPRESSION: Persistent small left pleural effusion with associated pleural thickening, stable. Stable left lower lobe consolidation, rounded atelectasis or organizing pneumonia. Mild changes of emphysema are again noted. Reviewed, Interpreted and Dictated by Reynaldo Barakat III, MD Transcribed by Dolores Lopez Authenticated and [facility]
[2024-06-06 08:16] LABS: Blood Urea Nitrogen 21 mg/dl (9-20); Estimated Glomerular Filt Rate 34 ml/min (>60); GFR (African American) 41 ML/MIN (>60)
[2024-06-06] MEDS: IOPAMIDOL-370 (76%);100ML BOTTLE 75 ML IV (08:45)
[2024-06-06] MEDS: SODIUM CHLORIDE 0.9% 10ML SYR (RAD ONLY) 10 ML IV (08:45)
== END 2024-06-06 23:59 | disposition home or self-care (01) ==
LOC: RAD 07:32
PROVIDERS: PCP Internal Medicine Adolescent Medicine; Visit Provider Internal Medicine Adolescent Medicine
DX: J44.9 Chronic obstructive pulmonary disease, unspecified (principal); R63.4 Abnormal weight loss
CPT/HCPCS: 36415; 71270; 82565; 84520; Q9967

== ENCOUNTER 2024-06-12 10:36 | Outpatient (CLI) | payer MEDICARE, SELFPAY ==
[2024-06-12 11:05] LABS: Microscopic, Urine URINE MICROSCOPIC (MICROSCOPIC)
[2024-06-12 11:21] LABS: Hematocrit 37.7 % (42.0-52.0); Hemoglobin 11.8 g/dL (14.1-18.0); Mean Corpuscular HGB Conc 31.2 g/dL (31.8-35.4); Mean Corpuscular Hemoglobin 30.9 pg (27.0-31.2); Mean Corpuscular Volume 99.3 fl (80-94); Platelet Count 207 K/mm3 (142-424); Red Cell Distribution Width 14.5 % (11.5-17.5); White Blood Count 5.6 K/mm3 (4.8-10.8)
[2024-06-12 11:51] LABS: Appearance,Urine CLEAR (Clear); Bilirubin,Urine Negative (Negative); Blood, Urine Negative (Negative); Color,Urine YELLOW (Yellow); Glucose,Urine (UA) Negative (Negative); Ketones,Urine Negative (Negative); Leukocyte Esterase,Urine Negative (Negative); Nitrate,Urine Negative (Negative); PH,Urine 6.5 (5.0-8.5); Protein,Urine 1+ (Negative); Urobilinogen,Urine 0.2 EU/dl (0.2)
[2024-06-12 11:57] LABS: Alanine Aminotransferase 18 U/L (12-78); Albumin Level 3.3 g/dl (3.5-5.0); Albumin/Globulin Ratio 1.3 (1.1-1.8); Alkaline Phosphatase 93 U/L (38-126); Anion Gap 4.2 mEq/L (5-15); Aspartate Amino Transferase 38 U/L (17-59); Bilirubin,Total 0.9 mg/dl (0.2-1.3); Blood Urea Nitrogen 18 mg/dl (9-20); Calcium 8.8 mg/dl (8.4-10.2); Carbon Dioxide 31 mmol/L (22.0-30.0); Chloride 105 mmol/L (98-107); Estimated Glomerular Filt Rate 39 ml/min (>60); GFR (African American) 47 ML/MIN (>60); Globulin 2.5 g/dL (1.3-3.2); Glucose 84 mg/dl (74-100); Magnesium 1.6 mg/dl (1.6-2.3); Potassium 4.2 mmoL/L (3.5-5.1); Sodium 136 mmol/L (136-145); Total Protein,Serum 5.8 g/dl (6.3-8.2); Uric Acid 6.9 mg/dl (3.5-8.5)
[2024-06-12 12:04] LABS: Creatinine,Urine Random 94 mg/dL (Not Estab.)
[2024-06-12 12:08] LABS: Intact Parathyroid Hormone 90.9 pg/mL (7.5-53.5)
[2024-06-12 12:13] LABS: 25-OH Vitamin D, Total 30.7 ng/mL (30-100)
[2024-06-12 12:19] LABS: Hemoglobin A1C 5.4 % (4.0-6.0)
== END 2024-06-12 23:59 | disposition home or self-care (01) ==
LOC: LAB 10:55
PROVIDERS: PCP Internal Medicine Adolescent Medicine; Visit Provider Internal Medicine Nephrology
DX: I12.9 Hypertensive chronic kidney disease with stage 1 through stage 4 chronic kidney disease, or unspecified chronic kidney disease (principal); Z79.899 Other long term (current) drug therapy; N18.30 Chronic kidney disease, stage 3 unspecified; I25.10 Atherosclerotic heart disease of native coronary artery without angina pectoris; J44.9 Chronic obstructive pulmonary disease, unspecified
CPT/HCPCS: 36415; 80053; 81001; 82306; 82570; 83036; 83735; 83970; 84156; 84550; 85027

== ENCOUNTER 2024-08-16 12:16 | Outpatient (CLI) | payer MEDICARE, SELFPAY ==
--- NOTE | 2024-08-16 | XR_ITS ---
FINAL REPORT TECHNIQUE: Chest PA & Lateral CLINICAL HISTORY: copd, weakness, acute febrile illness COMPARISON: 04/05/2024 FINDINGS: 2 views of the chest were performed. The heart size is normal. The mediastinum is within normal limits. There is volume loss in the left hemithorax. There is abnormal opacification in the inferior left hemithorax with silhouetting of the left hemidiaphragm, probably due to consolidation. There are no pleural effusions. There is no pneumothorax. The bony thorax appears intact. IMPRESSION: Abdominal opacification in the inferior left hemithorax with silhouetting of the left hemidiaphragm, probably due to consolidation. Reviewed, Interpreted and Dictated by Santos Espinosa MD Transcribed by Noris Awad Authenticated and [facility]
== END 2024-08-16 23:59 | disposition home or self-care (01) ==
LOC: RAD 12:18
PROVIDERS: PCP Nurse Practitioner Family; Visit Provider Nurse Practitioner Family
DX: J44.1 Chronic obstructive pulmonary disease with (acute) exacerbation (principal); R53.1 Weakness; R50.9 Fever, unspecified
CPT/HCPCS: 71046

== ENCOUNTER 2024-10-12 10:00 | Outpatient (RCR) | payer MEDICARE, SELFPAY | END 2024-10-12 23:59 | disposition home or self-care (01) | LOC: OT 10:00 | PROVIDERS: Visit Provider Internal Medicine Adolescent Medicine | DX: R53.81 Other malaise (principal); I10 Essential (primary) hypertension | CPT/HCPCS: 97110; 97165 ==

== ENCOUNTER 2024-10-16 11:00 | Outpatient (RCR) | payer MEDICARE, SELFPAY ==
--- NOTE | 2024-09-28 11:51 | HMH.PTOPEV ---
PT Outpatient Evaluation Rehab PT Outpatient Evaluation Start: 09/28/24 10:16 Freq: Status: Active Protocol: Document 09/28/24 10:55 PETE (Rec: 09/28/24 11:51 PETE [id number]) E-signed By Marty Nettles, PT Outpatient Therapy Subjective History Subjective History This is the initial PT eval for Ross Mack, 83 yowm who presents with c/o generalized weakness and instability after a recent prolonged hospital stay. He is accompanied by his daughter who assists with his history. They report he was hospitalized for PNA and ELIZABETH for two weeks ~ 1 mo ago and has been having difficulty regaining his strength since that time. His daughter reports he was barely able to sit upright for more than a few minutes when he first returned home from the hospital. He states, I took a shower this morning and it almost did me in, it just wore me out. He reports generally he is independent with all ambulation and ADLs without an AD prior to his illness. He has PMH of CKD, CAD with stent , HTN, COPD with L lung collapsed. Chief Complaint Weakness Symptoms Relieved By Rest/Positioning Symptoms Aggravated By Physical Activity Prior Functional Limitations None Current Functional Limitations Housework,Standing,Recreation Activity,Walking,Stairs, Balance Symptom Description Constant but Variable Level of pain today (0-10) 0 Balance Eval Hx of Falls Hx Falls Yes Number in last 6 months 4 Gait/Posture Asssessment General Gait Observation Decrease Stride Lngth (R), Decrease Stride Lngth (L) Timed Up and Go Test 1. Is the Timed Up and Go test result > yes or = to 12 seconds? Miscellaneous Dx PT Eval Objective Objective MMT B LE: HIP FLEX 4/5, HIP ABD 4+/5, HIP IR 4/5, HIP ER 4 /5, KNEE FLEX 5/5, KNEE EXT 5/ 5, ANKLE DF 4+/5, ANKLE PF 5/5 FTSTS: 18 sec (Increased SOA immediately after this test) TU sec Outpatient Therapy Assessment Impairments Problems/Impairmments Impaired Strength,Impaired Endurance,Impaired Walking, Impaired Standing,Impaired Shower/Bathing,Impaired Household Care,Impaired Stair Climbing,Impaired Stepping on Uneven Surface,Impaired Recreational Activities, Impaired Balance,Impaired TUG Time,Impaired Self Care/Self Management Prognosis Rehab Potential Good Comment Skilled therapy is indicated to increase B LE and core strength, decrease likelihood of falls, improve balance, and increase endurance to functional activities in order to return pt to PLOF Clinical Impression Consistent with Diagnosis Yes Short Term Goals Number of Weeks 4 Increase Strength Yes: B LE at least 4+/5 throughout Increase Endurance Yes: FTSTS in 17 sec Increase Ability to Walk Yes: at least 200 ft without rest break Patient to be Ind w/ HEP Yes Mouse Breeder Goals Number of Weeks 8 Increase Strength Yes: B LE 5/5 throughout Increase Endurance Yes: FTSTS 15 sec or less Increase Ability to Walk Yes: at least 400 ft without rest break Improve Ability For Household Care Yes Decrease TUG Time Yes: 12 sec or less Patient to be Ind w/ Advanced HEP Yes Outpatient Therapy Plan of Care Treatment Plan May Include Therapeutic Exercise Including Home Yes Exercise Program Manual Therapy Techniques Yes Neuromuscular Re-education Yes Therapeutic Activities to Return to Yes Previous Functional/Work Level Gait Training Yes ADL/Self Care Education Yes Eval/Re-Eval Yes Frequency Times per week 2 Duration Number of Weeks 8 Addendums This patient is a candidate for social No or vocational rehab? Patient/Guardian verbally acknowledges Yes understanding of treatment program and consents to further treatment? Patient/Guardian verbally acknowledges Yes understanding of diagnosis, prognosis and goals for treatment? Eval Complexity PT Charges 26994 - High Complexity Shoulder/Elbow Eval Shoulder Objective Measurements Elbow Objective Measurements PHYSICIAN CERTIFICATION: I certify the specified therapy services for Ross Mack are required, authorized, and reviewed every 30 days.
== END 2024-10-16 23:59 | disposition home or self-care (01) ==
LOC: PT 11:00
PROVIDERS: Visit Provider Internal Medicine Adolescent Medicine
DX: R53.81 Other malaise (principal); I10 Essential (primary) hypertension
CPT/HCPCS: 97110; 97112; 97163; 97530

== ENCOUNTER 2024-11-02 08:54 | Outpatient (RCR) | payer MEDICARE, SELFPAY ==
--- NOTE | 2024-11-02 09:09 | HMH.RHREAS ---
Rehab Reassessment Rehab OP Re-assessment Start: 11/02/24 08:58 Freq: Status: Active Protocol: Document 11/02/24 09:03 PETE (Rec: 11/02/24 09:09 [email or web address] [id number]) E-signed By Marty Nettles, PT Rehab Re-assessment Subjective Subjective Pt reports no episodes of falling over the past month. He feels his ambulation has improved, but he remains fatigued with most activities at home, especially ambulation . Objective Objective Notes B LE MMT: HIP FLEX 4+/5, HIP ABD 4+/5, HIP ER 4+/5, KNEE FLEX 5/5, KNEE EXT 5/5, ANKLE DF 5/5, ANKLE PF 5/5. TU sec FTSTS: 16 sec Endurance: Pt continues to require frequent rest periods during activity, but recovery time needed is improved. Ambulating ~ 250 ft without rest breaks at this time. Assessment Progress Assessment Progressing as Expected Assessment Notes Pt has shown some improvements in strength throughout B LE, endurance to ADLs, and increased step height during gait on level surfaces. He continues to need further strengthening and endurance with ambulation for longer distances and standing for longer periods of time in order to return to PLOF. Patient goals met ST/4 LT/6 Plan Plan Continue per initial POC. Frequency of Therapy 2 x/wk Duration of therapy 4 wks Time and Billing Re-Eval Time 11 Re-Eval Billing Units 0 Charge for PT reassessment? No PHYSICIAN CERTIFICATION: I certify the specified therapy services for Ross Mack are required, authorized, and reviewed every 30 days.
== END 2024-11-02 23:59 | disposition home or self-care (01) ==
LOC: PT 08:54
PROVIDERS: Visit Provider Nurse Practitioner Family
DX: M25.562 Pain in left knee (principal)
CPT/HCPCS: 97110; 97112; 97530

== ENCOUNTER 2025-02-19 11:12 | Outpatient (CLI) | payer MEDICARE, SELFPAY ==
[2025-02-19 11:24] LABS: Microscopic, Urine URINE MICROSCOPIC (MICROSCOPIC)
[2025-02-19 11:35] LABS: Appearance,Urine CLEAR (Clear); Bilirubin,Urine Negative (Negative); Blood, Urine Negative (Negative); Color,Urine YELLOW (Yellow); Glucose,Urine (UA) Negative (Negative); Ketones,Urine Negative (Negative); Leukocyte Esterase,Urine Negative (Negative); Nitrate,Urine Negative (Negative); Protein,Urine 1+ (Negative); Specific Gravity, Urine 1.025 (1.005-1.030); Urobilinogen,Urine 0.2 EU/dl (0.2)
[2025-02-19 11:43] LABS: Bacteria,Urine Trace /lpf; Fine Granular Casts,Urine Occasional #/lpf (0); Squamous Epithelial Cell,Urine Occasional #/hpf (0-5); WBC,Urine Occasional #/hpf (0-3)
[2025-02-19 11:48] LABS: Creatinine,Urine Random 126 mg/dL (Not Estab.)
[2025-02-19 11:58] LABS: Hematocrit 41.1 % (42.0-52.0); Hemoglobin 12.4 g/dL (14.1-18.0); Mean Corpuscular HGB Conc 30.2 g/dL (31.8-35.4); Mean Corpuscular Hemoglobin 26.2 pg (27.0-31.2); Mean Corpuscular Volume 86.9 fl (80-94); Nucleated Red Blood Cells # 0 10^3/uL; Nucleated Red Blood Cells % 0 %; Platelet Count 341 K/mm3 (142-424); Red Blood Count 4.73 M/mm3 (4.60-6.20); Red Cell Distribution Width 16.5 % (11.5-17.5); Red Cell Distribution Width-SD 51.8 fL; White Blood Count 8.3 K/mm3 (4.8-10.8)
[2025-02-19 12:13] LABS: Hemoglobin A1C 5.6 % (4.0-6.0)
[2025-02-19 12:34] LABS: Alanine Aminotransferase 15 U/L (12-78); Albumin Level 3.8 g/dl (3.5-5.0); Albumin/Globulin Ratio 1.3 (1.1-1.8); Alkaline Phosphatase 103 U/L (38-126); Anion Gap 9.6 mEq/L (5-15); Aspartate Amino Transferase 22 U/L (17-59); Bilirubin,Total 0.6 mg/dl (0.2-1.3); Blood Urea Nitrogen 18 mg/dl (9-20); Calcium 9.2 mg/dl (8.4-10.2); Carbon Dioxide 32 mmol/L (22.0-30.0); Chloride 102 mmol/L (98-107); Estimated Glomerular Filt Rate 49 ml/min (>60); GFR (African American) 59 ML/MIN (>60); Glucose 125 mg/dl (74-100); Potassium 4.6 mmoL/L (3.5-5.1); Sodium 139 mmol/L (136-145); Total Protein,Serum 6.8 g/dl (6.3-8.2); Uric Acid 6.5 mg/dl (3.5-8.5)
[2025-02-19 12:46] LABS: Intact Parathyroid Hormone 73.8 pg/mL (7.5-53.5)
[2025-02-19 12:51] LABS: 25-OH Vitamin D, Total 50.1 ng/mL (30-100)
== END 2025-02-19 23:59 | disposition home or self-care (01) ==
PROVIDERS: PCP Internal Medicine Adolescent Medicine; Visit Provider Internal Medicine Nephrology
DX: N18.4 Chronic kidney disease, stage 4 (severe) (principal); I25.10 Atherosclerotic heart disease of native coronary artery without angina pectoris; J96.00 Acute respiratory failure, unspecified whether with hypoxia or hypercapnia; J44.9 Chronic obstructive pulmonary disease, unspecified; N17.9 Acute kidney failure, unspecified
CPT/HCPCS: 36415; 80053; 81001; 82306; 82570; 83036; 83970; 84156; 84550; 85027

== ENCOUNTER 2025-03-05 14:10 | Inpatient (IN) | payer MEDICARE, SELFPAY ==
[2025-03-05] VITALS (17 sets, daily range): BP systolic 125–187; BP diastolic 60–110; PULSE 83–123; RESP 14–30; TEMP 36.2–36.4; O2SAT 77–98; BMI 20.2
--- NOTE | 2025-03-05 14:18 | ECG_ITS ---
APPROVED REPORT Exam: Resting ECG HR:123 bpm ECG Measurements Heart Rate 123 AXES QRSd 156 QRS 12 QT 325 T 89 QTc 398 Conclusion ATRIAL FLUTTER/TACHYCARDIA WITH RAPID VENTRICULAR RESPONSE LEFT BUNDLE BRANCH BLOCK [120+ ms QRS DURATION, 80+ ms Q/S IN V1/V2, 85+ ms R IN I/aVL/V5/V6] ABNORMAL ECG UNCONFIRMED REPORT Electronically signed by : MAYURI VARGAS, 03/07/2025 01:16:57
--- OUTSIDE RECORDS SUMMARY | 2025-03-05 14:20 | XMS_ITS | Clinical Summary ---
Author Organization Healthcare Address [address] [id number] Care Team Providers Care Chief Of Vital Statistics Name Role Phone Cayden Munoz MD Primary Care Provider [phone] Family History Medical History Relation Name Comments Aneurysm Father Hypertension Father Throat cancer Sister Relation Name Status Comments Father Sister Social History Tobacco Use Types Packs/Day Years Used Date Smoking Tobacco: Former Alcohol Use Standard Drinks/Week Comments Yes 0 (1 standard drink = 0.6 oz pure alcohol) Alcoholic Drinks/day: Alcohol drinking problem Sex and Gender Information Value Date Recorded Sex Assigned at Not on file Legal Sex Male 6:53 PM EDT Gender Identity Not on file Sexual Orientation Not on file Last Filed Vital Signs Vital Sign Reading Time Taken Comments Blood Pressure 135/64 08/21/2024 9:56 AM EST Pulse 80 08/21/2024 9:56 AM EST Temperature 36.9 C (98.5 F) 08/21/2024 9:56 AM EST Respiratory Rate 20 08/21/2024 9:56 AM EST Oxygen Saturation 99% 08/21/2024 9:56 AM EST 2L/NC Inhaled Oxygen Concentration - - Weight 66.4 kg (146 lb 6.2 oz) 08/22/2018 3:16 P M EST Height 177.8 cm (5' 10 ) 08/22/2018 3:16 PM EST Body Mass Index 21 08/22/2018 3:16 PM EST Plan of Treatment Health Maintenance Due Date Last Done Comments [facility]-Depression Screening 1942 [facility]-/Child/Adol SDOH Screenings 1942 [facility]- SDOH Screenings 1960 [facility]-Adult SDOH Screenings 1960 [facility]-DTaP,Tdap,and Td Vaccines (1 - Tdap) 1961 [facility]-Zoster Vaccines (1 of 2) 1992 [facility]-RSV Vaccine: 60+ Years or (1 - 1-dose 75+ series) 2017 [id number] Vaccine ( season) 2024 11/06/2021, 05/27/2021, 12/03/2020, Additional history exists [facility]-Influenza Vaccine (Season Ended) 2025 07/14/2022, 06/08/2021, 07/17/2020, Additional history exists [facility]-Pneumococcal Vaccine: 50+ Years Completed 06/29/2019, 05/22/2018, 10/27/2017 HPV Vaccines Aged Out No longer eligi ble based on patient's age to complete this topic [facility]-HIB Vaccines Aged Out No longer e ligible based on patient's age to complete this topic [facility]-Hepatitis A Vaccines Aged Out No longer eligible based on patient's age to complete this topic [facility]-IPV Vaccines Aged Out No longer e ligible based on patient's age to complete this topic [facility]-Rotavirus Vaccines Aged Out No lo nger eligible based on patient's age to complete this topic Care Teams Chief Of Vital Statistics Relationship Specialty Start Date End Date Cayden Munoz MD [address] [place] [address] PCP - General 02/06/21
--- OUTSIDE RECORDS SUMMARY | 2025-03-05 14:20 | XMS_ITS | Clinical Summary ---
Author Organization [facility] Address [address] [facility] [address] [place] [address] Phone Care Team Providers Care Locomotive Engineer Diesel Name Role Phone Unavailable Unavailable Conditions or Problems No information available. Medications No information available. Medications Administered No information available. Allergies, Adverse Reactions, Alerts No information available. Results No information available. Plan of Care No information available. Procedures No information available. Vital Signs No information available. Immunizations No information available. Advance Directives No information available.
--- OUTSIDE RECORDS SUMMARY | 2025-03-05 14:20 | XMS_ITS | Referral Summary ---
Author Organization [email or web address] Address [address] [place] [address] Care Team Providers Care Supervisor Screen Printing Name Role Phone Cayden Munoz MD Primary Care Provider + [phone] Allergies Active Allergy Reactions Criticality Noted Date Comments Cephalexin 08/21/2024 Penicillin 08/21/2024 Medications pantoprazole (PROTONIX) 40 MG tablet Take 1 tablet (40 mg total) by mouth Daily (0600). Active aspirin 81 MG chewable tablet Take 1 tablet (81 mg total) by mouth daily. Active magnesium oxide (MAG-OX) 400 mg tablet Take 1 tablet (400 mg total) by mouth 2 (two) times daily. Active guaiFENesin (mucINEX) 600 mg 12 hr tablet Take 1 tablet (600 mg total) by mouth 2 (two) times daily. Active Saccharomyces boulardii (FLORASTOR) 250 mg capsule Take 1 capsule (250 mg total) by mouth 2 (two) times daily. Active buPROPion XL (WELLBUTRIN XL) 150 MG 24 hr tablet Take 1 tablet (150 mg total) by mouth daily. Active carvediloL (COREG) 25 MG tablet Take 1 tablet (25 mg total) by mouth 2 (two) times daily with breakfast and dinner. Active rosuvastatin (CRESTOR) 10 MG tablet Take 1 tablet (10 mg total) by mouth nightly. Active arformoteroL (BROVANA) 15 mcg/2 mL nebu nebulizer solution USE 1 VIAL IN NEBULIZER TWICE DAILY FOR 30 DAYS Active ipratropium-alb uteroL (DUO-NEB) 0.5 mg-3 mg(2.5 mg base)/3 mL nebulizer solution Take 3 mLs by nebulization every 6 (six) hours as needed for wheezing. Active fluticasone-ume clidin-vilanter (Trelegy Ellipta) 100-62.5-25 mcg dsdv Inhale by mouth via inhaler. Active budesonide (PULMICORT) 0.5 mg/2 mL nebulizer solution Take 2 mLs (0.5 mg total) by nebulization 2 (two) times daily for 210 days. 120 mL 6 4 04/04/20 Active Additional Information Patient not taking.Reported on 10/08/2024 budesonide-form oteroL (Symbicort) 160-4.5 mcg/actuation inhalerIndicati ons:Chronic obstructive pulmonary disease, unspecified COPD type (HCC) Inhale 2 puffs by mouth via inhaler 2 (two) times daily. 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 Gender Identity Not on file Sexual Orientation Not on file Last Filed Vital Signs Vital Sign Reading Time Taken Comments Blood Pressure 112/61 10/08/2024 2:46 PM EST Pulse 94 10/08/2024 2:46 PM EST Temperature 37.4 C (99.3 F) 10/08/2024 2:46 PM EST Respiratory Rate 20 10/08/2024 2:46 PM EST Oxygen Saturation 95% 10/08/2024 2:46 PM EST Inhaled Oxygen Concentration 2% 08/21/2024 6 :30 PM EST Weight 63.5 kg (140 lb) 10/08/2024 2:46 PM EST Height 177.8 cm (5' 10 ) 10/08/2024 2:46 PM EST Body Mass Index 20.09 10/08/2024 2:46 PM EST Plan of Treatment Not on file Insurance [employer] MCR SUPP [employer] MEDICARE PPO Advance Directives For more information, please contact: [phone] * Full Code (Latest Code Status on File) Date Activated Date Inactivated Comments 08/21/2024 4:40 PM 08/29/2024 7:24 PM Care Teams Supervisor Screen Printing Relationship Specialty Start Date End Date Cayden Munoz MD [address] [place] [address] PCP - General Adolescent Medicine 08/28/24
--- OUTSIDE RECORDS SUMMARY | 2025-03-05 14:20 | XMS_ITS | Clinical Summary ---
Author Organization [facility] Address [address] [place] [address] Care Team Providers Care Stock Grader Name Role Phone Cayden Munoz MD Primary Care Provider + [phone] Allergies Active Allergy Reactions Criticality Noted Date [...] Empyema 08/21/2024 PNA (pneumonia) 08/21/2024 Pneumonia 08/21/2024 Family History Medical History Relation Name Comments Aneurysm Father Cancer Sister Relation Name Status Comments Father Sister [...] on file Legal Sex Male 11:58 AM CUSTOMER LIAISON Gender Identity Not on file Sexual Orientation [...] 10/08/2024 2:46 PM EST Plan of Treatment Health Maintenance Due Date Last Done Comments Depression Screening (12+) 1954 DTAP/TDAP/TD VACCINES (1 - Tdap) 1961 Respiratory Syncytial Virus (RSV) Adult or (1 - 1-dose 75+ series) 2017 Medicare Initial AWV [id number] 03/27/2024 COVID-19 VACCINE (5 - 2023-2 5 season) 2024 11/06/2021, 05/27/2021, 12/03/2020, Additional history exists Shingles Vaccine (Zoster) (2 of 2) 07/12/20242023 Falls Risk Screening 09/26/2024 Influenza Vaccine (Season Ended) 2025 Tobacco Cessation Counseling and Screening (12+) 10/08/2025 10/08/2024 Pneumococcal 50+ years Completed , 06/29/2019, 05/22/2018, Additional history exists Insurance [facility] [employer] MEDICARE PPO Advance Directives For more information, please contact: [phone] * Full Code (Latest Code Status on File) Date Activated Date Inactivated Comments 08/21/2024 4:40 PM 08/29/2024 7:24 PM Care Teams Stock Grader Relationship Specialty Start Date End Date Cayden Munoz MD [address] [place] [address] PCP - General Adolescent Medicine 08/28/24
--- NOTE | 2025-03-05 14:22 | XR_ITS ---
FINAL REPORT CLINICAL HISTORY: wheezing, SOA FINDINGS: 2 views of the chest were obtained . The heart is mildly enlarged. The mediastinum is within normal limits. Dense left base airspace opacity is seen. Right lung is clear. There is no pneumothorax. Osseous structures are unremarkable. IMPRESSION: Left lower lobe pneumonia. Reviewed, Interpreted and Dictated by Santos Espinosa MD Transcribed by Brittany James Authenticated and [facility]
[2025-03-05] MEDS: IPRATROPIUM/ALBUTEROL 3 ML NEB 9 ML IH ×2 (14:35→17:20)
--- NOTE | 2025-03-05 14:44 | PC.NURSE ---
patient given ice water at this time.
[2025-03-05 15:05] LABS: Basophils % 0.4 % (0.1-2.0); Eosinophils # 0.2 Kmm3 (0.0-0.4); Eosinophils % 1.6 % (0.1-12.0); Hematocrit 42.2 % (42.0-52.0); Hemoglobin 12.4 g/dL (14.1-18.0); Immature Granulocytes # 0.03 10^3uL; Immature Granulocytes % 0.3 %; Lymphocytes # 1.6 K/mm3 (0.7-4.5); Mean Corpuscular HGB Conc 29.4 g/dL (31.8-35.4); Mean Corpuscular Hemoglobin 26.1 pg (27.0-31.2); Mean Corpuscular Volume 88.7 fl (80-94); Mean Platelet Volume 9.7 fl (7.4-10.4); Monocytes # 0.4 K/mm3 (0.1-1.0); Monocytes % 3.9 % (1.7-9.3); Neutrophils # 7.2 K/mm3 (1.8-7.8); Neutrophils % 76.8 % (37.0-80.0); Nucleated Red Blood Cells # 0 10^3/uL; Nucleated Red Blood Cells % 0 %; Platelet Count 322 K/mm3 (142-424); Red Blood Count 4.76 M/mm3 (4.60-6.20); Red Cell Distribution Width 16.3 % (11.5-17.5); Red Cell Distribution Width-SD 53.2 fL; White Blood Count 9.3 K/mm3 (4.8-10.8)
--- NOTE | 2025-03-05 15:08 | ED_ITS ---
<Statement entered by Roger Enriquez MD - 03/27/25 17:24> Patient ultimately having improving venous blood gas after appropriately fitting BiPAP. Medical ICU here consulted and agrees to accept. I was consulted by the ROSSY, and we discussed the complexity of problems being addressed. I approved the treatment and management plan for this patient's care in the emergency department, thus performing a substantial portion of the medical decision making. Roger Enriquez MD Discharge Plan Disposition Patient Disposition: Admitted Clinical Impressions Clinical Impression: Respiratory failure Discharge ED Provider: Tevin Lucio HPI <Sarah Squires (ED), [employer] - Last Filed: 03/05/25 21:52> General Chief Complaint: Shortness of Breath/Dyspnea Stated Complaint: SOA Time Seen by Provider: 03/05/25 14:13 Mode of Arrival: Wheelchair Source of Information: Patient and Relative Description of Symptoms (Recalled from ER Triage Doc. by RN): pt has become increasingly short of air over the last 24 hrs. has COPD. Smokes and drinks daily. i put the pt on 4lnc. he was 80% on his home o2 @ 2lnc History of Present Illness HPI narrative: This is a 84-year-old male who presents to the ED today for increasing shortness of air that started today and has been increasing as he goes through today. He showed up today to the ED on 2 L nasal cannula and was in the 70s we increased his oxygen to 4 L and he rebounded to 91%. Patient is a daily drinker and smokes 4 to 5 packs of cigarettes a day. He does tell me that last time this happened to him he did have to have a stent in his heart. He has no chest pain at this time. He is wheezing quite a bit. He tells me that he has had 2/5 of whiskey since Tuesday night. Related Data Home Medications ?Medication ?Instructions ?Recorded ?Confirmed aspirin 81 mg tablet,delayed 81 mg PO DAILY 10/24/17 0 03/05/25 release ascorbic acid (vitamin C) 500 mg 500 mg PO DAILY 03/0503/05/25 tablet (Vitamin C) cholecalciferol (vitamin D3) 25 25 mcg PO DAILY 03/05/25 mcg (1,000 unit) capsule (Vitamin D3) ferrous sulfate 325 mg (65 mg 325 mg PO DAILY 03/05/25 03/06/25 iron) tablet (Iron (ferrous sulfate)) guaifenesin 600 mg tablet, 600 mg PO BID 03/05/2502/24 extended release 12 hr (Mucinex) albuterol sulfate 90 mcg/actuation 2 puff inhalation Q 4HP PRN 03/06/25 03/06/25 aerosol inhaler Shortness Of Breath magnesium oxide 400 mg (241.3 mg 400 mg PO BID 5 03/06/25 magnesium) tablet pantoprazole 40 mg tablet,delayed 40 mg PO DAILY 03/0603/06/25 release rosuvastatin 10 mg tablet 10 mg PO DAILY 03/06/2502/24 Previous Rx's ?Medication ?Instructions ?Recorded tamsulosin 0.4 mg capsule (Flomax) 0.4 mg PO DAILY 7 d ays #7 caps 11/06/23 Allergies Allergy/AdvReac Type Severity Reaction Status Date / Time Penicillins Allergy Intermediate I-HIVES Verified 04/05/24 14:55 [facility] <Saarh Squires (ED), [employer] - Last Filed: 03/05/25 21:52> [facility] Disclaimer: The information contained in this section may have been updated after the patient was seen, as this information can be updated by other users. Medical History Lung collapse Loculated pleural effusion Acute on chronic respiratory failure with hypoxia and hypercapnia On home O2 Smoker Alcohol abuse COPD (chronic obstructive pulmonary disease) Coronary artery disease Acute exacerbation of chronic obstructive airways disease Social History Smoking Status: Current every day smoker tobacco type: pipe second hand exposure: No alcohol intake: current alcohol intake frequency: 0-2 drinks per day substance use type: denies use current occupational status: retired Travel in the last 8 weeks?: None household members: other housing: house current occupational exposures/hazards: No caffeine: No Have you lived/traveled outside [place] in past 30 days?: No Contact w/someone who lives/traveled outside US past 30 days?: No Exposure to someone with infectious disease in past 14 days?: No Do you have a fever (greater than 100.4 F or 38 C)?: No Have you tested positive for COVID-19?: No Exposed to someone with COVID-19 in past 14 days?: No Do you have a sore throat?: No Do you have a cough?: No Do you have any weakness?: No Do you have any diarrhea?: No Are you experiencing any unusual bleeding?: No Do you have any muscle aches/pain?: No Do you have any abdominal pain?: No Are you experiencing loss of taste or smell?: No Other Medical History Have you received the Flu Vaccine for this season: No Have you received the Pneumonia Vaccine: Yes <Sarah Squires (ED), [employer] - Last Filed: 03/05/25 21:52> ROS Obtained: Yes Systems reviewed as appropriate & no additional complaints except as documented Constitutional Constitutional: Reports as per HPI Physical Exam <Sarah Squires (ED), [employer] - Last Filed: 03/05/25 21:52> General General appearance: alert, anxious and in distress Head Head exam: normocephalic Eye Eye exam: Present PERRL and EOMI ENT ENT exam: Present normal oropharynx and mucous membranes moist Neck Neck exam: Present normal inspection, full ROM and trachea midline Respiratory Respiratory exam: Present respiratory distress, wheezes and accessory muscle use Cardiovascular Cardiovascular exam: Present normal rhythm, tachycardia, normal heart sounds, +S1 and +S2 Abdominal Exam Abdominal exam: Present soft and normal bowel sounds Extremities Exam Extremities exam: Present full ROM and normal capillary refill Neurological Exam Neurological exam: Present alert, oriented X3 and normal gait Skin Skin exam: Present warm, dry and intact HEART Score <Sarah Squires (ED), [employer] - Last Filed: 03/05/25 21:52> HEART Score HEART Score assessment performed?: Yes History (anamnesis): Highly suspicious ECG: Non-specific disturbance Age: >65 years Risk factors: Atherosclerosis history Troponin: > 3x normal limit HEART Score: 9 <Tevin Lucio MD - Last Filed: 03/06/25 21:33> HEART Score HEART Score: 9 Critical Care <Sarah Squires (ED), [employer] - Last Filed: 03/05/25 21:52> Critical Care Time Critical Care Time: No Medical Decision Making <Sarah Squires (ED), [employer] - Last Filed: 03/05/25 21:52> Medical Records Medical records reviewed: Yes I reviewed the patient's medical records. Hoang Inquiry Pt receiving controlled substance: No Hoang was queried for this patient: No Vital Signs Vital Signs: 03/05/25 14:26 03/05/25 14:30 03/05/25 15:00 Temperature 97.1 F L Temperature Source Oral Pulse Rate 110 H 105 H Pulse Rate [Right] 123 H Respiratory Rate 30 H 28 H 26 H Blood Pressure 160/90 H 141/82 H Blood Pressure [Right Arm] 187/110 H Blood Pressure Mean 118 103 Blood Pressure Mean [Right Arm] 135 Blood Pressure Position 02 Sat by Pulse Oximetry 77 L 96 96 Oxygen Delivery Method Nasal Cannula Nasal Cannula Nasal Cannula Oxygen Flow Rate (LPM) 2 2 2 Fraction of Inspired Oxygen 03/05/25 15:39 03/05/25 15:39 03/05/25 16:00 Temperature Temperature Source Pulse Rate 104 H 91 H Pulse Rate [Right] Respiratory Rate 23 22 Blood Pressure 142/88 H 139/87 Blood Pressure [Right Arm] Blood Pressure Mean 105 96 Blood Pressure Mean [Right Arm] Blood Pressure Position 02 Sat by Pulse Oximetry 98 97 Oxygen Delivery Method BiPAP BiPAP Oxygen Flow Rate (LPM) Fraction of Inspired Oxygen 30 03/05/25 16:30 03/05/25 17:40 03/05/25 18:49 Temperature Temperature Source Pulse Rate 99 H 103 H 109 H Pulse Rate [Right] Respiratory Rate 22 25 H Blood Pressure 135/82 156/75 H Blood Pressure [Right Arm] Blood Pressure Mean 87 102 Blood Pressure Mean [Right Arm] Blood Pressure Position 02 Sat by Pulse Oximetry 97 94 L Oxygen Delivery Method BiPAP BiPAP Oxygen Flow Rate (LPM) Fraction of Inspired Oxygen 03/05/25 19:50 03/05/25 19:52 03/05/25 20:08 Temperature 97.5 F L Temperature Source Axillary Pulse Rate 104 H 103 H Pulse Rate [Right] Respiratory Rate 22 Blood Pressure 125/68 Blood Pressure [Right Arm] Blood Pressure Mean Blood Pressure Mean [Right Arm] Blood Pressure Position Sitting 02 Sat by Pulse Oximetry Oxygen Delivery Method BiPAP Oxygen Flow Rate (LPM) Fraction of Inspired Oxygen 03/05/25 20:17 Temperature Temperature Source Pulse Rate Pulse Rate [Right] Respiratory Rate Blood Pressure Blood Pressure [Right Arm] Blood Pressure Mean Blood Pressure Mean [Right Arm] Blood Pressure Position 02 Sat by Pulse Oximetry 94 L Oxygen Delivery Method BiPAP Oxygen Flow Rate (LPM) Fraction of Inspired Oxygen Lab Data Labs: Lab Results 03/05/25 14:57: WBC 9.3, RBC 4.76, Hgb 12.4 L, Hct 42.2, MCV 88.7, MCH 26.1 L, M CHC 29.4 L, RDW 16.3, Plt Count 322, MPV 9.7, Neut % (Auto) 76.8, Lymph % (Auto) 17.0, [place] % (Auto) 3.9, Eos % (Auto) 1.6, Baso % (Auto) 0.4, Neut # (Auto) 7.2, Lymph # (Auto) 1.6, [place] # (Auto) 0.4, Eos # (Auto) 0.2, Baso # (Auto) 0.0, ESR 31 H, PT 10.8, INR 0.97, APTT 27.5, D-Dimer 2.03 H, VBG pH 7.23 L, VBG pCO2 60.1 H, VBG pO2 67.5 H, VBG HCO3 24.6, VBG Total CO2 26.4, VBG O2 Saturation 90.6 H, VBG Base Excess -2.9 L, VBG Lactic Acid 5.3 H, Sodium 138, Potassium 4.6, Chloride 103, Carbon Dioxide 26, Anion Gap 13.6, BUN 24 H, Creatinine 1.30 H, Estimated Creat Clear 39, Estimated GFR 53 L, Est GFR ( Amer) 64, Glucose 56 L, Lactate 3.6 H, Calcium 9.3, Magnesium 2.0, Total Bilirubin 1.1, AST 84 H, ALT 47, Alkaline Phosphatase 146 H, Troponin I 0.04 H, C-Reactive Protein 11.6 H , NT-Pro-B Natriuret Pep 692 H, Total Protein 7.5, Albumin 3.9, Globulin 3.6 H, Albumin/Globulin Ratio 1.1, Lipase 41, Plasma/Serum Alcohol 12 H, HCV Ab MILAGROS w/Rflx PCR Qn Negative, HIV Ag/Ab Combo Qual Negative 03/05/25 16:20: Urine Color Yellow, Urine Appearance Clear, Urine pH 6.0, Ur Specific [place] 1.019, Urine Protein 2+ A, Urine Glucose (UA) Negative, Urine Ketones 1+, Urine Blood 2+ A, Urine Nitrate Negative, Urine Bilirubin Negative, Urine Urobilinogen 0.2, Ur Leukocyte Esterase Negative, Urine RBC 50-100, Urine WBC 3-5, Ur Squamous Epith Cells 5-10, Urine Bacteria 2+, Hyaline Casts 3-5, Urine Mucus 1+ 03/05/25 16:33: Chlamy pneumoniae PCR Not detected, Adenovirus (PCR) Not detected, B. pertussis DNA (PCR) Not detected, Coronavirus OC43 (PCR) Not detected, Coronavirus HKU1 (PCR) Not detected, Coronavirus 229E (PCR) Not detected, SARS-CoV-2 (PCR) Not detected, Coronavirus NL63 (PCR) Not detected, Human Metapneumovir PCR Not detected, Influenza A (H1) PCR Not detected, Influ A (H1N1/09) PCR Not detected, Influenza A (H3) PCR Not detected, Influenza Type A (PCR) Not detected, Influenza Type B (PCR) Not detected, M. pneumoniae (PCR) Not detected, Parainfluenza 1 (PCR) Not detected, Parainfluenza 2 (PCR) Not detected, Parainfluenza 3 (PCR) Not detected, Parainfluenza 4 (PCR) Not detected, RSV (PCR) Not detected, Entero/Rhino (PCR) Not detected 03/05/25 17:00: VBG pH 7.16 L, VBG pCO2 66.3 H, VBG pO2 36.0, VBG HCO3 23.3, VBG Total CO2 25.4, VBG O2 Saturation 55.3, VBG Base Excess -5.3 L, VBG Lactic Acid 3.9 H 03/05/25 17:30: Troponin I 0.11 H 03/05/25 18:29: VBG pH 7.20 L, VBG pCO2 60.0 H, VBG pO2 48.8 H, VBG HCO3 23.1, VBG Total CO2 25.0, VBG O2 Saturation 76.7 H, VBG Base Excess -4.8 L, VBG Lactic Acid 3.4 H 03/05/25 19:23: Lactate 2.3 H 03/06/25 05:10 03/06/25 05:10 Response Orders (Tests/Meds): ED MEDICATIONS Generic Name Dose Route Start Last Admin Trade Name Freq PRN Reason Stop Dose Admin Acetaminophen 650 mg 03/05/25 19:21 Acetaminophen 325mg Tab PO 04/04/25 19:20 Q4HP PRN Fever or Mild Pain (1-3) Albuterol/Ipratropium 3 ml 03/06/25 11:01 03/06/25 20:02 Ipratropium/Albuterol 3 Ml [facility] 04/05/25 11:00 3 ml Q6HP PRN Administration Shortness Of Breath Aspirin 81 mg 03/06/25 09:00 03/06/25 09:22 Aspirin Ec 81mg Tablet PO 04/05/25 08:59 81 mg DAILY SEBASTIÁN Administration Atorvastatin Calcium 40 mg 03/06/25 21:00 03/06/25 20:43 Atorvastatin 40mg Tablet PO 04/05/25 20:59 40 mg HS SEBASTIÁN Administration Budesonide 0.5 mg 03/06/25 13:00 03/06/25 20:02 Budesonide 0.5mg/2ml [facility] 04/05/25 12:59 0.5 mg Q8 SEBASTIÁN Administration Carvedilol 6.25 mg 03/06/25 09:00 03/06/25 20:42 Carvedilol 6.25mg Tablet PO 04/05/25 08:59 6.25 mg BID SEBASTIÁN Administration Ferrous Sulfate 325 mg 03/06/25 09:00 03/06/25 09:22 Ferrous Sulfate 325mg Tablet PO 04/05/25 08:59 325 mg DAILY SEBASTIÁN Administration Guaifenesin 600 mg 03/06/25 21:00 03/06/25 20:42 Guaifenesin 600 Mg Tab.Er.12h PO 04/05/25 20:59 600 mg BID SEBASTIÁN Administration Cefepime HCl 2 gm/ Sodium 100 mls @ 200 mls/hr 03/06/25 18:00 03/06/25 17:06 Chloride IV 03/16/25 17:59 200 mls/hr Q12H SEBASTIÁN Administration Vancomycin HCl 1,000 mg/ 250 mls @ 125 mls/hr 03/06/25 18:00 03/06/25 17:45 Sodium Chloride IV 03/16/25 17:59 125 mls/hr Q24H SEBASTIÁN Administration Nicotine 14 mg 03/06/25 09:00 03/06/25 09:22 Nicotine 14mg/24hrs Patch TD 04/05/25 08:59 14 mg DAILY SEBASTIÁN Administration Pantoprazole Sodium 40 mg 03/06/25 21:00 03/06/25 20:43 Pantoprazole 40mg Tablet PO 04/05/25 20:59 40 mg HS SEBASTIÁN Administration Sodium Chloride 10 ml 03/06/25 07:26 Sodium Chloride 0.9% 10ml Flush Syringe IV 04/05/25 07:25 NEEDED PRN Maintain IV Site Tamsulosin HCl 0.4 mg 03/06/25 21:00 03/06/25 20:42 Tamsulosin 0.4mg Capsule PO 04/05/25 20:59 0.4 mg HS SEBASTIÁN Administration Discontinued Medications Generic Name Dose Route Start Last Admin Trade Name Freq PRN Reason Stop Dose Admin Albuterol/Ipratropium 9 ml 03/05/25 14:22 03/05/25 14:35 Ipratropium/Albuterol 3 Ml [facility] 03/05/25 14:23 9 ml ONCE ONE Administration Albuterol/Ipratropium 9 ml 03/05/25 17:21 03/05/25 17:20 Ipratropium/Albuterol 3 Ml [facility] 03/05/25 17:22 9 ml ONCE ONE Administration Albuterol/Ipratropium 3 ml 03/05/25 22:00 03/06/25 09:32 Ipratropium/Albuterol 3 Ml [facility] 04/04/25 21:59 3 ml Q4RT SEBASTIÁN Administration Budesonide 0.5 mg 03/06/25 06:00 03/06/25 06:40 Budesonide 0.5mg/2ml [facility] 04/05/25 05:59 0.5 mg BIDRT SEBASTIÁN Administration Famotidine 20 mg 03/05/25 14:22 03/05/25 15:10 Famotidine 20mg/2ml Vial IV 03/05/25 14:23 20 mg ONCE ONE Administration Guaifenesin 600 mg 03/06/25 06:30 03/06/25 06:51 Guaifenesin 600 Mg Tab.Er.12h PO 04/05/25 06:29 600 mg Q12H SEBASTIÁN Administration Guaifenesin 600 mg 03/06/25 07:03 Guaifenesin 600 Mg Tab.Er.12h PO 04/05/25 06:29 BID SEBASTIÁN Magnesium Sulfate 2 gm in 50 mls @ 50 mls/hr 03/05/25 14:22 03/05/25 15:10 Magnesium Sulfate 2gm/50ml Premix IV 03/05/25 15:21 50 mls/hr ONCE ONE Administration Azithromycin 500 mg/ Sodium 250 mls @ 250 mls/hr 03/05/25 15:30 03/06/25 16:02 Chloride IV 03/15/25 15:29 250 mls/hr Q24H SEBASTIÁN Administration Ceftriaxone Sodium 1 gm/ 50 mls @ 100 mls/hr 03/05/25 15:30 03/05/25 16:35 Sodium Chloride IV 03/15/25 15:29 100 mls/hr Q24H SEBASTIÁN Administration Sodium Chloride 500 mls @ 500 mls/hr 03/05/25 15:24 03/05/25 16:03 Sod Chloride 0.9% 500ml Bag IV 03/05/25 16:23 Not Given .Q1H SEBASTIÁN Sodium Chloride 1,000 mls @ 500 mls/hr 03/05/25 16:00 03/05/25 23:26 Sod Chlor 0.9% 1000ml Bag IV 04/04/25 15:59 Not Given .Q2H SEBASTIÁN Metronidazole 500 mg in 100 mls @ 100 mls/hr 03/05/25 17:06 03/05/25 17:34 Flagyl 500mg/100ml Ivpb IV 03/05/25 18:05 100 mls/hr ONCE ONE Administration Vancomycin/PEG/NADA/Lysine/Water 1.25 gm in 250 mls @ 125 mls/hr 03/05/25 17:15 03/05/25 18:18 Vancomycin 1.25gm/250ml (Peg) Premix IV 03/05/25 19:14 125 mls/hr ONCE ONE Administration Cefepime HCl 2 gm/ Sodium 100 mls @ 200 mls/hr 03/05/25 21:00 03/06/25 05:44 Chloride IV 03/15/25 20:59 200 mls/hr Q8H SEBASTIÁN Administration Levofloxacin/Dextrose 750 mg in 150 mls @ 100 mls/hr 03/06/25 06:30 03/06/25 06:48 Levofloxacin 750mg/150ml Premix IV 03/16/25 06:29 100 mls/hr Q24H SEBASTIÁN Administration Levofloxacin/Dextrose 750 mg in 150 mls @ 100 mls/hr 03/06/25 07:05 03/06/25 08:04 Levofloxacin 750mg/150ml Premix IV 03/16/25 06:29 Not Given Q48H [facility] Iopamidol 70 ml 03/05/25 16:49 03/05/25 16:51 Iopamidol-370 (76%);100ml Bottle IV 03/05/25 16:50 70 ml ONCE ONE Administration Methylprednisolone Sodium Succinate 125 mg 03/05/25 14:22 03/05/25 15:10 Methylprednisolone Sod Succ 125mg Vial IV 03/05/25 14:23 125 mg ONCE ONE Administration Miscellaneous 1 each 03/05/25 17:15 03/05/25 21:49 Vancomycin Consult Request NOTAPPLIC 04/04/25 17:14 Not Given [facility] Miscellaneous 1 each 03/05/25 20:45 03/06/25 00:38 Vancomycin Consult Request NOTAPPLIC 04/04/25 20:44 1 each [facility] Administration Sodium Chloride 8 ml 03/05/25 14:22 Sodium Chloride 0.9% 10ml Vial IV 04/04/25 14:21 NEEDED PRN dilute pepcid Sodium Chloride 10 ml 03/05/25 16:49 03/05/25 16:51 Sodium Chloride 0.9% 10ml Syr (Rad Only) IV 03/05/25 16:50 10 ml ONCE ONE Administration Sodium Chloride 50 ml 03/05/25 16:49 03/05/25 16:51 0.9 % Sodium Chloride 50 Ml Vial IV 03/05/25 16:50 50 ml ONCE ONE Administration ORDERS Category Date Time Status CTA Chest [CT angio chest PE protocol] Stat Cat Scan 03/05/25 15:48 Completed Chest XR 2 view (NOT portable) [XR chest 2V] Stat Exams 03/05/25 14:22 Completed POCUS Point of Care (ER Only) Stat Exams 03/05/25 14:30 Completed Basic Metabolic Panel AMLAB Lab 03/06/25 05:10 Completed Blood alcohol [Ethyl Alcohol] Stat Lab 03/05/25 14:57 Completed C-Reactive Protein Stat Lab 03/05/25 14:57 Completed CBC [Complete Blood Count Auto Diff] Stat Lab 03/05/25 14:57 Completed Complete Blood Count Auto Diff AMLAB Lab 03/06/25 05:10 Completed Comprehensive Metabolic Panel Stat Lab 03/05/25 14:57 Completed D-Dimer Stat Lab 03/05/25 14:57 Completed Erythrocyte Sedimentation Rate Stat Lab 03/05/25 14:57 Completed Full Resp Panel w/COVID ([facility]) Routine Lab 03/05/25 16:33 Completed HIV Combo Stat Lab 03/05/25 14:57 Completed Hepatitis C Ab Qual. W/ RFX Stat Lab 03/05/25 14:57 Completed Lactic Acid Follow Up (RFLX 1) Stat Lab 03/05/25 19:23 Completed Lactic Acid Stat Lab 03/05/25 14:57 Completed Lipase Stat Lab 03/05/25 14:57 Completed Magnesium Stat Lab 03/05/25 14:57 Completed NT Pro Brain Natriuretic Pep. Stat Lab 03/05/25 14:57 Completed PTT [Activated Partial Thrombo Time] Stat Lab 03/05/25 14:57 Completed Prothrombin Time INR Stat Lab 03/05/25 14:57 Completed Trop I [Troponin I] Stat Lab 03/05/25 14:57 Completed Troponin I Q3H Lab 03/05/25 17:30 Completed Troponin I Q3H Lab 03/05/25 20:40 Completed Urinalysis and Microscopic Stat Lab 03/05/25 16:20 Completed Blood Culture Stat Micro 03/05/25 16:28 Results Urine Culture Stat Micro 03/05/25 16:20 Received VBG [Venous Blood Gas] Stat RT 03/05/25 17:00 Completed VBG [Venous Blood Gas] Stat RT 03/05/25 18:29 Completed Venous Blood Gas Routine RT 03/05/25 20:40 Completed Venous Blood Gas Stat RT 03/05/25 14:57 Completed MDM Narrative Medical Decision Narrative: patient is a 84-year-old male presenting to the emergency department for evaluation of shortness of breath, O2 of 70 percent upon arrival to the ED on 2 L nasal cannula. O2 had to be increased to 4 L to get him to 91%.. Patient is hypoxic upon arrival to the ED. We had increased oxygen to 4 L nasal cannula initially. Then after we got the VBG patient was placed on BiPAP initially 30%. Differential diagnosis includes respiratory failure was hypoxic acidosis, COPD exacerbation, CHF exacerbation among others. Workup will be conducted with hematologic labs, specific imaging. Initial inventions include crystalloid bolus, we gave him 1 L of fluids but did not want to overload him as he has so much long damage, analgesics, antibiotics. Initial workup reviewed by me hematologic labs are remarkable for white count of 9.3, BNP of 692, lactic of 5.3, BUN and creatinine of 24 and 1.3. Patient's second VBG was worse than the first meeting he was more acidotic the second VBG than he was on the first. His CO2 is going up rather than down. His pH is going down rather than normalizing. Partially this is because he will not agree to get in the bed and insists on sitting in the chair bent over and the mask does not seal correctly on the BiPAP. We have discussed this with him. Patient has finally agreed to shave his holden and getting the bed so we can try to remedy the BiPAP leaking air. So we are going to repeat another VBG in [address] scan results. Formal imaging read remarkable for Upon repeat evaluation [patient's pain is improved, appears better perfused, appears the same, appears worse, etc.]. Due to this [additional interventions, patient is appropriate for discharge, patient requires admission, etc.]. <Tevin Lcuio MD - Last Filed: 03/06/25 21:33> Vital Signs Vital Signs: 03/05/25 14:26 03/05/25 14:30 03/05/25 15:00 Temperature 97.1 F L Temperature Source Oral Pulse Rate 110 H 105 H Pulse Rate [Right] 123 H Respiratory Rate 30 H 28 H 26 H Blood Pressure 160/90 H 141/82 H Blood Pressure [Right Arm] 187/110 H Blood Pressure Mean 118 103 Blood Pressure Mean [Right Arm] 135 Blood Pressure Position 02 Sat by Pulse Oximetry 77 L 96 96 Oxygen Delivery Method Nasal Cannula Nasal Cannula Nasal Cannula Oxygen Flow Rate (LPM) 2 2 2 Fraction of Inspired Oxygen 03/05/25 15:39 03/05/25 15:39 03/05/25 16:00 Temperature Temperature Source Pulse Rate 104 H 91 H Pulse Rate [Right] Respiratory Rate 23 22 Blood Pressure 142/88 H 139/87 Blood Pressure [Right Arm] Blood Pressure Mean 105 96 Blood Pressure Mean [Right Arm] Blood Pressure Position 02 Sat by Pulse Oximetry 98 97 Oxygen Delivery Method BiPAP BiPAP Oxygen Flow Rate (LPM) Fraction of Inspired Oxygen 30 03/05/25 16:30 03/05/25 17:40 03/05/25 18:49 Temperature Temperature Source Pulse Rate 99 H 103 H 109 H Pulse Rate [Right] Respiratory Rate 22 25 H Blood Pressure 135/82 156/75 H Blood Pressure [Right Arm] Blood Pressure Mean 87 102 Blood Pressure Mean [Right Arm] Blood Pressure Position 02 Sat by Pulse Oximetry 97 94 L Oxygen Delivery Method BiPAP BiPAP Oxygen Flow Rate (LPM) Fraction of Inspired Oxygen 03/05/25 19:50 03/05/25 19:52 03/05/25 20:08 Temperature 97.5 F L Temperature Source Axillary Pulse Rate 104 H 103 H Pulse Rate [Right] Respiratory Rate 22 Blood Pressure 125/68 Blood Pressure [Right Arm] Blood Pressure Mean Blood Pressure Mean [Right Arm] Blood Pressure Position Sitting 02 Sat by Pulse Oximetry Oxygen Delivery Method BiPAP Oxygen Flow Rate (LPM) Fraction of Inspired Oxygen 03/05/25 20:17 Temperature Temperature Source Pulse Rate Pulse Rate [Right] Respiratory Rate Blood Pressure Blood Pressure [Right Arm] Blood Pressure Mean Blood Pressure Mean [Right Arm] Blood Pressure Position 02 Sat by Pulse Oximetry 94 L Oxygen Delivery Method BiPAP Oxygen Flow Rate (LPM) Fraction of Inspired Oxygen Lab Data Labs: Lab Results 03/05/25 14:57: WBC 9.3, RBC 4.76, Hgb 12.4 L, Hct 42.2, MCV 88.7, MCH 26.1 L, M CHC 29.4 L, RDW 16.3, Plt Count 322, MPV 9.7, Neut % (Auto) 76.8, Lymph % (Auto) 17.0, [place] % (Auto) 3.9, Eos % (Auto) 1.6, Baso % (Auto) 0.4, Neut # (Auto) 7.2, Lymph # (Auto) 1.6, [place] # (Auto) 0.4, Eos # (Auto) 0.2, Baso # (Auto) 0.0, ESR 31 H, PT 10.8, INR 0.97, APTT 27.5, D-Dimer 2.03 H, VBG pH 7.23 L, VBG pCO2 60.1 H, VBG pO2 67.5 H, VBG HCO3 24.6, VBG Total CO2 26.4, VBG O2 Saturation 90.6 H, VBG Base Excess -2.9 L, VBG Lactic Acid 5.3 H, Sodium 138, Potassium 4.6, Chloride 103, Carbon Dioxide 26, Anion Gap 13.6, BUN 24 H, Creatinine 1.30 H, Estimated Creat Clear 39, Estimated GFR 53 L, Est GFR ( Amer) 64, Glucose 56 L, Lactate 3.6 H, Calcium 9.3, Magnesium 2.0, Total Bilirubin 1.1, AST 84 H, ALT 47, Alkaline Phosphatase 146 H, Troponin I 0.04 H, C-Reactive Protein 11.6 H , NT-Pro-B Natriuret Pep 692 H, Total Protein 7.5, Albumin 3.9, Globulin 3.6 H, Albumin/Globulin Ratio 1.1, Lipase 41, Plasma/Serum Alcohol 12 H, HCV Ab MILAGROS w/Rflx PCR Qn Negative, HIV Ag/Ab Combo Qual Negative 03/05/25 16:20: Urine Color Yellow, Urine Appearance Clear, Urine pH 6.0, Ur Specific [place] 1.019, Urine Protein 2+ A, Urine Glucose (UA) Negative, Urine Ketones 1+, Urine Blood 2+ A, Urine Nitrate Negative, Urine Bilirubin Negative, Urine Urobilinogen 0.2, Ur Leukocyte Esterase Negative, Urine RBC 50-100, Urine WBC 3-5, Ur Squamous Epith Cells 5-10, Urine Bacteria 2+, Hyaline Casts 3-5, Urine Mucus 1+ 03/05/25 16:33: Chlamy pneumoniae PCR Not detected, Adenovirus (PCR) Not detected, B. pertussis DNA (PCR) Not detected, Coronavirus OC43 (PCR) Not detected, Coronavirus HKU1 (PCR) Not detected, Coronavirus 229E (PCR) Not detected, SARS-CoV-2 (PCR) Not detected, Coronavirus NL63 (PCR) Not detected, Human Metapneumovir PCR Not detected, Influenza A (H1) PCR Not detected, Influ A (H1N1/09) PCR Not detected, Influenza A (H3) PCR Not detected, Influenza Type A (PCR) Not detected, Influenza Type B (PCR) Not detected, M. pneumoniae (PCR) Not detected, Parainfluenza 1 (PCR) Not detected, Parainfluenza 2 (PCR) Not detected, Parainfluenza 3 (PCR) Not detected, Parainfluenza 4 (PCR) Not detected, RSV (PCR) Not detected, Entero/Rhino (PCR) Not detected 03/05/25 17:00: VBG pH 7.16 L, VBG pCO2 66.3 H, VBG pO2 36.0, VBG HCO3 23.3, VBG Total CO2 25.4, VBG O2 Saturation 55.3, VBG Base Excess -5.3 L, VBG Lactic Acid 3.9 H 03/05/25 17:30: Troponin I 0.11 H 03/05/25 18:29: VBG pH 7.20 L, VBG pCO2 60.0 H, VBG pO2 48.8 H, VBG HCO3 23.1, VBG Total CO2 25.0, VBG O2 Saturation 76.7 H, VBG Base Excess -4.8 L, VBG Lactic Acid 3.4 H 03/05/25 19:23: Lactate 2.3 H Response Orders (Tests/Meds): ED MEDICATIONS Generic Name Dose Route Start Last Admin Trade Name Freq PRN Reason Stop Dose Admin Acetaminophen 650 mg 03/05/25 19:21 Acetaminophen 325mg Tab PO 04/04/25 19:20 Q4HP PRN Fever or Mild Pain (1-3) Albuterol/Ipratropium 3 ml 03/06/25 11:01 03/06/25 20:02 Ipratropium/Albuterol 3 Ml [facility] 04/05/25 11:00 3 ml Q6HP PRN Administration Shortness Of Breath Aspirin 81 mg 03/06/25 09:00 03/06/25 09:22 Aspirin Ec 81mg Tablet PO 04/05/25 08:59 81 mg DAILY SEBASTIÁN Administration Atorvastatin Calcium 40 mg 03/06/25 21:00 03/06/25 20:43 Atorvastatin 40mg Tablet PO 04/05/25 20:59 40 mg HS SEBASTIÁN Administration Budesonide 0.5 mg 03/06/25 13:00 03/06/25 20:02 Budesonide 0.5mg/2ml [facility] 04/05/25 12:59 0.5 mg Q8 SEBASTIÁN Administration Carvedilol 6.25 mg 03/06/25 09:00 03/06/25 20:42 Carvedilol 6.25mg Tablet PO 04/05/25 08:59 6.25 mg BID SEBASTIÁN Administration Ferrous Sulfate 325 mg 03/06/25 09:00 03/06/25 09:22 Ferrous Sulfate 325mg Tablet PO 04/05/25 08:59 325 mg DAILY SEBASTIÁN Administration Guaifenesin 600 mg 03/06/25 21:00 03/06/25 20:42 Guaifenesin 600 Mg Tab.Er.12h PO 04/05/25 20:59 600 mg BID SEBASTIÁN Administration Cefepime HCl 2 gm/ Sodium 100 mls @ 200 mls/hr 03/06/25 18:00 03/06/25 17:06 Chloride IV 03/16/25 17:59 200 mls/hr Q12H SEBASTIÁN Administration Vancomycin HCl 1,000 mg/ 250 mls @ 125 mls/hr 03/06/25 18:00 03/06/25 17:45 Sodium Chloride IV 03/16/25 17:59 125 mls/hr Q24H SEBASTIÁN Administration Nicotine 14 mg 03/06/25 09:00 03/06/25 09:22 Nicotine 14mg/24hrs Patch TD 04/05/25 08:59 14 mg DAILY SEBASTIÁN Administration Pantoprazole Sodium 40 mg 03/06/25 21:00 03/06/25 20:43 Pantoprazole 40mg Tablet PO 04/05/25 20:59 40 mg HS SEBASTIÁN Administration Sodium Chloride 10 ml 03/06/25 07:26 Sodium Chloride 0.9% 10ml Flush Syringe IV 04/05/25 07:25 NEEDED PRN Maintain IV Site Tamsulosin HCl 0.4 mg 03/06/25 21:00 03/06/25 20:42 Tamsulosin 0.4mg Capsule PO 04/05/25 20:59 0.4 mg HS SEBASTIÁN Administration Discontinued Medications Generic Name Dose Route Start Last Admin Trade Name Freq PRN Reason Stop Dose Admin Albuterol/Ipratropium 9 ml 03/05/25 14:22 03/05/25 14:35 Ipratropium/Albuterol 3 Ml Neb IH 03/05/25 14:23 9 ml ONCE ONE Administration Albuterol/Ipratropium 9 ml 03/05/25 17:21 03/05/25 17:20 Ipratropium/Albuterol 3 Ml Neb IH 03/05/25 17:22 9 ml ONCE ONE Administration Albuterol/Ipratropium 3 ml 03/05/25 22:00 03/06/25 09:32 Ipratropium/Albuterol 3 Ml Neb 04/04/25 21:59 3 ml Q4RT SEBASTIÁN Administration Budesonide 0.5 mg 03/06/25 06:00 03/06/25 06:40 Budesonide 0.5mg/2ml [facility] 04/05/25 05:59 0.5 mg BIDRT SEBASTIÁN Administration Famotidine 20 mg 03/05/25 14:22 03/05/25 15:10 Famotidine 20mg/2ml Vial IV 03/05/25 14:23 20 mg ONCE ONE Administration Guaifenesin 600 mg 03/06/25 06:30 03/06/25 06:51 Guaifenesin 600 Mg Tab.Er.12h PO 04/05/25 06:29 600 mg Q12H SEBASTIÁN Administration Guaifenesin 600 mg 03/06/25 07:03 Guaifenesin 600 Mg Tab.Er.12h PO 04/05/25 06:29 BID SEBASTIÁN Magnesium Sulfate 2 gm in 50 mls @ 50 mls/hr 03/05/25 14:22 03/05/25 15:10 Magnesium Sulfate 2gm/50ml Premix IV 03/05/25 15:21 50 mls/hr ONCE ONE Administration Azithromycin 500 mg/ Sodium 250 mls @ 250 mls/hr 03/05/25 15:30 03/06/25 16:02 Chloride IV 03/15/25 15:29 250 mls/hr Q24H SEBASTIÁN Administration Ceftriaxone Sodium 1 gm/ 50 mls @ 100 mls/hr 03/05/25 15:30 03/05/25 16:35 Sodium Chloride IV 03/15/25 15:29 100 mls/hr Q24H SEBASTIÁN Administration Sodium Chloride 500 mls @ 500 mls/hr 03/05/25 15:24 03/05/25 16:03 Sod Chloride 0.9% 500ml Bag IV 03/05/25 16:23 Not Given .Q1H SEBASTIÁN Sodium Chloride 1,000 mls @ 500 mls/hr 03/05/25 16:00 03/05/25 23:26 Sod Chlor 0.9% 1000ml Bag IV 04/04/25 15:59 Not Given .Q2H SEBASTIÁN Metronidazole 500 mg in 100 mls @ 100 mls/hr 03/05/25 17:06 03/05/25 17:34 Flagyl 500mg/100ml Ivpb IV 03/05/25 18:05 100 mls/hr ONCE ONE Administration Vancomycin/PEG/NADA/Lysine/Water 1.25 gm in 250 mls @ 125 mls/hr 03/05/25 17:15 03/05/25 18:18 Vancomycin 1.25gm/250ml (Peg) Premix IV 03/05/25 19:14 125 mls/hr ONCE ONE Administration Cefepime HCl 2 gm/ Sodium 100 mls @ 200 mls/hr 03/05/25 21:00 03/06/25 05:44 Chloride IV 03/15/25 20:59 200 mls/hr Q8H SEBASTIÁN Administration Levofloxacin/Dextrose 750 mg in 150 mls @ 100 mls/hr 03/06/25 06:30 03/06/25 06:48 Levofloxacin 750mg/150ml Premix IV 03/16/25 06:29 100 mls/hr Q24H SEBASTIÁN Administration Levofloxacin/Dextrose 750 mg in 150 mls @ 100 mls/hr 03/06/25 07:05 03/06/25 08:04 Levofloxacin 750mg/150ml Premix IV 03/16/25 06:29 Not Given Q48H SEBASTIÁN Iopamidol 70 ml 03/05/25 16:49 03/05/25 16:51 Iopamidol-370 (76%);100ml Bottle IV 03/05/25 16:50 70 ml ONCE ONE Administration Methylprednisolone Sodium Succinate 125 mg 03/05/25 14:22 03/05/25 15:10 Methylprednisolone Sod Succ 125mg Vial IV 03/05/25 14:23 125 mg ONCE ONE Administration Miscellaneous 1 each 03/05/25 17:15 03/05/25 21:49 Vancomycin Consult Request NOTAPPLIC 04/04/25 17:14 Not Given [facility] Miscellaneous 1 each 03/05/25 20:45 03/06/25 00:38 Vancomycin Consult Request NOTAPPLIC 04/04/25 20:44 1 each CONSULT PHARMACY SEBASTIÁN Administration Sodium Chloride 8 ml 03/05/25 14:22 Sodium Chloride 0.9% 10ml Vial IV 04/04/25 14:21 NEEDED PRN dilute pepcid Sodium Chloride 10 ml 03/05/25 16:49 03/05/25 16:51 Sodium Chloride 0.9% 10ml Syr (Rad Only) IV 03/05/25 16:50 10 ml ONCE ONE Administration Sodium Chloride 50 ml 03/05/25 16:49 03/05/25 16:51 0.9 % Sodium Chloride 50 Ml Vial IV 03/05/25 16:50 50 ml ONCE ONE Administration ORDERS Category Date Time Status CTA Chest [CT angio chest PE protocol] Stat Cat Scan 03/05/25 15:48 Completed Chest XR 2 view (NOT portable) [XR chest 2V] Stat Exams 03/05/25 14:22 Completed POCUS Point of Care (ER Only) Stat Exams 03/05/25 14:30 Completed Basic Metabolic Panel AMLAB Lab 03/06/25 05:10 Completed Blood alcohol [Ethyl Alcohol] Stat Lab 03/05/25 14:57 Completed C-Reactive Protein Stat Lab 03/05/25 14:57 Completed CBC [Complete Blood Count Auto Diff] Stat Lab 03/05/25 14:57 Completed Complete Blood Count Auto Diff AMLAB Lab 03/06/25 05:10 Completed Comprehensive Metabolic Panel Stat Lab 03/05/25 14:57 Completed D-Dimer Stat Lab 03/05/25 14:57 Completed Erythrocyte Sedimentation Rate Stat Lab 03/05/25 14:57 Completed Full Resp Panel w/COVID ([facility]) Routine Lab 03/05/25 16:33 Completed HIV Combo Stat Lab 03/05/25 14:57 Completed Hepatitis C Ab Qual. W/ RFX Stat Lab 03/05/25 14:57 Completed Lactic Acid Follow Up (RFLX 1) Stat Lab 03/05/25 19:23 Completed Lactic Acid Stat Lab 03/05/25 14:57 Completed Lipase Stat Lab 03/05/25 14:57 Completed Magnesium Stat Lab 03/05/25 14:57 Completed NT Pro Brain Natriuretic Pep. Stat Lab 03/05/25 14:57 Completed PTT [Activated Partial Thrombo Time] Stat Lab 03/05/25 14:57 Completed Prothrombin Time INR Stat Lab 03/05/25 14:57 Completed Trop I [Troponin I] Stat Lab 03/05/25 14:57 Completed Troponin I Q3H Lab 03/05/25 17:30 Completed Troponin I Q3H Lab 03/05/25 20:40 Completed Urinalysis and Microscopic Stat Lab 03/05/25 16:20 Completed Blood Culture Stat Micro 03/05/25 16:28 Results Urine Culture Stat Micro 03/05/25 16:20 Received VBG [Venous Blood Gas] Stat RT 03/05/25 17:00 Completed VBG [Venous Blood Gas] Stat RT 03/05/25 18:29 Completed Venous Blood Gas Routine RT 03/05/25 20:40 Completed Venous Blood Gas Stat RT 03/05/25 14:57 Completed MDM Narrative Medical Decision Narrative: patient is a 84-year-old male presenting to the emergency department for evaluation of shortness of breath, O2 of 70 percent upon arrival to the ED on 2 L nasal cannula. O2 had to be increased to 4 L to get him to 91%.. Patient is hypoxic upon arrival to the ED. We had increased oxygen to 4 L nasal cannula initially. Then after we got the VBG patient was placed on BiPAP initially 30%. Differential diagnosis includes respiratory failure was hypoxic acidosis, COPD exacerbation, CHF exacerbation among others. Workup will be conducted with hematologic labs, specific imaging. Initial inventions include crystalloid bolus, we gave him 1 L of fluids but did not want to overload him as he has so much long damage, analgesics, antibiotics. Initial workup reviewed by me hematologic labs are remarkable for white count of 9.3, BNP of 692, lactic of 5.3, BUN and creatinine of 24 and 1.3. Patient's second VBG was worse than the first meeting he was more acidotic the second VBG than he was on the first. His CO2 is going up rather than down. His pH is going down rather than normalizing. Partially this is because he will not agree to get in the bed and insists on sitting in the chair bent over and the mask does not seal correctly on the BiPAP. We have discussed this with him. Patient has finally agreed to shave his holden and getting the bed so we can try to remedy the BiPAP leaking air. So we are going to repeat another VBG in [address] scan results. Formal imaging read remarkable for Upon repeat evaluation [patient's pain is improved, appears better perfused, appears the same, appears worse, etc.]. Due to this [additional interventions, patient is appropriate for discharge, patient requires admission, etc.]. I was consulted by the ROSSY, and we discussed the complexity of the problems being addressed.I approved the treatment and management plan for this patient?s care in the Emergency Department, thus performing a substantive portion of the medical decision making.Signed, Tevin Lucio MD MBA. Patient was signed out to incoming provider with majority of initial workup pending. Blood gases result showed acidosis and patient was to be initiated on BiPAP.
[2025-03-05 15:09] LABS: VBG Base Excess -2.9 mmol/L (-2.4-2.3); VBG HCO3 24.6 mmol/L (23-30); VBG Oxygen Saturation 90.6 % (50-70); VBG PCO2 60.1 mmol/L (35-51); VBG PH 7.23 mmol/L (7.31-7.41); VBG PO2 67.5 mmol/L (28-40); VBG Total CO2 26.4 mmol/L (23-27)
[2025-03-05] MEDS: MAGNESIUM SULFATE IN WATER 2 GM/50 ML PIGGYBACK IV (15:10)
[2025-03-05] MEDS: FAMOTIDINE 20MG/2ML VIAL 20 MG IV (15:10)
[2025-03-05] MEDS: METHYLPREDNISOLONE SOD SUCC 125MG VIAL 125 MG IV (15:10)
[2025-03-05 15:11] LABS: Lactate Venous 5.3 mmol/L (0.4-2.0)
[2025-03-05 15:16] LABS: Ethyl Alcohol 12 mg/dl (0-10)
[2025-03-05 15:17] LABS: Alanine Aminotransferase 47 U/L (12-78); Albumin Level 3.9 g/dl (3.5-5.0); Albumin/Globulin Ratio 1.1 (1.1-1.8); Alkaline Phosphatase 146 U/L (38-126); Anion Gap 13.6 mEq/L (5-15); Aspartate Amino Transferase 84 U/L (17-59); Bilirubin,Total 1.1 mg/dl (0.2-1.3); Blood Urea Nitrogen 24 mg/dl (9-20); Calcium 9.3 mg/dl (8.4-10.2); Carbon Dioxide 26 mmol/L (22.0-30.0); Chloride 103 mmol/L (98-107); Creatinine Clearance Estimated 39 mL/min (50-200); Estimated Glomerular Filt Rate 53 ml/min (>60); GFR (African American) 64 ML/MIN (>60); Globulin 3.6 g/dL (1.3-3.2); Glucose 56 mg/dl (74-100); Lipase 41 U/L (23-300); Potassium 4.6 mmoL/L (3.5-5.1); Sodium 138 mmol/L (136-145); Total Protein,Serum 7.5 g/dl (6.3-8.2)
[2025-03-05 15:19] LABS: Activated Partial Thrombo Time 27.5 seconds (22.8-30.6); INR 0.97 (0.9-1.1); Prothrombin Time 10.8 seconds (10.1-12.5)
[2025-03-05 15:23] LABS: C-Reactive Protein 11.6 mg/L (0-4)
[2025-03-05 15:25] LABS: Lactic Acid 3.6 mmol/L (0.7-2.1)
[2025-03-05 15:31] LABS: NT Pro Brain Natriuretic Pep. 692 pg/mL (0-450); Troponin I 0.04 ng/ml (0.00-0.034)
[2025-03-05 15:32] LABS: D-Dimer 2.03 ug/mL (0.0-0.5)
--- NOTE | 2025-03-05 15:48 | CT_ITS ---
PROCEDURE INFORMATION: Exam: CTA Chest With Contrast Exam date and time: 03/05/2025 4:50 PM Age: 84 years old Clinical indication: Abnormal findings; Abnormal diagnostic tests; Elevated d-dimer TECHNIQUE: Imaging protocol: Computed tomographic angiography of the chest with contrast. Exam focused on the arteries. 3D rendering (Not supervised by radiologist): MIP and/or 3D reconstructed images were created by the technologist. Radiation optimization: All CT scans at this facility use at least one of these dose optimization techniques: automated exposure control; mA and/or kV adjustment per patient size (includes targeted exams where dose is matched to clinical indication); or iterative reconstruction. Contrast material: ISOVUE 370; Contrast volume: 70 ml; Contrast route: INTRAVENOUS (IV); COMPARISON: CT ANGIO CHEST PE PROTOCOL 05/16/2022 8:42 AM FINDINGS: Pulmonary arteries: Normal. No pulmonary emboli. Aorta: Unremarkable. No aortic aneurysm. No aortic dissection. Lungs: Consolidation of the left lower lobe is also present. There is narrowing of the left mainstem bronchus. The right lung is hyperexpanded. Pleural spaces: The previously noted complex left pleural effusion has increased in size. There is diffuse left-sided pleural thickening and a moderate-sized pleural effusion is present. Heart: Unremarkable. No cardiomegaly. No pericardial effusion. Coronary arteries: Coronary atherosclerosis is noted. Mediastinal space: This causes leftward shift of the mediastinum. Lymph nodes: Unremarkable. No enlarged lymph nodes. Bones/joints: Unremarkable. No acute fracture. Soft tissues: Unremarkable. IMPRESSION: 1. No evidence of pulmonary embolus. 2. Increasing complex left-sided pleural effusion with diffuse pleural thickening which has progressed since the prior study of 05/16/2022. Etiology is unclear. Consolidation of the left lower lobe is noted and there is shift of the heart and mediastinum into the left chest. 3. Moderate coronary calcifications are present.
[2025-03-05 15:50] LABS: Erythrocyte Sedimentation Rate 31 mm/hr (0-20)
[2025-03-05] MEDS: 0.9 % SODIUM CHLORIDE 1000ML 1,000 ML 500 ML IV (16:00)
[2025-03-05 16:16] LABS: HIV Combo NEGATIVE (Negative)
[2025-03-05 16:23] LABS: Hepatitis C Ab Qual. W/ RFX NEGATIVE (Negative)
[2025-03-05 16:24] LABS: Microscopic, Urine URINE MICROSCOPIC (MICROSCOPIC)
[2025-03-05 16:26] LABS: Appearance,Urine CLEAR (Clear); Bilirubin,Urine Negative (Negative); Blood, Urine 2+ (Negative); Color,Urine YELLOW (Yellow); Glucose,Urine (UA) Negative (Negative); Ketones,Urine 1+ (Negative); Leukocyte Esterase,Urine Negative (Negative); Nitrate,Urine Negative (Negative); Protein,Urine 2+ (Negative); Urobilinogen,Urine 0.2 EU/dl (0.2)
[2025-03-05 16:31] LABS: Specific Gravity, Urine 1.019 (1.005-1.030)
[2025-03-05] MEDS: CEFTRIAXONE SODIUM 1 GM in 0.9 % SODIUM CHLORIDE 50 ML IV (16:35)
[2025-03-05] MEDS: AZITHROMYCIN 500 MG in 0.9 % SODIUM CHLORIDE 250 ML 250 MG IV (16:35)
[2025-03-05 16:40] LABS: Adenovirus,PCR Not Detected (NotDetected); Bordetella Pertussis Not Detected (NotDetected); Chlamydophila Pneumoniae, PCR Not Detected (NotDetected); Coronavirus 19, PCR Not Detected (NotDetected); Coronavirus 229E Not Detected (NotDetected); Coronavirus NL63 Not Detected (NotDetected); Coronavirus OC43 Not Detected (NotDetected); Coronovirus HKU1,PCR Not Detected (NotDetected); Human Metapneumovirus Not Detected (NotDetected); Influenza A, PCR Not Detected (NotDetected); Influenza AH1, 2009 Not Detected (NotDetected); Influenza AH1, PCR Not Detected (NotDetected); Influenza AH3,PCR Not Detected (NotDetected); Influenza B, PCR Not Detected (NotDetected); Mycoplasma Pneumoniae, PCR Not Detected (NotDetected); Parainfluenza 1, PCR Not Detected (NotDetected); Parainfluenza 2, PCR Not Detected (NotDetected); Parainfluenza 3, PCR Not Detected (NotDetected); Parainfluenza 4, PCR Not Detected (NotDetected); Respiratory Syncytial Virus Not Detected (NotDetected); Rhinovirus/Enterovirus Not Detected (NotDetected)
--- NOTE | 2025-03-05 16:47 | PC.NURSE ---
PT TO CT
[2025-03-05] MEDS: IOPAMIDOL-370 (76%);100ML BOTTLE 70 ML IV (16:51)
[2025-03-05] MEDS: 0.9 % SODIUM CHLORIDE 50 ML VIAL IV (16:51)
[2025-03-05] MEDS: SODIUM CHLORIDE 0.9% 10ML SYR (RAD ONLY) 10 ML IV (16:51)
[2025-03-05 16:57] LABS: Bacteria,Urine 2+ /lpf; RBC,Urine 50-100 #/hpf (0-3)
[2025-03-05 16:58] LABS: Mucus,Urine 1+ /lpf
--- NOTE | 2025-03-05 17:32 | PC.NURSE ---
didi 2nd trop to lab and called them to verify
[2025-03-05] MEDS: METRONIDAZ/SOD CHL 500 MG/100 ML PIGGYBACK 100 MG IV (17:34)
[2025-03-05 17:42] LABS: VBG Base Excess -5.3 mmol/L (-2.4-2.3); VBG HCO3 23.3 mmol/L (23-30); VBG Oxygen Saturation 55.3 % (50-70); VBG PCO2 66.3 mmol/L (35-51); VBG Total CO2 25.4 mmol/L (23-27)
[2025-03-05 17:43] LABS: Lactate Venous 3.9 mmol/L (0.4-2.0); VBG PH 7.16 mmol/L (7.31-7.41)
[2025-03-05 18:13] LABS: Troponin I 0.11 ng/ml (0.00-0.034)
[2025-03-05] MEDS: VANCOMYCIN/WATER FOR INJ (PEG) 1.25 GM/250 ML PIGGYBACK IV (18:18)
[2025-03-05 18:36] LABS: VBG Base Excess -4.8 mmol/L (-2.4-2.3); VBG HCO3 23.1 mmol/L (23-30); VBG Oxygen Saturation 76.7 % (50-70); VBG PO2 48.8 mmol/L (28-40)
[2025-03-05 19:09] LABS: Reflex Lactic Add Lactic Reflex
[2025-03-05 19:39] LABS: Lactate Venous 3.4 mmol/L (0.4-2.0)
[2025-03-05 19:45] LABS: Lactic Acid Follow Up (RFLX 1) 2.3 mmol/L (0.7-2.1)
--- NOTE | 2025-03-05 20:12 | PC.NURSE ---
report called to [employer]PER[employer] Tia, requested ER to transport to unit #[id number]. RT notified to transport.
--- OUTSIDE RECORDS SUMMARY | 2025-03-05 20:33 | XMS_ITS | Clinical Summary ---
Author Organization [facility] Address [address] [place] [address] Phone Care Team Providers Care Nutrition Specialist Name Role Phone Unavailable Unavailable Conditions or Problems No information available. Medications No information available. Medications Administered No information available. Allergies, Adverse Reactions, Alerts No information available. Results No information available. Plan of Care No information available. Procedures No information available. Vital Signs No information available. Immunizations No information available. Advance Directives No information available.
--- OUTSIDE RECORDS SUMMARY | 2025-03-05 20:34 | XMS_ITS | Referral Summary ---
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
--- OUTSIDE RECORDS SUMMARY | 2025-03-05 20:34 | XMS_ITS | Clinical Summary ---
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
--- OUTSIDE RECORDS SUMMARY | 2025-03-05 20:34 | XMS_ITS | Clinical Summary ---
Author Organization [facility] Address [address] [id number] Care Team Providers Care Chief Librarian Music Department Name Role Phone Cayden Mnuoz MD Primary Care Provider [phone] Family History Medical History Relation Name Comments [...] or (1 - 1-dose 75+ series) 2017 [id number] Vaccine ( season) 2024 11/06/2021, 05/27/2021, 12/03/2020, [...] to complete this topic Care Teams Chief Librarian Music Department Relationship Specialty Start Date End Date Cayden Munoz MD [address] [place] [id number] PCP - General 02/06/21
--- NOTE | 2025-03-05 20:38 | PC.NURSE ---
Pt arrived on unit @ [address]
--- NOTE | 2025-03-05 20:44 | EXP.HP ---
History of Present Illness *Admission Date: 03/05/25 *Reason for visit:: SOB *History of present illness: Patient is a 84-year-old male with past medical history of COPD CAD alcohol abuse tobacco use, CAD status post stenting who presents to the hospital due to shortness of breath. According to the family he smokes daily, around 4 to 5 cigarettes a day, he also drinks alcohol daily. On further evaluation in the emergency department CTA chest did show consolidation left lower lung along with pleural effusion with diffuse pleural thickening. Patient otherwise denied active chest pain nausea vomiting diarrhea constipation fevers and chills. [facility] Disclaimer: The information contained in this section may have been updated after the patient was seen, as this information can be updated by other users. Medical History On home O2 Smoker Alcohol abuse COPD (chronic obstructive pulmonary disease) Coronary artery disease Acute exacerbation of chronic obstructive airways disease Social History (Updated 03/05/25 @ 21:09 by Leydi Galindo RN) Smoking Status: Current every day smoker tobacco type: pipe second hand exposure: No alcohol intake: current alcohol intake frequency: 0-2 drinks per day substance use type: denies use current occupational status: retired Travel in the last 8 weeks?: None household members: other housing: house current occupational exposures/hazards: No caffeine: No Have you lived/traveled outside [place] in past 30 days?: No Contact w/someone who lives/traveled outside US past 30 days?: No Exposure to someone with infectious disease in past 14 days?: No Do you have a fever (greater than 100.4 F or 38 C)?: No Have you tested positive for COVID-19?: No Exposed to someone with COVID-19 in past 14 days?: No Do you have a sore throat?: No Do you have a cough?: No Do you have any weakness?: No Do you have any diarrhea?: No Are you experiencing any unusual bleeding?: No Do you have any muscle aches/pain?: No Do you have any abdominal pain?: No Are you experiencing loss of taste or smell?: No Other Medical History Have you received the Flu Vaccine for this season: No Have you received the Pneumonia Vaccine: Yes Review of Systems Review of Systems Review of systems:: pertinent systems reviewed and negative unless documented below Meds Home Medications and Allergies Home Medications ?Medication ?Instructions ?Recorded ?Confirmed ?Type aspirin 81 mg tablet,delayed 81 mg PO DAILY Heart disease 10/24/17 03/05/25 History release omeprazole 40 mg capsule,delayed 40 mg PO DAILY Heartburn 05/16/22 03/05/25 History release ipratropium 0.5 mg-albuterol 3 mg 3 ml inhalation TID COPD 04/21/23 03/05/25 History (2.5 mg base)/3 mL nebulization soln tamsulosin 0.4 mg capsule (Flomax) 0.4 mg PO DAILY 7 days #7 caps 11/06/23 03/05/25 Rx rosuvastatin 10 mg tablet See Rx Instructions .Route 03/07/24 03/05/25 Rx .COMPLEX #90 tabs ascorbic acid (vitamin C) 500 mg 500 mg PO DAILY 03/05/25 03/05/25 History tablet (Vitamin C) carvedilol 6.25 mg tablet 6.25 mg PO DAILY 03/05/25 03/05/25 History cholecalciferol (vitamin D3) 25 25 mcg PO DAILY 03/05/25 03/05/25 History mcg (1,000 unit) capsule (Vitamin D3) ferrous sulfate 325 mg (65 mg 65 mg PO DAILY 03/05/25 03/05/25 History iron) tablet (Iron (ferrous sulfate)) guaifenesin 600 mg tablet, 600 mg PO Q12H 03/05/25 03/05/25 History extended release 12 hr (Mucinex) magnesium 400 tab PO DAILY 03/05/25 03/05/25 History New Prescriptions to Start Prescriptions: Allergies Allergy/AdvReac Type Severity Reaction Status Date / Time Penicillins Allergy Intermediate I-HIVES Verified 04/05/24 14:55 Exam Data for Last 24 hours Vital signs and Labs for Last 24 Hours: Temp Pulse Resp BP Pulse Ox O2 Del Method O2 Flow Rate 97.5 F L 103 H 22 125/68 94 L BiPAP 2 03/05/25 20:08 03/05/25 20:08 03/05/25 20:08 03/05/25 20:08 03/05/25 18:49 03/05/25 20:08 03/05/25 15:00 FiO2 25 03/05/25 19:50 Laboratory Results - last 24 hr 03/05/25 14:57: WBC 9.3, RBC 4.76, Hgb 12.4 L, Hct 42.2, MCV 88.7, MCH 26.1 L, MCHC 29.4 L, RDW 16.3, Plt Count 322, MPV 9.7, Neut % (Auto) 76.8, Lymph % (Auto) 17.0, [place] % (Auto) 3.9, Eos % (Auto) 1.6, Baso % (Auto) 0.4, Neut # (Auto) 7.2, Lymph # (Auto) 1.6, [place] # (Auto) 0.4, Eos # (Auto) 0.2, Baso # (Auto) 0.0, ESR 31 H, PT 10.8, INR 0.97, APTT 27.5, D-Dimer 2.03 H, VBG pH 7.23 L, VBG pCO2 60.1 H, VBG pO2 67.5 H, VBG HCO3 24.6, VBG Total CO2 26.4, VBG O2 Saturation 90.6 H, VBG Base Excess -2.9 L, VBG Lactic Acid 5.3 H, Sodium 138, Potassium 4.6, Chloride 103, Carbon Dioxide 26, Anion Gap 13.6, BUN 24 H, Creatinine 1.30 H, Estimated Creat Clear 39, Estimated GFR 53 L, Est GFR ( Amer) 64, Glucose 56 L, Lactate 3.6 H, Calcium 9.3, Magnesium 2.0, Total Bilirubin 1.1, AST 84 H, ALT 47, Alkaline Phosphatase 146 H, Troponin I 0.04 H, C-Reactive Protein 11.6 H, NT-Pro-B Natriuret Pep 692 H, Total Protein 7.5, Albumin 3.9, Globulin 3.6 H, Albumin/Globulin Ratio 1.1, Lipase 41, Plasma/Serum Alcohol 12 H, HCV Ab MILAGROS w/Rflx PCR Qn Negative, HIV Ag/Ab Combo Qual Negative 03/05/25 16:20: Urine Color Yellow, Urine Appearance Clear, Urine pH 6.0, Ur Specific [place] 1.019, Urine Protein 2+ A, Urine Glucose (UA) Negative, Urine Ketones 1+, Urine Blood 2+ A, Urine Nitrate Negative, Urine Bilirubin Negative, Urine Urobilinogen 0.2, Ur Leukocyte Esterase Negative, Urine RBC 50-100, Urine WBC 3-5, Ur Squamous Epith Cells 5-10, Urine Bacteria 2+, Hyaline Casts 3-5, Urine Mucus 1+ 03/05/25 16:33: Chlamy pneumoniae PCR Not detected, Adenovirus (PCR) Not detected, B. pertussis DNA (PCR) Not detected, Coronavirus OC43 (PCR) Not detected, Coronavirus HKU1 (PCR) Not detected, Coronavirus 229E (PCR) Not detected, SARS-CoV-2 (PCR) Not detected, Coronavirus NL63 (PCR) Not detected, Human Metapneumovir PCR Not detected, Influenza A (H1) PCR Not detected, Influ A (H1N1/09) PCR Not detected, Influenza A (H3) PCR Not detected, Influenza Type A (PCR) Not detected, Influenza Type B (PCR) Not detected, M. pneumoniae (PCR) Not detected, Parainfluenza 1 (PCR) Not detected, Parainfluenza 2 (PCR) Not detected, Parainfluenza 3 (PCR) Not detected, Parainfluenza 4 (PCR) Not detected, RSV (PCR) Not detected, Entero/Rhino (PCR) Not detected 03/05/25 17:00: VBG pH 7.16 L, VBG pCO2 66.3 H, VBG pO2 36.0, VBG HCO3 23.3, VBG Total CO2 25.4, VBG O2 Saturation 55.3, VBG Base Excess -5.3 L, VBG Lactic Acid 3.9 H 03/05/25 17:30: Troponin I 0.11 H 03/05/25 18:29: VBG pH 7.20 L, VBG pCO2 60.0 H, VBG pO2 48.8 H, VBG HCO3 23.1, VBG Total CO2 25.0, VBG O2 Saturation 76.7 H, VBG Base Excess -4.8 L, VBG Lactic Acid 3.4 H 03/05/25 19:23: Lactate 2.3 H I & O for Last 24 hours: Intake & Output 03/02/25 03/03/25 03/04/25 03/05/25 23:59 23:59 23:59 23:59 Weight 62.142 kg Constitutional Constitutional: no acute distress *Routine HEENT Exam Head: Present normocephalic Eye: Present EOMI and PERRL ENT: Present mucous membranes moist *Routine Neck Exam Neck: Present supple; Absent lymphadenopathy *Routine Respiratory Exam Respiratory: Present decreased breath sounds *Routine Cardiovascular Exam Cardiovascular: Present RRR *Routine Abdominal Exam Abdominal: Present soft and normoactive bowel sounds; Absent tenderness *Routine Rectal Exam Rectal:: deferred *Routine Genitalia Exam Genitalia:: deferred *Routine Extremities Exam Extremities: Absent cyanosis, clubbing or edema *Routine Skin Exam Skin: Present warm; Absent rash *Routine Neurological Exam Neurological: Present alert and oriented X3 Assessment and Plan *Assessment and plan (1) Respiratory failure: Status: Acute Category: Medical Code(s): J96.90 - Respiratory failure, unspecified, unspecified whether with hypoxia or hypercapnia (2) Acute exacerbation of chronic obstructive pulmonary disease: Status: Acute Category: Medical Code(s): J44.1 - Chronic obstructive pulmonary disease with (acute) exacerbation (3) CAD (coronary artery disease): Status: Chronic Qualifiers: Coronary Disease-Associated Artery/Lesion type: unspecified vessel or lesion type [place] vs. transplanted heart: unspecified whether [place] or transplanted heart Associated angina: without angina Qualified Code(s): I25.10 - Atherosclerotic heart disease of [place] coronary artery without angina pectoris Category: Medical Code(s): I25.10 - Atherosclerotic heart disease of [place] coronary artery without angina pectoris (4) Tobacco abuse: Status: Chronic Category: Medical Code(s): Z72.0 - Tobacco use (5) HLD (hyperlipidemia): Status: Chronic Qualifiers: Hyperlipidemia type: mixed hyperlipidemia Qualified Code(s): E78.2 - Mixed hyperlipidemia Category: Medical Code(s): E78.5 - Hyperlipidemia, unspecified (6) HTN (hypertension): Status: Chronic Qualifiers: Hypertension type: primary hypertension Qualified Code(s): I10 - Essential (primary) hypertension Category: Medical Code(s): I10 - Essential (primary) hypertension (7) Alcohol dependence: Status: Chronic Qualifiers: Substance use status: with intoxication Category: Medical Code(s): F10.20 - Alcohol dependence, uncomplicated Plan Patient is a 84-year-old male with past medical history of COPD CAD alcohol abuse tobacco use, CAD status post stenting who presents to the hospital due to shortness of breath. According to the family he smokes daily, around 4 to 5 cigarettes a day, he also drinks alcohol daily. On further evaluation in the emergency department CTA chest did show consolidation left lower lung along with pleural effusion with diffuse pleural thickening. Patient otherwise denied active chest pain nausea vomiting diarrhea constipation fevers and chills. Assessment and plan Acute hypoxic, hypercapnic respiratory failure COPD exacerbation Left lung pneumonia Left sided pleural effusion, suspect complex loculated effusion Start DuoNebs Start Solu-Medrol Start levofloxacin Check PCT Check blood cultures Check urine Legionella antigen, urine strep antigen, MRSA nasal swab Respiratory viral panel Consult pulmonary Chronic medical conditions Hypertension Hyperlipidemia Tobacco use Alcohol dependence CAD - Resume home Coreg, omeprazole, Flomax, aspirin, rosuvastatin - Order CIWA assessment with as needed Ativan Ordered nicotine patch DVT prophylaxis-heparin
[2025-03-05 20:47] LABS: VBG Base Excess -7.9 mmol/L (-2.4-2.3); VBG HCO3 20.3 mmol/L (23-30); VBG Oxygen Saturation 66.7 % (50-70); VBG PO2 40.1 mmol/L (28-40); VBG Total CO2 21.9 mmol/L (23-27)
[2025-03-05 20:52] LABS: Lactate Venous 3.6 mmol/L (0.4-2.0); VBG PH 7.19 mmol/L (7.31-7.41)
[2025-03-05 21:11] LABS: Troponin I 0.15 ng/ml (0.00-0.034)
[2025-03-05 21:21] LABS: Reflex Lactic (2 hrs) Add Lactic Reflex
[2025-03-05 22:22] LABS: Lactic Acid Follow up (RFLX 2) 2.5 mmol/L (0.7-2.1)
[2025-03-05] MEDS: CEFEPIME HCL 2 GM in 0.9 % SODIUM CHLORIDE 100 ML IV (22:34)
[2025-03-06] VITALS (28 sets, daily range): BP systolic 107–148; BP diastolic 46–94; PULSE 59–97; RESP 14–24; TEMP 36.4–36.9; O2SAT 90–99; BMI 20.2
[2025-03-06] MEDS: VANCOMYCIN CONSULT REQUEST 1 EACH NOTAPPLIC (00:38)
[2025-03-06] MEDS: IPRATROPIUM/ALBUTEROL 3 ML NEB IH ×5 (02:12→20:02)
--- NOTE | 2025-03-06 05:06 | PC.NURSE ---
Pt taken off BiPAP and placed on 2 LPM NC, wears 2LPM at home. Pt's skin is red and irritated from BiPAP mask, VBG ordered to ensure quality of care. Pt tolerating well at this time, will continue to monitor.
[2025-03-06 05:15] LABS: VBG Base Excess -2.9 mmol/L (-2.4-2.3); VBG HCO3 22.7 mmol/L (23-30); VBG Oxygen Saturation 80.2 % (50-70); VBG PCO2 41.6 mmol/L (35-51); VBG PH 7.35 mmol/L (7.31-7.41); VBG PO2 43.4 mmol/L (28-40); VBG Total CO2 23.9 mmol/L (23-27)
[2025-03-06 05:19] LABS: Lactate Venous 2.3 mmol/L (0.4-2.0)
[2025-03-06] MEDS: CEFEPIME HCL 2 GM in 0.9 % SODIUM CHLORIDE 100 ML IV ×2 (05:44→17:06)
[2025-03-06 06:25] LABS: Chloride 103 mmol/L (98-107); Sodium 135 mmol/L (136-145)
[2025-03-06 06:26] LABS: Potassium 4.3 mmoL/L (3.5-5.1)
[2025-03-06 06:28] LABS: Blood Urea Nitrogen 28 mg/dl (9-20); Creatinine Clearance Estimated 39 mL/min (50-200); Estimated Glomerular Filt Rate 53 ml/min (>60); GFR (African American) 64 ML/MIN (>60)
[2025-03-06 06:29] LABS: Anion Gap 11.3 mEq/L (5-15); Calcium 8.6 mg/dl (8.4-10.2); Carbon Dioxide 25 mmol/L (22.0-30.0); Glucose 145 mg/dl (74-100)
[2025-03-06 06:34] LABS: Basophils % 0.2 % (0.1-2.0); Immature Granulocytes # 0.04 10^3uL; Lymphocytes # 0.6 K/mm3 (0.7-4.5); Monocytes # 0.2 K/mm3 (0.1-1.0); Nucleated Red Blood Cells # 0 10^3/uL; Nucleated Red Blood Cells % 0 %
[2025-03-06] MEDS: BUDESONIDE 0.5MG/2ML NEB 0.5 MG IH ×3 (06:40→20:02)
[2025-03-06] MEDS: LEVOFLOXACIN/D5W 750 MG/150 ML 750 MG/150 ML PIGGYBACK 100 MG IV (06:48)
[2025-03-06] MEDS: guaiFENesin 600 MG TAB.ER.12H PO ×2 (06:51→20:42)
[2025-03-06 07:08] LABS: Hematocrit 34.4 % (42.0-52.0); Immature Granulocytes % 0.4 %; Mean Corpuscular HGB Conc 30.8 g/dL (31.8-35.4); Mean Corpuscular Volume 87.5 fl (80-94); Mean Platelet Volume 10.8 fl (7.4-10.4); Monocytes % 2.1 % (1.7-9.3); Neutrophils # 8.1 K/mm3 (1.8-7.8); Neutrophils % 90.3 % (37.0-80.0); Platelet Count 240 K/mm3 (142-424); Red Blood Count 3.93 M/mm3 (4.60-6.20); Red Cell Distribution Width 16.3 % (11.5-17.5); Red Cell Distribution Width-SD 52.3 fL
--- NOTE | 2025-03-06 07:31 | EXP.PHA.CONS ---
Pharmacy Consult Date: 03/06/25 Time: 07:31 Referring provider: DR. RING Reason for Consult:: VANCOMYCIN DOSING Allergies Allergy/AdvReac Type Severity Reaction Status Date / Time Penicillins Allergy Intermediate I-HIVES Verified 04/05/24 14:55 Home Medications ?Medication ?Instructions ?Recorded ?Confirmed ?Type aspirin 81 mg tablet,delayed 81 mg PO DAILY Heart disease 10/24/17 03/05/25 History release omeprazole 40 mg capsule,delayed 40 mg PO DAILY Heartburn 05/16/22 03/05/25 History release ipratropium 0.5 mg-albuterol 3 mg 3 ml inhalation TID COPD 04/21/23 03/05/25 History (2.5 mg base)/3 mL nebulization soln tamsulosin 0.4 mg capsule (Flomax) 0.4 mg PO DAILY 7 days #7 caps 11/06/23 03/05/25 Rx rosuvastatin 10 mg tablet See Rx Instructions .Route 03/07/24 03/05/25 Rx .COMPLEX #90 tabs ascorbic acid (vitamin C) 500 mg 500 mg PO DAILY 03/05/25 03/05/25 History tablet (Vitamin C) carvedilol 6.25 mg tablet 6.25 mg PO DAILY 03/05/25 03/05/25 History cholecalciferol (vitamin D3) 25 25 mcg PO DAILY 03/05/25 03/05/25 History mcg (1,000 unit) capsule (Vitamin D3) ferrous sulfate 325 mg (65 mg 65 mg PO DAILY 03/05/25 03/05/25 History iron) tablet (Iron (ferrous sulfate)) guaifenesin 600 mg tablet, 600 mg PO Q12H 03/05/25 03/05/25 History extended release 12 hr (Mucinex) magnesium 400 tab PO DAILY 03/05/25 03/05/25 History New Prescriptions to Start Prescriptions: Height: 1.75 m Weight: 62.142 kg Laboratory Results:: Laboratory Results - last 24 hr 03/05/25 14:57: WBC 9.3, RBC 4.76, Hgb 12.4 L, Hct 42.2, MCV 88.7, MCH 26.1 L, MCHC 29.4 L, RDW 16.3, Plt Count 322, MPV 9.7, Neut % (Auto) 76.8, Lymph % (Auto) 17.0, [place] % (Auto) 3.9, Eos % (Auto) 1.6, Baso % (Auto) 0.4, Neut # (Auto) 7.2, Lymph # (Auto) 1.6, [place] # (Auto) 0.4, Eos # (Auto) 0.2, Baso # (Auto) 0.0, ESR 31 H, PT 10.8, INR 0.97, APTT 27.5, D-Dimer 2.03 H, VBG pH 7.23 L, VBG pCO2 60.1 H, VBG pO2 67.5 H, VBG HCO3 24.6, VBG Total CO2 26.4, VBG O2 Saturation 90.6 H, VBG Base Excess -2.9 L, VBG Lactic Acid 5.3 H, Sodium 138, Potassium 4.6, Chloride 103, Carbon Dioxide 26, Anion Gap 13.6, BUN 24 H, Creatinine 1.30 H, Estimated Creat Clear 39, Estimated GFR 53 L, Est GFR ( Amer) 64, Glucose 56 L, Lactate 3.6 H, Calcium 9.3, Magnesium 2.0, Total Bilirubin 1.1, AST 84 H, ALT 47, Alkaline Phosphatase 146 H, Troponin I 0.04 H, C-Reactive Protein 11.6 H, NT-Pro-B Natriuret Pep 692 H, Total Protein 7.5, Albumin 3.9, Globulin 3.6 H, Albumin/Globulin Ratio 1.1, Lipase 41, Plasma/Serum Alcohol 12 H, HCV Ab MILAGROS w/Rflx PCR Qn Negative, HIV Ag/Ab Combo Qual Negative 03/05/25 16:20: Urine Color Yellow, Urine Appearance Clear, Urine pH 6.0, Ur Specific [place] 1.019, Urine Protein 2+ A, Urine Glucose (UA) Negative, Urine Ketones 1+, Urine Blood 2+ A, Urine Nitrate Negative, Urine Bilirubin Negative, Urine Urobilinogen 0.2, Ur Leukocyte Esterase Negative, Urine RBC 50-100, Urine WBC 3-5, Ur Squamous Epith Cells 5-10, Urine Bacteria 2+, Hyaline Casts 3-5, Urine Mucus 1+ 03/05/25 16:33: Chlamy pneumoniae PCR Not detected, Adenovirus (PCR) Not detected, B. pertussis DNA (PCR) Not detected, Coronavirus OC43 (PCR) Not detected, Coronavirus HKU1 (PCR) Not detected, Coronavirus 229E (PCR) Not detected, SARS-CoV-2 (PCR) Not detected, Coronavirus NL63 (PCR) Not detected, Human Metapneumovir PCR Not detected, Influenza A (H1) PCR Not detected, Influ A (H1N1/09) PCR Not detected, Influenza A (H3) PCR Not detected, Influenza Type A (PCR) Not detected, Influenza Type B (PCR) Not detected, M. pneumoniae (PCR) Not detected, Parainfluenza 1 (PCR) Not detected, Parainfluenza 2 (PCR) Not detected, Parainfluenza 3 (PCR) Not detected, Parainfluenza 4 (PCR) Not detected, RSV (PCR) Not detected, Entero/Rhino (PCR) Not detected 03/05/25 17:00: VBG pH 7.16 L, VBG pCO2 66.3 H, VBG pO2 36.0, VBG HCO3 23.3, VBG Total CO2 25.4, VBG O2 Saturation 55.3, VBG Base Excess -5.3 L, VBG Lactic Acid 3.9 H 03/05/25 17:30: Troponin I 0.11 H 03/05/25 18:29: VBG pH 7.20 L, VBG pCO2 60.0 H, VBG pO2 48.8 H, VBG HCO3 23.1, VBG Total CO2 25.0, VBG O2 Saturation 76.7 H, VBG Base Excess -4.8 L, VBG Lactic Acid 3.4 H 03/05/25 19:23: Lactate 2.3 H 03/05/25 20:40: VBG pH 7.19 L, VBG pCO2 54.0 H, VBG pO2 40.1 H, VBG HCO3 20.3 L, VBG Total CO2 21.9 L, VBG O2 Saturation 66.7, VBG Base Excess -7.9 L, VBG Lactic Acid 3.6 H, Troponin I 0.15 H 03/05/25 21:54: Lactate 2.5 H 03/06/25 05:00: VBG pH 7.35, VBG pCO2 41.6, VBG pO2 43.4 H, VBG HCO3 22.7 L, VBG Total CO2 23.9, VBG O2 Saturation 80.2 H, VBG Base Excess -2.9 L, VBG Lactic Acid 2.3 H 03/06/25 05:10: Sodium 135 L, Potassium 4.3, Chloride 103, Carbon Dioxide 25, Anion Gap 11.3, BUN 28 H, Creatinine 1.30 H, Estimated Creat Clear 39, Estimated GFR 53 L, Est GFR ( Amer) 64, Glucose 145 H D, Calcium 8.6 Medical History: Medical History (Updated 03/05/25 @ 21:08 by Leydi Galindo RN) On home O2 Smoker Alcohol abuse COPD (chronic obstructive pulmonary disease) Coronary artery disease Acute exacerbation of chronic obstructive airways disease Assessment and Plan Assessment and plan all Dx Assessment and Plan for all problems:: Pharmacokinetic dosing service Objective: Patient: Floor: Age: 84 yo Serum creatinine: 1.30 mg/dL Height: 68.9 Inches Weight (kg): 62.1 Assessment: IBW (kg): 70.47 Dosing wt(kg): 62.1 Estimated Creatinine clearance (ml/min): 38.5 CRCL method: Cockcroft and Gault using ibw(default). Drug selected: Vancomycin Loading dose (mg): Vd (liters): 49.7 (factor used: 0.8 L/kg) Miguel (hr-1): 0.036 Half life (hrs): 19.25 CLvanco=?? 1.789 L/hr Recommended dose: 1000 mg Interval: 24 hrs Infusion time (hrs): 2.0 Predicted peak (mcg/mL): 33.6 Predicted trough (mcg/mL): 15.22 Total body weight is being used for vancomycin dosing. Recommendations: Give Vancomycin 1000 mg q 24 hrs with an expected Cpeak of 33.6 mcg/ml and an expected Ctrough of 15.22 mcg/ml AUC 0-24 /MARLON Data: MARLON 0.5 mcg/mL:?? AUC/MARLON:? 1117.9 MARLON 1.0 mcg/mL:?? AUC/MARLON:? 559.0 --------- MARLON 1.5 mcg/mL:?? AUC/MARLON:? 372.6 MARLON 2.0 mcg/mL:?? AUC/MARLON:? 279.5 Thank you for the consult, will continue to follow. -GRETCHEN KIMD
[2025-03-06 08:14] LABS: Troponin I 0.28 ng/ml (0.00-0.034)
[2025-03-06 08:25] LABS: Hemoglobin 10.2 g/dL (14.1-18.0)
--- NOTE | 2025-03-06 08:35 | PC.NURSE ---
Addendum entered by JESSICA Leyva 03/06/25 10:59: @[phone] all documents requested were received. was notified. fax information is on chart at this time. Addendum entered by JESSICA Leyva 03/06/25 10:26: [facility] office was contacted @[phone] for pulonology records. fax number was provided. awaiting records to be received via fax. Addendum entered by JESSICA Leyva 03/06/25 10:21: [facility] medical records was contacted for an update. They do not have records from the power [employer] operator [facility]. Fax and phone number was obtained. Will reach out to [facility] office for those records. Original Note: a released of aunthorization form was faxed to [facility] per Lisette [facility] @[phone].
--- NOTE | 2025-03-06 08:39 | PC.NURSE ---
0815 received critical lab rop 0.28, notified primary NAOMIE Staples at this time. who notified Dr nKox
--- NOTE | 2025-03-06 08:57 | HMH.PHAINT1 ---
Pharmacy Intervention Comments: MEDICATION RECONCILIATION COMPLETED ON PATIENT USING EXTERNAL FILL HISTORY FROM PHARMACY. -TAD ZHOU, GRETCHEND
[2025-03-06 09:08] LABS: Procalcitonin 0.467 ng/mL (0.0-2.0)
--- NOTE | 2025-03-06 09:14 | EXP.PULM.CON ---
History of Present Illness History of present illness: Mr. Mack is a 84-year-old male current smoker greater than [id number]-[id number] smoking history no smoking 2 to 5 cigarettes/day presented to the ER with worsening respiratory distress hypoxic hypercarbic respiratory failure and pulmonary was called for further evaluation and management. [facility] Disclaimer: The information contained in this section may have been updated after the patient was seen, as this information can be updated by other users. Medical History (Updated 03/06/25 @ 12:23 by Siemon Vicente MD) Lung collapse Loculated pleural effusion Acute on chronic respiratory failure with hypoxia and hypercapnia On home O2 Smoker Alcohol abuse COPD (chronic obstructive pulmonary disease) Coronary artery disease Acute exacerbation of chronic obstructive airways disease Social History (Updated 03/05/25 @ 21:09 by Leydi Galindo RN) Smoking Status: Current every day smoker tobacco type: pipe second hand exposure: No alcohol intake: current alcohol intake frequency: 0-2 drinks per day substance use type: denies use current occupational status: retired Travel in the last 8 weeks?: None household members: other housing: house current occupational exposures/hazards: No caffeine: No Have you lived/traveled outside [place] in past 30 days?: No Contact w/someone who lives/traveled outside US past 30 days?: No Exposure to someone with infectious disease in past 14 days?: No Do you have a fever (greater than 100.4 F or 38 C)?: No Have you tested positive for COVID-19?: No Exposed to someone with COVID-19 in past 14 days?: No Do you have a sore throat?: No Do you have a cough?: No Do you have any weakness?: No Do you have any diarrhea?: No Are you experiencing any unusual bleeding?: No Do you have any muscle aches/pain?: No Do you have any abdominal pain?: No Are you experiencing loss of taste or smell?: No Review of Systems Constitutional Constitutional: Reports anorexia, Reports body ache(s) and Reports fatigue Eyes Eyes: Denies eye discharge, Denies dry eyes, Denies irritation and Denies itchy eyes ENT Ears, Nose, Mouth, and Throat: Denies epistaxis, Denies facial pain, Denies lip swelling and Denies throat swelling *Cardiovascular Cardiovascular: Reports dyspnea and Reports dyspnea on exertion *Respiratory Respiratory: Reports change in phlegm color, Reports chest congestion, Reports cough, Reports dyspnea, Reports dyspnea on exertion, Reports excessive phlegm production, Denies hemoptysis, Denies pain on inspiration, Denies pain with cough and Reports wheezing *Gastrointestinal Gastrointestinal: Denies abdominal pain, Denies belching and Denies cramping *Musculoskeletal Musculoskeletal: Reports back pain, Reports myalgias and Reports other (No small joint swelling or Pain) Psychiatric Psychiatric: Denies homicidal ideation and Denies suicidal ideation Endocrine Endocrine: Reports fatigue and Denies heat intolerance Hematologic/Lymphatic Hematologic/Lymphatic: Denies easy bleeding and Denies lymphadenopathy Allergic/Immunologic Allergic/Immunologic: Denies itchy eyes, Denies lip swelling, Denies throat swelling and Reports wheezing Pulmonology Exam Inpatient Vital signs and Labs for Last 24 Hours: Temp Pulse Resp BP Pulse Ox O2 Del Method O2 Flow Rate 98.4 F 67 18 115/51 L 94 L Room Air 2 03/06/25 08:00 03/06/25 08:00 03/06/25 08:00 03/06/25 08:00 03/06/25 08:00 03/06/25 08:00 03/06/25 08:00 FiO2 03/06/25 01:46 Laboratory Results - last 24 hr 03/05/25 14:57: WBC 9.3, RBC 4.76, Hgb 12.4 L, Hct 42.2, MCV 88.7, MCH 26.1 L, MCHC 29.4 L, RDW 16.3, Plt Count 322, MPV 9.7, Neut % (Auto) 76.8, Lymph % (Auto) 17.0, [place] % (Auto) 3.9, Eos % (Auto) 1.6, Baso % (Auto) 0.4, Neut # (Auto) 7.2, Lymph # (Auto) 1.6, [place] # (Auto) 0.4, Eos # (Auto) 0.2, Baso # (Auto) 0.0, ESR 31 H, PT 10.8, INR 0.97, APTT 27.5, D-Dimer 2.03 H, VBG pH 7.23 L, VBG pCO2 60.1 H, VBG pO2 67.5 H, VBG HCO3 24.6, VBG Total CO2 26.4, VBG O2 Saturation 90.6 H, VBG Base Excess -2.9 L, VBG Lactic Acid 5.3 H, Sodium 138, Potassium 4.6, Chloride 103, Carbon Dioxide 26, Anion Gap 13.6, BUN 24 H, Creatinine 1.30 H, Estimated Creat Clear 39, Estimated GFR 53 L, Est GFR ( Amer) 64, Glucose 56 L, Lactate 3.6 H, Calcium 9.3, Magnesium 2.0, Total Bilirubin 1.1, AST 84 H, ALT 47, Alkaline Phosphatase 146 H, Troponin I 0.04 H, C-Reactive Protein 11.6 H, NT-Pro-B Natriuret Pep 692 H, Total Protein 7.5, Albumin 3.9, Globulin 3.6 H, Albumin/Globulin Ratio 1.1, Lipase 41, Plasma/Serum Alcohol 12 H, HCV Ab MILAGROS w/Rflx PCR Qn Negative, HIV Ag/Ab Combo Qual Negative 03/05/25 16:20: Urine Color Yellow, Urine Appearance Clear, Urine pH 6.0, Ur Specific [place] 1.019, Urine Protein 2+ A, Urine Glucose (UA) Negative, Urine Ketones 1+, Urine Blood 2+ A, Urine Nitrate Negative, Urine Bilirubin Negative, Urine Urobilinogen 0.2, Ur Leukocyte Esterase Negative, Urine RBC 50-100, Urine WBC 3-5, Ur Squamous Epith Cells 5-10, Urine Bacteria 2+, Hyaline Casts 3-5, Urine Mucus 1+ 03/05/25 16:33: Chlamy pneumoniae PCR Not detected, Adenovirus (PCR) Not detected, B. pertussis DNA (PCR) Not detected, Coronavirus OC43 (PCR) Not detected, Coronavirus HKU1 (PCR) Not detected, Coronavirus 229E (PCR) Not detected, SARS-CoV-2 (PCR) Not detected, Coronavirus NL63 (PCR) Not detected, Human Metapneumovir PCR Not detected, Influenza A (H1) PCR Not detected, Influ A (H1N1/09) PCR Not detected, Influenza A (H3) PCR Not detected, Influenza Type A (PCR) Not detected, Influenza Type B (PCR) Not detected, M. pneumoniae (PCR) Not detected, Parainfluenza 1 (PCR) Not detected, Parainfluenza 2 (PCR) Not detected, Parainfluenza 3 (PCR) Not detected, Parainfluenza 4 (PCR) Not detected, RSV (PCR) Not detected, Entero/Rhino (PCR) Not detected 03/05/25 17:00: VBG pH 7.16 L, VBG pCO2 66.3 H, VBG pO2 36.0, VBG HCO3 23.3, VBG Total CO2 25.4, VBG O2 Saturation 55.3, VBG Base Excess -5.3 L, VBG Lactic Acid 3.9 H 03/05/25 17:30: Troponin I 0.11 H 03/05/25 18:29: VBG pH 7.20 L, VBG pCO2 60.0 H, VBG pO2 48.8 H, VBG HCO3 23.1, VBG Total CO2 25.0, VBG O2 Saturation 76.7 H, VBG Base Excess -4.8 L, VBG Lactic Acid 3.4 H 03/05/25 19:23: Lactate 2.3 H 03/05/25 20:40: VBG pH 7.19 L, VBG pCO2 54.0 H, VBG pO2 40.1 H, VBG HCO3 20.3 L, VBG Total CO2 21.9 L, VBG O2 Saturation 66.7, VBG Base Excess -7.9 L, VBG Lactic Acid 3.6 H, Troponin I 0.15 H 03/05/25 21:54: Lactate 2.5 H 03/06/25 05:00: VBG pH 7.35, VBG pCO2 41.6, VBG pO2 43.4 H, VBG HCO3 22.7 L, VBG Total CO2 23.9, VBG O2 Saturation 80.2 H, VBG Base Excess -2.9 L, VBG Lactic Acid 2.3 H 03/06/25 05:10: WBC 9.0, RBC 3.93 L, Hgb 10.2 L D, Hct 34.4 L, MCV 87.5, MCH 27.0, MCHC 30.8 L, RDW 16.3, Plt Count 240 D, MPV 10.8 H, Neut % (Auto) 90.3 H, Lymph % (Auto) 7.0 L, [place] % (Auto) 2.1, Eos % (Auto) 0.0 L, Baso % (Auto) 0.2, Neut # (Auto) 8.1 H, Lymph # (Auto) 0.6 L, [place] # (Auto) 0.2, Eos # (Auto) 0.0, Baso # (Auto) 0.0, Sodium 135 L, Potassium 4.3, Chloride 103, Carbon Dioxide 25, Anion Gap 11.3, BUN 28 H, Creatinine 1.30 H, Estimated Creat Clear 39, Estimated GFR 53 L, Est GFR ( Amer) 64, Glucose 145 H D, Calcium 8.6, Troponin I 0.28 H, Procalcitonin 0.467 I & O for Labs for Last 24 Hours: Intake & Output 03/03/25 03/04/25 03/05/25 03/06/25 23:59 23:59 23:59 23:59 Intake Total 580 / 580 Output Total 550 / 550 Balance Weight 137 lb 137 lb Constitutional: Present moderate distress Head: Present normocephalic and atraumatic ENT: Present normal exam, normal oropharynx and mucous membranes moist Neck: Present normal inspection and full ROM Respiratory: Present respiratory distress, rhonchi, diminished air movement and able to speak in complete sentences; Absent wheezes Cardiac: Present S1/S2, Tachycardia and radial pulses present GI: Present soft and distention; Absent tenderness or guarding Skin: Present intact; Absent cyanosis or jaundice Neuro: Present alert, awake and oriented x 3 Extremities: Present normal inspection; Absent clubbing or cyanosis Psychiatric: Present normal affect and cooperative Meds Home Medications and Allergies Home Medications ?Medication ?Instructions ?Recorded ?Confirmed ?Type aspirin 81 mg tablet,delayed 81 mg PO DAILY 10/24/17 03/05/25 History release tamsulosin 0.4 mg capsule (Flomax) 0.4 mg PO DAILY 7 days #7 caps 11/06/23 03/05/25 Rx ascorbic acid (vitamin C) 500 mg 500 mg PO DAILY 03/05/25 03/05/25 History tablet (Vitamin C) cholecalciferol (vitamin D3) 25 25 mcg PO DAILY 03/05/25 03/05/25 History mcg (1,000 unit) capsule (Vitamin D3) ferrous sulfate 325 mg (65 mg 325 mg PO DAILY 03/05/25 03/06/25 History iron) tablet (Iron (ferrous sulfate)) guaifenesin 600 mg tablet, 600 mg PO BID 03/05/25 03/06/25 History extended release 12 hr (Mucinex) albuterol sulfate 90 mcg/actuation 2 puff inhalation Q4HP PRN 03/06/25 03/06/25 History aerosol inhaler Shortness Of Breath magnesium oxide 400 mg (241.3 mg 400 mg PO BID 03/06/25 03/06/25 History magnesium) tablet pantoprazole 40 mg tablet,delayed 40 mg PO DAILY 03/06/25 03/06/25 History release rosuvastatin 10 mg tablet 10 mg PO DAILY 03/06/25 03/06/25 History New Prescriptions to Start Prescriptions: Allergies Allergy/AdvReac Type Severity Reaction Status Date / Time Penicillins Allergy Intermediate I-HIVES Verified 04/05/24 14:55 Results Laboratory Findings 03/06/25 05:10 03/06/25 05:10 PT/INR, D-dimer PT 10.8 seconds (10.1-12.5) 03/05/25 14:57 INR 0.97 (0.9-1.1) 03/05/25 14:57 D-Dimer 2.03 ug/mL (0.0-0.5) H 03/05/25 14:57 Abnormal lab findings: Abnormal Labs 03/05/25 03/05/25 03/05/25 14:57 16:20 17:00 RBC Hgb 12.4 L Hct MCH 26.1 L MCHC 29.4 L MPV Neut % (Auto) Lymph % (Auto) Eos % (Auto) Neut # (Auto) Lymph # (Auto) ESR 31 H D-Dimer 2.03 H VBG pH 7.23 L 7.16 L VBG pCO2 60.1 H 66.3 H VBG pO2 67.5 H VBG HCO3 VBG Total CO2 VBG O2 Saturation 90.6 H VBG Base Excess -2.9 L -5.3 L VBG Lactic Acid 5.3 H 3.9 H Sodium BUN 24 H Creatinine 1.30 H Estimated GFR 53 L Glucose 56 L Lactate 3.6 H AST 84 H Alkaline Phosphatase 146 H Troponin I 0.04 H C-Reactive Protein 11.6 H NT-Pro-B Natriuret Pep 692 H Globulin 3.6 H Urine Protein 2+ A Urine Blood 2+ A Plasma/Serum Alcohol 12 H 03/05/25 03/05/25 03/05/25 17:30 18:29 19:23 RBC Hgb Hct MCH MCHC MPV Neut % (Auto) Lymph % (Auto) Eos % (Auto) Neut # (Auto) Lymph # (Auto) ESR D-Dimer VBG pH 7.20 L VBG pCO2 60.0 H VBG pO2 48.8 H VBG HCO3 VBG Total CO2 VBG O2 Saturation 76.7 H VBG Base Excess -4.8 L VBG Lactic Acid 3.4 H Sodium BUN Creatinine Estimated GFR Glucose Lactate 2.3 H AST Alkaline Phosphatase Troponin I 0.11 H C-Reactive Protein NT-Pro-B Natriuret Pep Globulin Urine Protein Urine Blood Plasma/Serum Alcohol 03/05/25 03/05/25 03/06/25 20:40 21:54 05:00 RBC Hgb Hct MCH MCHC MPV Neut % (Auto) Lymph % (Auto) Eos % (Auto) Neut # (Auto) Lymph # (Auto) ESR D-Dimer VBG pH 7.19 L VBG pCO2 54.0 H VBG pO2 40.1 H 43.4 H VBG HCO3 20.3 L 22.7 L VBG Total CO2 21.9 L VBG O2 Saturation 80.2 H VBG Base Excess -7.9 L -2.9 L VBG Lactic Acid 3.6 H 2.3 H Sodium BUN Creatinine Estimated GFR Glucose Lactate 2.5 H AST Alkaline Phosphatase Troponin I 0.15 H C-Reactive Protein NT-Pro-B Natriuret Pep Globulin Urine Protein Urine Blood Plasma/Serum Alcohol 03/06/25 05:10 RBC 3.93 L Hgb 10.2 L D Hct 34.4 L MCH MCHC 30.8 L MPV 10.8 H Neut % (Auto) 90.3 H Lymph % (Auto) 7.0 L Eos % (Auto) 0.0 L Neut # (Auto) 8.1 H Lymph # (Auto) 0.6 L ESR D-Dimer VBG pH VBG pCO2 VBG pO2 VBG HCO3 VBG Total CO2 VBG O2 Saturation VBG Base Excess VBG Lactic Acid Sodium 135 L BUN 28 H Creatinine 1.30 H Estimated GFR 53 L Glucose 145 H D Lactate AST Alkaline Phosphatase Troponin I 0.28 H C-Reactive Protein NT-Pro-B Natriuret Pep Globulin Urine Protein Urine Blood Plasma/Serum Alcohol Assessment and Plan *Assessment and plan (1) Respiratory failure: Status: Acute Category: Medical Code(s): J96.90 - Respiratory failure, unspecified, unspecified whether with hypoxia or hypercapnia (2) Acute exacerbation of chronic obstructive pulmonary disease: Status: Acute Category: Medical Code(s): J44.1 - Chronic obstructive pulmonary disease with (acute) exacerbation (3) Acute on chronic respiratory failure with hypoxia and hypercapnia: Status: Acute Category: Medical Code(s): J96.21 - Acute and chronic respiratory failure with hypoxia; J96.22 - Acute and chronic respiratory failure with hypercapnia (4) Loculated pleural effusion: Status: Acute Category: Medical Code(s): J90 - Pleural effusion, not elsewhere classified (5) Lung collapse: Status: Acute Category: Medical Code(s): J98.19 - Other pulmonary collapse Plan Mr. Mack is a 84-year-old male current smoker greater than [id number] smoking history no smoking 2 to 5 cigarettes/day, CAD status post stenting previously followed with cardiology, alcohol abuse presented to the ER with worsening respiratory distress hypoxic hypercarbic respiratory failure and pulmonary was called for further evaluation and management. Afebrile. Hemodynamically stable. No evidence of leukocytosis. Comprehensive respiratory viral PCR panel negative. Hypercarbic respiratory failure upon admission improving. Currently on broad-spectrum antibiotics. CT chest reviewed, appears to be chronic left lower lobe airway to start some lower lobe collapse and pleural effusion loculated. The noted findings appear to be chronic, present on his CAT scan from May 2024, gradually getting worse with respect to airway distortion left lower lobe collapse, pleural thickening and the noted effusion. CT scan from 2021 no significant changes except for mild left pleural effusion and pleural thickening. Patient family admits admission to [facility] around July 2025 for respiratory failure diagnosed with Klebsiella pneumonia status post discharged home after 8 days without any IV antibiotics. Patient admits he also had a PET scan performed and he was deemed high risk for lung biopsy. Plan: -Trelegy 100 inhaler along with DuoNebs 4 times daily as needed for concerning COPD exacerbation. No need for NIV therapy at this point of time as his hypercarbic respiratory failure improved. -Continue broad-spectrum antibiotics including vancomycin and cefepime pending culture results. -Continue oxygen supplementation to maintain O2 saturation goal of 90% and above -For the noted left lung collapse and loculated effusion this appears to be chronic than acute contributing to patient's current symptomatology. Will consult IR for loculated pleural effusion. Will obtain records from [facility] and further determine the need for pursuing bronchoscopy transbronchial biopsy for the concerning left lower lobe collapse. -Follow-up TB QuantiFERON, sputum AFB fungal Gram stain culture sensitivities and CRP
[2025-03-06 09:19] LABS: Reflex Lactic Add Lactic Reflex
[2025-03-06] MEDS: NICOTINE 14MG/24HRS PATCH 14 MG TD (09:22)
[2025-03-06] MEDS: ASPIRIN EC 81MG TABLET 81 MG PO (09:22)
[2025-03-06] MEDS: FERROUS SULFATE 325MG TABLET 325 MG PO (09:22)
[2025-03-06] MEDS: CARVEDILOL 6.25MG TABLET 6.25 MG PO ×2 (09:22→20:42)
--- NOTE | 2025-03-06 10:13 | CA_ITS ---
APPROVED REPORT EXAM: Comprehensive 2D, Doppler, and color-flow Echocardiogram Ladle Liner Helper: Angeles Braxton CRT Ht: 5 ft 8 in Wt: 137lbs BSA: 1.74 BP: 125/80 mmHg Indications: ELEVATED TROPONIN 2D Dimensions LA Volume 43.70 mL LA Volume Index 24.60 mL/m2 (M/F) 16-34 M-Mode Dimensions RVDd 3.14 cm (0.9-2.6) LA Diam 2.99 cm (1.9-4.0) LVDd 3.30 cm (3.5-5.7) LVDs 2.38 cm (3.5-5.7) IVSd 1.93 cm (0.6-1.1) PWd 1.17 cm (0.6-1.1) EF (Teich) 55.30% FS 27.90% EDV (Teich) 44.10 mL TAPSE 2.19 (<1.7) ESV (Teich) 19.70 mL LV Diastology E Decel Time 413 (160-240 msec) E/A Ratio 0.63 MED A' 14.80 cm/s LAT A' 18.10 cm/s Aortic Valve AI PHT 554.00 ms AO Peak GR. 8.90 mmHg Mitral Valve MV A Velocity 95.0 (40-130 cm/s) E/A Ratio 0.63 Pulmonary Valve PV Peak Velocity 52.0 (50-150 cm/s) Tricuspid Valve TR P. Velocity 285.00 cm/s RAP Estimate 10.00 mmHg RVSP 42.50 mmHg Left Ventricle The left ventricle is normal size. The left ventricular systolic function is normal. The left ventricular ejection fraction is within the normal range. There is increased LV wall thickness. There is normal LV segmental wall motion. Diastolic function is indeterminate. LVEF is 60%. Right Ventricle Right ventricle is moderately dilated. The right ventricular systolic function is normal. Atria The left atrium size is normal. The right atrium size is normal. There is no Doppler evidence of interatrial shunt. Aortic Valve The aortic valve is mildly thickened. There is no aortic valvular stenosis. Mild aortic regurgitation. Mitral Valve The mitral valve is normal in structure. No evidence of mitral valve stenosis. Mild mitral regurgitation. Tricuspid Valve Tricuspid valve is grossly normal in structure and function. Mild tricuspid regurgitation. RVSP 30-35 mmHg. Pulmonic Valve The pulmonary valve is normal in structure. Trace pulmonic regurgitation. Great Vessels The aortic root is normal in size. IVC is normal in size and collapses >50% with inspiration. Pericardium There is no pericardial effusion. Other Information Study Quality: Fair Conclusion Normal LV systolic function. Moderate RV dilation with normal RV function. Mild AI, mild MR, mild TR. Electronically signed by : Danna Jeff MD 03/06/2025 22:59:54
--- NOTE | 2025-03-06 10:32 | PC.NURSE ---
Verified w/ Dr. Vicente that pt does not need to be in isolation to r/o TB r/t AFB testing
--- NOTE | 2025-03-06 11:22 | PC.NURSE ---
pt is off the floor with RN and RAD via wheelchair for a procedure @[id number]
--- NOTE | 2025-03-06 11:35 | CT_ITS ---
FINAL REPORT CLINICAL HISTORY: .CT GUIDED THORA LEFT SIDE 60ML FLUID DRAINED OFF FINDINGS: CT-GUIDED THORACENTESIS HISTORY: Loculated left pleural effusion. ATTENDING PHYSICIAN: Dr. Espinosa PHYSICIAN PROMOTIONAL MARKETING AGENT: Flores Interiano PA-C TECHNIQUE: Informed consent was obtained from the patient. The indications and complications were discussed with the patient prior to beginning the procedure. This included, but was not limited to pain, bleeding, infection, and pneumothorax requiring chest tube placement. Attempt was made to perform procedure under ultrasound guidance, but visualization was very poor. The visualized fluid was noted to be extremely loculated. The patient was taken to CT for the procedure. The left back was then prepped and draped in sterile fashion. 1% Lidocaine was used for local anesthesia. Utilizing CT guidance, a standard thoracentesis needle and sheath were inserted into the pleural space and approximately 45 mL of thick, slightly red fluid was successfully removed without complication. 40mL of this fluid was sent to the lab. The patient tolerated the procedure well. Post procedural imaging demonstrated no immediate complication. IMPRESSION: Technically successful CT-guided left-sided thoracentesis as above. Reviewed, Interpreted and Dictated by Santos Espinosa MD Transcribed by Flores Interiano PA-C Authenticated and [facility]
--- NOTE | 2025-03-06 12:06 | PC.NURSE ---
pt is back from procedure with RN to room 266 @1206
--- NOTE | 2025-03-06 12:20 | PC.NURSE ---
Pt down to rad @ 1122 w/ nursing staff and continuous monitoring. Procedure performed by rad staff and SOHAIL Porras in CT. RN @ bedside for continuous monitoring. Pt tolerated procedure well and returned back to floor @ 1205.
[2025-03-06 12:58] LABS: Source, Body Fld. Thoracentesis Fluid; Volume,Body Fld. 60 mL
[2025-03-06 12:59] LABS: Appearance,Body Fld. Turbid; RBC,Body Fluid 458000 cells/uL (< 10 X 10^3); TNC,Body Fluid 176657 cells/uL (< 1000)
--- NOTE | 2025-03-06 14:06 | HMH.OTEV ---
OT Inpatient Evaluation Rehab OT IP Evaluation Start: 03/06/25 08:17 Freq: ONCE Status: Active Protocol: Document 03/06/25 14:01 CECIL (Rec: 03/06/25 14:06 [facility] [id number]) Rehab OT IP Assessment Subjective History Pt oriented x3 on arrival. Pt agreeable to engage in therapy evaluation. Pt's daughter present and supportive. Pt admitted on 03/05/25 due to respiratory failure. History and physical: Patient is a 84-year-old male with past medical history of COPD CAD alcohol abuse tobacco use, CAD status post stenting who presents to the hospital due to shortness of breath. According to the family he smokes daily, around 4 to 5 cigarettes a day, he also drinks alcohol daily. On further evaluation in the emergency department CTA chest did show consolidation left lower lung along with pleural effusion with diffuse pleural thickening. Patient otherwise denied active chest pain nausea vomiting diarrhea constipation fevers and chills. Subjective Pt reports prior to being in the hospital, he lived at home alone. Pt lives next door to his daughter. Pt claims normally he is independent with all ADLs. He does use o2 at all times. He can complete simple IADLs . Daughter does his cleaning. Pt does not require any type of AE during functional transfers. Objective Patient Orientation Person,Place,Birthday Right Upper WFL Extremity Gross ROM Left Upper Extremity WFL Gross ROM Transfer Training Sit/Stand Transfer Assist Level Supervision/Stand by Chair Transfer Supervision/Stand by Ability Chair Transfer Sit to/from Ambulatory Technique Chair Transfer None Assistive Devices Lower Body Dressing Standby Assistance Ability Rehab OT IP prob,goals,plan Problems Date of Evaluation: 03/06/25 Rehab Potential Rehab Potential Innapropriate for Skilled Therapy Discharge Plan OT Discharge Plan Pt appears to be at his baseline with functional transfers and ADL independence. Pt can return home once he is medially stable per physician. Eval Complexity Eval Charge Codes 31263 - Moderate Complexity PHYSICIAN CERTIFICATION: I certify the specified therapy services for Ross Mack are required, authorized, and reviewed every 30 days.
[2025-03-06 15:07] LABS: Troponin I 0.24 ng/ml (0.00-0.034)
[2025-03-06 15:15] LABS: C-Reactive Protein 22.3 mg/L (0-4)
[2025-03-06 15:30] LABS: Mononuclear WBCs,Body Fluid 11 %; Polynuclear WBC,Body Fluid 89 %
--- NOTE | 2025-03-06 15:39 | XR_ITS ---
FINAL REPORT CLINICAL HISTORY: SOB COMPARISON: 03/05/2025 FINDINGS: The heart size is normal. The mediastinum is normal. There is dense left lower lobe consolidation as well as a moderate pleural effusion, unchanged since the prior exam of 03/05/2025. There is no pneumothorax. There is no osseous abnormality. IMPRESSION: No significant change in the dense left lower lobe consolidation and moderate left pleural effusion. Reviewed, Interpreted and Dictated by Santos Espinosa MD Transcribed by Dolores Lopez Authenticated and [facility]
--- NOTE | 2025-03-06 15:40 | EXP.CARD.CON ---
History of Present Illness History of Present Illness Consult date: 03/06/25 Chief complaint: SOA History of present illness: 84-year-old white male former patient not seen since 2022. Had stenting of LAD in 2021. Has ongoing COPD pulmonary hypertension tobacco abuse and alcohol abuse. Presented to the emergency room with worsening and severe shortness of breath occurring over the past week. Patient states he felt impending doom. Workup here revealed hypoxia, elevated ESR, elevated CRP, lactic acid, D-dimer. CTA showed worsening chronic left effusion with lung collapse and COPD. Troponins slightly elevated 0.04, 0.11, 0.15, 0.28. EKG appears to show sinus rhythm with intraventricular conduction delay and anterolateral Q waves which appear unchanged for years. proBNP 692. I am seeing the patient the following morning and he reports she feels 100% better following nebulizer treatment. I discussed the case with pulmonology who also feel this was a COPD exacerbation. [facility] Disclaimer: The information contained in this section may have been updated after the patient was seen, as this information can be updated by other users. Medical History Lung collapse Loculated pleural effusion Acute on chronic respiratory failure with hypoxia and hypercapnia On home O2 Smoker Alcohol abuse COPD (chronic obstructive pulmonary disease) Coronary artery disease Acute exacerbation of chronic obstructive airways disease Social History Smoking Status: Current every day smoker tobacco type: pipe second hand exposure: No alcohol intake: current alcohol intake frequency: 0-2 drinks per day substance use type: denies use current occupational status: retired Travel in the last 8 weeks?: None household members: other housing: house current occupational exposures/hazards: No caffeine: No Have you lived/traveled outside [place] in past 30 days?: No Contact w/someone who lives/traveled outside US past 30 days?: No Exposure to someone with infectious disease in past 14 days?: No Do you have a fever (greater than 100.4 F or 38 C)?: No Have you tested positive for COVID-19?: No Exposed to someone with COVID-19 in past 14 days?: No Do you have a sore throat?: No Do you have a cough?: No Do you have any weakness?: No Do you have any diarrhea?: No Are you experiencing any unusual bleeding?: No Do you have any muscle aches/pain?: No Do you have any abdominal pain?: No Are you experiencing loss of taste or smell?: No Review of Systems Constitutional Constitutional: Denies fatigue and Reports weakness Eyes Eyes: Denies loss of vision ENT Ears, Nose, Mouth, and Throat: Denies hearing loss and Denies vertigo *Cardiovascular Cardiovascular: Denies chest pain, Reports dyspnea and Denies syncope *Respiratory Respiratory: Denies cough, Reports dyspnea, Reports excessive phlegm production and Reports wheezing *Gastrointestinal Gastrointestinal: Denies change in stool character, Denies nausea and Denies vomiting *Genitourinary Genitourinary: Denies difficulty urinating *Musculoskeletal Musculoskeletal: Denies muscle weakness Integumentary/Breasts Skin/Breast: Denies changing lesions *Neurologic Neurologic: Denies loss of vision, Denies syncope, Denies vertigo and Reports weakness Endocrine Endocrine: Denies fatigue Allergic/Immunologic Allergic/Immunologic: Reports wheezing Exam Data for Last 24 hours Vital signs and Labs for Last 24 Hours: Temp Pulse Resp BP Pulse Ox O2 Del Method O2 Flow Rate 98.5 F 66 16 111/46 L 96 Nasal Cannula 2 03/06/25 12:07 03/06/25 15:00 03/06/25 14:00 03/06/25 15:00 03/06/25 15:00 03/06/25 15:00 03/06/25 15:00 FiO2 25 03/06/25 01:46 Laboratory Results - last 24 hr 03/05/25 14:57: ESR 31 H, HCV Ab MILAGROS w/Rflx PCR Qn Negative, HIV Ag/Ab Combo Qual Negative 03/05/25 16:20: Urine Color Yellow, Urine Appearance Clear, Urine pH 6.0, Ur Specific Bowler 1.019, Urine Protein 2+ A, Urine Glucose (UA) Negative, Urine Ketones 1+, Urine Blood 2+ A, Urine Nitrate Negative, Urine Bilirubin Negative, Urine Urobilinogen 0.2, Ur Leukocyte Esterase Negative, Urine RBC 50-100, Urine WBC 3-5, Ur Squamous Epith Cells 5-10, Urine Bacteria 2+, Hyaline Casts 3-5, Urine Mucus 1+ 03/05/25 16:33: Chlamy pneumoniae PCR Not detected, Adenovirus (PCR) Not detected, B. pertussis DNA (PCR) Not detected, Coronavirus OC43 (PCR) Not detected, Coronavirus HKU1 (PCR) Not detected, Coronavirus 229E (PCR) Not detected, SARS-CoV-2 (PCR) Not detected, Coronavirus NL63 (PCR) Not detected, Human Metapneumovir PCR Not detected, Influenza A (H1) PCR Not detected, Influ A (H1N1/09) PCR Not detected, Influenza A (H3) PCR Not detected, Influenza Type A (PCR) Not detected, Influenza Type B (PCR) Not detected, M. pneumoniae (PCR) Not detected, Parainfluenza 1 (PCR) Not detected, Parainfluenza 2 (PCR) Not detected, Parainfluenza 3 (PCR) Not detected, Parainfluenza 4 (PCR) Not detected, RSV (PCR) Not detected, Entero/Rhino (PCR) Not detected 03/05/25 17:00: VBG pH 7.16 L, VBG pCO2 66.3 H, VBG pO2 36.0, VBG HCO3 23.3, VBG Total CO2 25.4, VBG O2 Saturation 55.3, VBG Base Excess -5.3 L, VBG Lactic Acid 3.9 H 03/05/25 17:30: Troponin I 0.11 H 03/05/25 18:29: VBG pH 7.20 L, VBG pCO2 60.0 H, VBG pO2 48.8 H, VBG HCO3 23.1, VBG Total CO2 25.0, VBG O2 Saturation 76.7 H, VBG Base Excess -4.8 L, VBG Lactic Acid 3.4 H 03/05/25 19:23: Lactate 2.3 H 03/05/25 20:40: VBG pH 7.19 L, VBG pCO2 54.0 H, VBG pO2 40.1 H, VBG HCO3 20.3 L, VBG Total CO2 21.9 L, VBG O2 Saturation 66.7, VBG Base Excess -7.9 L, VBG Lactic Acid 3.6 H, Troponin I 0.15 H 03/05/25 21:54: Lactate 2.5 H 03/06/25 05:00: VBG pH 7.35, VBG pCO2 41.6, VBG pO2 43.4 H, VBG HCO3 22.7 L, VBG Total CO2 23.9, VBG O2 Saturation 80.2 H, VBG Base Excess -2.9 L, VBG Lactic Acid 2.3 H 03/06/25 05:10: WBC 9.0, RBC 3.93 L, Hgb 10.2 L D, Hct 34.4 L, MCV 87.5, MCH 27.0, MCHC 30.8 L, RDW 16.3, Plt Count 240 D, MPV 10.8 H, Neut % (Auto) 90.3 H, Lymph % (Auto) 7.0 L, [place] % (Auto) 2.1, Eos % (Auto) 0.0 L, Baso % (Auto) 0.2, Neut # (Auto) 8.1 H, Lymph # (Auto) 0.6 L, [place] # (Auto) 0.2, Eos # (Auto) 0.0, Baso # (Auto) 0.0, Sodium 135 L, Potassium 4.3, Chloride 103, Carbon Dioxide 25, Anion Gap 11.3, BUN 28 H, Creatinine 1.30 H, Estimated Creat Clear 39, Estimated GFR 53 L, Est GFR ( Amer) 64, Glucose 145 H D, Calcium 8.6, Troponin I 0.28 H, Procalcitonin 0.467 03/06/25 09:55: Lactate 2.0 03/06/25 12:00: Fluid Source Thoracentesis fluid, Fluid Volume 60, Fluid Appearance Turbid, Fluid RBC (Auto) 295532, Fld Tot Nucleated Cell 602678, Fld Polynuclear WBCs % 89, Fld Mononuclear WBCs % 11 03/06/25 14:05: Troponin I 0.24 H, C-Reactive Protein 22.3 H D I & O for Last 24 hours: Intake & Output 03/03/25 03/04/25 03/05/25 03/06/25 23:59 23:59 23:59 23:59 Intake Total 1180 / 1180 Output Total 900 / 900 Balance 280 / 280 Weight 137 lb 137 lb Meds Home Medications and Allergies Home Medications ?Medication ?Instructions ?Recorded ?Confirmed ?Type aspirin 81 mg tablet,delayed 81 mg PO DAILY 10/24/17 03/05/25 History release tamsulosin 0.4 mg capsule (Flomax) 0.4 mg PO DAILY 7 days #7 caps 11/06/23 03/05/25 Rx ascorbic acid (vitamin C) 500 mg 500 mg PO DAILY 03/05/25 03/05/25 History tablet (Vitamin C) cholecalciferol (vitamin D3) 25 25 mcg PO DAILY 03/05/25 03/05/25 History mcg (1,000 unit) capsule (Vitamin D3) ferrous sulfate 325 mg (65 mg 325 mg PO DAILY 03/05/25 03/06/25 History iron) tablet (Iron (ferrous sulfate)) guaifenesin 600 mg tablet, 600 mg PO BID 03/05/25 03/06/25 History extended release 12 hr (Mucinex) albuterol sulfate 90 mcg/actuation 2 puff inhalation Q4HP PRN 03/06/25 03/06/25 History aerosol inhaler Shortness Of Breath magnesium oxide 400 mg (241.3 mg 400 mg PO BID 03/06/25 03/06/25 History magnesium) tablet pantoprazole 40 mg tablet,delayed 40 mg PO DAILY 03/06/25 03/06/25 History release rosuvastatin 10 mg tablet 10 mg PO DAILY 03/06/25 03/06/25 History New Prescriptions to Start Prescriptions: Allergies Allergy/AdvReac Type Severity Reaction Status Date / Time Penicillins Allergy Intermediate I-HIVES Verified 04/05/24 14:55 Assessment and Plan *Assessment and plan (1) Lung collapse: Status: Acute Category: Medical Code(s): J98.19 - Other pulmonary collapse (2) Loculated pleural effusion: Status: Acute Category: Medical Code(s): J90 - Pleural effusion, not elsewhere classified (3) Acute on chronic respiratory failure with hypoxia and hypercapnia: Status: Acute Category: Medical Code(s): J96.21 - Acute and chronic respiratory failure with hypoxia; J96.22 - Acute and chronic respiratory failure with hypercapnia (4) Respiratory failure: Status: Acute Category: Medical Code(s): J96.90 - Respiratory failure, unspecified, unspecified whether with hypoxia or hypercapnia (5) CAD (coronary artery disease): Status: Chronic Qualifiers: Associated angina: without angina Coronary Disease-Associated Artery/Lesion type: unspecified vessel or lesion type [place] vs. transplanted heart: unspecified whether [place] or transplanted heart Qualified Code(s): I25.10 - Atherosclerotic heart disease of [place] coronary artery without angina pectoris Category: Medical Code(s): I25.10 - Atherosclerotic heart disease of [place] coronary artery without angina pectoris Plan CAD with elevated troponin - Patient denies anginal chest pain, EKG appears unchanged, ECHO shows normal BiV function - This appears to be demand ischemia from acute hypoxia. Offered patient left heart cath this admission due to elevated troponin but he feels 100% better with respiratory treatment and prefers medical management for his heart. - Continue aspirin, statin, beta-marie. Recommend outpatient follow-up. Acute on chronic hypoxic respiratory failure with COPD exacerbation, left lung collapse with loculated effusion - symptoms improved 100% per patient - moderate RV dilation but normal RV function noted on ECHO - Nebs, steroids, antibiotics and further intervention per Pulmonology ETOH Abuse - x7-8 years following the of his - we dicussed long acting anxiety/depression meds for this so he can avoid ETOH. Pt agreeable to try. Tob Abuse - recommend full cessation CV stable. No further inpatient plans at this time. He needs close CV f/u outpatient. Please advise if we can be of further assistance this admission, thank you.
--- NOTE | 2025-03-06 15:52 | HMH.PTEV ---
Physical Therapy Evaluation Rehab PT IP Evaluation Start: 03/06/25 08:17 Freq: ONCE Status: Active Protocol: Document 03/06/25 15:47 PETE (Rec: 03/06/25 15:52 [email or web address] [id number]) Subjective/History History History Pt oriented x3 on arrival. Pt agreeable to engage in therapy evaluation. Pt's daughter present and supportive. Pt admitted on 03/05/25 due to respiratory failure. History and physical: Patient is a 84-year-old male with past medical history of COPD CAD alcohol abuse tobacco use, CAD status post stenting who presents to the hospital due to shortness of breath. According to the family he smokes daily, around 4 to 5 cigarettes a day, he also drinks alcohol daily. On further evaluation in the emergency department CTA chest did show consolidation left lower lung along with pleural effusion with diffuse pleural thickening. Patient otherwise denied active chest pain nausea vomiting diarrhea constipation fevers and chills. He lives alone, daughter lives nearby and assists as needed with house cleaning, etc. He has 1-2 BULMARO the home and is independent with all mobility without an AD. Subjective Subjective Pt reports he feels much better this pm than he did yesterday and is agreeable to mobility assessment. [facility] How much help from another person do you currently need... Turning from your None back to your side while in a flat bed without using bedrails? Moving from lying on None back to sitting on the side of a flat bed without using bedrails? Moving to and from a None bed to a chair ( including a wheelchair)? Standing up from a None chair using your arms? (e.g., wheelchair, bedside chair) Walking in hospital None room? Climbing 3-5 steps None with a railing? Mobility Score 24 Mobility Level [facility] Mobility Walk 250 feet or more Mobility Calculator Rehab PT IP Eval Objective Appearance Patient Behavior Appropriate Patient Orientation Person,Place,Time Difficulty following none instructions Speech Pattern Clear Ambulation Patient Able to Yes Ambulate Ambulation Observation IP General Gait No Deviations/Normal Pattern Observation Ambulation Distance 30 (feet) Ambulation Assistive None Device Ambulation Ability Independent Balance Ability to Arise Able, uses arms to help Sitting Balance Steady, safe Standing Balance Narrow stance w/o support Dynamic Sitting Good Balance Ability Dynamic Standing Good Balance Ability Transfers Bed Transfer Ability Independent Chair Transfer Independent Ability Sit to Stand Bed Independent Transfer Ability Sit to Stand Chair Independent Transfer Ability Rehab PT IP prob,goals,plan Problems Date of Evaluation: 03/06/25 Discharge Plan PT Discharge Plan Pt is appropriate to return home once medically stable for d/c. No current skilled acute inpatient needs. Eval Complexity Eval Charge Codes 98797 - Moderate Complexity PHYSICIAN CERTIFICATION: I certify the specified therapy services for Ross Mack are required, authorized, and reviewed every 30 days.
[2025-03-06] MEDS: AZITHROMYCIN 500 MG in 0.9 % SODIUM CHLORIDE 250 ML 250 MG IV (16:02)
--- OUTSIDE RECORDS SUMMARY | 2025-03-06 16:16 | XMS_ITS | Clinical Summary ---
Author Organization Healthcare Address [address] [id number] Care Team Providers Care Financial Service Rep Name Role Phone Cayden Munoz MD Primary Care Provider [phone] Family History Medical History Relation Name Comments [...] or (1 - 1-dose 75+ series) 2017 [id number] Vaccine ( season) 2024 11/06/2021, 05/27/2021, 12/03/2020, [...] age to complete this topic Care Teams Financial Service Rep Relationship Specialty Start Date End Date Cayden Munoz MD [address] [place] [id number] PCP - General 02/06/21
--- OUTSIDE RECORDS SUMMARY | 2025-03-06 16:16 | XMS_ITS | Clinical Summary ---
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
--- OUTSIDE RECORDS SUMMARY | 2025-03-06 16:16 | XMS_ITS | Clinical Summary ---
Author Organization [facility] Address [address] [place] [address] Phone Care Team Providers Care Scanner Operator Name Role Phone Unavailable Unavailable Conditions or Problems No information available. Medications No information available. Medications Administered No information available. Allergies, Adverse Reactions, Alerts No information available. Results No information available. Plan of Care No information available. Procedures No information available. Vital Signs No information available. Immunizations No information available. Advance Directives No information available.
--- OUTSIDE RECORDS SUMMARY | 2025-03-06 16:16 | XMS_ITS | Referral Summary ---
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
[2025-03-06] MEDS: VANCOMYCIN HCL 1,000 MG in 0.9 % SODIUM CHLORIDE 250 ML 125 MG IV (17:45)
--- NOTE | 2025-03-06 18:29 | P.PN_ITS ---
Subjective *Date: 03/06/25 *Time: 18:33 Interval history: Patient on 2 L oxygen this morning. This is his baseline. Feeling somewhat better. Denies chest pain, nausea or vomiting. States he has been drinking and smoking again. Concerned this is led to his exacerbation. Daughter at bedside. Afebrile Medical Exam Vital signs and Labs for Last 24 Hours: Vital Signs Temp Pulse Pulse Resp BP BP Pulse Ox 03/06/25 17:00 03/06/25 16:01 97.6 F 68 18 120/54 L 97 03/06/25 16:00 72 03/06/25 15:00 66 111/46 L 96 03/06/25 15:00 03/06/25 14:07 69 03/06/25 14:07 68 03/06/25 14:00 74 16 113/49 L 96 03/06/25 13:01 68 14 124/56 L 97 03/06/25 13:00 03/06/25 12:10 19 96 03/06/25 12:07 98.5 F 97 H 23 125/80 92 L 03/06/25 12:00 85 03/06/25 11:00 66 19 120/50 L 94 L 03/06/25 11:00 03/06/25 10:00 72 15 114/49 L 96 03/06/25 09:34 68 03/06/25 09:34 68 03/06/25 09:00 74 20 128/52 L 97 03/06/25 09:00 03/06/25 08:00 75 03/06/25 08:00 98.4 F 03/06/25 08:00 67 115/51 L 94 L 03/06/25 08:00 18 95 03/06/25 07:00 74 120/55 L 95 03/06/25 06:40 03/06/25 06:40 64 03/06/25 06:40 63 03/06/25 06:40 94 L 03/06/25 06:00 68 19 126/56 L 93 L 03/06/25 05:00 67 16 121/53 L 96 03/06/25 05:00 03/06/25 04:00 66 03/06/25 04:00 69 94 L 03/06/25 04:00 97.6 F 63 17 107/46 L 92 L 03/06/25 03:00 74 19 124/58 L 93 L 03/06/25 03:00 03/06/25 02:16 77 03/06/25 02:14 74 03/06/25 02:00 82 20 125/94 H 92 L 03/06/25 01:46 03/06/25 01:00 86 16 133/57 L 90 L 03/06/25 01:00 03/06/25 00:00 84 03/06/25 00:00 98.1 F 81 18 135/66 92 L 03/05/25 23:00 85 20 134/60 94 L 03/05/25 23:00 03/05/25 22:02 03/05/25 22:00 83 14 131/66 95 03/05/25 21:00 105 H 22 148/78 H 95 03/05/25 21:00 03/05/25 20:30 97.5 F L 102 H 22 146/77 H 97 03/05/25 20:17 94 L 03/05/25 20:08 97.5 F L 103 H 22 125/68 03/05/25 19:52 104 H 03/05/25 19:50 03/05/25 18:49 109 H 25 H 156/75 H 94 L O2 Del Method O2 Flow Rate FiO2 03/06/25 17:00 Nasal Cannula 2 03/06/25 16:01 Room Air 03/06/25 16:00 03/06/25 15:00 Nasal Cannula 2 03/06/25 15:00 Nasal Cannula 2 03/06/25 14:07 03/06/25 14:07 03/06/25 14:00 Nasal Cannula 2 03/06/25 13:01 Nasal Cannula 2 03/06/25 13:00 Nasal Cannula 2 03/06/25 12:10 Nasal Cannula 2 03/06/25 12:07 Nasal Cannula 2 03/06/25 12:00 03/06/25 11:00 Nasal Cannula 2 03/06/25 11:00 Nasal Cannula 2 03/06/25 10:00 Nasal Cannula 2 03/06/25 09:34 03/06/25 09:34 03/06/25 09:00 Nasal Cannula 2 03/06/25 09:00 Nasal Cannula 2 03/06/25 08:00 03/06/25 08:00 03/06/25 08:00 Room Air 03/06/25 08:00 Nasal Cannula 2 03/06/25 07:00 Nasal Cannula 2 03/06/25 06:40 Nasal Cannula 2 03/06/25 06:40 03/06/25 06:40 03/06/25 06:40 Nasal Cannula 2 03/06/25 06:00 03/06/25 05:00 03/06/25 05:00 Nasal Cannula 2 03/06/25 04:00 03/06/25 04:00 BiPAP 03/06/25 04:00 BiPAP 03/06/25 03:00 BiPAP 03/06/25 03:00 BiPAP 03/06/25 02:16 03/06/25 02:14 03/06/25 02:00 BiPAP 03/06/25 01:46 03/06/25 01:00 BiPAP 03/06/25 01:00 BiPAP 03/06/25 00:00 03/06/25 00:00 BiPAP 03/05/25 23:00 BiPAP 03/05/25 23:00 BiPAP 03/05/25 22:02 03/05/25 22:00 BiPAP 03/05/25 21:00 BiPAP 03/05/25 21:00 BiPAP 03/05/25 20:30 Nasal Cannula 3 03/05/25 20:17 BiPAP 03/05/25 20:08 BiPAP 03/05/25 19:52 03/05/25 19:50 03/05/25 18:49 BiPAP Intake and Output 03/06/25 03/06/25 03/06/25 07:59 15:59 23:59 Intake Total 340 / 1750 840 / 1750 570 / 1750 Output Total 550 / 900 350 / 900 Balance -210 / 850 490 / 850 570 / 850 Intake: Intake, Oral Amount 240 / 1135 685 / 1135 210 / 1135 Intake, Other Amount Intake, Total IV Amount 100 / 600 150 / 600 350 / 600 Azithromycin 500 mg In 0.9 % 250 / 250 Sodium Chloride 250 ml @ 250 mls/hr IV Q24H [facility] Rx#:[id number] Cefepime HCl 2 gm In 0.9 % 100 / 200 100 / 200 Sodium Chloride 100 ml @ 200 mls/hr IV Q8H [facility] Rx#:[id number] Levofloxacin/D5w 750 mg/150 ml 150 / 150 750 mg In 150 ml @ 100 mls/hr IV Q24H [facility] Rx#:[id number] Output: Output, Urine Amount 550 / 900 350 / 900 Other: Intake, Other Source Saline Solution Number of Unmeasured Voids 0 1 Number of Bowel Movements 1 1 Weight 62.142 kg Patient Weight 03/06/25 23:59 Weight 62.142 kg Laboratory Results - last 24 hr 03/05/25 16:33: Chlamy pneumoniae PCR Not detected, Adenovirus (PCR) Not detected, B. pertussis DNA (PCR) Not detected, Coronavirus OC43 (PCR) Not detected, Coronavirus HKU1 (PCR) Not detected, Coronavirus 229E (PCR) Not detected, SARS-CoV-2 (PCR) Not detected, Coronavirus NL63 (PCR) Not detected, Human Metapneumovir PCR Not detected, Influenza A (H1) PCR Not detected, Influ A (H1N1/09) PCR Not detected, Influenza A (H3) PCR Not detected, Influenza Type A (PCR) Not detected, Influenza Type B (PCR) Not detected, M. pneumoniae (PCR) Not detected, Parainfluenza 1 (PCR) Not detected, Parainfluenza 2 (PCR) Not detected, Parainfluenza 3 (PCR) Not detected, Parainfluenza 4 (PCR) Not detected, RSV (PCR) Not detected, Entero/Rhino (PCR) Not detected 03/05/25 18:29: VBG pH 7.20 L, VBG pCO2 60.0 H, VBG pO2 48.8 H, VBG HCO3 23.1, VBG Total CO2 25.0, VBG O2 Saturation 76.7 H, VBG Base Excess -4.8 L, VBG Lactic Acid 3.4 H 03/05/25 19:23: Lactate 2.3 H 03/05/25 20:40: VBG pH 7.19 L, VBG pCO2 54.0 H, VBG pO2 40.1 H, VBG HCO3 20.3 L, VBG Total CO2 21.9 L, VBG O2 Saturation 66.7, VBG Base Excess -7.9 L, VBG Lactic Acid 3.6 H, Troponin I 0.15 H 03/05/25 21:54: Lactate 2.5 H 03/06/25 05:00: VBG pH 7.35, VBG pCO2 41.6, VBG pO2 43.4 H, VBG HCO3 22.7 L, VBG Total CO2 23.9, VBG O2 Saturation 80.2 H, VBG Base Excess -2.9 L, VBG Lactic Acid 2.3 H 03/06/25 05:10: WBC 9.0, RBC 3.93 L, Hgb 10.2 L D, Hct 34.4 L, MCV 87.5, MCH 27.0, MCHC 30.8 L, RDW 16.3, Plt Count 240 D, MPV 10.8 H, Neut % (Auto) 90.3 H, Lymph % (Auto) 7.0 L, [place] % (Auto) 2.1, Eos % (Auto) 0.0 L, Baso % (Auto) 0.2, Neut # (Auto) 8.1 H, Lymph # (Auto) 0.6 L, [place] # (Auto) 0.2, Eos # (Auto) 0.0, Baso # (Auto) 0.0, Sodium 135 L, Potassium 4.3, Chloride 103, Carbon Dioxide 25, Anion Gap 11.3, BUN 28 H, Creatinine 1.30 H, Estimated Creat Clear 39, Estimated GFR 53 L, Est GFR ( Amer) 64, Glucose 145 H D, Calcium 8.6, Troponin I 0.28 H, Procalcitonin 0.467 03/06/25 09:55: Lactate 2.0 03/06/25 12:00: Fluid Source Thoracentesis fluid, Fluid Volume 60, Fluid Appearance Turbid, Fluid RBC (Auto) 594779, Fld Tot Nucleated Cell 278884, Fld Polynuclear WBCs % 89, Fld Mononuclear WBCs % 11 03/06/25 14:05: Troponin I 0.24 H, C-Reactive Protein 22.3 H D I & O for Labs for Last 24 Hours: Intake & Output 03/03/25 03/04/25 03/05/25 03/06/25 23:59 23:59 23:59 23:59 Intake Total 1750 / 1750 Output Total 900 / 900 Balance 850 / 850 Weight 62.142 kg 62.142 kg Microbiology Reports for the Last 24 Hours: Microbiology 03/06/25 12:06 Sputum - Expectorated Sputum KIKO Preparation - Final 03/05/25 16:28 Blood Blood Culture - Preliminary NO GROWTH AFTER 24 HOURS 03/05/25 16:16 Blood Blood Culture - Preliminary NO GROWTH AFTER 24 HOURS Constitutional: Present mild distress, thin, chronically ill appearing and cooperative Head: Present atraumatic and normocephalic ENT: Present normal exam Respiratory: Present decreased breath sounds (Left lung field), prolonged expiratory phase and wheezes; Absent rhonchi or crackles Cardiac: Present Reg Rate and Rhythm GI: Present soft; Absent distention Extremities: Absent tenderness or edema Skin: Present intact; Absent cyanosis Neuro: Present Grossly Intact, alert, awake, oriented x 3 and moves all extremities Assessment and Plan *Assessment and plan (1) Acute on chronic respiratory failure with hypoxia and hypercapnia: Status: Acute Category: Medical Code(s): J96.21 - Acute and chronic respiratory failure with hypoxia; J96.22 - Acute and chronic respiratory failure with hypercapnia (2) Loculated pleural effusion: Status: Acute Category: Medical Code(s): J90 - Pleural effusion, not elsewhere classified (3) Lung collapse: Status: Acute Category: Medical Code(s): J98.19 - Other pulmonary collapse (4) Acute exacerbation of chronic obstructive pulmonary disease: Status: Acute Category: Medical Code(s): J44.1 - Chronic obstructive pulmonary disease with (acute) exacerbation (5) CAD (coronary artery disease): Status: Chronic Qualifiers: Associated angina: without angina Coronary Disease-Associated Artery/Lesion type: unspecified vessel or lesion type [place] vs. transplanted heart: unspecified whether [place] or transplanted heart Qualified Code(s): I25.10 - Atherosclerotic heart disease of [place] coronary artery without angina pectoris Category: Medical Code(s): I25.10 - Atherosclerotic heart disease of [place] coronary artery without angina pectoris (6) Tobacco abuse: Status: Chronic Category: Medical Code(s): Z72.0 - Tobacco use (7) HLD (hyperlipidemia): Status: Chronic Qualifiers: Hyperlipidemia type: mixed hyperlipidemia Qualified Code(s): E78.2 - Mixed hyperlipidemia Category: Medical Code(s): E78.5 - Hyperlipidemia, unspecified (8) HTN (hypertension): Status: Chronic Qualifiers: Hypertension type: primary hypertension Qualified Code(s): I10 - Essential (primary) hypertension Category: Medical Code(s): I10 - Essential (primary) hypertension (9) Alcohol dependence: Status: Chronic Qualifiers: Substance use status: with intoxication Category: Medical Code(s): F10.20 - Alcohol dependence, uncomplicated (10) Non-STEMI (non-ST elevated myocardial infarction): Status: Acute Category: Medical Code(s): I21.4 - Non-ST elevation (NSTEMI) myocardial infarction Plan Patient is a 84-year-old male with past medical history of COPD CAD alcohol abuse tobacco use, CAD status post stenting who presents to the hospital due to shortness of breath. According to the family he smokes daily, around 4 to 5 cigarettes a day, he also drinks alcohol daily. On further evaluation in the emergency department CTA chest did show consolidation left lower lung along with pleural effusion with diffuse pleural thickening. Patient otherwise denied active chest pain nausea vomiting diarrhea constipation fevers and chills. Initially on BiPAP. Improved overnight. On baseline oxygen by morning. Continues to require inpatient management. Pulmonology and cardiology evaluating today. Plan for IR intervention on pleural effusion to evaluate for cytology and infection. Problems addressed as follows: Acute on chronic hypoxemic and hypercapnic respiratory failure COPD exacerbation Loculated pleural effusion Lung collapse - IR consulted today, will perform thoracentesis and send cytology, Gram stain, LDH, glucose, protein evaluation on fluid - Continue broad-spectrum antibiotics including vancomycin and cefepime 2 g IV twice daily. Monitor for toxicity - Discussed case with pulm and, concern for trapped lung. Will follow cytology and fluid studies on effusion. Obtaining records from [place] for further determination of possible bronchoscopy - Quantiferon gold for TB pending. Sputum acid-fast pending. - Supplemental oxygen as needed, goal sats greater 90%. Currently on 2 L which is his baseline - DuoNebs every 6 hours scheduled - Hold on further BiPAP therapy tonight pending worsening respiratory status. Hold on steroids CAD NSTEMI type II -No chest pain but troponin did elevate. Peaked at 0.28. Cardiology consulted. Discussed possible heart cath. Patient states that because he feels better he declined at this time. - Continue aspirin 81 mg daily statin, beta-marie. Recommend outpatient ischemic follow-up ETOH Abuse - Intermittent following the of his . Drinks 3 to 4 days a week and will drink at least a pint a day. No signs of withdrawal. Monitor for withdrawal symptoms. Tobacco dependence: Strongly encouraged cessation Full code Cardiac diet Heparin 3 times daily subcu
[2025-03-06] MEDS: TAMSULOSIN 0.4MG CAPSULE 0.4 MG PO (20:42)
[2025-03-06] MEDS: ATORVASTATIN 40MG TABLET 40 MG PO (20:43)
[2025-03-06] MEDS: PANTOPRAZOLE 40MG TABLET 40 MG PO (20:43)
[2025-03-07] VITALS: PULSE 54; RESP 18; O2SAT 98
[2025-03-07 00:30] VITALS: BP 144/63; PULSE 62; RESP 17; TEMP 36.8; O2SAT 94
--- NOTE | 2025-03-07 02:57 | PC.NURSE ---
Report called to Adolfo SRNA from Joanne LOPEZ @00:21am
--- NOTE | 2025-03-07 02:58 | PC.NURSE ---
Patient D/C off unit to Med/Surg room 205 @00:23
--- NOTE | 2025-03-07 03:06 | PC.NURSE ---
Patient arrived to floor via bed from ICU unit at 00:25.
[2025-03-07 04:00] VITALS: BP 129/62; PULSE 57; RESP 17; TEMP 36.4; O2SAT 100
--- NOTE | 2025-03-07 05:13 | PC.NURSE ---
Pt. was transferred from the ICU to Med/surg this morning. Pt. was admitted to ICU with Respiratory Failure, Hypoxia, fluid overload. Pt. is on his baseline oxygen at 2 liters per nasal cannnula. Pt. denies any CP or SOB. Pt. up to recliner chair. states that he does not sleep in a bed at home but sleeps in a recliner, Once settled in Med/surg. Pt. slept well. Personal items and call mccann in reach.
[2025-03-07 05:58] LABS: Basophils % 0.1 % (0.1-2.0); Hematocrit 32.3 % (42.0-52.0); Hemoglobin 10.1 g/dL (14.1-18.0); Immature Granulocytes # 0.04 10^3uL; Immature Granulocytes % 0.4 %; Lymphocytes # 0.8 K/mm3 (0.7-4.5); Lymphocytes % 8.3 % (10-50); Mean Corpuscular HGB Conc 31.3 g/dL (31.8-35.4); Mean Corpuscular Hemoglobin 26.9 pg (27.0-31.2); Mean Corpuscular Volume 85.9 fl (80-94); Mean Platelet Volume 10.3 fl (7.4-10.4); Monocytes # 0.6 K/mm3 (0.1-1.0); Monocytes % 6.1 % (1.7-9.3); Neutrophils # 8.3 K/mm3 (1.8-7.8); Neutrophils % 85.1 % (37.0-80.0); Nucleated Red Blood Cells # 0 10^3/uL; Nucleated Red Blood Cells % 0 %; Platelet Count 220 K/mm3 (142-424); Red Blood Count 3.76 M/mm3 (4.60-6.20); Red Cell Distribution Width 16.9 % (11.5-17.5); White Blood Count 9.8 K/mm3 (4.8-10.8)
[2025-03-07 05:59] VITALS: PULSE 65; PULSE 68; O2SAT 96
[2025-03-07] MEDS: IPRATROPIUM/ALBUTEROL 3 ML NEB IH (05:59)
[2025-03-07] MEDS: BUDESONIDE 0.5MG/2ML NEB 0.5 MG IH ×2 (05:59→13:03)
[2025-03-07 06:01] LABS: Chloride 106 mmol/L (98-107); Potassium 4.2 mmoL/L (3.5-5.1); Sodium 135 mmol/L (136-145)
[2025-03-07 06:04] LABS: Alanine Aminotransferase 71 U/L (12-78); Albumin/Globulin Ratio 1.1 (1.1-1.8); Alkaline Phosphatase 100 U/L (38-126); Anion Gap 3.2 mEq/L (5-15); Aspartate Amino Transferase 82 U/L (17-59); Bilirubin,Total 0.3 mg/dl (0.2-1.3); Blood Urea Nitrogen 30 mg/dl (9-20); Carbon Dioxide 30 mmol/L (22.0-30.0); Creatinine Clearance Estimated 33 mL/min (50-200); Estimated Glomerular Filt Rate 45 ml/min (>60); GFR (African American) 54 ML/MIN (>60); Globulin 2.8 g/dL (1.3-3.2); Total Protein,Serum 5.8 g/dl (6.3-8.2)
[2025-03-07 06:05] LABS: Calcium 9.9 mg/dl (8.4-10.2); Glucose 108 mg/dl (74-100); Magnesium 2.4 mg/dl (1.6-2.3)
[2025-03-07] MEDS: CEFEPIME HCL 2 GM in 0.9 % SODIUM CHLORIDE 100 ML IV (06:20)
[2025-03-07 08:25] VITALS: BP 124/67; PULSE 87; RESP 20; O2SAT 97
[2025-03-07] MEDS: ASPIRIN EC 81MG TABLET 81 MG PO (08:26)
[2025-03-07] MEDS: guaiFENesin 600 MG TAB.ER.12H PO (08:26)
[2025-03-07] MEDS: FERROUS SULFATE 325MG TABLET 325 MG PO (08:26)
[2025-03-07] MEDS: CARVEDILOL 6.25MG TABLET 6.25 MG PO (08:27)
[2025-03-07] MEDS: NICOTINE 14MG/24HRS PATCH 14 MG TD (08:27)
--- NOTE | 2025-03-07 09:37 | P.PN_ITS ---
Subjective *Date: 03/07/25 *Time: 14:33 Interval history: No acute respiratory vents overnight. Patient admits continued improvement in his respiratory symptoms. Pulmonology Exam Inpatient Vital signs and Labs for Last 24 Hours: Temp Pulse Resp BP Pulse Ox O2 Del Method O2 Flow Rate 97.5 F L 87 20 124/67 97 Nasal Cannula 2 03/07/25 04:00 03/07/25 08:25 03/07/25 08:25 03/07/25 08:25 03/07/25 08:25 03/07/25 08:03/07/25 05:59 FiO2 03/06/25 01:46 Laboratory Results - last 24 hr 03/06/25 09:55: Lactate 2.0 03/06/25 12:00: Fluid Source Thoracentesis fluid, Fluid Volume 60, Fluid Appearance Turbid, Fluid RBC (Auto) 660317, Fld Tot Nucleated Cell 159184, Fld Polynuclear WBCs % 89, Fld Mononuclear WBCs % 11 03/06/25 14:05: Troponin I 0.24 H, C-Reactive Protein 22.3 H D 03/07/25 05:27: WBC 9.8, RBC 3.76 L, Hgb 10.1 L, Hct 32.3 L, MCV 85.9, MCH 26.9 L, MCHC 31.3 L, RDW 16.9, Plt Count 220, MPV 10.3, Neut % (Auto) 85.1 H, Lymph % (Auto) 8.3 L, [place] % (Auto) 6.1, Eos % (Auto) 0.0 L, Baso % (Auto) 0.1, Neut # (Auto) 8.3 H, Lymph # (Auto) 0.8, [place] # (Auto) 0.6, Eos # (Auto) 0.0, Baso # (Auto) 0.0, Sodium 135 L, Potassium 4.2, Chloride 106, Carbon Dioxide 30, Anion Gap 3.2 L, BUN 30 H, Creatinine 1.50 H, Estimated Creat Clear 33, Estimated GFR 45 L, Est GFR ( Amer) 54 L, Glucose 108 H, Calcium 9.9, Magnesium 2.4 H D , Total Bilirubin 0.3, AST 82 H, ALT 71 D, Alkaline Phosphatase 100, Total Protein 5.8 L, Albumin 3.0 L, Globulin 2.8, Albumin/Globulin Ratio 1.1 Temp Pulse Resp BP Pulse Ox O2 Del Method O2 Flow Rate 98.4 F 67 18 115/51 L 94 L Room Air 2 03/06/25 08:00 03/06/25 08:00 03/06/25 08:00 03/06/25 08:00 03/06/25 08:00 03/06/25 08:00 03/06/25 08:00 FiO2 25 03/06/25 01:46 Laboratory Results - last 24 hr 03/05/25 14:57: WBC 9.3, RBC 4.76, Hgb 12.4 L, Hct 42.2, MCV 88.7, MCH 26.1 L, MCHC 29.4 L, RDW 16.3, Plt Count 322, MPV 9.7, Neut % (Auto) 76.8, Lymph % (Auto) 17.0, [place] % (Auto) 3.9, Eos % (Auto) 1.6, Baso % (Auto) 0.4, Neut # (Auto) 7.2, Lymph # (Auto) 1.6, [place] # (Auto) 0.4, Eos # (Auto) 0.2, Baso # (Auto) 0.0, ESR 31 H, PT 10.8, INR 0.97, APTT 27.5, D-Dimer 2.03 H, VBG pH 7.23 L, VBG pCO2 60.1 H, VBG pO2 67.5 H, VBG HCO3 24.6, VBG Total CO2 26.4, VBG O2 Saturation 90.6 H, VBG Base Excess -2.9 L, VBG Lactic Acid 5.3 H, Sodium 138, Potassium 4.6, Chloride 103, Carbon Dioxide 26, Anion Gap 13.6, BUN 24 H, Creatinine 1.30 H, Estimated Creat Clear 39, Estimated GFR 53 L, Est GFR ( Amer) 64, Glucose 56 L, Lactate 3.6 H, Calcium 9.3, Magnesium 2.0, Total Bilirubin 1.1, AST 84 H, ALT 47, Alkaline Phosphatase 146 H, Troponin I 0.04 H, C-Reactive Protein 11.6 H, NT-Pro-B Natriuret Pep 692 H, Total Protein 7.5, Albumin 3.9, Globulin 3.6 H, Albumin/Globulin Ratio 1.1, Lipase 41, Plasma/Serum Alcohol 12 H, HCV Ab MILAGROS w/Rflx PCR Qn Negative, HIV Ag/Ab Combo Qual Negative 03/05/25 16:20: Urine Color Yellow, Urine Appearance Clear, Urine pH 6.0, Ur Specific [place] 1.019, Urine Protein 2+ A, Urine Glucose (UA) Negative, Urine Ketones 1+, Urine Blood 2+ A, Urine Nitrate Negative, Urine Bilirubin Negative, Urine Urobilinogen 0.2, Ur Leukocyte Esterase Negative, Urine RBC 50-100, Urine WBC 3-5, Ur Squamous Epith Cells 5-10, Urine Bacteria 2+, Hyaline Casts 3-5, Urine Mucus 1+ 03/05/25 16:33: Chlamy pneumoniae PCR Not detected, Adenovirus (PCR) Not detected, B. pertussis DNA (PCR) Not detected, Coronavirus OC43 (PCR) Not detected, Coronavirus HKU1 (PCR) Not detected, Coronavirus 229E (PCR) Not detected, SARS-CoV-2 (PCR) Not detected, Coronavirus NL63 (PCR) Not detected, Human Metapneumovir PCR Not detected, Influenza A (H1) PCR Not detected, Influ A (H1N1/09) PCR Not detected, Influenza A (H3) PCR Not detected, Influenza Type A (PCR) Not detected, Influenza Type B (PCR) Not detected, M. pneumoniae (PCR) Not detected, Parainfluenza 1 (PCR) Not detected, Parainfluenza 2 (PCR) Not detected, Parainfluenza 3 (PCR) Not detected, Parainfluenza 4 (PCR) Not detected, RSV (PCR) Not detected, Entero/Rhino (PCR) Not detected 03/05/25 17:00: VBG pH 7.16 L, VBG pCO2 66.3 H, VBG pO2 36.0, VBG HCO3 23.3, VBG Total CO2 25.4, VBG O2 Saturation 55.3, VBG Base Excess -5.3 L, VBG Lactic Acid 3.9 H 03/05/25 17:30: Troponin I 0.11 H 03/05/25 18:29: VBG pH 7.20 L, VBG pCO2 60.0 H, VBG pO2 48.8 H, VBG HCO3 23.1, VBG Total CO2 25.0, VBG O2 Saturation 76.7 H, VBG Base Excess -4.8 L, VBG Lactic Acid 3.4 H 03/05/25 19:23: Lactate 2.3 H 03/05/25 20:40: VBG pH 7.19 L, VBG pCO2 54.0 H, VBG pO2 40.1 H, VBG HCO3 20.3 L, VBG Total CO2 21.9 L, VBG O2 Saturation 66.7, VBG Base Excess -7.9 L, VBG Lactic Acid 3.6 H, Troponin I 0.15 H 03/05/25 21:54: Lactate 2.5 H 03/06/25 05:00: VBG pH 7.35, VBG pCO2 41.6, VBG pO2 43.4 H, VBG HCO3 22.7 L, VBG Total CO2 23.9, VBG O2 Saturation 80.2 H, VBG Base Excess -2.9 L, VBG Lactic Acid 2.3 H 03/06/25 05:10: WBC 9.0, RBC 3.93 L, Hgb 10.2 L D, Hct 34.4 L, MCV 87.5, MCH 27.0, MCHC 30.8 L, RDW 16.3, Plt Count 240 D, MPV 10.8 H, Neut % (Auto) 90.3 H, Lymph % (Auto) 7.0 L, [place] % (Auto) 2.1, Eos % (Auto) 0.0 L, Baso % (Auto) 0.2, Neut # (Auto) 8.1 H, Lymph # (Auto) 0.6 L, [place] # (Auto) 0.2, Eos # (Auto) 0.0, Baso # (Auto) 0.0, Sodium 135 L, Potassium 4.3, Chloride 103, Carbon Dioxide 25, Anion Gap 11.3, BUN 28 H, Creatinine 1.30 H, Estimated Creat Clear 39, Estimated GFR 53 L, Est GFR ( Amer) 64, Glucose 145 H D, Calcium 8.6, Troponin I 0.28 H, Procalcitonin 0.467 I & O for Labs for Last 24 Hours: Intake & Output 03/04/25 03/05/25 03/06/25 03/07/25 23:59 23:59 23:59 23:59 Intake Total 1750 / 1750 240 / 240 Output Total 900 / 900 0 / 0 Balance 850 / 850 240 / 240 Weight 137 lb 137 lb Intake & Output 03/03/25 03/04/25 03/05/25 03/06/25 23:59 23:59 23:59 23:59 Intake Total 580 / 580 Output Total 550 / 550 Balance 30 / 30 Weight 137 lb 137 lb Microbiology Reports for the Last 24 Hours: Microbiology 03/05/25 16:20 Urine,Clean Catch Urine Culture - Final No growth. 03/06/25 12:06 Sputum - Expectorated Sputum KIKO Preparation - Final 03/05/25 16:28 Blood Blood Culture - Preliminary NO GROWTH AFTER 24 HOURS 03/05/25 16:16 Blood Blood Culture - Preliminary NO GROWTH AFTER 24 HOURS Constitutional: Present moderate distress Head: Present normocephalic and atraumatic ENT: Present normal exam, normal oropharynx and mucous membranes moist Neck: Present normal inspection and full ROM Respiratory: Present respiratory distress, rhonchi, diminished air movement and able to speak in complete sentences; Absent wheezes Cardiac: Present S1/S2, Tachycardia and radial pulses present GI: Present soft and distention; Absent tenderness or guarding Skin: Present intact; Absent cyanosis or jaundice Neuro: Present alert, awake and oriented x 3 Extremities: Present normal inspection; Absent clubbing or cyanosis Psychiatric: Present normal affect and cooperative Assessment and Plan *Assessment and plan (1) Respiratory failure: Status: Acute Category: Medical Code(s): J96.90 - Respiratory failure, unspecified, unspecified whether with hypoxia or hypercapnia (2) Acute exacerbation of chronic obstructive pulmonary disease: Status: Acute Category: Medical Code(s): J44.1 - Chronic obstructive pulmonary disease with (acute) exacerbation (3) Acute on chronic respiratory failure with hypoxia and hypercapnia: Status: Acute Category: Medical Code(s): J96.21 - Acute and chronic respiratory failure with hypoxia; J96.22 - Acute and chronic respiratory failure with hypercapnia (4) Loculated pleural effusion: Status: Acute Category: Medical Code(s): J90 - Pleural effusion, not elsewhere classified (5) Lung collapse: Status: Acute Category: Medical Code(s): J98.19 - Other pulmonary collapse Plan Mr. Mack is a 84-year-old male current smoker greater than [id number] smoking history no smoking 2 to 5 cigarettes/day, CAD status post stenting previously followed with cardiology, alcohol abuse presented to the ER with worsening respiratory distress hypoxic hypercarbic respiratory failure and pul monary was called for further evaluation and management. Afebrile. Hemodynamically stable. No evidence of leukocytosis. Comprehensive respiratory viral PCR panel negative. Hypercarbic respiratory failure upon admission improving. Currently on broad- spectrum antibiotics. CT chest reviewed, appears to be chronic left lower lobe airway to start some lower lobe collapse and pleural effusion loculated. The noted findings appear to be chronic, present on his CAT scan from May 2024, gradually getting worse with respect to airway distortion left lower lobe collapse, pleural thickening and the noted effusion. CT scan from 2021 no significant changes except for mild left pleural effusion and pleural thickening. Patient family admits admission to [facility] around July 2025 for respiratory failure diagnosed with Klebsiella pneumonia status post discharged home after 8 days without any IV antibiotics. Patient admits he also had a PET scan performed and he was deemed high risk for lung biopsy. Interval update: Status post thoracentesis yesterday IR guided, removal of 45 mL of thick red- colored fluid without any complications. Culture pending. Blood cultures no growth 24 hours. Urine culture from admission no growth. Sputum Gram stain KIKO and AFB culture sensitivities along with TB QuantiFERON pending. CRP elevated at 22.3. Plan: -Trelegy 100 inhaler along with DuoNebs 4 times daily as needed for concerning COPD exacerbation. No need for NIV therapy at this point of time as his hypercarbic respiratory failure improved. - Wean antibiotics to Augmentin pending pleural fluid staining and culture results. -Continue oxygen supplementation to maintain O2 saturation goal of 90% and above -For the noted left lung collapse and loculated effusion this appears to be chronic than acute contributing to patient's current symptomatology. Will consult IR for loculated pleural effusion. Will obtain records from [facility] and further determine the need for pursuing bronchoscopy transbronchial biopsy for the concerning left lower lobe collapse. -Follow-up with final sputum AFB fungal Gram stain culture sensitivities # Thank you for involving pulmonary in this patient care. Currently awaiting pleural fluid staining for discharge planning, antibiotic course and duration.
[2025-03-07 13:03] VITALS: PULSE 65; PULSE 68; O2SAT 97
--- NOTE | 2025-03-07 14:45 | EXP.DC.SUM ---
General Admission date:: 03/05/25 Discharge date: 03/07/25 HPI HPI HPI: Patient is a 84-year-old male with past medical history of COPD CAD alcohol abuse tobacco use, CAD status post stenting who presents to the hospital due to shortness of breath. According to the family he smokes daily, around 4 to 5 cigarettes a day, he also drinks alcohol daily. On further evaluation in the emergency department CTA chest did show consolidation left lower lung along with pleural effusion with diffuse pleural thickening. Patient otherwise denied active chest pain nausea vomiting diarrhea constipation fevers and chills. Hospital Course Hospital Course Hospital Course: Patient is a 84-year-old male with past medical history of COPD CAD alcohol abuse tobacco use, CAD status post stenting who presents to the hospital due to shortness of breath. According to the family he smokes daily, around 4 to 5 cigarettes a day, he also drinks alcohol daily. On further evaluation in the emergency department CTA chest did show consolidation left lower lung along with pleural effusion with diffuse pleural thickening. Patient otherwise denied active chest pain nausea vomiting diarrhea constipation fevers and chills. Initially on BiPAP. Improved overnight. On baseline oxygen by morning. Pulmonology assisted with care. After thoracentesis, remained stable. Transition to oral antibiotics to complete empiric course. Plan to follow-up with pulmonology as an outpatient. Problems addressed as follows: Acute on chronic hypoxemic and hypercapnic respiratory failure COPD exacerbation Loculated pleural effusion Lung collapse - Presented with respiratory distress necessitating BiPAP. Responded quite well overnight to steroids and breathing treatments. Able to wean to nasal cannula oxygen by morning. IR was consulted on 03/06/2025. They performed thoracentesis and removed thick pleural fluid from effusion. Labs still pending at discharge including Gram stain, culture, cytology. Initiated on broad-spectrum antibiotics with vancomycin and cefepime. Plan was to wean to Augmentin at discharge however given penicillin allergy, will wean to Levaquin to complete empiric 7-day course of antibiotics. Plan to follow-up with pulmonology as an outpatient for further management. QuantiFERON gold for TB pending along with sputum acid-fast pending. Patient remained stable on supplemental oxygen 2 L which is his baseline. Continue DuoNebs as needed every 4-6 hours. No further BiPAP needed during admission. Holding on steroids due to potential infection. - Pulmonology recommended Trelegy 100 inhaler. CAD NSTEMI type II -No chest pain but troponin did elevate. Peaked at 0.28. Cardiology consulted. Discussed possible heart cath. Patient states that because he feels better he declined at this time. Continue aspirin 81 mg daily statin, beta-marie. Recommend outpatient ischemic follow-up ETOH Abuse - Intermittent following the of his . Drinks 3 to 4 days a week and will drink at least a pint a day. No signs of withdrawal. Strongly encouraged cessation Tobacco dependence: Strongly encouraged cessation, patches sent at discharge Total time spent on discharge 32 minutes in counseling, documentation, chart review, and direct care with patient. Exam Data for Last 24 hours Vital signs and Labs for Last 24 Hours: Temp Pulse Resp BP Pulse Ox O2 Del Method O2 Flow Rate 97.5 F L 65 20 124/67 97 Nasal Cannula 2 03/07/25 04:00 03/07/25 13:03 03/07/25 08:25 03/07/25 08:25 03/07/25 13:03 03/07/25 13:03 03/07/25 13:03 FiO2 25 03/06/25 01:46 Laboratory Results - last 24 hr 03/06/25 12:00: Fld Polynuclear WBCs % 89, Fld Mononuclear WBCs % 11 03/06/25 14:05: Troponin I 0.24 H, C-Reactive Protein 22.3 H D 03/07/25 05:27: WBC 9.8, RBC 3.76 L, Hgb 10.1 L, Hct 32.3 L, MCV 85.9, MCH 26.9 L, MCHC 31.3 L, RDW 16.9, Plt Count 220, MPV 10.3, Neut % (Auto) 85.1 H, Lymph % (Auto) 8.3 L, [place] % (Auto) 6.1, Eos % (Auto) 0.0 L, Baso % (Auto) 0.1, Neut # (Auto) 8.3 H, Lymph # (Auto) 0.8, [place] # (Auto) 0.6, Eos # (Auto) 0.0, Baso # (Auto) 0.0, Sodium 135 L, Potassium 4.2, Chloride 106, Carbon Dioxide 30, Anion Gap 3.2 L, BUN 30 H, Creatinine 1.50 H, Estimated Creat Clear 33, Estimated GFR 45 L, Est GFR ( Amer) 54 L, Glucose 108 H, Calcium 9.9, Magnesium 2.4 H D, Total Bilirubin 0.3, AST 82 H, ALT 71 D, Alkaline Phosphatase 100, Total Protein 5.8 L, Albumin 3.0 L, Globulin 2.8, Albumin/Globulin Ratio 1.1 I & O for Last 24 hours: Intake & Output 03/04/25 03/05/25 03/06/25 03/07/25 23:59 23:59 23:59 23:59 Intake Total 1750 / 1750 240 / 240 Output Total 900 / 900 0 / 0 Balance 850 / 850 240 / 240 Weight 62.142 kg 62.142 kg Microbiology Reports for the Last 24 Hours: Microbiology 03/05/25 16:20 Urine,Clean Catch Urine Culture - Final No growth. 03/06/25 12:06 Sputum - Expectorated Sputum KIKO Preparation - Final 03/05/25 16:28 Blood Blood Culture - Preliminary NO GROWTH AFTER 24 HOURS 03/05/25 16:16 Blood Blood Culture - Preliminary NO GROWTH AFTER 24 HOURS Constitutional Constitutional: no acute distress, average body habitus, chronically ill appearing and cooperative *Routine HEENT Exam Head: Present normocephalic and atraumatic Eye: Present EOMI and PERRL ENT: Present mucous membranes moist *Routine Neck Exam Neck: Present supple *Routine Respiratory Exam Respiratory: Present prolonged expiratory phase and wheezes (minimal, improved); Absent rhonchi or crackles *Routine Cardiovascular Exam Cardiovascular: Present RRR *Routine Abdominal Exam Abdominal: Present soft *Routine Rectal Exam Patient deferred: visual exam *Routine Exam Patient deferred: penile exam *Routine Extremities Exam Extremities: Absent cyanosis *Routine Skin Exam Skin: Present intact *Routine Neurological Exam Neurological: Present alert, oriented X3 and moving all extremities; Absent altered mental status Results Data Completed and Pending Labs on day of discharge: Labs from last 24 hours 03/07/25 03/06/25 03/06/25 05:27 14:05 12:00 WBC 9.8 RBC 3.76 L Hgb 10.1 L Hct 32.3 L MCV 85.9 MCH 26.9 L MCHC 31.3 L RDW 16.9 Plt Count 220 MPV 10.3 Neut % (Auto) 85.1 H Lymph % (Auto) 8.3 L [place] % (Auto) 6.1 Eos % (Auto) 0.0 L Baso % (Auto) 0.1 Neut # (Auto) 8.3 H Lymph # (Auto) 0.8 [place] # (Auto) 0.6 Eos # (Auto) 0.0 Baso # (Auto) 0.0 Sodium 135 L Potassium 4.2 Chloride 106 Carbon Dioxide 30 Anion Gap 3.2 L BUN 30 H Creatinine 1.50 H Estimated Creat Clear 33 Estimated GFR 45 L Est GFR ( Amer) 54 L Glucose 108 H Calcium 9.9 Magnesium 2.4 H D Total Bilirubin 0.3 AST 82 H ALT 71 D Alkaline Phosphatase 100 Troponin I 0.24 H C-Reactive Protein 22.3 H D Total Protein 5.8 L Albumin 3.0 L Globulin 2.8 Albumin/Globulin Ratio 1.1 Fld Polynuclear WBCs % 89 Fld Mononuclear WBCs % 11 Preliminary micro results at discharge 03/05/25 16:28 Blood Culture - Preliminary Blood NO GROWTH AFTER 24 HOURS 03/05/25 16:16 Blood Culture - Preliminary Blood NO GROWTH AFTER 24 HOURS DS: Diagnosis Discharge Diagnosis (1) Respiratory failure: Status: Acute Code(s): J96.90 - Respiratory failure, unspecified, unspecified whether with hypoxia or hypercapnia (2) Acute exacerbation of chronic obstructive pulmonary disease: Status: Acute Code(s): J44.1 - Chronic obstructive pulmonary disease with (acute) exacerbation (3) Acute on chronic respiratory failure with hypoxia and hypercapnia: Status: Acute Code(s): J96.21 - Acute and chronic respiratory failure with hypoxia; J96.22 - Acute and chronic respiratory failure with hypercapnia (4) Loculated pleural effusion: Status: Acute Code(s): J90 - Pleural effusion, not elsewhere classified (5) Lung collapse: Status: Acute Code(s): J98.19 - Other pulmonary collapse Meds Home Medications and Allergies Home Medications ?Medication ?Instructions ?Recorded ?Confirmed ?Type aspirin 81 mg tablet,delayed 81 mg PO DAILY 10/24/17 03/05/25 History release tamsulosin 0.4 mg capsule (Flomax) 0.4 mg PO DAILY 7 days #7 caps 11/06/23 03/05/25 Rx ascorbic acid (vitamin C) 500 mg 500 mg PO DAILY 03/05/25 03/05/25 History tablet (Vitamin C) cholecalciferol (vitamin D3) 25 25 mcg PO DAILY 03/05/25 03/05/25 History mcg (1,000 unit) capsule (Vitamin D3) ferrous sulfate 325 mg (65 mg 325 mg PO DAILY 03/05/25 03/06/25 History iron) tablet (Iron (ferrous sulfate)) guaifenesin 600 mg tablet, 600 mg PO BID 03/05/25 03/06/25 History extended release 12 hr (Mucinex) albuterol sulfate 90 mcg/actuation 2 puff inhalation Q4HP PRN 03/06/25 03/06/25 History aerosol inhaler Shortness Of Breath magnesium oxide 400 mg (241.3 mg 400 mg PO BID 03/06/25 03/06/25 History magnesium) tablet pantoprazole 40 mg tablet,delayed 40 mg PO DAILY 03/06/25 03/06/25 History release rosuvastatin 10 mg tablet 10 mg PO DAILY 03/06/25 03/06/25 History atorvastatin 40 mg tablet 40 mg PO HS 30 days #30 tabs 03/07/25 Rx bupropion HCl 100 mg tablet,12 hr 100 mg PO BID #60 ea 03/07/25 Rx sustained-release (Wellbutrin SR) carvedilol 6.25 mg tablet 6.25 mg PO BID 30 days #60 tabs 03/07/25 Rx levofloxacin 750 mg tablet 750 mg PO DAILY #5 tabs 03/07/25 Rx nicotine 14 mg/24 hr daily 14 mg transdermal DAILY 28 days 03/07/25 Rx transdermal patch #28 ea New Prescriptions to Start Prescriptions: atorvastatin Yasir Knox bupropion HCl [Wellbutrin SR] Yasir Knox carvedilol Yasir Knox levofloxacin Yasir Knox nicotine Yasir Knox Allergies Allergy/AdvReac Type Severity Reaction Status Date / Time Penicillins Allergy Intermediate I-HIVES Verified 04/05/24 14:55 Discharge Plan Disposition Patient Disposition: Home, Self-Care Condition: Fair Discharge Order Discharge Orders: Discharge Order (Routine); Ordered 03/07/25 Ordered By: Yasir Knox Follow up Plan Follow up with: Simeon Vicente MD [Physician, Pulmonology] - 04/09/25 1:00 pm Cayden Munoz MD [Primary Care Provider, Internal Medicine] - 03/13/25 10:45 am Sanjiv Jeff MD [Staff Physician, Cardiology] - 03/14/25 1:15 pm Prescriptions/Medication Reconciliation: New bupropion HCl [Wellbutrin SR] 100 mg tablet sustained-release 12 hr 100 mg PO BID Qty: 60 0RF atorvastatin 40 mg Tablet 40 mg PO HS 30 Days Qty: 30 0RF carvedilol 6.25 mg Tablet 6.25 mg PO BID 30 Days Qty: 60 0RF nicotine 14 mg/24 hr Patch 24 Hour 14 mg transdermal DAILY 28 Days Qty: 28 2RF levofloxacin 750 mg tablet 750 mg PO DAILY Qty: 5 0RF Continued aspirin 81 MG tablet,delayed release (DR/EC) 81 mg PO DAILY tamsulosin [Flomax] 0.4 mg capsule 0.4 mg PO DAILY 7 Days Qty: 7 0RF cholecalciferol (vitamin D3) [Vitamin D3] 25 mcg (1,000 unit) Capsule 25 mcg PO DAILY guaifenesin [Mucinex] 600 mg Tablet Extended Release 12hr 600 mg PO BID ascorbic acid (vitamin C) [Vitamin C] 500 mg Tablet 500 mg PO DAILY ferrous sulfate [Iron (ferrous sulfate)] 325 mg (65 mg iron) Tablet 325 mg PO DAILY magnesium oxide 400 mg (241.3 mg magnesium) tablet 400 mg PO BID Patient Comments: TAKE ONE TABLET BY MOUTH TWICE DAILY pantoprazole 40 mg tablet,delayed release (DR/EC) 40 mg PO DAILY Patient Comments: TAKE ONE TABLET BY MOUTH EVERY DAY albuterol sulfate 90 mcg/actuation HFA aerosol inhaler 2 puff INHALATION Q4HP PRN (Reason: Shortness Of Breath) Patient Comments: INHALE 1-2 PUFF(S) BY MOUTH EVERY 4-6 HOURS NEEDED rosuvastatin 10 mg tablet 10 mg PO DAILY Patient Comments: TAKE ONE TABLET BY MOUTH EVERY DAY Problem Reconciliation Problems Reviewed?: Yes Patient Discharge Instructions ACTIVITY: Continue current activity DIET: continue same diet Patient Instructions: DI for Chronic Obstructive Pulmonary Disease, DI for Respiratory Failure, DI for Pleural Effusion, Stop Light COPD, Stop Light Heart Failure, Stop Light Infection Print Language: Togolese Providers Primary Care Provider: Cayden Munoz Admit Provider: Yasir Knox Attending Provider: Yasir Knox
[2025-03-07 17:17] LABS: Albumin, Body Fluid 1.6 g/dL (Not Estab.); Glucose, Body Fluid 9 mg/dL (.); LD, Body Fluid 5735 IU/L (.); Protein, Body Fluid 3.4 g/dL (.)
[2025-03-08 17:13] LABS: QuantiFERON-TB Gold Plus Negative (Negative)
[2025-03-08 20:38] LABS: Body Fluid Culture, Sterile Not indicated. (.); Organism ID Not indicated. (.); Specimen Source Urine (.); Streptococcus pneumoniae Ag Negative (Negative)
[2025-03-09 13:22] LABS: Legionella pneumophila Urinary Negative (Negative)
--- NOTE | 2025-03-11 13:43 | SW/DCPLANNER ---
Spoke with patient's daughter on the phone. Patient's daughter stated that he is doing well. Patient's daughter stated that he is aware of his upcoming appointments. Patient's daughter stated that they were able to potato picker his new medicine from clinic pharmacy. Patient's daughter stated that they have no concerns or questions. Kevin Giles
== END 2025-03-07 16:22 | disposition home or self-care (01) | DRG 177 ==
LOC: ER 14:23 → ICU 20:22 → ER 20:32 → ICU 03-06 06:23 → 2ND 03-07 02:58
PROVIDERS: Emergency Medicine; Internal Medicine; Internal Medicine Pulmonary Disease; Nurse Practitioner; Admitting Provider Internal Medicine Adolescent Medicine; Emergency Provider Emergency Medicine; PCP Internal Medicine Adolescent Medicine; Visit Provider Internal Medicine Adolescent Medicine
DX: J86.9 Pyothorax without fistula (principal); I21.A1 Myocardial infarction type 2; J96.21 Acute and chronic respiratory failure with hypoxia; J96.22 Acute and chronic respiratory failure with hypercapnia; E87.20 Acidosis, unspecified; J44.1 Chronic obstructive pulmonary disease with (acute) exacerbation; J98.19 Other pulmonary collapse; F17.290 Nicotine dependence, other tobacco product, uncomplicated; I25.10 Atherosclerotic heart disease of native coronary artery without angina pectoris; F17.210 Nicotine dependence, cigarettes, uncomplicated; E78.2 Mixed hyperlipidemia; F10.229 Alcohol dependence with intoxication, unspecified; I27.20 Pulmonary hypertension, unspecified; Y90.0 Blood alcohol level of less than 20 mg/100 ml; Z63.4 Disappearance and death of family member; Z71.41 Alcohol abuse counseling and surveillance of alcoholic; Z71.6 Tobacco abuse counseling; Z99.81 Dependence on supplemental oxygen; Z95.5 Presence of coronary angioplasty implant and graft; Z79.82 Long term (current) use of aspirin; Z79.899 Other long term (current) drug therapy; Z88.0 Allergy status to penicillin; Z87.01 Personal history of pneumonia (recurrent)
CPT/HCPCS: 36415; 71045; 71046; 71275; 77012; 80048; 80053; 80320; 81001; 82042; 82803; 82945; 83605; 83615; 83690; 83735; 83880; 84145; 84155; 84484; 85025; 85378; 85610; 85651; 85730; 86140; 86480; 86803; 87040; 87070; 87081; 87086; 87116; 87186; 87205; 87206; 87220; 87389; 87449; 87633; 87899; 88112; 88305; 89051; 93005; 93306; 94640; 94761; 97162; 97166; J0456; J0692; J0696; J1836; J1956; J2919; J3370; J3372; J3475; J7030; J7050; Q9967

== ENCOUNTER 2025-03-15 13:23 | Emergency (ER) | payer MEDICARE, SELFPAY ==
[2025-03-15] VITALS (7 sets, daily range): BP systolic 124–139; BP diastolic 67–80; PULSE 76–93; RESP 18–22; TEMP 36.7; O2SAT 95–100; BMI 19.3
--- NOTE | 2025-03-15 13:15 | ECG_ITS ---
APPROVED REPORT Exam: Resting ECG HR:90 bpm ECG Measurements Heart Rate 90 AXES RI 183 P 101 QRSd 145 QRS -11 QT 381 T 106 QTc 428 Conclusion SINUS RHYTHM LEFT BUNDLE BRANCH BLOCK [120+ ms QRS DURATION, 80+ ms Q/S IN V1/V2, 85+ ms R IN I/aVL/V5/V6] ABNORMAL ECG UNCONFIRMED REPORT Electronically signed by : Alba Humphreys, 03/15/2025 15:39:58
--- NOTE | 2025-03-15 13:31 | HMH.EDCP ---
Discharge Plan Disposition Chief Complaint: Shortness of Breath/Dyspnea Prescriptions Prescriptions: No Action azithromycin 250 mg tablet 250 mg PO DAILY Patient Comments: TAKE 2 TABLETS BY MOUTH ON DAY 1, THEN TAKE 1 TABLET DAILY ON DAYS 2-5 mirtazapine 15 mg tablet 15 mg PO DAILY Patient Comments: TAKE ONE TABLET BY MOUTH EVERY DAY AT BEDTIME furosemide [Lasix] 20 mg tablet 20 mg PO DAILY PRN (Reason: dyspnea) Qty: 7 0RF carvedilol 6.25 mg tablet 6.25 mg PO BID Qty: 60 5RF aspirin 81 MG tablet,delayed release (DR/EC) 81 mg PO DAILY tamsulosin [Flomax] 0.4 mg capsule 0.4 mg PO DAILY 7 Days Qty: 7 0RF cholecalciferol (vitamin D3) [Vitamin D3] 25 mcg (1,000 unit) Capsule 25 mcg PO DAILY guaifenesin [Mucinex] 600 mg Tablet Extended Release 12hr 600 mg PO BID ascorbic acid (vitamin C) [Vitamin C] 500 mg Tablet 500 mg PO DAILY ferrous sulfate [Iron (ferrous sulfate)] 325 mg (65 mg iron) Tablet 325 mg PO DAILY magnesium oxide 400 mg (241.3 mg magnesium) tablet 400 mg PO BID Patient Comments: TAKE ONE TABLET BY MOUTH TWICE DAILY pantoprazole 40 mg tablet,delayed release (DR/EC) 40 mg PO DAILY Patient Comments: TAKE ONE TABLET BY MOUTH EVERY DAY albuterol sulfate 90 mcg/actuation HFA aerosol inhaler 2 puff INHALATION Q4HP PRN (Reason: Shortness Of Breath) Patient Comments: INHALE 1-2 PUFF(S) BY MOUTH EVERY 4-6 HOURS NEEDED bupropion HCl [Wellbutrin SR] 100 mg tablet sustained-release 12 hr 100 mg PO BID Qty: 60 0RF atorvastatin 40 mg Tablet 40 mg PO HS 30 Days Qty: 30 0RF nicotine 14 mg/24 hr Patch 24 Hour 14 mg transdermal DAILY 28 Days Qty: 28 2RF Print Language Print Language: Japanese Discharge ED Provider: Alba Humphreys General Chief Complaint: Shortness of Breath/Dyspnea Stated Complaint: SOB Time Seen by Provider: 03/15/25 13:25 Mode of Arrival: EMS Source of Information: Patient Description of Symptoms (Recalled from ER Triage Doc. by RN): Patient states that he had a coughing spell this morning and started feeling short of breath. Patient states he normally wears oxygen at 2LNC and was here last week for a punctured lung Patient was given 2 x DuoNeb prior to arrival and 125 mg of Solumedrol IV. History of Present Illness HPI narrative: Ross Mack is an 84 y/o male presenting with shortness of breath. Patient is accompanied by his family member who provides additional history at bedside. Patient has a history of COPD and wears 2L NC at baseline. Family states the patient was sitting in the truck and when she came out of the store, he was extremely stressed and wanted to go home and get a breathing treatment. Patient's family took his oxygen level and stated it was in the 50s. He then had 2 breathing treatments at home and his oxygen levels increased to the 90s by the time the ambulance arrived. Patient was recently treated for COPD exacerbation and required a BiPAP. Family states patient has gotten worse over the past year. She states he is not drink alcohol or smoked in the last 9 days. Patient does not have diabetes and does not take blood thinners. Related Data Home Medications ?Medication ?Instructions ?Recorded ?Confirmed aspirin 81 mg tablet,delayed 81 mg PO DAILY 10/24/17 03/15/25 release ascorbic acid (vitamin C) 500 mg 500 mg PO DAILY 03/05/25 03/15/25 tablet (Vitamin C) cholecalciferol (vitamin D3) 25 25 mcg PO DAILY 03/05/25 03/15/25 mcg (1,000 unit) capsule (Vitamin D3) ferrous sulfate 325 mg (65 mg 325 mg PO DAILY 03/05/25 03/15/25 iron) tablet (Iron (ferrous sulfate)) guaifenesin 600 mg tablet, 600 mg PO BID 03/05/25 03/15/25 extended release 12 hr (Mucinex) albuterol sulfate 90 mcg/actuation 2 puff inhalation Q4HP PRN 03/06/25 03/15/25 aerosol inhaler Shortness Of Breath magnesium oxide 400 mg (241.3 mg 400 mg PO BID 03/06/25 03/15/25 magnesium) tablet pantoprazole 40 mg tablet,delayed 40 mg PO DAILY 03/06/25 03/15/25 release azithromycin 250 mg tablet 250 mg PO DAILY 03/14/25 03/15/25 mirtazapine 15 mg tablet 15 mg PO DAILY 03/14/25 03/15/25 Previous Rx's ?Medication ?Instructions ?Recorded tamsulosin 0.4 mg capsule (Flomax) 0.4 mg PO DAILY 7 days #7 caps 11/06/23 atorvastatin 40 mg tablet 40 mg PO HS 30 days #30 tabs 03/07/25 bupropion HCl 100 mg tablet,12 hr 100 mg PO BID #60 ea 03/07/25 sustained-release (Wellbutrin SR) nicotine 14 mg/24 hr daily 14 mg transdermal DAILY 28 days 03/07/25 transdermal patch #28 ea carvedilol 6.25 mg tablet 6.25 mg PO BID #60 tabs 03/14/25 furosemide 20 mg tablet (Lasix) 20 mg PO DAILY PRN dyspnea #7 tabs 03/14/25 Allergies Allergy/AdvReac Type Severity Reaction Status Date / Time Penicillins Allergy Intermediate I-HIVES Verified 03/15/25 14:22 [facility] Disclaimer: The information contained in this section may have been updated after the patient was seen, as this information can be updated by other users. Medical History Lung collapse Loculated pleural effusion Acute on chronic respiratory failure with hypoxia and hypercapnia On home O2 Smoker Alcohol abuse COPD (chronic obstructive pulmonary disease) Coronary artery disease Acute exacerbation of chronic obstructive airways disease Surgical History (Updated 03/15/25 @ 14:22 by Bel Arredondo RN) History of thoracentesis Family History (Updated 03/15/25 @ 14:22 by Bel Arredondo RN) Other No significant family history Social History Smoking Status: Former smoker tobacco type: pipe second hand exposure: No alcohol intake: current alcohol intake frequency: 0-2 drinks per day substance use type: denies use current occupational status: retired Travel in the last 8 weeks?: None household members: other housing: house current occupational exposures/hazards: No caffeine: No Have you lived/traveled outside US in past 30 days?: No Contact w/someone who lives/traveled outside US past 30 days?: No Exposure to someone with infectious disease in past 14 days?: No Do you have a fever (greater than 100.4 F or 38 C)?: No Have you tested positive for COVID-19?: No Exposed to someone with COVID-19 in past 14 days?: No Do you have a sore throat?: No Do you have a cough?: No Do you have any weakness?: No Do you have any diarrhea?: No Are you experiencing any unusual bleeding?: No Do you have any muscle aches/pain?: No Do you have any abdominal pain?: No Are you experiencing loss of taste or smell?: No Other Medical History Have you received the Flu Vaccine for this season: No Have you received the Pneumonia Vaccine: Yes ROS Obtained: Yes All systems reviewed & no additional complaints except as documented Physical Exam General General appearance: alert, in no apparent distress and other (Appears chronically ill) Head Head exam: atraumatic Eye Eye exam: Present EOMI; Absent scleral icterus Neck Neck exam: Present full ROM Chest Chest inspection: Present normal inspection Respiratory Respiratory exam: Present wheezes and other (Decreased breath sounds in the left lower lobe. Wearing 2L NC.); Absent normal lung sounds bilaterally or respiratory distress Cardiovascular Cardiovascular exam: Present regular rate and normal rhythm Abdominal Exam Abdominal exam: Present soft; Absent distention or tenderness exam: Present deferred Extremities Exam Extremities exam: Present full ROM; Absent tenderness or edema Back Exam Back exam: Present full ROM Neurological Exam Neurological exam: Present alert and oriented X3 Psychiatric Psychiatric exam: Present normal mood Skin Skin exam: Present warm and dry HEART Score HEART Score HEART Score assessment performed?: No Critical Care Critical Care Time Critical Care Time: No Medical Decision Making Medical Records Medical records reviewed: Yes I reviewed the patient's medical records. Hoang Inquiry Pt receiving controlled substance: No Vital Signs Vital Signs: 03/15/25 13:20 03/15/25 14:00 03/15/25 14:15 Temperature 98.1 F Temperature Source Oral Pulse Rate 84 82 Pulse Rate [Right Radial] 93 H Respiratory Rate 20 22 Blood Pressure 128/73 Blood Pressure [Right Arm] 137/80 Blood Pressure Mean [Right Arm] 99 Blood Pressure Source Automatic Cuff Blood Pressure Source [Right Arm] Automatic Cuff Blood Pressure Position [Right Arm] Sitting 02 Sat by Pulse Oximetry 97 95 100 Oxygen Delivery Method Nasal Cannula Nasal Cannula Nasal Cannula Oxygen Flow Rate (LPM) 2 2 2 03/15/25 14:30 Temperature Temperature Source Pulse Rate 80 Pulse Rate [Right Radial] Respiratory Rate Blood Pressure 139/74 Blood Pressure [Right Arm] Blood Pressure Mean [Right Arm] Blood Pressure Source Automatic Cuff Blood Pressure Source [Right Arm] Blood Pressure Position [Right Arm] 02 Sat by Pulse Oximetry 95 Oxygen Delivery Method Nasal Cannula Oxygen Flow Rate (LPM) 2 Lab Data Lab results reviewed: Yes I reviewed the patient's lab results. Labs: Lab Results 03/15/25 13:30: WBC 7.8, RBC 4.30 L, Hgb 11.4 L, Hct 38.0 L, MCV 88.4, MCH 26.5 L, MCHC 30.0 L, RDW 17.2, Plt Count 282, MPV 11.2 H, Neut % (Auto) 58.5, Lymph % (Auto) 26.2, [place] % (Auto) 9.1, Eos % (Auto) 4.6, Baso % (Auto) 0.6, Neut # (Auto) 4.6, Lymph # (Auto) 2.1, [place] # (Auto) 0.7, Eos # (Auto) 0.4, Baso # (Auto) 0.1, Sodium 136, Potassium 5.0, Chloride 103, Carbon Dioxide 30, Anion Gap 8.0, BUN 18, Creatinine 1.20, Estimated Creat Clear 41, Estimated GFR 58 L, Est GFR ( Amer) 70, Glucose 119 H, Calcium 8.6, Total Bilirubin 0.8, AST 30, ALT 21, Alkaline Phosphatase 90, Total Protein 7.1, Albumin 3.7, Globulin 3.4 H, Albumin/Globulin Ratio 1.1 03/15/25 13:48: VBG pH 7.31, VBG pCO2 56.6 H, VBG pO2 157.5 H, VBG HCO3 28.0, VBG Total CO2 29.7 H, VBG O2 Saturation 99.0 H, VBG Base Excess 1.8, VBG Lactic Acid 2.1 H 03/15/25 13:30 03/15/25 13:30 Response Orders (Tests/Meds): ED MEDICATIONS Discontinued Medications Generic Name Dose Route Start Last Admin Trade Name Freq PRN Reason Stop Dose Admin Albuterol/Ipratropium 9 ml 03/15/25 13:48 03/15/25 14:02 Ipratropium/Albuterol 3 Ml Neb IH 03/15/25 13:49 9 ml ONCE ONE Administration Magnesium Sulfate 2 gm in 50 mls @ 50 mls/hr 03/15/25 13:48 03/15/25 14:02 Magnesium Sulfate 2gm/50ml Premix IV 03/15/25 14:47 50 mls/hr ONCE ONE Administration ORDERS Category Date Time Status CXR 2 view (NOT portable) [XR chest 2V] Stat Exams 03/15/25 13:48 Taken CBC w/Auto Diff [Complete Blood Count Auto Diff] Stat Lab 03/15/25 13:30 Completed CMP [Comprehensive Metabolic Panel] Stat Lab 03/15/25 13:30 Completed VBG [Venous Blood Gas] Stat RT 03/15/25 13:48 Completed ECG Data Tracing #1: Attestation: I reviewed this ECG and interpreted as documented below: ECG Narrative: Sinus rhythm with a rate of 90. Continues to have previously noted left bundle branch block. No evidence of STEMI or ischemia. MDM Narrative Medical Decision Narrative: In summary, this is an 84-year-old male presenting with shortness of breath. Patient has a history significant for COPD, tobacco use disorder and alcohol use disorder. Differential diagnosis includes but is not limited to, COPD exacerbation, pneumonia, pneumothorax, viral URI, among others. Patient recovered after oxygen supplementation as well as nebulized treatments at his home. Patient arrived to the ER on his baseline level of supplemental oxygen. Patient has had increased coughing with new sputum production which is concerning for COPD exacerbation and possibly pneumonia. Patient has no chest pain and has wheezing throughout his lung hawkins on exam. Patient was given IV Solu-Medrol and route and was given magnesium, 3X DuoNeb in the ER. Patient evaluated with VBG, EKG, CBC, CMP, two-view chest x-ray. Laboratory evaluation negative for leukocytosis. Patient slightly anemic with hemoglobin at 11.4. VBG with CO2 retention of 56.6 and a pH of 7.31. Patient's lactic acid level is 2.1. CMP notable for improved creatinine from 1.5-1.2. Electrolytes appropriate. Liver enzymes appropriate. On chart review, patient has a large, loculated left lower pleural effusion that was biopsied. Patient's 2 view chest x-ray was reviewed by me today and continues to demonstrate left lower pleural effusion that does not appear to be worse than prior. Patient has remained on his home level of oxygen supplementation without abnormal vital signs. Patient completed a 7-day course of Levaquin after receiving broad-spectrum IV antibiotics inpatient. Patient follows with pulmonology and was advised to call the office to have an expedited follow-up. Patient was also placed on a Z-pack two days ago by his PCP, Dr. Munoz. Patient has follow-up with his PCP on Tuesday and is advised to maintain that appointment for follow-up. Patient given return precautions if he worsens over the weekend. Patient and family in agreement with plan. Patient discharged in stable condition. Alba Humphreys MD
--- OUTSIDE RECORDS SUMMARY | 2025-03-15 13:37 | XMS_ITS | Clinical Summary ---
Author Organization [facility] Address [address] [place] [address] Phone Care Team Providers Care Plant Pathology Teacher Name Role Phone Unavailable Unavailable Conditions or Problems No information available. Medications No information available. Medications Administered No information available. Allergies, Adverse Reactions, Alerts No information available. Results No information available. Plan of Care No information available. Procedures No information available. Vital Signs No information available. Immunizations No information available. Advance Directives No information available.
--- OUTSIDE RECORDS SUMMARY | 2025-03-15 13:38 | XMS_ITS | Referral Summary ---
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
--- OUTSIDE RECORDS SUMMARY | 2025-03-15 13:38 | XMS_ITS | Clinical Summary ---
Author Organization [facility] Address [address] [id number] Care Team Providers Care Surgery Teacher Name Role Phone Cayden Munoz MD Primary Care Provider [phone] Family History Medical History Relation Name Comments [...] or (1 - 1-dose 75+ series) 2017 [id number] Vaccine ( season) 2024 11/06/2021, 05/27/2021, 12/03/2020, [...] age to complete this topic Care Teams Surgery Teacher Relationship Specialty Start Date End Date Cayden Munoz MD [address] [place] [address] PCP - General 02/06/21
--- OUTSIDE RECORDS SUMMARY | 2025-03-15 13:38 | XMS_ITS | Clinical Summary ---
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
--- NOTE | 2025-03-15 13:48 | XR_ITS ---
FINAL REPORT CLINICAL HISTORY: COPD, recurrent pneumonia COMPARISON: 03/06/2025 FINDINGS: PA and lateral views of the chest were obtained. The heart is stable in size. There is shift of the heart and mediastinum to the left, similar to prior. There is been interval improvement in the left perihilar and left lung opacity. The right lung is clear. Stable left pleural effusion is identified. There is no pneumothorax. No acute osseous abnormality is identified. IMPRESSION: Improved left lung opacity, likely improving pneumonia. Reviewed, Interpreted and Dictated by Doris Schofield MD Transcribed by Stephanie Cornell Authenticated and [facility]
[2025-03-15 13:58] LABS: VBG Base Excess 1.8 mmol/L (-2.4-2.3); VBG PCO2 56.6 mmol/L (35-51); VBG PH 7.31 mmol/L (7.31-7.41); VBG PO2 157.5 mmol/L (28-40); VBG Total CO2 29.7 mmol/L (23-27)
[2025-03-15 13:59] LABS: Albumin Level 3.7 g/dl (3.5-5.0); Chloride 103 mmol/L (98-107)
[2025-03-15 13:59] LABS: Lactate Venous 2.1 mmol/L (0.4-2.0)
[2025-03-15 14:00] LABS: Sodium 136 mmol/L (136-145)
[2025-03-15 14:02] LABS: Alanine Aminotransferase 21 U/L (12-78); Blood Urea Nitrogen 18 mg/dl (9-20); Creatinine Clearance Estimated 41 mL/min (50-200); Estimated Glomerular Filt Rate 58 ml/min (>60); GFR (African American) 70 ML/MIN (>60)
[2025-03-15] MEDS: MAGNESIUM SULFATE IN WATER 2 GM/50 ML PIGGYBACK IV (14:02)
[2025-03-15] MEDS: IPRATROPIUM/ALBUTEROL 3 ML NEB 9 ML IH (14:02)
[2025-03-15 14:03] LABS: Albumin/Globulin Ratio 1.1 (1.1-1.8); Alkaline Phosphatase 90 U/L (38-126); Aspartate Amino Transferase 30 U/L (17-59); Bilirubin,Total 0.8 mg/dl (0.2-1.3); Calcium 8.6 mg/dl (8.4-10.2); Carbon Dioxide 30 mmol/L (22.0-30.0); Globulin 3.4 g/dL (1.3-3.2); Glucose 119 mg/dl (74-100); Total Protein,Serum 7.1 g/dl (6.3-8.2)
[2025-03-15 14:08] LABS: Basophils # 0.1 K/mm3 (0-0.2); Basophils % 0.6 % (0.1-2.0); Eosinophils # 0.4 Kmm3 (0.0-0.4); Eosinophils % 4.6 % (0.1-12.0); Hemoglobin 11.4 g/dL (14.1-18.0); Immature Granulocytes # 0.08 10^3uL; Lymphocytes # 2.1 K/mm3 (0.7-4.5); Lymphocytes % 26.2 % (10-50); Mean Corpuscular Hemoglobin 26.5 pg (27.0-31.2); Mean Corpuscular Volume 88.4 fl (80-94); Mean Platelet Volume 11.2 fl (7.4-10.4); Monocytes # 0.7 K/mm3 (0.1-1.0); Monocytes % 9.1 % (1.7-9.3); Neutrophils # 4.6 K/mm3 (1.8-7.8); Neutrophils % 58.5 % (37.0-80.0); Nucleated Red Blood Cells # 0 10^3/uL; Nucleated Red Blood Cells % 0 %; Platelet Count 282 K/mm3 (142-424); Red Cell Distribution Width 17.2 % (11.5-17.5); Red Cell Distribution Width-SD 54.9 fL; White Blood Count 7.8 K/mm3 (4.8-10.8)
--- NOTE | 2025-03-15 14:43 | PC.NURSE ---
1440 - Pt to rad
--- NOTE | 2025-03-15 14:52 | PC.NURSE ---
1450 - Pt back from rad. Daughter at bedside. Reports improvement of symptoms.
[2025-03-15 17:58] LABS: Reflex Lactic Add Lactic Reflex
== END 2025-03-15 15:50 | disposition home or self-care (01) ==
PROVIDERS: Emergency Provider Student in an Organized Health Care Education/Training Program; PCP Internal Medicine Adolescent Medicine
DX: J44.1 Chronic obstructive pulmonary disease with (acute) exacerbation (principal); I10 Essential (primary) hypertension; F10.20 Alcohol dependence, uncomplicated; F17.200 Nicotine dependence, unspecified, uncomplicated
CPT/HCPCS: 71046; 80053; 82803; 85025; 93005; 99285; J3475

== ENCOUNTER 2025-04-17 07:10 | Outpatient (CLI) | payer MEDICARE, SELFPAY ==
--- NOTE | 2025-04-17 | CA_ITS ---
APPROVED REPORT Exam: Pharmacologic Technologist: Irma Cifuentes Ht: 5 ft 8 in Wt: 140 lbs BSA: 1.76 m2 Medical History Medications: albuterol, vitamin D3, C. aspirin, atorvastatin, azithromycin, bupropion HCI SR, carvedilol, ferrous sulfate, furosemide, mucinex, magnesium oxide, mirtazapine, nicotine, pantoprazole, flomax. Stress Test Details Test: Lexiscan Reason for pharmacologic stress test: physical limitation. HR Resting HR: 62 bpm Max Heart Rate (APMHR): 138.090285 bpm Max HR Achieved: 94 bpm Target HR (85% APMHR): 117.823746 bpm % of APMHR: 68.12 Recovery HR: 78 bpm BP Resting BP: 161.0/67.0 mmHg Max BP: 161.0/67.0 mmHg Recovery BP: 144.0/63.0 mmHg ECG Resting ECG: SR with IVCD Stress ECG Conclusion Symptoms: None. Arrhythmias/Ectopy: PVCs noted in recovery. ST-T Changes: Unremarkable with Lexiscan. Electronically signed by : Danna Jeff MD 04/18/2025 00:05:24
--- OUTSIDE RECORDS SUMMARY | 2025-04-17 07:13 | XMS_ITS | Clinical Summary ---
Author Organization [facility] Address [address] [place] [address] Phone Care Team Providers Care Door Closer Name Role Phone Unavailable Unavailable Conditions or Problems No information available. Medications No information available. Medications Administered No information available. Allergies, Adverse Reactions, Alerts No information available. Results No information available. Plan of Care No information available. Procedures No information available. Vital Signs No information available. Immunizations No information available. Advance Directives No information available.
--- OUTSIDE RECORDS SUMMARY | 2025-04-17 07:14 | XMS_ITS | Clinical Summary ---
Author Organization [employer] ([place], [place], [place], [place]) Address [address] [place] [address] Care Team Providers Care Heel Trimmer Name Role Phone Cayden Munoz MD Primary Care Provider + [phone] Allergies Active Allergy Reactions Criticality Noted Date [...] dsdv Inhale by mouth via inhaler. Active budesonide-form oteroL (Symbicort) 160-4.5 mcg/actuation inhalerIndicati ons:Chronic obstructive pulmonary disease, unspecified COPD type (HCC) Inhale 2 puffs by mouth via inhaler 2 (two) times daily. 1 Inhaler 12 4 025 Active Additional Information Patient not taking.Reported on 10/08/2024 budesonide (PULMICORT) 0.5 mg/2 mL nebulizer solution Take 2 mLs (0.5 mg total) by nebulization 2 (two) times daily for 210 days. 120 mL 6 4 025 Additional Information Patient not taking.Reported on 10/08/2024 Active Problems Problem Noted Date Diagnosed Date Empyema 08/21/2024 PNA (pneumonia) 08/21/2024 Pneumonia 08/21/2024 Family History Medical History Relation Name Comments Aneurysm Father Cancer Sister Relation Name Status Comments Father Sister Social History Tobacco Use Types Packs/Day Years Used Date Smoking Tobacco: Former Cigarettes 1.5 70.6 S tarted: [birth year]06/1952 Smokeless Tobacco: Never Tobacco Cessation:Counseling Given: Not Answered Alcohol Use Standard Drinks/Week Comments Not Currently 0 (1 standard drink = 0.6 oz pur e alcohol) Sex and Gender Information Value Date Recorded Sex Assigned at Not on file 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 Gender Identity Not on file Sexual Orientation [...] 07/12/20242023 Falls Risk Screening 09/26/2024 Influenza Vaccine (#1) 2025 Tobacco Cessation Counseling and Screening (12+) 10/08/2025 10/08/2024 Pneumococcal 50+ years Completed , 06/29/2019, 05/22/2018, Additional history exists Insurance [facility] [employer] MEDICARE PPO Advance Directives For more information, please contact: [phone] * Full Code (Latest Code Status on File) Date Activated Date Inactivated Comments 08/21/2024 4:40 PM 08/29/2024 7:24 PM Care Teams Heel Trimmer Relationship Specialty Start Date End Date Cayden Munoz MD [address] [place] [id number] PCP - General Adolescent Medicine 08/28/24
--- OUTSIDE RECORDS SUMMARY | 2025-04-17 07:14 | XMS_ITS | Clinical Summary ---
Author Organization [facility] Address [address] [place] [address] Care Team Providers Care General Assignment Reporter Name Role Phone Cayden Munoz MD Primary Care Provider + [phone] Allergies Active Allergy Reactions Criticality Noted Date Comments Penicillins 04/26/2017 Medications amLODIPine-shira zepril (LOTREL) 10-20 MG per capsule Take 1 capsule by mouth Daily. Active atenolol (TENORMIN) 100 MG tablet Take 100 mg by mouth Daily. Active aspirin 81 MG EC tablet Take 81 mg by mouth Daily. Active Active Problems Problem Noted Date Diagnosed Date Lung mass 04/26/2017 Family History Medical History Relation Name Comments Aneurysm Father Cerebral hemorr benedict No Known Problems Mother Cancer Sister Relation Name Status Comments Father Brain Mother Sister Social History Tobacco Use Types Packs/Day Years Used Date Smoking Tobacco: Every Day Cigarettes 1.3 62 Smokeless Tobacco: Never Alcohol Use Standard Drinks/Week Comments Yes 5 (1 standard drink = 0.6 oz pur e alcohol) Abuse Screen Answer Date Recorded Unsafe at Home or Work/School Not on file Feels Threatened by Someone? Not on file 07/2023 Does Anyone Keep You from Co ntacting Others or Doint Things Outside the Home? Not on file 07/06/2023 Physical Sign of Abuse Present Not on file 1 Housing Stability Answer Date Recorded Current Living Arrangements Not on file 06/26 Potentially Unsafe Housing Conditions Not on camila e 07/06/2023 Family and Community Support Answer Juventino e Recorded Help with Day-to-Day Activities Not on file 07/06/2023 Lonely or Isolated Not on file 07/06/2023 Employment Answer Date Recorded Do you want help finding or keeping work or a nella b? Not on file 07/06/2023 Disabilities Answer Date Recorded Concentrating, Remembering, or Making Decisions Difficulty Not on file 07/06/2023 Doing Errands Independently Difficulty Not on fi le 07/06/2023 Education Answer Date Recorded Help with school or training? Not on file Preferred Language Not on file 07/06/2023 Sex and Gender Information Value Date Recorded Sex Assigned at Not on file Legal Sex Male 3:47 PM EDT Gender Identity Not on file Sexual Orientation Not on file Occupation Industry Job Start Date Job End Date [employer] al[employer] Not on file Not on file Not on file Last Filed Vital Signs Vital Sign Reading Time Taken Comments Blood Pressure 163/82 05/02/2017 11:15 AM EDT Pulse 46 05/02/2017 11:15 AM EDT Temperature 36.6 C (97.8 F) 05/02/2017 11:00 AM EDT Respiratory Rate 18 05/02/2017 11:00 AM EDT Oxygen Saturation 94% 05/02/2017 11:15 AM EDT Inhaled Oxygen Concentration - - Weight 65.8 kg (145 lb) 04/26/2017 11:48 AM EDT Height 177.8 cm (5' 10 ) 04/26/2017 11:48 AM EDT Body Mass Index 20.81 04/26/2017 11:48 AM EDT Plan of Treatment Health Maintenance Due Date Last Done Comments TDAP/TD VACCINES (1 - Tdap) 1961 COLOGUARD 12/16/1987 COLON CANCER SCREENING 5 YEAR SIGMOIDOSCOPY 12/16/1987 COLONOSCOPY 12/16/1987 COLORECTAL CANCER SCREENING 12/16/1987 CT COLONOGRAPHY 12/16/1987 FECAL OCCULT BLOOD TEST 12/16/1987 FIT Testing (1 year) 12/16/1987 Pneumococcal Vaccine 50+ (1 of 1 - PCV) 1992 ZOSTER VACCINE (1 of 2) 1992 ANNUAL PHYSICAL 04/26/2017 RSV Vaccine - Adults (1 - 1-dose 75+ series) 8 COVID-19 Vaccine (1 - 2023- season) 2024 INFLUENZA VACCINE 06/26/2025 Insurance MEDICARE A & B Member Subscriber Plan / Payer (Ef fective 2007-Present) Name:Ross Mack Member ID:[id number] Relation to Subscriber:Self Name:Ross Mack Subscriber ID:[id number] Payer ID:[id number] Group ID:Not on file Type:Not on file Address: [address] [employer] Member Subscriber Plan / Payer (Ef fective 2016-Present) Name:Ross Mack Relation to Subscriber:Self Name:Ross Mack Payer ID:[id number] Group ID:Not on file Type:MEDICARE SUPPLEMENT Address: [facility] [address] [place] [id number] Care Teams General Assignment Reporter Relationship Specialty Start Date End Date Cayden Munoz MD [address] [facility] [address] [place] [address] PCP - General Adolescent Medicine 04/08/17
--- OUTSIDE RECORDS SUMMARY | 2025-04-17 07:14 | XMS_ITS | Clinical Summary ---
Author Organization [facility] Address [address] [id number] Care Team Providers Care Hole Digger Truck Driver Name Role Phone Cayden Munoz MD Primary Care Provider [phone] Family History Medical History Relation Name Comments [...] or (1 - 1-dose 75+ series) 2017 IJC-XYRAL-21 Vaccine ( season) 2024 11/06/2021, 05/27/2021, 12/03/2020, Additional history exists UKY-Influenza Vaccine (#1) 05/27/202507/14, 06/08/2021, 07/17/2020, Additional history exists UKY-Pneumococcal Vaccine: [...] age to complete this topic Care Teams Hole Digger Truck Driver Relationship Specialty Start Date End Date Cayden Munoz MD [address] [place] [address] PCP - General 02/06/21
--- OUTSIDE RECORDS SUMMARY | 2025-04-17 07:14 | XMS_ITS | Referral Summary ---
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
--- NOTE | 2025-04-17 07:30 | NM_ITS ---
APPROVED REPORT Exam: Nuclear Stress Test Indication: HTN, Tobacco use, CAD Patient Location: Outpatient Stress Tech: Irma Goldman NM Tech:Aura Castillo, ARRT, RT (R)(N) Ht: 5 ft 10 in Wt: 140 lbs HR: 62 bpm BP: 161/67 mmHg BSA: 1.79 m2 TID: 0.97 BMI: 20.0 History: HTN, Tobacco use, CAD Procedure: Patient received 0.4 mg of intravenous Lexiscan, resting heart rate 62 bpm, resting blood pressure 161/67 mmHg, with Lexiscan maximum heart rate achieved was 95 bpm which is % of the maximum predicted heart rate and blood pressure was 160/61 mmHg. With Lexiscan, patient denied any complaint of chest pain. Cardiac Stress and Resting SPECT Images: Cardiac Stress and Resting SPECT images were obtained using technetium 99m Myoview 29.1 mCi stress and 10.99 mCi at rest. Resting and stress imaging in supine and prone positions demonstrate a medium sized, moderate, partially reversible perfusion defect in the mid to distal anterior LV wall, involving the LV apex. Gated imaging demonstrates moderate reduction in global LV systolic function. LVEF is calculated at 35%. Conclusion: Medium sized, moderate, partially reversible perfusion defect in the mid to distal anterior LV wall, involving the LV apex. Findings are suggestive of partial reversible ischemia. Gated imaging demonstrates moderate reduction in global LV systolic function. LVEF is calculated at 35%. Correlation with new or recent TTE is suggested. Electronically signed by : Danna Jeff MD 04/17/2025 13:09:15
[2025-04-17] MEDS: SODIUM CHLORIDE 0.9% 10ML SYR (RAD ONLY) 10 ML IV ×2 (09:48→09:49)
[2025-04-17] MEDS: ISOTOPE MYOVIEW (PER STUDY) 1 DOSE IV (09:49)
== END 2025-04-17 23:59 | disposition home or self-care (01) ==
LOC: RAD 07:12
PROVIDERS: PCP Internal Medicine Adolescent Medicine; Visit Provider Nurse Practitioner Family
DX: I49.3 Ventricular premature depolarization (principal); R94.39 Abnormal result of other cardiovascular function study; I10 Essential (primary) hypertension; I25.10 Atherosclerotic heart disease of native coronary artery without angina pectoris; Z72.0 Tobacco use
CPT/HCPCS: 78452; 93016; 93017; 93018; A9502; J2785

== ENCOUNTER 2025-04-23 12:55 | Outpatient (CLI) | payer MEDICARE, SELFPAY ==
--- OUTSIDE RECORDS SUMMARY | 2025-04-23 12:57 | XMS_ITS | Clinical Summary ---
Author Organization [facility] Address [address] [place] [address] Phone Care Team Providers Care Supervisor Blast Furnace Name Role Phone Unavailable Unavailable Conditions or Problems No information available. Medications No information available. Medications Administered No information available. Allergies, Adverse Reactions, Alerts No information available. Results No information available. Plan of Care No information available. Procedures No information available. Vital Signs No information available. Immunizations No information available. Advance Directives No information available.
--- OUTSIDE RECORDS SUMMARY | 2025-04-23 12:58 | XMS_ITS | Clinical Summary ---
Author Organization Healthcare Address [address] [id number] Care Team Providers Care Mirror Specialist Name Role Phone Cayden Munoz MD Primary Care Provider [phone] Family History Medical History Relation Name Comments [...] or (1 - 1-dose 75+ series) 2017 DIT-TUKMI-46 Vaccine ( season) 2024 11/06/2021, 05/27/2021, 12/03/2020, [...] age to complete this topic Care Teams Mirror Specialist Relationship Specialty Start Date End Date Cayden Munoz MD [address] [place] [address] PCP - General 02/06/21
--- OUTSIDE RECORDS SUMMARY | 2025-04-23 12:58 | XMS_ITS | Referral Summary ---
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 Gender Identity Not on file Sexual Orientation Not on file Last Filed Vital Signs Vital Sign Reading Time Taken Comments Blood Pressure 112/61 10/08/2024 2:46 PM EST Pulse 94 10/08/2024 2:46 PM EST Temperature 37.4 C (99.3 F) 10/08/2024 2:46 PM EST Respiratory Rate 20 10/08/2024 2:46 PM EST Oxygen Saturation 95% 10/08/2024 2:46 PM EST Inhaled Oxygen Concentration 2% 08/21/2024 6:30 PM EST Weight 63.5 kg (140 lb) 10/08/2024 2:46 PM EST Height 177.8 cm (5' 10 ) 10/08/2024 2:46 PM EST Body Mass Index 20.09 10/08/2024 2:46 PM EST Plan of Treatment Not on file Insurance [facility] SUPP HUMANA MEDICARE PPO Advance Directives For more information, please contact: [phone] * Full Code (Latest Code Status on File) Date Activated Date Inactivated Comments 08/21/2024 4:40 PM 08/29/2024 7:24 PM Care Teams Direct Marketing Analyst Relationship Specialty Start Date End Date Cayden Munoz MD [address] [place] [address] PCP - General Adolescent Medicine 08/28/24
--- OUTSIDE RECORDS SUMMARY | 2025-04-23 12:58 | XMS_ITS | Clinical Summary ---
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
--- OUTSIDE RECORDS SUMMARY | 2025-04-23 12:58 | XMS_ITS | Clinical Summary ---
Author Organization [facility] Address [address] [place] [address] Care Team Providers Care Technical Supervisor Name Role Phone Cayden Munoz MD Primary Care Provider + [phone] Allergies Active Allergy Reactions Criticality Noted Date [...] Payer (Ef fective 2007-Present) Name:Ross Mack Member ID:[id number] Relation to Subscriber:Self Name:Ross Mack Subscriber ID:[id number] Payer ID:[id number] Group ID:Not on file Type:Not on file Address: [address] [employer] Member Subscriber Plan / Payer (Ef fective 2016-Present) Name:Ross Mack Relation to Subscriber:Self Name:Ross Mack Payer ID:[id number] Group ID:Not on file Type:MEDICARE SUPPLEMENT Address: [facility] [address] [place] [id number] Care Teams Technical Supervisor Relationship Specialty Start Date End Date Cayden Munoz MD [address] [facility] [address] [place] [address] PCP - General Adolescent Medicine 04/08/17
--- NOTE | 2025-04-23 13:00 | CA_ITS ---
APPROVED REPORT EXAM: Limited 2D Echocardiogram Ambulance Paramedic: Stephenie Howard, RCS, RVS Ht: 5 ft 8 in Wt: 148lbs BSA: 1.80 BP: 138/68 mmHg Indications: Ef check-35%ef per stress, Smoker, SOB 2D Dimensions IVSd 1.31 cm LVEF (Visual) 32.60 % PWd 0.82 cm EF AP4 26.90 % LVDd 4.73 cm GL Strain -11.2 % LVDs 4.00 cm M-Mode Dimensions LA Diam 3.35 cm (1.9-4.0) LVDd 5.75 cm (3.5-5.7) LVDs 4.64 cm (3.5-5.7) EF (Teich) 39.20% EPSs 1.86 cm FS 19.30% EDV (Teich) 163.30 mL ESV (Teich) 99.30 mL Other Information Study Quality: Technically Difficult Conclusion This is a limited TTE to evaluate for LV systolic function. Limited windows are obtained. Technically difficult study. The left ventricle is normal in size. There is increased LV wall thickness. There is moderate reduction in LV systolic function. There is severe hypokinesis of the LV apical, anterior, and anteroseptal LV singh. LVEF is 30-35%. Pleural effusion is incidentally noted. When directly compared to prior TTE from 03/06/2025, the reduction in LV systolic function is new. Further evaluation is recommended. Electronically signed by : Danna Jeff MD 04/23/2025 17:25:13
== END 2025-04-23 23:59 | disposition home or self-care (01) ==
LOC: RT 12:56
PROVIDERS: PCP Internal Medicine Adolescent Medicine; Visit Provider Nurse Practitioner Family
DX: I11.9 Hypertensive heart disease without heart failure (principal); J90 Pleural effusion, not elsewhere classified; I21.4 Non-ST elevation (NSTEMI) myocardial infarction; R94.39 Abnormal result of other cardiovascular function study; F17.200 Nicotine dependence, unspecified, uncomplicated; R93.1 Abnormal findings on diagnostic imaging of heart and coronary circulation
CPT/HCPCS: 93308

== ENCOUNTER 2025-04-24 10:42 | Day surgery (SDC) | payer MEDICARE, SELFPAY ==
[2025-04-24] VITALS (10 sets, daily range): BP systolic 101–130; BP diastolic 53–60; PULSE 58–71; RESP 17–20; O2SAT 94–97; BMI 22.5
--- NOTE | 2025-04-24 07:38 | IR_ITS ---
APPROVED REPORT Patient Location: Outpatient PROCEDURES Left heart catheterization Left ventriculogram Selective coronary angiogram INDICATION Known coronary artery disease, Angina pectoris Informed consent was obtained prior to the procedure. COMPLICATIONS NONE Estimated Blood Loss: LESS THAN 10 ML TECHNIQUE One percent lidocaine used to anesthetize the right anterior aspect of the wrist. The right radial artery was accessed via the Seldinger technique. A 6 Portuguese sheath was placed in the right radial artery. 2.5 mg of Verapamil, 800 mcg of nitroglycerin, 1mg Lidocaine and 5000 U Heparin were given through the arterial sheath. The JL3 catheter was also used to perform left heart catheterization, left ventriculogram and selective coronary angiogram. At the end of the procedure the sheath was removed good hemostasis was achieved using Traclet band, patient was transferred to the postop holding area in stable condition. ANGIOGRAPHIC RESULTS The left main artery Normal The left anterior descending artery Has a stent in the proximal segment which is widely patent free of in-stent restenosis with excellent proximal distal transitioning The circumflex artery Nondominant normal The right coronary artery Dominant with proximal concentric 20% stenosis in 10% luminal regularities The POWERS ventriculogram reveals Reduced 35% The left ventricular end-diastolic pressure 10 mmHg IMPRESSION Patent coronary arteries as described above Reduced ejection fraction Normal LVEDP PLAN 1. Medical management Electronically signed by : Pedro Hamm MD 04/24/2025 12:07:58
[2025-04-24 11:05] LABS: Hematocrit 38.7 % (42.0-52.0); Hemoglobin 12.1 g/dL (14.1-18.0); Immature Granulocytes % 1.7 %; Mean Corpuscular HGB Conc 31.3 g/dL (31.8-35.4); Mean Corpuscular Hemoglobin 27.4 pg (27.0-31.2); Mean Corpuscular Volume 87.6 fl (80-94); Nucleated Red Blood Cells % 0 %; Platelet Count 389 K/mm3 (142-424); Red Blood Count 4.42 M/mm3 (4.60-6.20); Red Cell Distribution Width-SD 53.0 fL; White Blood Count 7.6 K/mm3 (4.8-10.8)
[2025-04-24 11:14] LABS: Chloride 104 mmol/L (98-107); Potassium 4.3 mmoL/L (3.5-5.1); Sodium 135 mmol/L (136-145)
[2025-04-24 11:17] LABS: Anion Gap 7.3 mEq/L (5-15); Blood Urea Nitrogen 19 mg/dl (9-20); Carbon Dioxide 28 mmol/L (22.0-30.0); Creatinine Clearance Estimated 42 mL/min (50-200); Creatinine,Serum 1.30 mg/dl (0.66-1.25); Estimated Glomerular Filt Rate 53 ml/min (>60); GFR (African American) 64 ML/MIN (>60)
[2025-04-24 11:18] LABS: Calcium 9.6 mg/dl (8.4-10.2); Glucose 88 mg/dl (74-100)
[2025-04-24] MEDS: HEPARIN 1,000 UNITS/500ML NS (CATH LAB) 3000 UNIT IV (11:38)
[2025-04-24] MEDS: HEPARIN 1,000 UNITS/ML 10ML VIAL (CATH LAB) 5000 UNIT IV (11:39)
[2025-04-24] MEDS: LIDOCAINE 1% 10ML MDV 10 ML IJ (11:39)
[2025-04-24] MEDS: NITROGLYCERIN 800MCG/8ML SYR (CATH LAB) 800 MCG IA (11:39)
[2025-04-24] MEDS: VERAPAMIL 2.5MG/ML 2ML VIAL 2.5 MG IV (11:39)
[2025-04-24] MEDS: 0.9 % SODIUM CHLORIDE 500 ML 25 ML IV (11:39)
[2025-04-24] MEDS: MIDAZOLAM HCL 1MG/ML 5ML VIAL 1 MG IV (11:59)
[2025-04-24] MEDS: FENTANYL 100MCG/2ML VIAL 50 MCG IV (11:59)
[2025-04-24] MEDS: IOPAMIDOL-370 (76%);100ML BOTTLE 50 ML IV (15:16)
== END 2025-04-24 14:35 | disposition home or self-care (01) ==
PROVIDERS: PCP Internal Medicine Adolescent Medicine; Visit Provider Internal Medicine
PROC: 4A023N7 Measurement of Cardiac Sampling and Pressure, Left Heart, Percutaneous Approach (ICD-10-PCS; CPT 93452; principal; 2025-04-24 10:45)
DX: I25.118 Atherosclerotic heart disease of native coronary artery with other forms of angina pectoris (principal); R94.39 Abnormal result of other cardiovascular function study; I10 Essential (primary) hypertension; E78.2 Mixed hyperlipidemia; I42.8 Other cardiomyopathies; J96.22 Acute and chronic respiratory failure with hypercapnia; J96.21 Acute and chronic respiratory failure with hypoxia; J44.1 Chronic obstructive pulmonary disease with (acute) exacerbation; I25.2 Old myocardial infarction; Z95.5 Presence of coronary angioplasty implant and graft; Z87.891 Personal history of nicotine dependence; Z79.899 Other long term (current) drug therapy; R91.8 Other nonspecific abnormal finding of lung field; Z79.82 Long term (current) use of aspirin; Z79.51 Long term (current) use of inhaled steroids; Z79.84 Long term (current) use of oral hypoglycemic drugs; Z88.0 Allergy status to penicillin; Z99.81 Dependence on supplemental oxygen
CPT/HCPCS: 36415; 80048; 85025; 93452; 93458; 99152; C1725; C1769; J1200; J1644; J2003; J3010; J7040; Q9967

== ENCOUNTER 2025-05-09 07:46 | Outpatient (CLI) | payer MEDICARE, SELFPAY ==
--- OUTSIDE RECORDS SUMMARY | 2025-05-09 07:49 | XMS_ITS | Clinical Summary ---
Author Organization [facility] Address [address] [place] [address] Phone Care Team Providers Care Cigar Making Machine Operator Name Role Phone Unavailable Unavailable Conditions or Problems No information available. Medications No information available. Medications Administered No information available. Allergies, Adverse Reactions, Alerts No information available. Results No information available. Plan of Care No information available. Procedures No information available. Vital Signs No information available. Immunizations No information available. Advance Directives No information available.
--- OUTSIDE RECORDS SUMMARY | 2025-05-09 07:49 | XMS_ITS | Clinical Summary ---
Author Organization [facility] Address [address] [place] [address] Care Team Providers Care Crayon Sawyer Name Role Phone Cayden Munoz MD Primary Care Provider + [phone] Allergies Active Allergy Reactions Criticality Noted Date [...] Payer (Ef fective 2007-Present) Name:Ross Mack Member ID:[id number] Relation to Subscriber:Self Name:Ross Mack Subscriber ID:[id number] Payer ID:[id number] Group ID:Not on file Type:Not on file Address: [address] [employer] Member Subscriber Plan / Payer (Ef fective 2016-Present) Name:Ross Mack Relation to Subscriber:Self Name:Ross Mack Payer ID:[id number] Group ID:Not on file Type:MEDICARE SUPPLEMENT Address: [facility] [address] [place] [id number] Care Teams Crayon Sawyer Relationship Specialty Start Date End Date Cayden Munoz MD [address] [facility] [address] [place] [address] PCP - General Adolescent Medicine 04/08/17
--- OUTSIDE RECORDS SUMMARY | 2025-05-09 07:49 | XMS_ITS | Referral Summary ---
Author Organization [employer] [facility] ([place], [place], [place], [place]) Address [address] [place] [address] Care Team Providers Care Braille Transcriber Name Role Phone Cayden Munoz MD Primary Care Provider + [phone] Allergies Active Allergy Reactions Criticality Noted Date [...] 2 (two) times daily. 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
--- OUTSIDE RECORDS SUMMARY | 2025-05-09 07:50 | XMS_ITS | Clinical Summary ---
Author Organization [facility] Address [address] [id number] Care Team Providers Care Container Washer Machine Name Role Phone Cayden Munoz MD Primary Care Provider [phone] Family History Medical History Relation Name Comments [...] or (1 - 1-dose 75+ series) 2017 [id number]-22 Vaccine ( season) 2024 11/06/2021, 05/27/2021, 12/03/2020, [...] age to complete this topic Care Teams Container Washer Machine Relationship Specialty Start Date End Date Cayden Munoz MD [address] [place] [address] PCP - General 02/06/21
--- OUTSIDE RECORDS SUMMARY | 2025-05-09 07:50 | XMS_ITS | Clinical Summary ---
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
[2025-05-09 08:54] LABS: Chloride 103 mmol/L (98-107); Potassium 5.1 mmoL/L (3.5-5.1); Sodium 138 mmol/L (136-145)
[2025-05-09 08:57] LABS: Blood Urea Nitrogen 23 mg/dl (9-20); Creatinine,Serum 1.30 mg/dl (0.66-1.25); Estimated Glomerular Filt Rate 53 ml/min (>60); GFR (African American) 64 ML/MIN (>60)
[2025-05-09 08:58] LABS: Anion Gap 15.1 mEq/L (5-15); Calcium 9.4 mg/dl (8.4-10.2); Carbon Dioxide 25 mmol/L (22.0-30.0); Glucose 93 mg/dl (74-100)
== END 2025-05-09 23:59 | disposition home or self-care (01) ==
LOC: LAB 07:48
PROVIDERS: PCP Internal Medicine Adolescent Medicine; Visit Provider Nurse Practitioner Family
DX: I11.0 Hypertensive heart disease with heart failure (principal); I50.20 Unspecified systolic (congestive) heart failure; I21.4 Non-ST elevation (NSTEMI) myocardial infarction; I25.10 Atherosclerotic heart disease of native coronary artery without angina pectoris; R94.30 Abnormal result of cardiovascular function study, unspecified; I42.8 Other cardiomyopathies
CPT/HCPCS: 36415; 80048

== ENCOUNTER 2025-05-22 10:26 | Outpatient (CLI) | payer MEDICARE, SELFPAY ==
--- NOTE | 2025-05-22 10:30 | MR_ITS ---
APPROVED REPORT Lead Infrastructure Architect: CLINICAL INDICATION Cardiomyopathy evaluation TECHNIQUE Image Acquisition: Cardiac magnetic resonance (CMR) was performed on Siemens Espree MRI 1.5T scanner. Software platform sequences were performed using the Siemens e2e Materials MR B19 platform. A set of three-plane, low-resolution, large yvper-xw-mvmh localizers were initially acquired. Then axial, coronal, sagittal TrueFISP, as well as axial HASTE images, were obtained. These were followed by gated TrueFISP breathold cinematic sequences obtained in the short axis with 8 mm slices and 2 mm gaps, 2-chamber (vertical long axis), 3-chamber, 4-chamber (horizontal long axis). A bolus of contrast was injected intravenously with first-pass sequences obtained in the short axis and four-chamber planes. After approximately 10 minutes, a TI chiropractor sole practitioner sequence was performed to determine the optimal TI time. Using the optimized TI time, delayed contrast enhancement segmented inversion???recovery TurboFLASH sequences were obtained in the short axis, 2-chamber, 3-chamber, and 4-chamber projections. 2D-velocity phase mapping was performed. Functional parameters were calculated by offline analysis on an independent workstation (Hexaformer Imaging Platform, Inogen). Contrast: ProHance??? (Gadoteridol) FINDINGS MORPHOLOGY AND FUNCTION Left ventricle: The left ventricle is normal in size. The indexed left ventricular end-diastolic volume (LVEDVi) is 57 ml/m2 (reference range 57-105 ml/m2 in males, 56-96 ml/m2 in females). Moderate reduction in left ventricular systolic function is present. The septum is asynchronous. There is normal left ventricular wall thickness. There are no regional wall motion abnormalities noted. LVEF is calculated at 38.6% (reference range 57-77%). Right ventricle: The right ventricle is normal in size. The indexed right ventricular end-diastolic volume (RVEDVi) is 60 ml/m2 (reference range 61-121 ml/m2 in males, 48-112 ml/m2 in females). Normal right ventricular systolic function is present. RVEF is calculated at 53.0% (reference range 52-72% in males, 51-71% in females). Atria: The left atrium is normal in size. The maximum indexed left atrial volume is 30 ml/m2 (reference range 26-52 ml/m2 in males, 27-53 ml/m2 in females). The right atrium is normal in size. The maximum indexed right atrial volume is 21 ml/m2 (reference range 18-90 ml/m2). Aorta: The diameter of the aortic annulus is normal, measuring 26 mm (coronal view reference range 21-30 mm in males, 19-27 mm in females). The diameter of the aortic sinus is normal, measuring 42 mm (coronal view reference range 25-42 mm in males, 24-36 mm in females). The diameter of the sinotubular junction is normal, measuring 30 mm (coronal view reference range 18-32 mm in males, 18-28 mm in females). The diameters of the ascending and descending thoracic aorta are normal. Main pulmonary artery: The main pulmonary artery diameter is normal. Pericardium: The pericardial thickness is normal. The pericardial thickness measures 1.5 mm (normal < 4.0 mm). There is no pericardial effusion. VALVES The valvular morphologies in the visualized sequences appear normal. There is no significant valvular stenosis or regurgitation of the mitral, aortic, tricuspid, or pulmonic valve noted visually. Systolic anterior motion of the mitral valve is not visualized. Ratio of pulmonary to systemic flow, Qp:Qs ratio = 0.9 (normal < or = 1.2, hemodynamically significant shunt > 1.5), demonstrating no evidence of hemodynamically significant shunt. TISSUE CHARACTERIZATION Resting Perfusion: Normal myocardial blood flow at rest. No evidence of resting hypoperfusion. Myocardial Fibrosis and/or edema: Normal gadolinium kinetics are present. No evidence of late gadolinium enhancement is noted, consistent with absence of myocardial scarring, infarction, or necrosis. T2-weighted imaging demonstrates no evidence of myocardial edema or inflammation. OTHER Left lower lobe consolidation with presence of large left-sided pleural effusion. Hyperexpanded right lung. IMPRESSION Normal LV size with moderate reduction in LV systolic function. LVEDVi= 57 ml/m2 and LVEF= 38.6%. Asynchronous septum. Normal RV size with normal RV systolic function. RVEDVi= 60 ml/m2 and RVEF= 53.0%. No atrial enlargement. No CMR evidence of myocardial scarring, infarction, or necrosis. No evidence of myocardial edema or inflammation. Perfusion analysis demonstrates normal blood flow at rest with no evidence of resting hypoperfusion. Ratio of pulmonary to systemic flow, Qp:Qs ratio = 0.9 (normal < or = 1.2, hemodynamically significant shunt > 1.5), demonstrating no evidence of hemodynamically significant shunt. Left lower lobe consolidation with presence of large left-sided pleural effusion. Hyperexpanded right lung. Correlation with recent or new CT chest is suggested. Overall, this CMR demonstrates presence of non-ischemic LV cardiomyopathy with moderate reduction in LV systolic function (LVEF 38.6%). The absence of late gadolinium enhancement (LGE) suggests absence of myocardial fibrosis, scarring, or prior infarct. There is no evidence of restrictive or infiltrative cardiomyopathy. Clinical correlation of the pulmonary findings is recommended. COMPARISON None CRITICAL RESULT None COMMUNICATION The above findings were relayed to the patient at the time of the routine outpatient cardiology follow-up visit, prior to dictation of this report. The findings of this cardiac MR were reviewed, reported, and signed by Sanjiv Jeff MD (Electronics Production Supervisor). Conclusion Electronically signed by : Danna Jeff MD 05/29/2025 00:52:22
--- OUTSIDE RECORDS SUMMARY | 2025-05-22 10:31 | XMS_ITS | Clinical Summary ---
[facility] Address [address] [place] [address] Care Team Providers Care Cardiothoracic Icu Rn Name Role Phone Cayden Munoz MD Primary Care Provider + [phone] Allergies Active Allergy Reactions Criticality Noted Date [...] Payer (Ef fective 2007-Present) Name:Ross Mack Member ID:[id number] Relation to Subscriber:Self Name:Ross Mack Subscriber ID:[id number] Payer ID:[id number] Group ID:Not on file Type:Not on file Address: [address] [employer] Member Subscriber Plan / Payer (Ef fective 2016-Present) Name:Ross Mack Relation to Subscriber:Self Name:Ross Mack Payer ID:[id number] Group ID:Not on file Type:MEDICARE SUPPLEMENT Address: [facility] [address] [place] [id number] Care Teams Cardiothoracic Icu Rn Relationship Specialty Start Date End Date Cayden Munoz MD [address] [facility] [address] [place] [address] PCP - General Adolescent Medicine 04/08/17
--- OUTSIDE RECORDS SUMMARY | 2025-05-22 10:32 | XMS_ITS | Referral Summary ---
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
--- OUTSIDE RECORDS SUMMARY | 2025-05-22 10:32 | XMS_ITS | Clinical Summary ---
Author Organization [facility] Address [address] [facility] [address] [place] [address] Phone Care Team Providers Care Transfusion Nurse Name Role Phone Unavailable Unavailable Conditions or Problems No information available. Medications No information available. Medications Administered No information available. Allergies, Adverse Reactions, Alerts No information available. Results No information available. Plan of Care No information available. Procedures No information available. Vital Signs No information available. Immunizations No information available. Advance Directives No information available.
--- OUTSIDE RECORDS SUMMARY | 2025-05-22 10:32 | XMS_ITS | Clinical Summary ---
Author Organization Healthcare Address [address] [place] [id number] Care Team Providers Care Director Of Digital Platforms Name Role Phone Cayden Munoz MD Primary Care Provider [phone] Family History Medical History Relation Name Comments [...] or (1 - 1-dose 75+ series) 2017 [id number] Vaccine ( season) 2024 11/06/2021, 05/27/2021, 12/03/2020, [...] age to complete this topic Care Teams Director Of Digital Platforms Relationship Specialty Start Date End Date Cayden Munoz MD [address] [place] [address] PCP - General 02/06/21
--- OUTSIDE RECORDS SUMMARY | 2025-05-22 10:32 | XMS_ITS | Clinical Summary ---
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
== END 2025-05-22 23:59 | disposition home or self-care (01) ==
LOC: RAD 10:26
PROVIDERS: PCP Internal Medicine Adolescent Medicine; Visit Provider Nurse Practitioner Family
DX: I42.8 Other cardiomyopathies (principal); J90 Pleural effusion, not elsewhere classified; J98.4 Other disorders of lung; I21.4 Non-ST elevation (NSTEMI) myocardial infarction; I11.0 Hypertensive heart disease with heart failure; I50.20 Unspecified systolic (congestive) heart failure; R94.30 Abnormal result of cardiovascular function study, unspecified; R93.1 Abnormal findings on diagnostic imaging of heart and coronary circulation
CPT/HCPCS: 75561

== ENCOUNTER 2025-07-01 13:00 | Outpatient (CLI) | payer MEDICARE, SELFPAY ==
--- OUTSIDE RECORDS SUMMARY | 2025-07-01 13:03 | XMS_ITS | Clinical Summary ---
[facility] Address [address] [place] [address] Care Team Providers Care Ship Scaler Name Role Phone Cayden Munoz MD Primary Care Provider + [phone] Allergies Active Allergy Reactions Criticality Noted Date [...] Adults (1 - 1-dose 75+ series) 8 INFLUENZA VACCINE 04/26/2025 COVID-19 Vaccine (1 - 2023- season) 2025 Insurance MEDICARE A & B Member Subscriber Plan / Payer (Ef fective 2007-Present) Name:Ross Mack Member ID:[id number] Relation to Subscriber:Self Name:Ross Mack Subscriber ID:[id number] Payer ID:[id number] Group ID:Not on file Type:Not on file Address: [address] [employer] Care Teams Ship Scaler Relationship Specialty Start Date End Date Cayden Munoz MD [address] [facility] [address] [place] [address] PCP - General Adolescent Medicine 04/08/17
--- OUTSIDE RECORDS SUMMARY | 2025-07-01 13:03 | XMS_ITS | Encounter Summary ---
Author Organization Healthcare Address [address] [place] [address] Care Team Providers Care Commercial Census Taker Name Role Phone Cayden Munoz MD Primary Care Provider [phone] Encounter Details Date Type Department Care Team (Late st Contact Info) Description 05/22/2025 Orders Only External Location [address] [place] [address] Anne Marie Olivas APRN [address] [facility] [address] [place] [id number] Social History Tobacco Use Types Packs/Day Years Used Date Smoking Tobacco: Former Alcohol Use Standard Drinks/Week Comments Yes 0 (1 standard drink = 0.6 oz pure alcohol) Alcoholic Drinks/day: Alcohol drinking problem Sex and Gender Information Value Date Recorded Sex Assigned at Not on file Legal Sex Male 6:53 PM EDT Gender Identity Not on file Sexual Orientation Not on file documented as of this encounter Plan of Treatment Not on file documented as of this encounter Procedures Procedure Name Priority Date/Time Associated Diagnosis Comments MR ABDOMEN OUTSIDE IMAGES 05/22/2025 10:31 AM EDT documented in this encounter Results * MR ABDOMEN OUTSIDE IMAGES (05/22/2025 10:31 AM EDT) Anatomical Region Laterality Modality Magnetic Resonan ce 05/22/2025 10:3 1 AM EDT us Anne Marie Olivas BEHAVIORAL INTERVENTIONIST IMG MRI PROCEDURES Final Res ult documented in this encounter Visit Diagnoses Not on filedocumented in this encounter Care Teams Commercial Census Taker Relationship Specialty Start Date End Date Cayden Munoz MD [address] [place] [address] PCP - General 02/06/21 documented as of this encounter
--- OUTSIDE RECORDS SUMMARY | 2025-07-01 13:03 | XMS_ITS | Clinical Summary ---
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 Gender Identity Not on file Sexual Orientation [...] series) 2017 Medicare Initial AWV [id number] 03/27/2024 Shingles Vaccine (Zoster) (2 of 2) 07/12/20242023 Falls Risk Screening 09/26/2024 COVID-19 VACCINE (5 - 2024-2 6 season) 2025 11/06/2021, 05/27/2021, 12/03/2020, Additional history exists Influenza Vaccine (#1) 2025 Tobacco Cessation Counseling and Screening (12+) 10/08/2025 10/08/2024 Pneumococcal 50+ years Completed , 06/29/2019, 05/22/2018, Additional history exists Insurance [address] [place] [address] [facility] SUPP [employer] MEDICARE PPO Advance Directives For more information, please contact: [phone] * Full Code (Latest Code Status on File) Date Activated Date Inactivated Comments 08/21/2024 4:40 PM 08/29/2024 7:24 PM Care Teams Knit Goods Cutter Hand Relationship Specialty Start Date End Date Cayden Munoz MD [address] [place] [address] PCP - General Adolescent Medicine 08/28/24
--- OUTSIDE RECORDS SUMMARY | 2025-07-01 13:03 | XMS_ITS | Clinical Summary ---
Author Organization [facility] Address [address] [facility] [address] [place] [address] Phone Care Team Providers Care Operations Research Group Manager Name Role Phone Unavailable Unavailable Conditions or Problems No information available. Medications No information available. Medications Administered No information available. Allergies, Adverse Reactions, Alerts No information available. Results No information available. Plan of Care No information available. Procedures No information available. Vital Signs No information available. Immunizations No information available. Advance Directives No information available.
--- OUTSIDE RECORDS SUMMARY | 2025-07-01 13:03 | XMS_ITS | Clinical Summary ---
Author Organization [facility] Address [address] [place] [address] Care Team Providers Care Plywood Layup Line Back Feeder Name Role Phone Cayden Munoz MD Primary Care Provider [phone] Encounters Date Type Department Care Team Description 05/22/2025 Orders Only External Location [address] [place] [address] Anne Marie Olivas APRN from Last 3 Months Family History Medical History Relation Name Comments [...] Date Last Done Comments [facility]-Depression Screening 1942 [facility]-Infant/Child/Adol SDOH Screenings 1942 [facility]- SDOH Screenings 1960 [facility]-Adult SDOH Screenings 1960 [facility]-DTaP,Tdap,and Td Vaccines (1 - Tdap) 1961 [facility]-Zoster Vaccines (1 of 2) 1992 [facility]-RSV Vaccine: 60+ Years or (1 - 1-dose 75+ series) 2017 [id number] Vaccine (5 - season) 2025 11/06/2021, 05/27/2021, 12/03/2020, Additional history exists [facility]-Influenza [...] on patient's age to complete this topic Procedures Procedure Name Priority Date/Time Associated Diagnosis Comments MR ABDOMEN OUTSIDE IMAGES 05/22/2025 10:31 AM EDT from Last 3 Months Results * MR ABDOMEN OUTSIDE IMAGES (05/22/2025 10:31 AM EDT) Anatomical Region Laterality Modality Magnetic Resonan ce 05/22/2025 10:3 1 AM EDT us Anne Marie Olivas MOLD ENGRAVER IMG MRI PROCEDURES Final Res ult from Last 3 Months Care Teams Plywood Layup Line Back Feeder Relationship Specialty Start Date End Date Cayden Munoz MD [address] [place] [address] PCP - General 02/06/21
--- OUTSIDE RECORDS SUMMARY | 2025-07-01 13:03 | XMS_ITS | Referral Summary ---
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
--- NOTE | 2025-07-01 13:13 | XR_ITS ---
FINAL REPORT CLINICAL HISTORY: SOA COMPARISON: 03/15/2025 FINDINGS: 2 views of the chest were obtained . The heart is normal in size. The mediastinum is within normal limits. No change in left lower lobe opacity or left pleural effusion. Findings could represent chronic atelectasis or pneumonia. Central obstructing lesion not excluded. There is no pneumothorax. Osseous structures are unremarkable. IMPRESSION: No change in left lower lobe opacity or left pleural effusion which could represent chronic atelectasis or pneumonia. Central obstructing lesion not excluded. Reviewed, Interpreted and Dictated by Doris Schofield MD Transcribed by Brittany James Authenticated and [facility]
[2025-07-01 13:17] LABS: Hematocrit 43.6 % (42.0-52.0); Hemoglobin 12.9 g/dL (14.1-18.0); Immature Granulocytes % 0.2 %; Mean Corpuscular HGB Conc 29.6 g/dL (31.8-35.4); Mean Corpuscular Hemoglobin 26.9 pg (27.0-31.2); Mean Corpuscular Volume 91.0 fl (80-94); Nucleated Red Blood Cells % 0 %; Platelet Count 269 K/mm3 (142-424); Red Blood Count 4.79 M/mm3 (4.60-6.20); Red Cell Distribution Width-SD 51.6 fL; White Blood Count 8.3 K/mm3 (4.8-10.8)
[2025-07-01 15:41] LABS: Alanine Aminotransferase 14 U/L (12-78); Albumin Level 4.0 g/dl (3.5-5.0); Albumin/Globulin Ratio 1.3 (1.1-1.8); Alkaline Phosphatase 164 U/L (38-126); Aspartate Amino Transferase 24 U/L (17-59); Bilirubin,Total 0.9 mg/dl (0.2-1.3); Blood Urea Nitrogen 22 mg/dl (9-20); Calcium 9.3 mg/dl (8.4-10.2); Carbon Dioxide 26 mmol/L (22.0-30.0); Creatinine,Serum 1.60 mg/dl (0.66-1.25); Estimated Glomerular Filt Rate 42 ml/min (>60); GFR (African American) 50 ML/MIN (>60); Globulin 3.1 g/dL (1.3-3.2); Glucose 95 mg/dl (74-100); Potassium 5.2 mmoL/L (3.5-5.1); Sodium 136 mmol/L (136-145); Total Protein,Serum 7.1 g/dl (6.3-8.2)
[2025-07-01 16:01] LABS: NT Pro Brain Natriuretic Pep. 390 pg/mL (0-450); Troponin I < 0.01 ng/ml (0.00-0.034)
[2025-07-01 16:04] LABS: Anion Gap 16.2 mEq/L (5-15); Chloride 99 mmol/L (98-107)
== END 2025-07-01 23:59 | disposition home or self-care (01) ==
LOC: LAB 13:01
PROVIDERS: PCP Internal Medicine Adolescent Medicine; Visit Provider Nurse Practitioner Family
DX: J90 Pleural effusion, not elsewhere classified (principal); R91.8 Other nonspecific abnormal finding of lung field
CPT/HCPCS: 36415; 71046; 80053; 83880; 84484; 85025

== ENCOUNTER 2025-07-04 11:14 | Outpatient (CLI) | payer MEDICARE, SELFPAY | END 2025-07-04 23:59 | disposition home or self-care (01) | LOC: LAB 11:15 | PROVIDERS: PCP Internal Medicine Adolescent Medicine; Visit Provider Internal Medicine Pulmonary Disease | DX: J44.1 Chronic obstructive pulmonary disease with (acute) exacerbation (principal) | CPT/HCPCS: 87070; 87205 ==

== ENCOUNTER 2025-08-15 10:58 | Outpatient (CLI) | payer MEDICARE, SELFPAY ==
[2025-08-15] MEDS: IPRATROPIUM/ALBUTEROL 3 ML NEB IH (11:46)
--- OUTSIDE RECORDS SUMMARY | 2025-08-15 12:16 | XMS_ITS | Clinical Summary ---
[facility] Address [address] [place] [address] Care Team Providers Care Manager Talent Name Role Phone Cayden Munoz MD Primary Care Provider + [phone] Allergies Active Allergy Reactions Criticality Noted Date [...] Payer (Ef fective 2007-Present) Name:Ross Mack Member ID:[id number] Relation to Subscriber:Self Name:Ross Mack Subscriber ID:[id number] Payer ID:[id number] Group ID:Not on file Type:Not on file Address: [address] [employer] Care Teams Manager Talent Relationship Specialty Start Date End Date Cayden Munoz MD [address] [facility] [address] [place] [address] PCP - General Adolescent Medicine 04/08/17
--- OUTSIDE RECORDS SUMMARY | 2025-08-15 12:16 | XMS_ITS | Clinical Summary ---
Author Organization [facility] Address [address] [facility] [address] [place] [address] Phone Care Team Providers Care Hot Stick Worker Name Role Phone Unavailable Unavailable Conditions or Problems No information available. Medications No information available. Medications Administered No information available. Allergies, Adverse Reactions, Alerts No information available. Results No information available. Plan of Care No information available. Procedures No information available. Vital Signs No information available. Immunizations No information available. Advance Directives No information available.
--- OUTSIDE RECORDS SUMMARY | 2025-08-15 12:16 | XMS_ITS | Encounter Summary ---
Author Organization Healthcare Address [address] [place] [address] Care Team Providers Care Track Greaser Name Role Phone Cayden Munzo MD Primary Care Provider [phone] Encounter Details Date Type Department Care Team (Late st Contact Info) Description 05/22/2025 Orders Only External Location [address] [place] [address] Anne Marie Olivas APRN [address] [facility] [address] [place] [id number] Social History Tobacco Use Types Packs/Day Years [...] 1 AM EDT us Anne Marie Olivas SUBSTATION DESIGN DRAFTSPERSON IMG MRI PROCEDURES Final Res ult documented in this encounter Visit Diagnoses Not on filedocumented in this encounter Care Teams Track Greaser Relationship Specialty Start Date End Date Cayden Munoz MD [address] [place] [address] PCP - General 02/06/21 documented as of this encounter
--- OUTSIDE RECORDS SUMMARY | 2025-08-15 12:17 | XMS_ITS | Referral Summary ---
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
--- OUTSIDE RECORDS SUMMARY | 2025-08-15 12:17 | XMS_ITS | Clinical Summary ---
Author Organization [facility] Address [address] [place] [address] Care Team Providers Care Veterinary Hospital Attendant Name Role Phone Cayden Munoz MD Primary Care Provider [phone] Encounters Date Type Department Care Team Description 05/22/2025 Orders Only External Location [address] [place] [address] Anne Marie Olivas APRN from Last 3 [...] or (1 - 1-dose 75+ series) 2017 [id number] Vaccine (5 - season) 2025 11/06/2021, 05/27/2021, [...] 1 AM EDT us Anne Marie Olivas GAS CONTROLLER IMG MRI PROCEDURES Final Res ult from Last 3 Months Care Teams Veterinary Hospital Attendant Relationship Specialty Start Date End Date Cayden Munoz MD [address] [place] [address] PCP - General 02/06/21
--- OUTSIDE RECORDS SUMMARY | 2025-08-15 12:17 | XMS_ITS | Clinical Summary ---
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
--- NOTE | 2025-08-15 13:00 | CT_ITS ---
FINAL REPORT TECHNIQUE: Axial images were obtained through the chest without contrast. Coronal and sagittal images were obtained and reviewed. This study was performed with techniques to keep radiation doses as low as reasonably achievable, (ALARA). Individualized dose reduction techniques using automated exposure control or adjustment of mA and/or kV according to the patient's size were employed. CLINICAL HISTORY: nodule COMPARISON: 03/05/2025 FINDINGS: The heart size is normal. There is no pericardial or pleural effusion. There is progressive volume loss in the left hemithorax. Shift of the mediastinal structures to the left is noted. There is a dense consolidation of the left lung base. Complex fluid collection is seen in the inferior left hemithorax. There is minimal portion of aerated lung at the left lung apex. The right lung is hyperaerated. Minimal airspace focus in the right lung base is probably inflammatory. Limited images of the upper abdomen are unremarkable. IMPRESSION: Significant progressive volume loss in the left hemithorax with shift of the mediastinal structures to the left. Can not exclude bronchial occlusion due to mucous plugging or tumor. Bronchoscopy is highly recommended. Reviewed, Interpreted and Dictated by Santos Espinosa MD Transcribed by Alyssa Finley Authenticated and [facility]
== END 2025-08-15 23:59 | disposition home or self-care (01) ==
LOC: RT 10:59
PROVIDERS: PCP Internal Medicine Adolescent Medicine; Visit Provider Internal Medicine Pulmonary Disease
DX: J44.9 Chronic obstructive pulmonary disease, unspecified (principal); J98.4 Other disorders of lung; R91.1 Solitary pulmonary nodule; R94.2 Abnormal results of pulmonary function studies
CPT/HCPCS: 71250; 94060; 94618; 94726; 94729

== ENCOUNTER 2025-09-04 10:16 | Outpatient (CLI) | payer MEDICARE, SELFPAY ==
[2025-09-04 08:23] VITALS: BMI 23.4
[2025-09-04 11:15] LABS: Hematocrit 41.2 % (42.0-52.0); Hemoglobin 12.4 g/dL (14.1-18.0); Immature Granulocytes % 0.5 %; Mean Corpuscular HGB Conc 30.1 g/dL (31.8-35.4); Mean Corpuscular Hemoglobin 27.9 pg (27.0-31.2); Mean Corpuscular Volume 92.8 fl (80-94); Nucleated Red Blood Cells % 0 %; Platelet Count 240 K/mm3 (142-424); Red Blood Count 4.44 M/mm3 (4.60-6.20); Red Cell Distribution Width-SD 50.2 fL; White Blood Count 6.7 K/mm3 (4.8-10.8)
[2025-09-04 11:36] LABS: Anion Gap 12.1 mEq/L (5-15); Blood Urea Nitrogen 24 mg/dl (9-20); Calcium 8.8 mg/dl (8.4-10.2); Carbon Dioxide 25 mmol/L (22.0-30.0); Chloride 107 mmol/L (98-107); Creatinine Clearance Estimated 33 mL/min (50-200); Creatinine,Serum 1.70 mg/dl (0.66-1.25); Estimated Glomerular Filt Rate 39 ml/min (>60); GFR (African American) 47 ML/MIN (>60); Glucose 93 mg/dl (74-100); Potassium 5.1 mmoL/L (3.5-5.1); Sodium 139 mmol/L (136-145)
== END 2025-09-04 23:59 | disposition home or self-care (01) ==
LOC: PREOP 10:17
PROVIDERS: PCP Internal Medicine Adolescent Medicine; Visit Provider Internal Medicine Pulmonary Disease
DX: Z01.812 Encounter for preprocedural laboratory examination (principal)
CPT/HCPCS: 80048; 85025

== ENCOUNTER 2025-09-13 06:07 | Day surgery (SDC) | payer MEDICARE, SELFPAY ==
[2025-09-04 13:48] VITALS: BMI 21.1
[2025-09-13] VITALS (11 sets, daily range): BP systolic 119–162; BP diastolic 56–68; PULSE 63–75; RESP 16–18; TEMP 3.3–38; O2SAT 92–99; BMI 21.1
[2025-09-13] MEDS: LACTATED RINGERS 1000ML 1,000 ML 25 ML IV (06:53)
--- NOTE | 2025-09-13 07:21 | P.PNANES_ITS ---
[facility] Disclaimer: The information contained in this section may have been updated after the patient was seen, as this information can be updated by other users. Medical History Mediastinal lymphadenopathy Shortness of breath Left lower lobe consolidation Pleural effusion Lung mass Smoking greater than 30 pack years Pulmonary emphysema Other forms of dyspnea Lung collapse Loculated pleural effusion Acute on chronic respiratory failure with hypoxia and hypercapnia On home O2 Smoker Alcohol abuse COPD (chronic obstructive pulmonary disease) Coronary artery disease Acute exacerbation of chronic obstructive airways disease Surgical History History of throat surgery History of hernia surgery History of cardiac cath History of thoracentesis Family History Other Family history of kidney disease Social History (Updated 09/13/25 @ 06:37 by Hanna Harrison RN) Smoking Status: Current every day smoker tobacco type: pipe second hand exposure: No alcohol intake: former substance use type: denies use current occupational status: retired Travel in the last 8 weeks?: None household members: other housing: house current occupational exposures/hazards: No caffeine: No Have you lived/traveled outside [place] in past 30 days?: No Contact w/someone who lives/traveled outside [place] past 30 days?: No Exposure to someone with infectious disease in past 14 days?: No Do you have a fever (greater than 100.4 F or 38 C)?: No Have you tested positive for COVID-19?: No Exposed to someone with COVID-19 in past 14 days?: No Do you have a sore throat?: No Do you have a cough?: No Do you have any weakness?: No Do you have any diarrhea?: No Are you experiencing any unusual bleeding?: No Do you have any muscle aches/pain?: No Do you have any abdominal pain?: No Are you experiencing loss of taste or smell?: No [facility] Anesthesia Checklist Patient Identification Patient Identification: Arm Band and Verbal (Name & ) Structural Data Admitted From: Home Planned Operative Procedure/s: ION Bronchoscopy Consent for Planned Operative Procedure(s) Verified: Yes Verified Documents: Surgical Consent NPO Status Verified Time NPO: 00:00 Chart Verification Results Verified: ECG Additional verifications Anesthesia Reactions: No Hx Blood Transfusions: No Blood Transfusion Reaction: No Airway Assessment Mallampati Score:: Class II C-Spine Mobility Assessed: Yes TMJ Mobility Assessed: Yes Dentition: Good Dentition (Some missing teeth top and bottom, otherwise intact dentition) Neurological Assessment Level of Consciousness: Awake, Alert and Appropriate Hx Seizures: No Numbness or tingling in extremities: No Anesthesia Plan Anesthesia Risk discussed: Yes Anesthesia Plan: Verified ASA Class: III Anesthesia Type: General
--- NOTE | 2025-09-13 09:55 | XR_ITS ---
FINAL REPORT CLINICAL HISTORY: BRONCH FINDINGS: FLUOROSCOPY Single spot film was obtained for bronchoscopy utilizing 94.7 mGy and 357 seconds. IMPRESSION: Bronchoscopy as above. Reviewed, Interpreted and Dictated by Santos Espinosa MD Transcribed by Stephanie Cornell Authenticated and [facility]
--- NOTE | 2025-09-13 10:53 | EXP.ANES.I ---
[facility] Anesthesia Record Part I Anesthesia Record I Intake, IV Amount: 1,000 Hydration: Adequate Estimated blood loss (mL): 0 Urine output (mL): 0 Blood Pressure: 136/65 SaO2: 94 Pulse Rate: 63 Airway Patency: Patent Respiratory Rate: 18 Temperature: 97 F Patient is:: Awake, Nasal O2 and Stable Stable to PACU at:: 10:58
--- NOTE | 2025-09-13 11:05 | ECG_ITS ---
APPROVED REPORT Exam: Resting ECG HR:67 bpm ECG Measurements Heart Rate 67 AXES AR 192 P -4 QRSd 153 QRS -10 QT 435 T 107 QTc 451 Conclusion SINUS RHYTHM LEFT BUNDLE BRANCH BLOCK [120+ ms QRS DURATION, 80+ ms Q/S IN V1/V2, 85+ ms R IN I/aVL/V5/V6] ABNORMAL ECG UNCONFIRMED REPORT Electronically signed by : Cayden Munoz MD 09/18/2025 08:39:38
--- NOTE | 2025-09-13 11:06 | EXP.BRONCH.N ---
Procedure: Date: 09/13/25 Patient Date of :: 1940 Procedure Performed:: Navigational bronchoscopy, airway examination, bronchoalveolar lavage, trans bronchial fine-needle aspiration, trans bronchial brushing and trans bronchial biopsy of lung nodule, endobronchial biopsy and endobronchial ultrasound-guided lymph node surveillance and fine-needle aspiration of lymph node. Indications:: Lung collapse. Abnormal PET CT scan Mediastinal lymphadenopathy Performing Provider:: Simeon Vicente MD Referring Provider:: Dr: Cayden Munoz MD Sedation:: General anesthesia Procedure:: Navigational bronchoscopy, airway examination, bronchoalveolar lavage, trans bronchial fine-needle aspiration, trans bronchial brushing and trans bronchial biopsy of lung nodule, endobronchial biopsy and endobronchial ultrasound-guided lymph node surveillance and fine-needle aspiration of lymph node. A clean diagnostic bronchoscopy was advanced to the ET tube and airway examination was performed. Copious amount of very thick tenacious sticky mucoid secretions noted completely filling the left lower mainstem, upper and lower lobe bronchi. Secretions appeared more gelatinous. Unable to suction with diagnostic bronchoscopy. Diagnostic bronchoscopy was retracted and therapeutic bronchoscopy was advanced and after significant difficulty was able to suction the noted thick tenacious secretions. The secretions appeared clear and gelatinous. Airways on the left lung appeared grossly friable and inflamed inflamed. Bronchomalacia noted with near complete collapse of the left mainstem bronchi during the procedure. The right mainstem and the segmentsl bronchi on right side appeared relatively normal. No bronchomalacia/collapse was noted on the right sided airways. Therepeautic bronchoscopy was retracted, and Robotic Ion bronchoscopy was introduced through the ET tube. Patient images were previously uploaded into the ION Plan point software. Total lesions weer lesions were marked within the likely atelectatic ling, One in the left upper lobe and the second on e in the left lower lobe. The target nodule sampling was planned, and the pathway was mapped. Following airway examination, airway registration was performed using shape sensing robot assisted bronchoscopy (SSRAB). We were 9 mm from the near edge of the marked lesion in the SRI . A Radial EBUS - [id number] was inserted to confirm the location which was tangential. Under fluoroscopy guidance the samples were taken. Sampling: A flexion 21 needle was used to perform FNA of the SRI marked lung lesion. A total of 6 passes were made. This was followed by passes with a needle brush, 1 pass was made. Transbronchial forceps biopsies were then performed with a total of 8 biopsies were performed in the SRI marked nodular lung lesion. Bronchoalveolar lavage was performed with instillation of 20 cc normal saline with return of 15 cc back. Samples from transbronchial FNA, brush, forceps biopsy and bronchoalveolar lavage were sent in CytoLyt for cytopathologic examination. After completing the specimen extraction for the left upper lobe marked nodular lung lesion the ION bronchoscopy was advanced to reach the previously marked left lower lobe lesion. Transbronchial forcep passes were performed from the concerning left lower lobe marked lung nodular lesion, a total of 6 biopsies were performed, 4 were sent in CytoLyt for cytologic pathological examination, the remaining two were sent in normal saline for cultures. Bronchoalveolar lavage was performed with instillation of 20 cc normal saline with return of 15 cc back. No FNA or brush samples were obtained from this lesion. Ion robotic bronchoscopy was retracted and diagnostic bronchoscopy was advanced and endobronchial biopsies were obtained at the abnormal left lower lobe bronchi. The resultant specimens were sent in formalin for cytopathologic examination. Diagnostic bronchoscopy was retracted and EBUS bronchoscope was introduced for lymph node surveillance. Five passes were taken using 21 gauge needing at lymph node stations 11L and station 7. Resultant lymph node FNA sample were labelled separately for each lymph node station and were sent in CytoLyt for cytopathologic examination. Findings:: Please see the procedure note Recommendations:: Postoperative bronchoscopy instructions Follow in pulmonary clinic in 5 to 7 days Mucomyst twice daily as needed Will initiate chest percussion therapy Incentive spirometry and flutter valve Complications:: No acute immediate complication Estimated blood obtained (mL): 5
--- NOTE | 2025-09-13 11:11 | XR_ITS ---
FINAL REPORT CLINICAL HISTORY: post bronchoscopy COMPARISON: 08/15/2025 mobile unit assistant image FINDINGS: The heart size is normal. There is volume loss in the left hemithorax with shift of the mediastinal structures to the left. Opacity at the left lung base likely represents pleural and parenchymal scarring. There are no pleural effusions. There is no pneumothorax. There is no osseous abnormality. IMPRESSION: Volume loss with pleural and parenchymal scarring at the left lung base. No pneumothorax post bronchoscopy. Reviewed, Interpreted and Dictated by Santos Espinosa MD Transcribed by Alyssa Finley Authenticated and . [facility]
--- NOTE | 2025-09-13 11:31 | SUR.PHASEI ---
1055- EKG performed by Audrey Hutchinson RN and NAOMIE Desouza. Notified Cong of results. NNO at this time. 1115- radiology at bedside to complete portable chest xray. 1125- Patient's VSS and has had no complaints of pain. wKame Balderas CRNA ok to send patient to post op, phase 2 but will have cardiology follow up with patient before discharge. 1126- Detailed report given to NAOMIE Armendariz at bedside. Patient VSS and no complaints of pain.
--- NOTE | 2025-09-13 13:13 | P.PNANES_ITS ---
[facility] Anesthesia Record Part II Anesthesia Record Part II Discharge Time: 11:18 Destination: Surgical Day Care (OP Surgery) PACU nurse assessment reviewed?: Yes Patient Condition:: Good Anesthesia Complications:: None Swallowing reflex intact?: Yes Airway Patency: Patent Cyanosis?: No Blood Pressure: 144/56 SaO2: 97 Respiratory Rate: 17 Pulse Rate: 70 Temperature: 97 F Mental Status: Alert & Oriented Pain level:: 0 Nausea and/or vomitting:: None Intake, IV Amount: 0 Hydration: Adequate Comments:: EKG complex changes intraoperatively. SOFTWARE WRITER discussed with Dr. Vicente and 2G Magnesium given. EKG in PACU shows LBBB. Pt asymptomatic with stable vital signs. Discussed case with [facility]. No new orders or interventions needed at this time.
== END 2025-09-13 12:10 | disposition home or self-care (01) ==
PROVIDERS: PCP Internal Medicine Adolescent Medicine; Visit Provider Internal Medicine Pulmonary Disease
PROC: (CPT 31624; principal; 2025-09-13 07:30)
DX: J44.1 Chronic obstructive pulmonary disease with (acute) exacerbation (principal); J90 Pleural effusion, not elsewhere classified; J43.9 Emphysema, unspecified; F17.210 Nicotine dependence, cigarettes, uncomplicated; J98.19 Other pulmonary collapse; Z79.82 Long term (current) use of aspirin; Z98.61 Coronary angioplasty status
CPT/HCPCS: 31624; 31627; 31628; 31629; 31632; 31645; 31652; 71045; 76000; 87070; 87101; 87116; 87186; 87205; 88112; 88173; 88305; 93005; J1100; J2003; J2371; J2704; J3010; J3475; J7120